=== PATIENT | male | born 1950 | race American Indian/Alaskan Native ===

== ENCOUNTER 2019-08-06 15:44 | Emergency (ER) | payer MEDICARE ==
[2019-08-06 15:55] VITALS: BP 139/78
--- NOTE | 2019-08-06 15:55 | Emergency Department Report ---
Minor Respiratory - HPI Chief Complaint: Upper Respiratory Infection Stated Complaint: COUGH Time Seen by Provider: 08/06/19 15:54 Pain Location: Chest Severity: moderate Minor Respiratory: Yes Able to Tolerate Fluids, Yes Cough, No Rhinorrhea, No Sore Throat, No Ear Pain, No Sick Contacts, No Hemoptysis, No Chest Pain, No Shortness of Breath, No Fever Other History: 69 YO MALE COMES TO ER WITH 1 M HX OF COUGH. POS SPUTUM. YELLOW COLOR. NO FEVER OR CHILLS. AMBULATORY AND NON TOXIC ON EXAM. NO CP. NO SWELLING OF LEGS. SAW PCP WHO GAVE HIM MED REFILLS AND DID A COVID TEST WHEICH WAS NEGATIVE. ED Review of Systems ROS: Stated complaint: COUGH Other details as noted in HPI Comment: All other systems reviewed and negative ED Past Medical Hx - Past Medical History Previous Medical History?: Yes Hx Hypertension: Yes Hx CVA: No Hx Heart Attack/AMI: No Hx Congestive Heart Failure: No Hx Diabetes: Yes - Surgical History Past Surgical History?: Yes Additional Surgical History: TONSILLECTOMY - Family History Family history: no significant - Social History Smoking Status: Never Smoker Substance Use Type: Alcohol (rarely) - Medications Home Medications: Home Medications Medication Instructions Recorded Confirmed Last Taken Type Aspirin EC [Ecotrin] 325 mg PO QDAY #30 tablet 07/29/14 06/25/15 Unknown Rx Simvastatin (Nf) [Zocor TAB] 20 mg PO QHS #30 tablet 07/29/14 06/25/15 Unknown Rx Metoprolol [Lopressor TAB] 25 mg PO BID #60 tablet 06/25/15 Unknown Rx lisinopriL [Zestril TAB] 5 mg PO QDAY #30 tablet 06/25/15 Unknown Rx Azithromycin [Zithromax Z-NAYAN] 250 mg PO DAILY #6 tablet 08/06/19 Unknown Rx Benzonatate [Tessalon Perles] 100 mg PO Q12H PRN #20 capsule 08/06/19 Unknown Rx Cetirizine HCl [ZyrTEC] 10 mg PO DAILY #30 capsule 08/06/19 Unknown Rx Fluticasone [Flonase] 1 spray NS QDAY #1 bottle 08/06/19 Unknown Rx Minor Respiratory Exam - Exam General: Vital signs noted. No distress. Alert and acting appropriately. HEENT: Yes Moist Mucous Membranes, No Pharyngeal Erythema, No Pharyngeal Exudates, No Rhinorrhea, No Conjuctival Injection, No Frontal Tenderness, No Maxillary Tenderness Ear: Neither TM Bulge, Neither TM Erythema, Neither EAC Pain, Neither EAC Discharge Neck: Yes Supple, No Adenopathy Lungs: Yes Good Air Exchange, Yes Wheezes, No Ronchi, No Stridor, No Cough, No Labored Respirations, No Retractions, No Use of Accessory Muscles, No Other Abnormal Lung Sounds Heart: Yes Regular, No Murmur Abdomen: Yes Normal Bowel Sounds, No Tenderness, No Peritoneal Signs Skin: No Rash, No Edema Neurologic: Alert and oriented, no deficits. Musculoskeletal: Unremarkable. 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 pt verbalizes understanding - Differential Diagnosis RO PNA/ CHF Critical care attestation.: If time is entered above; I have spent that time in minutes in the direct care of this critically ill patient, excluding procedure time. ED Disposition Clinical Impression: Cough, Upper respiratory infection Disposition: DC-01 TO HOME OR SELFCARE Is pt being admited?: No Does the pt Need Aspirin: No Condition: Stable Instructions: Upper Respiratory Infection (ED) Additional Instructions: CONTINUE HOME MEDS TAKE MEDS GIVEN TO YOU TODAY AFTER THESE MEDS ARE COMPLETED I NEED YOU TO FOLLOW UP WITH PCP TO MAKE SURE YOU ARE BETTER IF NOT, THEY WILL NEED TO DO ADDITIONAL TESTS DIABETIC DIET MONITOR BLOOD SUGAR- IT MAY BE HIGH GIVEN ILLNESS GOOD HANDWASHING STAY WELL HYDRATED Prescriptions: Fluticasone [Flonase] 1 spray NS QDAY #1 bottle Benzonatate [Tessalon Perles] 100 mg PO Q12H PRN #20 capsule PRN Reason: Cough Azithromycin [Zithromax Z-NAYAN] 250 mg PO DAILY #6 tablet Cetirizine HCl [ZyrTEC] 10 mg PO DAILY #30 capsule Referrals: RUPESH VELAZQUEZ MD [Staff Physician] - 3-5 Days Time of Disposition: 16:14
[2019-08-06] MEDS ORDERED: ALBUTEROL 2.5 MG/3 ML NEBU IH ONE (16:12)
[2019-08-06] MEDS ORDERED: predniSONE 20 MG TAB PO ONE (16:14)
--- NOTE | 2019-08-06 16:19 | XRay Report ---
CHEST 2 VIEWS INDICATION: MAIN: COUGH; pt presents for green/white productive cough x1 month. denies any fever, or chills. denies any dyspnea, or chest pain; said was tested for covid_19 and results were negative x 1 day. COMPARISON: 06/25/2015 FINDINGS: Support devices: None. Heart: Within normal limits. Lungs/pleura: No acute air space or interstitial disease. No pneumothorax. Additional findings: None. IMPRESSION: No acute findings. Signer Name: Patrick Álvarez Jr, MD Signed: 08/06/2019 4:15 PM Workstation Name: [id number]
== END 2019-08-06 17:24 | disposition home or self-care (01) ==
LOC: ED 15:44
DX: J06.9 Acute upper respiratory infection, unspecified (principal); R05 Cough; I10 Essential (primary) hypertension; E11.9 Type 2 diabetes mellitus without complications; Z90.49 Acquired absence of other specified parts of digestive tract; Z79.899 Other long term (current) drug therapy
CPT/HCPCS: 71046; 94640; 99283; J7512

== ENCOUNTER 2020-05-07 19:12 | Emergency (ER) | payer MEDICARE ==
[2020-05-07 19:31] VITALS: BP 159/83
[2020-05-07 20:29] LABS: Basophils % (Auto) 0.7 % (0.0-1.8); Eosinophils # (Auto) 0.2 K/mm3 (0.0-0.4); Eosinophils % (Auto) 2.3 % (0.0-4.3); Hematocrit 40.9 % (35.5-45.6); Hemoglobin 13.7 gm/dl (11.8-15.2); Lymphocytes # (Auto) 1.5 K/mm3 (1.2-5.4); Lymphocytes % (Auto) 20.6 % (13.4-35.0); Mean Corpuscular HGB Conc 34 % (32-34); Mean Corpuscular Volume 94 fl (84-94); Monocytes # (Auto) 0.6 K/mm3 (0.0-0.8); Monocytes % (Auto) 7.9 % (0.0-7.3); Platelet Count 240 K/mm3 (140-440); Red Blood Count 4.34 M/mm3 (3.65-5.03); Red Cell Distribution Width 13.2 % (13.2-15.2)
--- NOTE | 2020-05-07 20:37 | XRay Report ---
CHEST 1 VIEW INDICATION / CLINICAL INFORMATION: Altered Mental Status. FINDINGS: SUPPORT DEVICES: None. HEART / MEDIASTINUM: No significant abnormality. LUNGS / PLEURA: No significant pulmonary or pleural abnormality. No pneumothorax. ADDITIONAL FINDINGS: No significant additional findings. IMPRESSION: 1. No acute findings. Signer Name: Adonis Baer MD Signed: 05/07/2020 8:32 PM Workstation Name: [id number]
[2020-05-07 20:39] LABS: INR 0.95 (0.87-1.13)
[2020-05-07 20:40] LABS: Partial Thromboplastin Time 26.7 Sec. (24.2-36.6)
[2020-05-07 20:53] LABS: Alanine Aminotransferase 14 units/L (7-56); Albumin 4.1 g/dL (3.9-5); BUN/Creatinine Ratio 13; Blood Urea Nitrogen 13 mg/dL (9-20); Hemolysis Index 6
--- NOTE | 2020-05-07 21:28 | Cat Scan Report ---
CT BRAIN: 05/07/2020 INDICATION / CLINICAL INFORMATION: Altered Mental Status. COMPARISON: None available. FINDINGS: BRAIN/INTRACRANIAL STRUCTURES: Unenhanced CT images of the brain demonstrate no evidence of acute int racranial abnormality. Ventricles and sulci are prominent in size, consistent with prominent diffuse cerebral atrophy. There is no evidence of acute ischemic injury, hemorrhage, or mass. There are no abnormal extra-axial fluid collections. Atherosclerotic vascular calcifications are present in the distal internal carotid arteries and verte bral arteries. EXTRACRANIAL STRUCTURES: Unremarkable. IMPRESSION: No acute abnormality. Prominent diffuse cerebral atrophy and chronic age-related change. All CT scans at this location are performed using dose reduction to ALARA by means of automated expos ure control. Signer Name: Richie rGeen MD Signed: 05/07/2020 9:24 PM Workstation Name: [id number]
--- NOTE | 2020-05-07 22:01 | Emergency Department Report ---
ED General Adult HPI - General Chief complaint: Altered Mental Status Stated complaint: AMS Time Seen by Provider: 05/07/20 19:34 Source: patient, EMS Mode of arrival: Stretcher Limitations: No Limitations - History of Present Illness Initial comments: The patient presents to the emergency department via EMS for change in mental status. Patient states for the last couple days he has not felt well and today his stated that he was not answering questions and communicating like he normally does so they called EMS. Patient states that today he felt dizzy and lightheaded He denies chest pain, shortness breath, or headache. -: Sudden Severity scale (0 -10): 0 Consistency: constant Improves with: none Worsens with: none Associated Symptoms: denies other symptoms Treatments Prior to Arrival: none - Related Data Previous Rx's Medication Instructions Recorded Last Taken Type Aspirin EC [Ecotrin] 325 mg PO QDAY #30 tablet 07/29/14 Unknown Rx Simvastatin (Nf) [Zocor TAB] 20 mg PO QHS #30 tablet 07/29/14 Unknown Rx Metoprolol [Lopressor TAB] 25 mg PO BID #60 tablet 06/25/15 Unknown Rx lisinopriL [Zestril TAB] 5 mg PO QDAY #30 tablet 06/25/15 Unknown Rx Azithromycin [Zithromax Z-NAYAN] 250 mg PO DAILY #6 tablet 08/06/19 Unknown Rx Benzonatate [Tessalon Perles] 100 mg PO Q12H PRN #20 capsule 08/06/19 Unknown Rx Cetirizine HCl [ZyrTEC] 10 mg PO DAILY #30 capsule 08/06/19 Unknown Rx Fluticasone [Flonase] 1 spray NS QDAY #1 bottle 08/06/19 Unknown Rx Allergies Allergy/AdvReac Type Severity Reaction Status Date / Time No Known Allergies Allergy Verified 08/06/19 15:49 ED Review of Systems ROS: Stated complaint: AMS Other details as noted in HPI Comment: All other systems reviewed and negative Constitutional: denies: chills, fever Eyes: denies: eye pain, eye discharge, vision change ENT: denies: ear pain, throat pain Respiratory: denies: cough, shortness of breath, wheezing Cardiovascular: denies: chest pain, palpitations Endocrine: no symptoms reported Gastrointestinal: denies: abdominal pain, nausea, diarrhea Genitourinary: denies: urgency, dysuria Musculoskeletal: denies: back pain, joint swelling, arthralgia Skin: denies: rash, lesions Neurological: denies: headache, weakness, paresthesias Psychiatric: denies: anxiety, depression Hematological/Lymphatic: denies: easy bleeding, easy bruising ED Past Medical Hx - Past Medical History Previous Medical History?: Yes Hx Hypertension: Yes Hx CVA: No Hx Heart Attack/AMI: No Hx Congestive Heart Failure: No Hx Diabetes: Yes - Surgical History Past Surgical History?: Yes Additional Surgical History: TONSILLECTOMY - Social History Smoking Status: Former Smoker Substance Use Type: None - Medications Home Medications: Home Medications Medication Instructions Recorded Confirmed Last Taken Type Aspirin EC [Ecotrin] 325 mg PO QDAY #30 tablet 07/29/14 06/25/15 Unknown Rx Simvastatin (Nf) [Zocor TAB] 20 mg PO QHS #30 tablet 07/29/14 06/25/15 Unknown Rx Metoprolol [Lopressor TAB] 25 mg PO BID #60 tablet 06/25/15 Unknown Rx lisinopriL [Zestril TAB] 5 mg PO QDAY #30 tablet 06/25/15 Unknown Rx Azithromycin [Zithromax Z-NAYAN] 250 mg PO DAILY #6 tablet 08/06/19 Unknown Rx Benzonatate [Tessalon Perles] 100 mg PO Q12H PRN #20 capsule 08/06/19 Unknown Rx Cetirizine HCl [ZyrTEC] 10 mg PO DAILY #30 capsule 08/06/19 Unknown Rx Fluticasone [Flonase] 1 spray NS QDAY #1 bottle 08/06/19 Unknown Rx ED Physical Exam - General Limitations: No Limitations General appearance: alert, in no apparent distress, other (The patient is alert but slightly confused upon evaluation) - Head Head exam: Present: atraumatic, normocephalic - Eye Eye exam: Present: normal appearance - ENT ENT exam: Present: mucous membranes moist - Neck Neck exam: Present: normal inspection - Respiratory Respiratory exam: Present: normal lung sounds bilaterally. Absent: respiratory distress - Cardiovascular Cardiovascular Exam: Present: regular rate, normal rhythm. Absent: systolic murmur, diastolic murmur, rubs, gallop - GI/Abdominal GI/Abdominal exam: Present: soft, normal bowel sounds. Absent: distended, tenderness - Rectal Rectal exam: Present: deferred - Extremities Exam Extremities exam: Present: normal inspection - Back Exam Back exam: Present: normal inspection - Neurological Exam Neurological exam: Present: alert, oriented X3, CN II-XII intact. Absent: motor sensory deficit - Psychiatric Psychiatric exam: Present: normal affect, normal mood - Skin Skin exam: Present: warm, dry, intact, normal color. Absent: rash ED Course Vital Signs 05/07/20 19:20 Temperature 98.4 F Pulse Rate 73 Respiratory 16 Rate Blood Pressure 159/83 O2 Sat by Pulse 98 Oximetry ED Medical Decision Making - Lab Data Result diagrams: 05/07/20 20:13 05/07/20 20:13 Lab Results 05/07/20 05/07/20 05/07/20 Range/Units 20:13 20:13 20:13 WBC 7.1 (4.5-11.0) K/mm3 RBC 4.34 (3.65-5.03) M/mm3 Hgb 13.7 (11.8-15.2) gm/dl Hct 40.9 (35.5-45.6) % MCV 94 (84-94) fl MCH 32 (28-32) pg MCHC 34 (32-34) % RDW 13.2 (13.2-15.2) % Plt Count 240 (140-440) K/mm3 Lymph % (Auto) 20.6 (13.4-35.0) % [place] % (Auto) 7.9 H (0.0-7.3) % Eos % (Auto) 2.3 (0.0-4.3) % Baso % (Auto) 0.7 (0.0-1.8) % Lymph # (Auto) 1.5 (1.2-5.4) K/mm3 [place] # (Auto) 0.6 (0.0-0.8) K/mm3 Eos # (Auto) 0.2 (0.0-0.4) K/mm3 Baso # (Auto) 0.0 (0.0-0.1) K/mm3 Seg Neutrophils % 68.5 (40.0-70.0) % Seg Neutrophils # 4.9 (1.8-7.7) K/mm3 PT 12.5 (12.2-14.9) Sec. INR 0.95 (0.87-1.13) APTT 26.7 (24.2-36.6) Sec. Potassium 4.0 (3.6-5.0) mmol/L Chloride 104.5 (98-107) mmol/L Carbon Dioxide 22 (22-30) mmol/L Anion Gap 16 mmol/L BUN 13 (9-20) mg/dL Creatinine 1.0 (0.8-1.3) mg/dL Estimated GFR > 60 ml/min BUN/Creatinine Ratio 13 % Glucose 169 H (75-100) mg/dL Lactic Acid (0.7-2.0) mmol/L Calcium 10.0 (8.4-10.2) mg/dL Total Bilirubin 0.20 (0.1-1.2) mg/dL AST 11 (5-40) units/L ALT 14 (7-56) units/L Alkaline Phosphatase 95 (35-129) units/L Ammonia (25-60) umol/L Total Creatine Kinase 113 (55-170) units/L Troponin T < 0.010 (0.00-0.029) ng/mL Total Protein 7.2 (6.3-8.2) g/dL Albumin 4.1 (3.9-5) g/dL Albumin/Globulin Ratio 1.3 % TSH (0.270-4.200) mlU/mL Salicylates (2.8-20.0) mg/dL Acetaminophen (10.0-30.0) ug/mL Plasma/Serum Alcohol (0-0.07) % 05/07/20 05/07/20 05/07/20 Range/Units 20:13 20:13 20:13 WBC (4.5-11.0) K/mm3 RBC (3.65-5.03) M/mm3 Hgb (11.8-15.2) gm/dl Hct (35.5-45.6) % MCV (84-94) fl MCH (28-32) pg MCHC (32-34) % RDW (13.2-15.2) % Plt Count (140-440) K/mm3 Lymph % (Auto) (13.4-35.0) % [place] % (Auto) (0.0-7.3) % Eos % (Auto) (0.0-4.3) % Baso % (Auto) (0.0-1.8) % Lymph # (Auto) (1.2-5.4) K/mm3 [place] # (Auto) (0.0-0.8) K/mm3 Eos # (Auto) (0.0-0.4) K/mm3 Baso # (Auto) (0.0-0.1) K/mm3 Seg Neutrophils % (40.0-70.0) % Seg Neutrophils # (1.8-7.7) K/mm3 PT (12.2-14.9) Sec. INR (0.87-1.13) APTT (24.2-36.6) Sec. Potassium (3.6-5.0) mmol/L Chloride (98-107) mmol/L Carbon Dioxide (22-30) mmol/L Anion Gap mmol/L BUN (9-20) mg/dL Creatinine (0.8-1.3) mg/dL Estimated GFR ml/min BUN/Creatinine Ratio % Glucose (75-100) mg/dL Lactic Acid 1.90 (0.7-2.0) mmol/L Calcium (8.4-10.2) mg/dL Total Bilirubin (0.1-1.2) mg/dL AST (5-40) units/L ALT (7-56) units/L Alkaline Phosphatase (35-129) units/L Ammonia (25-60) umol/L Total Creatine Kinase (55-170) units/L Troponin T (0.00-0.029) ng/mL Total Protein (6.3-8.2) g/dL Albumin (3.9-5) g/dL Albumin/Globulin Ratio % TSH (0.270-4.200) mlU/mL Salicylates < 0.3 L (2.8-20.0) mg/dL Acetaminophen 5.0 L (10.0-30.0) ug/mL Plasma/Serum Alcohol (0-0.07) % 05/07/20 05/07/20 05/07/20 Range/Units 20:13 20:13 20:13 WBC (4.5-11.0) K/mm3 RBC (3.65-5.03) M/mm3 Hgb (11.8-15.2) gm/dl Hct (35.5-45.6) % MCV (84-94) fl MCH (28-32) pg MCHC (32-34) % RDW (13.2-15.2) % Plt Count (140-440) K/mm3 Lymph % (Auto) (13.4-35.0) % [place] % (Auto) (0.0-7.3) % Eos % (Auto) (0.0-4.3) % Baso % (Auto) (0.0-1.8) % Lymph # (Auto) (1.2-5.4) K/mm3 [place] # (Auto) (0.0-0.8) K/mm3 Eos # (Auto) (0.0-0.4) K/mm3 Baso # (Auto) (0.0-0.1) K/mm3 Seg Neutrophils % (40.0-70.0) % Seg Neutrophils # (1.8-7.7) K/mm3 PT (12.2-14.9) Sec. INR (0.87-1.13) APTT (24.2-36.6) Sec. Potassium (3.6-5.0) mmol/L Chloride (98-107) mmol/L Carbon Dioxide (22-30) mmol/L Anion Gap mmol/L BUN (9-20) mg/dL Creatinine (0.8-1.3) mg/dL Estimated GFR ml/min BUN/Creatinine Ratio % Glucose (75-100) mg/dL Lactic Acid (0.7-2.0) mmol/L Calcium (8.4-10.2) mg/dL Total Bilirubin (0.1-1.2) mg/dL AST (5-40) units/L ALT (7-56) units/L Alkaline Phosphatase (35-129) units/L Ammonia 26.0 (25-60) umol/L Total Creatine Kinase (55-170) units/L Troponin T (0.00-0.029) ng/mL Total Protein (6.3-8.2) g/dL Albumin (3.9-5) g/dL Albumin/Globulin Ratio % TSH 0.694 (0.270-4.200) mlU/mL Salicylates (2.8-20.0) mg/dL Acetaminophen (10.0-30.0) ug/mL Plasma/Serum Alcohol < 0.01 (0-0.07) % - EKG Data -: EKG Interpreted by Me EKG shows normal: sinus rhythm Rate: normal - Radiology Data Radiology results: report reviewed - Medical Decision Making Patient was reevaluated multiple times throughout his ED stay and each r eevaluation showed the patient to be able to answer questions appropriately and asked the current events and past events without difficulty. His confusion cleared. Patient was given the transfer admission but stated he feels much better and would like to go home. Critical care attestation.: If time is entered above; I have spent that time in minutes in the direct care o f this critically ill patient, excluding procedure time. ED Disposition Clinical Impression: Confusion Disposition: DC-01 TO HOME OR SELFCARE Is pt being admited?: No Does the pt Need Aspirin: No Condition: Stable Instructions: Confusion Additional Instructions: return if worse Referrals: PRIMARY CAREMD [Primary Care Provider] - 3-5 Days RUPESH VELAZQUEZ MD [Staff Physician] - 3-5 Days DANNY EDGAR MD [Staff Physician] - 3-5 Days Time of Disposition: 00:25
[2020-05-07 23:25] LABS: Bilirubin,Urine NEG (Negative); Blood,Urine NEG (Negative); Color,Urine Straw (Yellow); Mucus,Urine FEW /HPF; Protein,Urine <15 mg/dL mg/dL (Negative); RBC,Urine < 1.0 /HPF (0.0-6.0); Urobilinogen,Urine < 2.0 mg/dL (<2.0); WBC,Urine < 1.0 /HPF (0.0-6.0)
[2020-05-07 23:31] LABS: Amphetamine Screen,Urine PRESUMPTIVE NEGATIVE; Benzodiazepines Screen,Urine PRESUMPTIVE NEGATIVE; Cannabinoid Screen,Urine PRESUMPTIVE NEGATIVE; Cocaine Screen,Urine PRESUMPTIVE NEGATIVE; Methadone Screen,Urine PRESUMPTIVE NEGATIVE; Opiate Screen,Urine PRESUMPTIVE NEGATIVE
== END 2020-05-08 00:35 | disposition home or self-care (01) ==
LOC: ED 19:12
DX: R41.0 Disorientation, unspecified (principal); I10 Essential (primary) hypertension; E11.9 Type 2 diabetes mellitus without complications; Z90.89 Acquired absence of other organs; Z87.891 Personal history of nicotine dependence; Z79.2 Long term (current) use of antibiotics; Z79.899 Other long term (current) drug therapy
CPT/HCPCS: 70450; 71045; 80053; 80307; 80320; 81001; 82140; 82550; 84443; 84484; 85025; 85610; 85730; 87040; 87086; 93005; G0480

== ENCOUNTER 2020-06-05 15:16 | Inpatient (IN) | payer OTHER, MEDICARE ==
[2020-06-05] MEDS ORDERED: SODIUM CHLORIDE 0.9% 1000 ML IV SOLN IV ONE (16:10)
[2020-06-05] MEDS ORDERED: INSULIN REGULAR, HUMAN 100 UNITS/1 ML IV ONE (16:12)
--- NOTE | 2020-06-05 16:40 | XRay Report ---
CHEST 1 VIEW INDICATION / CLINICAL INFORMATION: ams, hypotension. FINDINGS: SUPPORT DEVICES: None. HEART / MEDIASTINUM: No significant abnormality. LUNGS / PLEURA: No significant pulmonary or pleural abnormality. No pneumothorax. ADDITIONAL FINDINGS: No significant additional findings. IMPRESSION: 1. No acute findings. Signer Name: Adonis Baer MD Signed: 06/05/2020 4:36 PM Workstation Name: [id number]
--- NOTE | 2020-06-05 16:41 | XRay Report ---
Pelvis and right hip INDICATION: Pain FINDINGS: Degenerative change with joint space narrowing in bilateral hips. There is a sacrum appears normal. No acute fracture. Signer Name: Wyatt Villasenor MD Signed: 06/05/2020 4:36 PM Workstation Name: [id number]
[2020-06-05 16:43] LABS: Basophils % (Auto) 0.3 % (0.0-1.8); Eosinophils # (Auto) 0.2 K/mm3 (0.0-0.4); Eosinophils % (Auto) 1.3 % (0.0-4.3); Hematocrit 41.8 % (35.5-45.6); Hemoglobin 13.7 gm/dl (11.8-15.2); Lymphocytes # (Auto) 1.6 K/mm3 (1.2-5.4); Lymphocytes % (Auto) 11.6 % (13.4-35.0); Mean Corpuscular HGB Conc 33 % (32-34); Mean Corpuscular Volume 95 fl (84-94); Monocytes # (Auto) 0.7 K/mm3 (0.0-0.8); Monocytes % (Auto) 4.9 % (0.0-7.3); Platelet Count 420 K/mm3 (140-440); Red Blood Count 4.39 M/mm3 (3.65-5.03); Red Cell Distribution Width 13.7 % (13.2-15.2)
[2020-06-05 16:56] LABS: INR 1.03 (0.87-1.13)
[2020-06-05 16:57] LABS: Partial Thromboplastin Time 26.9 Sec. (24.2-36.6)
[2020-06-05 17:07] LABS: Calcium 10.5 mg/dL (8.4-10.2)
[2020-06-05 17:49] LABS: Bilirubin,Urine NEG (Negative); Blood,Urine NEG (Negative); Color,Urine Yellow (Yellow); Mucus,Urine FEW /HPF; Protein,Urine <15 mg/dL mg/dL (Negative); RBC,Urine < 1.0 /HPF (0.0-6.0); Urobilinogen,Urine < 2.0 mg/dL (<2.0); WBC,Urine < 1.0 /HPF (0.0-6.0)
--- NOTE | 2020-06-05 18:31 | Emergency Department Report ---
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 As per snf paperwork patient also has a history of dementia, hypertension and hands significant aphasia with right-sided hemiplegia and sensory deficit, right visual field deficit, left gaze preference, and right sided weakness status post left proximal FARM BUTCHER occlusion diagnosis on May 08 at [place]. Patient was not deemed a thrombolytic or thrombectomy candidate at that time he was admitted for additional stroke work-up and treatment and discharged into his current snf. Patient is oriented to self only does not know the year, where he is, where he lives. Denies any pain. He does not recall how he ended up on the floor. EMS reports that they received call at 1:30 PM and was at the snf 45 minutes later. Accu-Chek. Blood pressure was not obtained prior to arrival. They state the snf staff did not report any change in mental status. Recent [place] discharge summary included in snf patient blood work. BUN/creatinine from May 08 was 12/0.9 - Related Data Previous Rx's Medication Instructions Recorded Last Taken Type Aspirin EC [Ecotrin] 325 mg PO QDAY #30 tablet 07/29/14 Unknown Rx Simvastatin (Nf) [Zocor TAB] 20 mg PO QHS #30 tablet 07/29/14 Unknown Rx Metoprolol [Lopressor TAB] 25 mg PO BID #60 tablet 06/25/15 Unknown Rx lisinopriL [Zestril TAB] 5 mg PO QDAY #30 tablet 06/25/15 Unknown Rx Azithromycin [Zithromax Z-NAYAN] 250 mg PO DAILY #6 tablet 08/06/19 Unknown Rx Benzonatate [Tessalon Perles] 100 mg PO Q12H PRN #20 capsule 08/06/19 Unknown Rx Cetirizine HCl [ZyrTEC] 10 mg PO DAILY #30 capsule 08/06/19 Unknown Rx Fluticasone [Flonase] 1 spray NS QDAY #1 bottle 08/06/19 Unknown Rx Allergies Allergy/AdvReac Type Severity Reaction Status Date / Time No Known Allergies Allergy Verified 08/06/19 15:49 ED Review of Systems ROS: Stated complaint: FALL Other details as noted in HPI Comment: Unobtainable due to pts medical conditions ED Past Medical Hx - Past Medical History Previous Medical History?: Yes Hx Hypertension: Yes Hx CVA: Yes (Left proximal FARM BUTCHER evaluation April 2019) Hx Heart Attack/AMI: No Hx Congestive Heart Failure: No Hx Diabetes: Yes - Surgical History Additional Surgical History: TONSILLECTOMY - Social History Smoking Status: Former Smoker Substance Use Type: None - Medications Home Medications: Home Medications Medication Instructions Recorded Confirmed Last Taken Type Aspirin EC [Ecotrin] 325 mg PO QDAY #30 tablet 07/29/14 06/05/20 Unknown Rx Simvastatin (Nf) [Zocor TAB] 20 mg PO QHS #30 tablet 07/29/14 06/05/20 Unknown Rx Metoprolol [Lopressor TAB] 25 mg PO BID #60 tablet 06/25/15 06/05/20 Unknown Rx lisinopriL [Zestril TAB] 5 mg PO QDAY #30 tablet 06/25/15 06/05/20 Unknown Rx Azithromycin [Zithromax Z-NAYAN] 250 mg PO DAILY #6 tablet 08/06/19 06/05/20 Unknown Rx Benzonatate [Tessalon Perles] 100 mg PO Q12H PRN #20 capsule 08/06/19 06/05/20 Unknown Rx Cetirizine HCl [ZyrTEC] 10 mg PO DAILY #30 capsule 08/06/19 06/05/20 Unknown Rx Fluticasone [Flonase] 1 spray NS QDAY #1 bottle 08/06/19 06/05/20 Unknown Rx ED Physical Exam - General Limitations: Other - Other Other exam information: General: No acute distress Head: Atraumatic, no hematoma Eyes: normal appearance ENT: Dry mucous membrane Neck: Normal appearance, no midline tenderness Chest: Clear to auscultation bilaterally CV: Regular rate and rhythm Abdomen: Soft, normal bowel sounds, nontender, nondistended, no rebound or guarding Back: Normal inspection Extremity: Normal inspection, full range of motion, mild grimace with movement of right hip Neuro: Alert oriented to self only, intermittently answering questions. Dysarthria. mild right facial droop, no antigravity movement of right arm or right leg with decreased sensation and touch. Right visual field deficit. Extraocular mvt was intact. Patient would not cooperate with [id number] function or [id number] function and poorly cooperative with neuro exam. Psych: Appropriate behavior ED Course Vital Signs 06/05/20 06/05/20 06/05/20 16:49 17:22 17:32 Temperature 97.5 F L Pulse Rate 93 H Respiratory 16 Rate Blood Pressure Blood Pressure 90/54 [Left] O2 Sat by Pulse 97 93 93 Oximetry 06/05/20 06/05/20 06/05/20 17:46 18:17 18:30 Temperature Pulse Rate Respiratory Rate Blood Pressure 90/49 Blood Pressure [Left] O2 Sat by Pulse 96 94 96 Oximetry 06/05/20 06/05/20 06/05/20 18:46 18:49 19:02 Temperature Pulse Rate 88 Respiratory 16 Rate Blood Pressure 85/46 96/66 Blood Pressure 90/49 [Left] O2 Sat by Pulse 95 94 68 L Oximetry 06/05/20 06/05/20 06/05/20 19:10 19:16 19:30 Temperature Pulse Rate 91 H 91 H 88 Respiratory 16 12 15 Rate Blood Pressure 109/54 113/51 Blood Pressure 95/66 [Left] O2 Sat by Pulse 95 95 Oximetry 06/05/20 06/05/20 06/05/20 19:45 20:00 20:15 Temperature Pulse Rate 89 86 89 Respiratory 12 15 18 Rate Blood Pressure 137/57 99/47 115/74 Blood Pressure [Left] O2 Sat by Pulse 94 94 92 Oximetry 06/05/20 06/05/20 06/05/20 20:30 20:46 21:00 Temperature Pulse Rate 98 H 93 H Respiratory 14 14 Rate Blood Pressure 90/49 115/74 100/70 Blood Pressure [Left] O2 Sat by Pulse 96 86 97 Oximetry 06/05/20 06/05/20 06/05/20 21:16 21:30 21:46 Temperature Pulse Rate 87 94 H 94 H Respiratory 20 17 13 Rate Blood Pressure 80/40 106/64 Blood Pressure [Left] O2 Sat by Pulse 98 96 Oximetry 06/05/20 06/05/20 06/05/20 22:00 22:10 22:20 Temperature Pulse Rate 92 H 91 H 90 Respiratory 16 15 9 L Rate Blood Pressure 107/59 107/59 Blood Pressure [Left] O2 Sat by Pulse Oximetry 06/05/20 06/05/20 06/05/20 22:30 22:40 22:50 Temperature Pulse Rate 89 91 H 92 H Respiratory 10 L 12 13 Rate Blood Pressure 101/53 101/53 98/62 Blood Pressure [Left] O2 Sat by Pulse Oximetry 06/05/20 06/05/20 06/05/20 23:00 23:10 23:20 Temperature Pulse Rate 90 92 H 89 Respiratory 12 10 L 18 Rate Blood Pressure 93/56 93/56 93/56 Blood Pressure [Left] O2 Sat by Pulse Oximetry - Reevaluation(s) Reevaluation #2: 06/05/20 19:11 current bp 96/66, nurse informs me at this time the patient has had 4 episodes of loose stool. C. difficile ordered 06/05/20 19:54 Lactic acid increasing. Patient has only received 1 L of normal saline at this time. Additional 1700 mL pending as per 30 mL/kg bolus of normal saline. Given increased lactic acid and that patient has diarrhea CT abdomen pelvis noncontrast been ordered and pending at time of admission 06/05/20 19:[address] abd pending at time of dispo. Glucose level improved after insulin no signs of DKA ED Medical Decision Making - Lab Data Result diagrams: 06/06/20 02:35 06/06/20 02:35 Lab Results 06/05/20 06/05/20 06/05/20 Range/Units 16:25 16:25 16:25 WBC 14.1 H (4.5-11.0) K/mm3 RBC 4.39 (3.65-5.03) M/mm3 Hgb 13.7 (11.8-15.2) gm/dl Hct 41.8 (35.5-45.6) % MCV 95 H (84-94) fl MCH 31 (28-32) pg MCHC 33 (32-34) % RDW 13.7 (13.2-15.2) % Plt Count 420 (140-440) K/mm3 Lymph % (Auto) 11.6 L (13.4-35.0) % [place] % (Auto) 4.9 (0.0-7.3) % Eos % (Auto) 1.3 (0.0-4.3) % Baso % (Auto) 0.3 (0.0-1.8) % Lymph # (Auto) 1.6 (1.2-5.4) K/mm3 [place] # (Auto) 0.7 (0.0-0.8) K/mm3 Eos # (Auto) 0.2 (0.0-0.4) K/mm3 Baso # (Auto) 0.0 (0.0-0.1) K/mm3 Seg Neutrophils % 81.9 H (40.0-70.0) % Seg Neutrophils # 11.5 H (1.8-7.7) K/mm3 PT (12.2-14.9) Sec. INR (0.87-1.13) APTT (24.2-36.6) Sec. VBG pH (7.320-7.420) Sodium 134 L (137-145) mmol/L Potassium 5.0 (3.6-5.0) mmol/L Chloride 96.5 L (98-107) mmol/L Carbon Dioxide 28 (22-30) mmol/L Anion Gap 15 mmol/L BUN 66 H (9-20) mg/dL Creatinine 2.0 H (0.8-1.3) mg/dL Estimated GFR 40 ml/min BUN/Creatinine Ratio 33 % Glucose 496 H (75-100) mg/dL Lactic Acid 2.80 H* (0.7-2.0) mmol/L Calcium 10.5 H (8.4-10.2) mg/dL Phosphorus (2.5-4.5) mg/dL Magnesium (1.7-2.3) mg/dL Total Bilirubin 0.30 (0.1-1.2) mg/dL AST 12 (5-40) units/L ALT 14 (7-56) units/L Alkaline Phosphatase 109 (35-129) units/L Troponin T 0.015 (0.00-0.029) ng/mL Total Protein 6.8 (6.3-8.2) g/dL Albumin 3.0 L (3.9-5) g/dL Albumin/Globulin Ratio 0.8 % Urine Color (Yellow) Urine Turbidity (Clear) Urine pH (5.0-7.0) Ur Specific [place] (1.003-1.030) Urine Protein (Negative) mg/dL Urine Glucose (UA) (Negative) mg/dL Urine Ketones (Negative) mg/dL Urine Blood (Negative) Urine Nitrite (Negative) Urine Bilirubin (Negative) Urine Urobilinogen (<2.0) mg/dL Ur Leukocyte Esterase (Negative) Urine WBC (Auto) (0.0-6.0) /HPF Urine RBC (Auto) (0.0-6.0) /HPF U Epithel Cells (Auto) (0-13.0) /HPF Urine Mucus /HPF 06/05/20 06/05/20 06/05/20 Range/Units 16:25 16:25 16:25 WBC (4.5-11.0) K/mm3 RBC (3.65-5.03) M/mm3 Hgb (11.8-15.2) gm/dl Hct (35.5-45.6) % MCV (84-94) fl MCH (28-32) pg MCHC (32-34) % RDW (13.2-15.2) % Plt Count (140-440) K/mm3 Lymph % (Auto) (13.4-35.0) % [place] % (Auto) (0.0-7.3) % Eos % (Auto) (0.0-4.3) % Baso % (Auto) (0.0-1.8) % Lymph # (Auto) (1.2-5.4) K/mm3 [place] # (Auto) (0.0-0.8) K/mm3 Eos # (Auto) (0.0-0.4) K/mm3 Baso # (Auto) (0.0-0.1) K/mm3 Seg Neutrophils % (40.0-70.0) % Seg Neutrophils # (1.8-7.7) K/mm3 PT 13.4 (12.2-14.9) Sec. INR 1.03 (0.87-1.13) APTT 26.9 (24.2-36.6) Sec. VBG pH 7.386 (7.320-7.420) Sodium (137-145) mmol/L Potassium (3.6-5.0) mmol/L Chloride (98-107) mmol/L Carbon Dioxide (22-30) mmol/L Anion Gap mmol/L BUN (9-20) mg/dL Creatinine (0.8-1.3) mg/dL Estimated GFR ml/min BUN/Creatinine Ratio % Glucose (75-100) mg/dL Lactic Acid (0.7-2.0) mmol/L Calcium (8.4-10.2) mg/dL Phosphorus 5.20 H (2.5-4.5) mg/dL Magnesium 2.50 H (1.7-2.3) mg/dL Total Bilirubin (0.1-1.2) mg/dL AST (5-40) units/L ALT (7-56) units/L Alkaline Phosphatase (35-129) units/L Troponin T (0.00-0.029) ng/mL Total Protein (6.3-8.2) g/dL Albumin (3.9-5) g/dL Albumin/Globulin Ratio % Urine Color (Yellow) Urine Turbidity (Clear) Urine pH (5.0-7.0) Ur Specific [place] (1.003-1.030) Urine Protein (Negative) mg/dL Urine Glucose (UA) (Negative) mg/dL Urine Ketones (Negative) mg/dL Urine Blood (Negative) Urine Nitrite (Negative) Urine Bilirubin (Negative) Urine Urobilinogen (<2.0) mg/dL Ur Leukocyte Esterase (Negative) Urine WBC (Auto) (0.0-6.0) /HPF Urine RBC (Auto) (0.0-6.0) /HPF U Epithel Cells (Auto) (0-13.0) /HPF Urine Mucus /HPF 06/05/20 Range/Units 16:49 WBC (4.5-11.0) K/mm3 RBC (3.65-5.03) M/mm3 Hgb (11.8-15.2) gm/dl Hct (35.5-45.6) % MCV (84-94) fl MCH (28-32) pg MCHC (32-34) % RDW (13.2-15.2) % Plt Count (140-440) K/mm3 Lymph % (Auto) (13.4-35.0) % [place] % (Auto) (0.0-7.3) % Eos % (Auto) (0.0-4.3) % Baso % (Auto) (0.0-1.8) % Lymph # (Auto) (1.2-5.4) K/mm3 [place] # (Auto) (0.0-0.8) K/mm3 Eos # (Auto) (0.0-0.4) K/mm3 Baso # (Auto) (0.0-0.1) K/mm3 Seg Neutrophils % (40.0-70.0) % Seg Neutrophils # (1.8-7.7) K/mm3 PT (12.2-14.9) Sec. INR (0.87-1.13) APTT (24.2-36.6) Sec. VBG pH (7.320-7.420) Sodium (137-145) mmol/L Potassium (3.6-5.0) mmol/L Chloride (98-107) mmol/L Carbon Dioxide (22-30) mmol/L Anion Gap mmol/L BUN (9-20) mg/dL Creatinine (0.8-1.3) mg/dL Estimated GFR ml/min BUN/Creatinine Ratio % Glucose (75-100) mg/dL Lactic Acid (0.7-2.0) mmol/L Calcium (8.4-10.2) mg/dL Phosphorus (2.5-4.5) mg/dL Magnesium (1.7-2.3) mg/dL Total Bilirubin (0.1-1.2) mg/dL AST (5-40) units/L ALT (7-56) units/L Alkaline Phosphatase (35-129) units/L Troponin T (0.00-0.029) ng/mL Total Protein (6.3-8.2) g/dL Albumin (3.9-5) g/dL Albumin/Globulin Ratio % Urine Color Yellow (Yellow) Urine Turbidity Slightly-cloudy (Clear) Urine pH 5.0 (5.0-7.0) Ur Specific [place] 1.017 (1.003-1.030) Urine Protein <15 mg/dl (Negative) mg/dL Urine Glucose (UA) >=500 (Negative) mg/dL Urine Ketones Neg (Negative) mg/dL Urine Blood Neg (Negative) Urine Nitrite Neg (Negative) Urine Bilirubin Neg (Negative) Urine Urobilinogen < 2.0 (<2.0) mg/dL Ur Leukocyte Esterase Neg (Negative) Urine WBC (Auto) < 1.0 (0.0-6.0) /HPF Urine RBC (Auto) < 1.0 (0.0-6.0) /HPF U Epithel Cells (Auto) < 1.0 (0-13.0) /HPF Urine Mucus Few /HPF - EKG Data -: EKG Interpreted by [facility] EKG shows normal: sinus rhythm, ST-T waves Rate: normal - Radiology Data Radiology results: report reviewed CHEST 1 VIEW INDICATION / CLINICAL INFORMATION: ams, hypotension. FINDINGS: SUPPORT DEVICES: None. HEART / MEDIASTINUM: No significant abnormality. LUNGS / PLEURA: No significant pulmonary or pleural abnormality. No pneumothorax. ADDITIONAL FINDINGS: No significant additional findings. IMPRESSION: 1. No acute findings. Pelvis and right hip INDICATION: Pain FINDINGS: Degenerative change with joint space narrowing in bilateral hips. There is a sacrum appears normal. No acute fracture. Pelvis and right hip INDICATION: Pain FINDINGS: Degenerative change with joint space narrowing in bilateral hips. There is a sacrum appears normal. No acute fracture. CT head/brain wo con INDICATION / CLINICAL INFORMATION: 70 years Male; ams, falll, recent cva, hypotension. TECHNIQUE: Routine CT head without contrast. All CT scans at this location are performed using CT dose reduction for ALARA by means of automated exposure control. COMPARISON: 05/07/2020 FINDINGS: BRAIN / INTRACRANIAL CONTENTS: Subacute, branch FARM BUTCHER infarct seen on the left involving calcarine cortex, as well as the parahippocampal gyral region. Diffusion imaging by MRI may be of benefit. Lacunar-type infarcts are suggested bilaterally in the gangliocapsular regions- left slightly greater than right. Similar findings seen on prior. There may be a small focus of pontine ischemia on the left, which is not seen on prior exam. Small, branch PICA infarct seen on the right which is noted on prior study. Again, diffusion imaging may be of benefit. Otherwise, no acute hemorrhage, mass effect, midline shift, hydrocephalus, or acute, large territorial infarct. Mild to moderate cerebral and cerebellar atrophy. Moderate to marked degree of hippocampal atrophy suggested bilaterally. There are areas of decreased attenuation in the white matter of the cerebral hemispheres. These are nonspecific findings and may be related to microangiopathy (hypertension, diabetes, atherosclerosis), given the patient's age. It might be difficult to evaluate for small areas of ischemia without diffusion imaging by MRI. CRANIOCERVICAL JUNCTION: No significant abnormality. ORBITS: No significant abnormality of visualized orbits. SINUSES / MASTOIDS: Partial opacification of the mastoid air cells suggested. No coalescence of air cells identified. ADDITIONAL FINDINGS: Atherosclerotic disease is seen in the anterior and posterior circulation. IMPRESSION: 1. Subacute, branch FARM BUTCHER infarct seen on the left without definitive signs of hemorrhagic transformation. Diffusion imaging by MRI may be of benefit. ' CT cervical spine wo con INDICATION / CLINICAL INFORMATION: 70 years Male; ams, falll, recent cva, hypotension. TECHNIQUE: Axial CT images of the cervical spine were obtained. Sagittal and coronal reformatted images were produced. All CT scans at this location are performed using CT dose reduction for ALARA by means of automated exposure control. COMPARISON: None available. FINDINGS: POST-SURGICAL CHANGES: None. ALIGNMENT: There is mild curvature the cervical spine, convex toward the right and mild reversal of the cervical lordosis However, there is no clear evidence of significant spondylolisthesis. VERTEBRAE: There is ununited anterior and posterior arches of C1 which are well corticated. There is irregularity with somewhat bulbous configuration of the odontoid, greater on the left and the above findings would appear to be developmental. However, correlation would be needed regarding previous trauma. Otherwise I, the cervical spine appears intact without clear CT evidence of acute fracture. INTRAVERTEBRAL DISCS: The disc bulge at C2-3 effaces the ventral subarachnoid space. There is moderate left neural foraminal narrowing. The disc bulge at C3-4 encroaches on the ventral cord. There is marked left and moderate to marked right foraminal narrowing. The spondylosis at C4-5 also encroaches on the ventral cord. There is moderate foraminal narrowing bilaterally. The spondylosis at C5-6 greater on the right with effacement of the right lateral recess. Additionally, there is moderate right foraminal narrowing. The spondylosis at C6-7 appears to efface the ventral subarachnoid space. There is moderate neural foraminal narrowing bilaterally. There is notable spondylosis at C7-T1 with marked neural from narrowing, greater on the right. There is also effacement of the lateral recesses, greater on the right. PARASPINAL SOFT TISSUES: No prevertebral soft tissue fluid collections are identified. There is mild prominence of the thyroid gland with small focus of calcification centrally on the left which is nonspecific. ADDITIONAL FINDINGS: None. IMPRESSION: 1. There are ununited anterior and posterior arches of C1 with irregularity of the odontoid which appear to be on a degenerative basis or possibly related to old trauma and correlation would be needed. Otherwise, there is no clear CT evidence of acute fracture of the cervical spine. 2. There is mild curvature of the spine with multilevel advanced degenerative the changes as detailed above. CT ABDOMEN AND PELVIS WITHOUT CONTRAST INDICATION / CLINICAL INFORMATION: Diarrhea, elevated lactic acid. TECHNIQUE: Axial CT images were obtained through the abdomen and pelvis without IV contrast. All CT scans at this location are performed using CT dose reduction for ALARA by means of automated exposure control. COMPARISON: CT pelvis 03/28/2019 FINDINGS: LOWER CHEST: Mild bibasilar atelectasis with trace right pleural fluid. Mild coronary artery atherosclerotic calcification. HEPATOBILIARY: No significant abnormality. PANCREAS/SPLEEN/ADRENALS: No significant abnormality. GENITOURINARY: 1.5 cm right renal cyst at the interpolar region. No obstructive uropathy. Bladder is decompressed around a Edwards catheter. GASTROINTESTINAL/MESENTERY: No bowel obstruction or inflammation. No free air or significant free fluid RETROPERITONEUM: No significant adenopathy. REPRODUCTIVE ORGANS: No significant abnormality. VASCULAR: Mild atherosclerotic calcification without acute abnormality. BODY WALL: Small bilateral fat-containing inguinal hernias. SKELETAL SYSTEM: No significant abnormality. IMPRESSION: 1. No acute abdominopelvic abnormality. 2. Mild bibasilar atelectasis with trace right pleural fluid. 3. Small right simple renal cyst. 4. Small bilateral fat-containing inguinal hernias. - Medical Decision Making 70-year-old male with recent CVA and snf admission with significant residual deficits presents to the hospital after being found down at the snf with unwitnessed fall. I was initially on find that patient systolic blood pressure improved without IV fluids. After 1 L of IV fluid systolic pressure 96/66. Patient has additional IV fluids in progress. Patient also having multiple episodes of diarrhea in the ED as per nurse. C. difficile ordered. Patient will be admitted to the hospital for diarrhea with acute dehydration and borderline hypotension. Telemetry admission orders will be placed. Case discussed with hospitalist ct pending and ordered due to diarrhea and increasing lactic acid Critical Care Time: No Critical care attestation.: If time is entered above; I have spent that time in minutes in the direct care of this critically ill patient, excluding procedure time. ED Disposition Clinical Impression: Fall, Encephalopathy, History of CVA with residual deficit, Dehydration, Hyperglycemia, Acute renal insufficiency, Diarrhea Disposition: OP ADMIT IP TO THIS HOSP Is pt being admited?: Yes Condition: Stable Time of Disposition: 19:14 (Dr Child/hosp)
--- NOTE | 2020-06-05 18:36 | Cat Scan Report ---
CT head/brain wo con INDICATION / CLINICAL INFORMATION: 70 years Male; ams, falll, recent cva, hypotension. TECHNIQUE: Routine CT head without contrast. All CT scans at this location are performed using CT dos e reduction for ALARA by means of automated exposure control. COMPARISON: 05/07/2020 FINDINGS: BRAIN / INTRACRANIAL CONTENTS: Subacute, branch SMT MACHINE OPERATOR infarct seen on the left involving calcarine nic ex, as well as the parahippocampal gyral region. Diffusion imaging by MRI may be of benefit. Lacunar-type infarcts are suggested bilaterally in the gangliocapsular regions-left slightly greater than right. Similar findings seen on prior. There may be a small focus of pontine ischemia on the left, which is not seen on prior exam. Small, b ranch PICA infarct seen on the right which is noted on prior study. Again, diffusion imaging may be o f benefit. Otherwise, no acute hemorrhage, mass effect, midline shift, hydrocephalus, or acute, large territori al infarct. Mild to moderate cerebral and cerebellar atrophy. Moderate to marked degree of hippocampal atrophy cevallos ggested bilaterally. There are areas of decreased attenuation in the white matter of the cerebral hemispheres. These are n onspecific findings and may be related to microangiopathy (hypertension, diabetes, atherosclerosis), given the patient's age. It might be difficult to evaluate for small areas of ischemia without diffus ion imaging by MRI. CRANIOCERVICAL JUNCTION: No significant abnormality. ORBITS: No significant abnormality of visualized orbits. SINUSES / MASTOIDS: Partial opacification of the mastoid air cells suggested. No coalescence of air c ells identified. ADDITIONAL FINDINGS: Atherosclerotic disease is seen in the anterior and posterior circulation. IMPRESSION: 1. Subacute, branch SMT MACHINE OPERATOR infarct seen on the left without definitive signs of hemorrhagic transformati on. Diffusion imaging by MRI may be of benefit. Signer Name: Yousif Early MD, III Signed: 06/05/2020 6:32 PM Workstation Name: [id number]
--- NOTE | 2020-06-05 18:45 | Cat Scan Report ---
CT cervical spine wo con INDICATION / CLINICAL INFORMATION: 70 years Male; ams, falll, recent cva, hypotension. TECHNIQUE: Axial CT images of the cervical spine were obtained. Sagittal and coronal reformatted images were pr oduced. All CT scans at this location are performed using CT dose reduction for ALARA by means of aut omated exposure control. COMPARISON: None available. FINDINGS: POST-SURGICAL CHANGES: None. ALIGNMENT: There is mild curvature the cervical spine, convex toward the right and mild reversal of t he cervical lordosis However, there is no clear evidence of significant spondylolisthesis. VERTEBRAE: There is ununited anterior and posterior arches of C1 which are well corticated. There is irregularity with somewhat bulbous configuration of the odontoid, greater on the left and the above f indings would appear to be developmental. However, correlation would be needed regarding previous tra ade. Otherwise I, the cervical spine appears intact without clear CT evidence of acute fracture. INTRAVERTEBRAL DISCS: The disc bulge at C2-3 effaces the ventral subarachnoid space. There is moderat e left neural foraminal narrowing. The disc bulge at C3-4 encroaches on the ventral cord. There is ma rked left and moderate to marked right foraminal narrowing. The spondylosis at C4-5 also encroaches on the ventral cord. There is moderate foraminal narrowing bi laterally. The spondylosis at C5-6 greater on the right with effacement of the right lateral recess. Additionally, there is moderate right foraminal narrowing. The spondylosis at C6-7 appears to efface the ventral subarachnoid space. There is moderate neural fo raminal narrowing bilaterally. There is notable spondylosis at C7-T1 with marked neural from narrowin g, greater on the right. There is also effacement of the lateral recesses, greater on the right. PARASPINAL SOFT TISSUES: No prevertebral soft tissue fluid collections are identified. There is mild prominence of the thyroid gland with small focus of calcification centrally on the left which is nons pecific. ADDITIONAL FINDINGS: None. IMPRESSION: 1. There are ununited anterior and posterior arches of C1 with irregularity of the odontoid which huang ear to be on a degenerative basis or possibly related to old trauma and correlation would be needed. Otherwise, there is no clear CT evidence of acute fracture of the cervical spine. 2. There is mild curvature of the spine with multilevel advanced degenerative the changes as detailed above. Signer Name: Missael Villalta MD Signed: 06/05/2020 6:41 PM Workstation Name: [id number]
--- NOTE | 2020-06-05 21:02 | Cat Scan Report ---
CT ABDOMEN AND PELVIS WITHOUT CONTRAST INDICATION / CLINICAL INFORMATION: Diarrhea, elevated lactic acid. TECHNIQUE: Axial CT images were obtained through the abdomen and pelvis without IV contrast. All CT scans at [facility] location are performed using CT dose reduction for ALARA by means of automated exposure control. COMPARISON: CT pelvis 03/28/2019 FINDINGS: LOWER CHEST: Mild bibasilar atelectasis with trace right pleural fluid. Mild coronary artery atherosc lerotic calcification. HEPATOBILIARY: No significant abnormality. PANCREAS/SPLEEN/ADRENALS: No significant abnormality. GENITOURINARY: 1.5 cm right renal cyst at the interpolar region. No obstructive uropathy. Bladder is decompressed around a Ewdards catheter. GASTROINTESTINAL/MESENTERY: No bowel obstruction or inflammation. No free air or significant free flu id RETROPERITONEUM: No significant adenopathy. REPRODUCTIVE ORGANS: No significant abnormality. VASCULAR: Mild atherosclerotic calcification without acute abnormality. BODY WALL: Small bilateral fat-containing inguinal hernias. SKELETAL SYSTEM: No significant abnormality. IMPRESSION: 1. No acute abdominopelvic abnormality. 2. Mild bibasilar atelectasis with trace right pleural fluid. 3. Small right simple renal cyst. 4. Small bilateral fat-containing inguinal hernias. Signer Name: Steve Flyod MD Signed: 06/05/2020 8:58 PM Workstation Name: [id number]
--- NOTE | 2020-06-05 23:39 | History and Physical Report ---
History of Present Illness Date of examination: 06/05/20 Date of admission: 06/05/20 19:16 History of present illness: 70-year-old male with a past medical history of recent CVA 1 month ago with significant residual deficits discharging to prison presents to the hospital from prison with unwitnessed fall. 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 Patient was not deemed a thrombolytic or thrombectomy candidate at that time he was admitted for additional stroke work-up and treatment and discharged into his current prison. Patient is oriented to self only does not know the year, where he is, where he lives. Denies any pain. He does not recall how he ended up on the floor. EMS reports that they received call at 1:30 PM and was at the prison 45 minutes later. Accu-Chek. Blood pressure was not obtained prior to arrival. They state the prison staff did not report any change in mental status. Recent [place] discharge summary included in prison patient blood work. BUN/creatinine from May 08 was 12/0.9 - Related Data Previous Rx's Medication Instructions Recorded Last Taken Type Aspirin EC [Ecotrin] 325 mg PO QDAY #30 tablet 07/29/14 Unknown Rx Simvastatin (Nf) [Zocor TAB] 20 mg PO QHS #30 tablet 07/29/14 Unknown Rx Metoprolol [Lopressor TAB] 25 mg PO BID #60 tablet 06/25/15 Unknown Rx lisinopriL [Zestril TAB] 5 mg PO QDAY #30 tablet 06/25/15 Unknown Rx Azithromycin [Zithromax Z-NAYAN] 250 mg PO DAILY #6 tablet 08/06/19 Unknown Rx Benzonatate [Tessalon Perles] 100 mg PO Q12H PRN #20 capsule 08/06/19 Unknown Rx Cetirizine HCl [ZyrTEC] 10 mg PO DAILY #30 capsule 08/06/19 Unknown Rx Fluticasone [Flonase] 1 spray NS QDAY #1 bottle 08/06/19 Unknown Rx Allergies Allergy/AdvReac Type Severity Reaction Status Date / Time No Known Allergies Allergy Verified 08/06/19 15:49 - Past Medical History Previous Medical History?: Yes Hx Hypertension: Yes CVA: Yes (Left proximal GLASS SETTER evaluation April 2019) Diabetes: Yes - Surgical History Additional Surgical History: TONSILLECTOMY - Social History Smoking Status: Former Smoker Substance Use Type: None - Medications Home Medications: Home Medications Medication Instructions Recorded Confirmed Last Taken Type Aspirin EC [Ecotrin] 325 mg PO QDAY #30 tablet 07/29/14 06/25/15 Unknown Rx Simvastatin (Nf) [Zocor TAB] 20 mg PO QHS #30 tablet 07/29/14 06/25/15 Unknown Rx Metoprolol [Lopressor TAB] 25 mg PO BID #60 tablet 06/25/15 Unknown Rx lisinopriL [Zestril TAB] 5 mg PO QDAY #30 tablet 06/25/15 Unknown Rx Azithromycin [Zithromax Z-NAYAN] 250 mg PO DAILY #6 tablet 08/06/19 Unknown Rx Benzonatate [Tessalon Perles] 100 mg PO Q12H PRN #20 capsule 08/06/19 Unknown Rx Cetirizine HCl [ZyrTEC] 10 mg PO DAILY #30 capsule 08/06/19 Unknown Rx Fluticasone [Flonase] 1 spray NS QDAY #1 bottle 08/06/19 Unknown Rx Review of Systems ROS: Stated complaint: FALL Other details as noted in HPI Comment: Unobtainable due to pts medical conditions Medications and Allergies Allergies Allergy/AdvReac Type Severity Reaction Status Date / Time No Known Allergies Allergy Verified 08/06/19 15:49 Home Medications Medication Instructions Recorded Confirmed Last Taken Type Aspirin EC [Ecotrin] 325 mg PO QDAY #30 tablet 07/29/14 06/05/20 Unknown Rx Simvastatin (Nf) [Zocor TAB] 20 mg PO QHS #30 tablet 07/29/14 06/05/20 Unknown Rx Metoprolol [Lopressor TAB] 25 mg PO BID #60 tablet 06/25/15 06/05/20 Unknown Rx lisinopriL [Zestril TAB] 5 mg PO QDAY #30 tablet 06/25/15 06/05/20 Unknown Rx Azithromycin [Zithromax Z-NAYAN] 250 mg PO DAILY #6 tablet 08/06/19 06/05/20 Unknown Rx Benzonatate [Tessalon Perles] 100 mg PO Q12H PRN #20 capsule 08/06/19 06/05/20 Unknown Rx Cetirizine HCl [ZyrTEC] 10 mg PO DAILY #30 capsule 08/06/19 06/05/20 Unknown Rx Fluticasone [Flonase] 1 spray NS QDAY #1 bottle 08/06/19 06/05/20 Unknown Rx Exam - Constitutional Vitals: Temp Pulse Resp BP Pulse Ox 97.5 F L 92 H 16 106/64 96 06/05/20 16:49 06/05/20 22:00 06/05/20 22:00 06/05/20 21:30 06/05/20 21:30 HEART Score - HEART Score Troponin: Troponin T 0.015 ng/mL (0.00-0.029) 06/05/20 16:25 Results - Labs CBC & Chem 7: 06/06/20 02:35 06/06/20 02:35 Labs: Laboratory Last Values WBC 14.1 K/mm3 (4.5-11.0) H 06/05/20 16:25 RBC 4.39 M/mm3 (3.65-5.03) 06/05/20 16:25 Hgb 13.7 gm/dl (11.8-15.2) 06/05/20 16:25 Hct 41.8 % (35.5-45.6) 06/05/20 16:25 MCV 95 fl (84-94) H 06/05/20 16:25 MCH 31 pg (28-32) 06/05/20 16:25 MCHC 33 % (32-34) 06/05/20 16:25 RDW 13.7 % (13.2-15.2) 06/05/20 16:25 Plt Count 420 K/mm3 (140-440) 06/05/20 16:25 Lymph % (Auto) 11.6 % (13.4-35.0) L 06/05/20 16:25 [place] % (Auto) 4.9 % (0.0-7.3) 06/05/20 16:25 Eos % (Auto) 1.3 % (0.0-4.3) 06/05/20 16:25 Baso % (Auto) 0.3 % (0.0-1.8) 06/05/20 16:25 Lymph # (Auto) 1.6 K/mm3 (1.2-5.4) 06/05/20 16:25 Island # (Auto) 0.7 K/mm3 (0.0-0.8) 06/05/20 16:25 Eos # (Auto) 0.2 K/mm3 (0.0-0.4) 06/05/20 16:25 Baso # (Auto) 0.0 K/mm3 (0.0-0.1) 06/05/20 16:25 Seg Neutrophils % 81.9 % (40.0-70.0) H 06/05/20 16:25 Seg Neutrophils # 11.5 K/mm3 (1.8-7.7) H 06/05/20 16:25 PT 13.4 Sec. (12.2-14.9) 06/05/20 16:25 INR 1.03 (0.87-1.13) 06/05/20 16:25 APTT 26.9 Sec. (24.2-36.6) 06/05/20 16:25 VBG pH 7.386 (7.320-7.420) 06/05/20 16:25 Sodium 134 mmol/L (137-145) L 06/05/20 16:25 Potassium 5.0 mmol/L (3.6-5.0) 06/05/20 16:25 Chloride 96.5 mmol/L (98-107) L 06/05/20 16:25 Carbon Dioxide 28 mmol/L (22-30) 06/05/20 16:25 Anion Gap 15 mmol/L 06/05/20 16:25 BUN 66 mg/dL (9-20) H 06/05/20 16:25 Creatinine 2.0 mg/dL (0.8-1.3) H 06/05/20 16:25 Estimated GFR 40 ml/min 06/05/20 16:25 BUN/Creatinine Ratio 33 % 06/05/20 16:25 Glucose 496 mg/dL (75-100) H 06/05/20 16:25 POC Glucose 297 mg/dL (70-105) H 06/05/20 19:25 Lactic Acid 4.70 mmol/L (0.7-2.0) H* 06/05/20 19:27 Calcium 10.5 mg/dL (8.4-10.2) H 06/05/20 16:25 Phosphorus 5.20 mg/dL (2.5-4.5) H 06/05/20 16:25 Magnesium 2.50 mg/dL (1.7-2.3) H 06/05/20 16:25 Total Bilirubin 0.30 mg/dL (0.1-1.2) 06/05/20 16:25 AST 12 units/L (5-40) 06/05/20 16:25 ALT 14 units/L (7-56) 06/05/20 16:25 Alkaline Phosphatase 109 units/L (35-129) 06/05/20 16:25 Troponin T 0.015 ng/mL (0.00-0.029) 06/05/20 16:25 Total Protein 6.8 g/dL (6.3-8.2) 06/05/20 16:25 Albumin 3.0 g/dL (3.9-5) L 06/05/20 16:25 Albumin/Globulin Ratio 0.8 % 06/05/20 16:25 Urine Color Yellow (Yellow) 06/05/20 16:49 Urine Turbidity Slightly-cloudy (Clear) 06/05/20 16:49 Urine pH 5.0 (5.0-7.0) 06/05/20 16:49 Ur Specific [place] 1.017 (1.003-1.030) 06/05/20 16:49 Urine Protein <15 mg/dl mg/dL (Negative) 06/05/20 16:49 Urine Glucose (UA) >=500 mg/dL (Negative) 06/05/20 16:49 Urine Ketones Neg mg/dL (Negative) 06/05/20 16:49 Urine Blood Neg (Negative) 06/05/20 16:49 Urine Nitrite Neg (Negative) 06/05/20 16:49 Urine Bilirubin Neg (Negative) 06/05/20 16:49 Urine Urobilinogen < 2.0 mg/dL (<2.0) 06/05/20 16:49 Ur Leukocyte Esterase Neg (Negative) 06/05/20 16:49 Urine WBC (Auto) < 1.0 /HPF (0.0-6.0) 06/05/20 16:49 Urine RBC (Auto) < 1.0 /HPF (0.0-6.0) 06/05/20 16:49 U Epithel Cells (Auto) < 1.0 /HPF (0-13.0) 06/05/20 16:49 Urine Mucus Few /HPF 06/05/20 16:49 Microbiology: Microbiology 06/05/20 16:25 Peripheral/Venous Blood Culture - Preliminary Culture in Progress 06/05/20 16:34 Peripheral/Venous Blood Culture - Preliminary Culture in Progress Assessment and Plan Advance Directives: Yes (Full code) VTE prophylaxis?: Chemical Plan of care discussed with patient/family: Yes - Patient Problems (1) CHHAYA (acute kidney injury) Current Visit: Yes Status: Acute Plan to address problem: CHHAYA secondary to vasomotor nephropathy and volume depletion IV fluids for now and recheck creatinine Creatinine should come down to normal Nephrology consult if necessary (2) Dehydration Current Visit: Yes Status: Acute Plan to address problem: IV fluids for now (3) C. difficile colitis Current Visit: Yes Status: Acute Plan to address problem: Possible C. difficile colitis Stool sent for C. difficile toxin Oral vancomycin initiated (4) Hypertension Current Visit: No Status: Chronic Qualifiers: Hypertension type: essential hypertension Qualified Code(s): I10 - Essential (primary) hypertension Plan to address problem: Continue antihypertensives and adjust medications (5) DVT prophylaxis Current Visit: No Status: Acute
[2020-06-05] MEDS ORDERED: METOCLOPRAMIDE 10 MG/2 ML INJ IV PRN (23:45)
[2020-06-05] MEDS ORDERED: MORPHINE 2 MG/1 ML INJ IV PRN (23:45)
[2020-06-05] MEDS ORDERED: ONDANSETRON 4 MG/2 ML INJ IV PRN (23:45)
[2020-06-05] MEDS ORDERED: ACETAMINOPHEN 325 MG TAB PO PRN (23:45)
[2020-06-05] MEDS ORDERED: oxyCODONE /ACETAMINOPHEN 5-325MG TAB PO PRN (23:45)
[2020-06-06] MEDS: SODIUM CHLORIDE 0.9% 1000 ML 1,000 ML IV SCH ×3 (00:34→17:58)
[2020-06-06] MEDS: METOPROLOL TARTRATE 25 MG TAB PO SCH ×3 (00:35→21:48)
[2020-06-06] MEDS: VANCOMYCIN 250 MG/10 ML ORAL LIQD PO SCH ×3 (00:37→17:06)
[2020-06-06] MEDS: INSULIN LISPRO 100 UNIT/ML SUB-Q SCH ×5 (01:02→20:14)
[2020-06-06 03:24] LABS: Basophils % (Auto) 0.2 % (0.0-1.8); Eosinophils # (Auto) 0.3 K/mm3 (0.0-0.4); Eosinophils % (Auto) 2.3 % (0.0-4.3); Hematocrit 37.2 % (35.5-45.6); Hemoglobin 12.3 gm/dl (11.8-15.2); Lymphocytes # (Auto) 1.7 K/mm3 (1.2-5.4); Lymphocytes % (Auto) 13.1 % (13.4-35.0); Mean Corpuscular HGB Conc 33 % (32-34); Mean Corpuscular Volume 95 fl (84-94); Monocytes # (Auto) 0.8 K/mm3 (0.0-0.8); Platelet Count 344 K/mm3 (140-440); Red Blood Count 3.91 M/mm3 (3.65-5.03); Red Cell Distribution Width 13.4 % (13.2-15.2)
[2020-06-06] MEDS: FAMOTIDINE 20 MG/2 ML INJ IV SCH (09:40)
[2020-06-06] MEDS: CETIRIZINE 10 MG TAB PO SCH (09:40)
[2020-06-06] MEDS: FLUTICASONE PROPIONATE NASAL SPRAY 16 GM NS SCH (09:40)
[2020-06-06] MEDS: LISINOPRIL 5 MG TAB PO SCH (09:41)
[2020-06-06] MEDS ORDERED: FAMOTIDINE 20 MG/2 ML INJ IV SCH (10:00)
[2020-06-06] MEDS ORDERED: NON-FORMULARY EACH (Cetirizine Hcl [Zyrtec 10mg Cap] 10 MG Capsule) PO SCH (10:00)
--- NOTE | 2020-06-06 12:44 | Consultation ---
History of Present Illness - Reason for Consult Consult date: 06/06/20 c.difficile diarrhea Requesting physician: WESTON GOMEZ - History of Present Illness The patient is a 70-year-old male with recent CVA, dementia, hypertension, right-sided residual deficit, skilled nursing resident was sent to the hospital after an unwitnessed fall. Patient had recently been evaluated at [facility] for the CVA. Upon work-up here, noted to have leukocytosis, acute ki dney injury. Patient afebrile. Due to diarrhea, question of C. difficile was raised. CT abdomen pelvis did not reveal any acute abnormality other than bilateral basal atelectasis. Chest x-ray did not reveal any pneumonia. Review of Systems: Poor historian, history and ROS limited. Medications and Allergies Allergies Allergy/AdvReac Type Severity Reaction Status Date / Time No Known Allergies Allergy Verified 08/06/19 15:49 Home Medications Medication Instructions Recorded Confirmed Last Taken Type Aspirin EC [Ecotrin] 325 mg PO QDAY #30 tablet 07/29/14 06/05/20 Unknown Rx Simvastatin (Nf) [Zocor TAB] 20 mg PO QHS #30 tablet 07/29/14 06/05/20 Unknown Rx Metoprolol [Lopressor TAB] 25 mg PO BID #60 tablet 06/25/15 06/05/20 Unknown Rx lisinopriL [Zestril TAB] 5 mg PO QDAY #30 tablet 06/25/15 06/05/20 Unknown Rx Azithromycin [Zithromax Z-NAYAN] 250 mg PO DAILY #6 tablet 08/06/19 06/05/20 Unknown Rx Benzonatate [Tessalon Perles] 100 mg PO Q12H PRN #20 capsule 08/06/19 06/05/20 Unknown Rx Cetirizine HCl [ZyrTEC] 10 mg PO DAILY #30 capsule 08/06/19 06/05/20 Unknown Rx Fluticasone [Flonase] 1 spray NS QDAY #1 bottle 08/06/19 06/05/20 Unknown Rx Active Meds: Active Medications Acetaminophen (Acetaminophen 325 Mg Tab) 650 mg PO Q4H PRN PRN Reason: Pain MILD(1-3)/Fever >100.5/J[place]ON Cetirizine HCl (Cetirizine 10 Mg Tab) 10 mg PO DAILY RM Last Admin: 06/06/20 09:40 Dose: 10 mg Documented by: Famotidine (Famotidine 20 Mg/2 Ml Inj) 20 mg IV DAILY [facility] Last Admin: 06/06/20 09:40 Dose: 20 mg Documented by: Fluticasone Propionate (Fluticasone Propionate Nasal [place] 16 Gm) 50 mcg NS QDAY [facility] Last Admin: 06/06/20 09:40 Dose: 50 mcg Documented by: Sodium Chloride (Nacl 0.9% 1000 Ml) 1,000 mls @ 100 mls/hr IV DIRECT [facility] Last Admin: 06/06/20 09:46 Dose: 100 mls/hr Documented by: Insulin Human Lispro (Insulin Lispro 100 Unit/Ml) 0 unit SUB-Q Q4H [facility]; Protocol Last Admin: 06/06/20 11:32 Dose: 3 unit Documented by: Lisinopril (Lisinopril 5 Mg Tab) 5 mg PO QDAY [facility] Last Admin: 06/06/20 09:41 Dose: Not Given Documented by: Metoclopramide HCl (Metoclopramide 10 Mg/2 Ml Inj) 10 mg IV Q6H PRN PRN Reason: Nausea And Vomiting Metoprolol Tartrate (Metoprolol Tartrate 25 Mg Tab) 25 mg PO BID [facility] Last Admin: 06/06/20 09:40 Dose: Not Given Documented by: Morphine Sulfate (Morphine 2 Mg/1 Ml Inj) 2 mg IV Q4H PRN PRN Reason: Pain, Moderate (4-6) Ondansetron HCl (Ondansetron 4 Mg/2 Ml Inj) 4 mg IV Q8H PRN PRN Reason: Nausea And Vomiting Oxycodone/Acetaminophen (Oxycodone /Acetaminophen 5-325mg Tab) 1 tab PO Q6H PRN PRN Reason: Pain, Moderate (4-6) Sodium Chloride (Sodium Chloride 0.9% 10 Ml Flush Syringe) 10 ml IV BID [facility] Last Admin: 06/06/20 09:41 Dose: 10 ml Documented by: Sodium Chloride (Sodium Chloride 0.9% 10 Ml Flush Syringe) 10 ml IV PRN PRN PRN Reason: LINE FLUSH Vancomycin HCl (Vancomycin 250 Mg/10 Ml Oral Liqd) 250 mg PO Q6HR [facility]; Protocol Last Admin: 06/06/20 11:47 Dose: 250 mg Documented by: Physical Examination - Physical Exam Narrative exam: Physical Exam: Constitutional: Awake, alert Head, Ears, Nose: Normocephalic, atraumatic. External ears, nose normal Eyes: Conjunctivae/corneas clear. No icterus. No ptosis. Neck: Supple, no meningeal signs Cardiovascular: S1, S2 normal. Respiratory: Good air entry, clear to auscultation bilaterally GI: Soft, non-tender; bowel sounds normal. No peritoneal signs Musculoskeletal: No pedal edema, no cyanosis. Skin: No rash or abscess Hem/Lymphatic: No palpable cervical or supraclavicular nodes. No lymphangitis Psych: No agitation Neurological: Awake, alert. - Constitutional Vitals: Vital Signs Temp Pulse Resp BP Pulse Ox 98.3 F 71 20 108/65 96 06/06/20 11:46 06/06/20 11:46 06/06/20 11:46 06/06/20 11:46 06/06/20 11:46 Temperature -Last 24 Hours Temperature 98.3 F Temperature 97.6 F Temperature 97.3 F Temperature 98.0 F Temperature 97.5 F Results - Labs CBC & Chem 7: 06/06/20 02:35 06/06/20 02:35 Labs: Abnormal lab results 06/05/20 06/05/20 06/05/20 Range/Units 16:08 16:25 16:25 WBC 14.1 H (4.5-11.0) K/mm3 MCV 95 H (84-94) fl Lymph % (Auto) 11.6 L (13.4-35.0) % Seg Neutrophils % 81.9 H (40.0-70.0) % Seg Neutrophils # 11.5 H (1.8-7.7) K/mm3 Sodium 134 L (137-145) mmol/L Chloride 96.5 L (98-107) mmol/L BUN 66 H (9-20) mg/dL Creatinine 2.0 H (0.8-1.3) mg/dL Glucose 496 H (75-100) mg/dL POC Glucose 447 H (70-105) mg/dL Hemoglobin A1c (4-6) % Lactic Acid (0.7-2.0) mmol/L Calcium 10.5 H (8.4-10.2) mg/dL Phosphorus (2.5-4.5) mg/dL Magnesium (1.7-2.3) mg/dL Total Protein (6.3-8.2) g/dL Albumin 3.0 L (3.9-5) g/dL 06/05/20 06/05/20 06/05/20 Range/Units 16:25 16:25 19:25 WBC (4.5-11.0) K/mm3 MCV (84-94) fl Lymph % (Auto) (13.4-35.0) % Seg Neutrophils % (40.0-70.0) % Seg Neutrophils # (1.8-7.7) K/mm3 Sodium (137-145) mmol/L Chloride (98-107) mmol/L BUN (9-20) mg/dL Creatinine (0.8-1.3) mg/dL Glucose (75-100) mg/dL POC Glucose 297 H (70-105) mg/dL Hemoglobin A1c (4-6) % Lactic Acid 2.80 H* (0.7-2.0) mmol/L Calcium (8.4-10.2) mg/dL Phosphorus 5.20 H (2.5-4.5) mg/dL Magnesium 2.50 H (1.7-2.3) mg/dL Total Protein (6.3-8.2) g/dL Albumin (3.9-5) g/dL 06/05/20 06/06/20 06/06/20 Range/Units 19:27 00:48 01:32 WBC (4.5-11.0) K/mm3 MCV (84-94) fl Lymph % (Auto) (13.4-35.0) % Seg Neutrophils % (40.0-70.0) % Seg Neutrophils # (1.8-7.7) K/mm3 Sodium (137-145) mmol/L Chloride (98-107) mmol/L BUN (9-20) mg/dL Creatinine (0.8-1.3) mg/dL Glucose (75-100) mg/dL POC Glucose 243 H (70-105) mg/dL Hemoglobin A1c 10.2 H (4-6) % Lactic Acid 4.70 H* (0.7-2.0) mmol/L Calcium (8.4-10.2) mg/dL Phosphorus (2.5-4.5) mg/dL Magnesium (1.7-2.3) mg/dL Total Protein (6.3-8.2) g/dL Albumin (3.9-5) g/dL 06/06/20 06/06/20 06/06/20 Range/Units 02:35 02:35 06:12 WBC 12.7 H (4.5-11.0) K/mm3 MCV 95 H (84-94) fl Lymph % (Auto) 13.1 L (13.4-35.0) % Seg Neutrophils % 78.4 H (40.0-70.0) % Seg Neutrophils # 10.0 H (1.8-7.7) K/mm3 Sodium (137-145) mmol/L Chloride (98-107) mmol/L BUN 55 H (9-20) mg/dL Creatinine 1.7 H (0.8-1.3) mg/dL Glucose 259 H (75-100) mg/dL POC Glucose 143 H (70-105) mg/dL Hemoglobin A1c (4-6) % Lactic Acid (0.7-2.0) mmol/L Calcium (8.4-10.2) mg/dL Phosphorus (2.5-4.5) mg/dL Magnesium (1.7-2.3) mg/dL Total Protein 6.0 L (6.3-8.2) g/dL Albumin 3.0 L (3.9-5) g/dL 06/06/20 06/06/20 Range/Units 09:53 11:16 WBC (4.5-11.0) K/mm3 MCV (84-94) fl Lymph % (Auto) (13.4-35.0) % Seg Neutrophils % (40.0-70.0) % Seg Neutrophils # (1.8-7.7) K/mm3 Sodium (137-145) mmol/L Chloride (98-107) mmol/L BUN (9-20) mg/dL Creatinine (0.8-1.3) mg/dL Glucose (75-100) mg/dL POC Glucose 172 H 176 H (70-105) mg/dL Hemoglobin A1c (4-6) % Lactic Acid (0.7-2.0) mmol/L Calcium (8.4-10.2) mg/dL Phosphorus (2.5-4.5) mg/dL Magnesium (1.7-2.3) mg/dL Total Protein (6.3-8.2) g/dL Albumin (3.9-5) g/dL - Imaging and Cardiology Chest x-ray: report reviewed, image reviewed (no pneumonia) Assessment and Plan Cultures: 06/05/2020 blood culture: In process A/P: 70-year-old male with recent CVA, dementia, hypertension, right-sided residual deficit, skilled nursing resident was sent to the hospital after an unwitnessed fall. Patient had recently been evaluated at [facility] for the CVA: #Sepsis, possibly secondary to C. difficile diarrhea: Recent hospitalization. CT however without colitis. On empiric p.o. vancomycin. CXR without pneumonia. UA without pyuria. WBC improving. #CHHAYA: Creatinine improving. #Dementia, recent CVA #Indwelling Edwards catheter: UA without evidence of pyuria Recs: -Follow-up C. difficile PCR, if negative, discontinue p.o. vancomycin Daryn Alcala MD, FACP [facility] O: [phone] F: [phone]
[2020-06-06] MEDS: INSULIN NPH/REGULAR 70/30 INJ SUB-Q SCH (17:06)
--- NOTE | 2020-06-06 21:26 | Progress Note ---
Assessment and Plan - Patient Problems (1) CHHAYA (acute kidney injury) Current Visit: Yes Status: Acute Plan to address problem: CHHAYA secondary to vasomotor nephropathy and volume depletion IV fluids for now and recheck creatinine Creatinine should come down to normal Nephrology consult if necessary (2) Dehydration Current Visit: Yes Status: Acute Plan to address problem: IV fluids for now (3) C. difficile colitis Current Visit: Yes Status: Acute Plan to address problem: Possible C. difficile colitis Stool sent for C. difficile toxin Oral vancomycin initiated (4) Hypertension Current Visit: No Status: Chronic Qualifiers: Hypertension type: essential hypertension Qualified Code(s): I10 - Essential (primary) hypertension Plan to address problem: Continue antihypertensives and adjust medications (5) DVT prophylaxis Current Visit: No Status: Acute Subjective Date of service: 06/06/20 Objective - Constitutional Vitals: Vital Signs - 12hr 06/06/20 06/06/20 06/06/20 10:54 11:46 15:00 Temperature 98.3 F Pulse Rate 71 72 Pulse Rate [ 78 From Monitor] Respiratory 17 20 Rate Blood Pressure 108/65 O2 Sat by Pulse 97 96 Oximetry 06/06/20 06/06/20 16:04 19:21 Temperature 98.4 F 98.4 F Pulse Rate 82 78 Pulse Rate [ From Monitor] Respiratory 13 16 Rate Blood Pressure 117/70 125/92 O2 Sat by Pulse 92 96 Oximetry - Labs CBC & Chem 7: 06/06/20 02:35 06/06/20 02:35 Labs: Abnormal lab results 06/06/20 06/06/20 06/06/20 Range/Units 00:48 01:32 02:35 WBC 12.7 H (4.5-11.0) K/mm3 MCV 95 H (84-94) fl Lymph % (Auto) 13.1 L (13.4-35.0) % Seg Neutrophils % 78.4 H (40.0-70.0) % Seg Neutrophils # 10.0 H (1.8-7.7) K/mm3 BUN (9-20) mg/dL Creatinine (0.8-1.3) mg/dL Glucose (75-100) mg/dL POC Glucose 243 H (70-105) mg/dL Hemoglobin A1c 10.2 H (4-6) % Total Protein (6.3-8.2) g/dL Albumin (3.9-5) g/dL 06/06/20 06/06/20 06/06/20 Range/Units 02:35 06:12 09:53 WBC (4.5-11.0) K/mm3 MCV (84-94) fl Lymph % (Auto) (13.4-35.0) % Seg Neutrophils % (40.0-70.0) % Seg Neutrophils # (1.8-7.7) K/mm3 BUN 55 H (9-20) mg/dL Creatinine 1.7 H (0.8-1.3) mg/dL Glucose 259 H (75-100) mg/dL POC Glucose 143 H 172 H (70-105) mg/dL Hemoglobin A1c (4-6) % Total Protein 6.0 L (6.3-8.2) g/dL Albumin 3.0 L (3.9-5) g/dL 06/06/20 06/06/20 06/06/20 Range/Units 11:16 16:01 19:58 WBC (4.5-11.0) K/mm3 MCV (84-94) fl Lymph % (Auto) (13.4-35.0) % Seg Neutrophils % (40.0-70.0) % Seg Neutrophils # (1.8-7.7) K/mm3 BUN (9-20) mg/dL Creatinine (0.8-1.3) mg/dL Glucose (75-100) mg/dL POC Glucose 176 H 220 H 256 H (70-105) mg/dL Hemoglobin A1c (4-6) % Total Protein (6.3-8.2) g/dL Albumin (3.9-5) g/dL HEART Score - HEART Score Troponin: Troponin T 0.015 ng/mL (0.00-0.029) 06/05/20 16:25
[2020-06-07] MEDS: INSULIN LISPRO 100 UNIT/ML SUB-Q SCH ×7 (00:11→22:02)
[2020-06-07] MEDS: VANCOMYCIN 250 MG/10 ML ORAL LIQD PO SCH ×6 (00:16→23:16)
[2020-06-07] MEDS: SODIUM CHLORIDE 0.9% 1000 ML 1,000 ML IV SCH ×2 (05:23→15:17)
[2020-06-07] MEDS: FLUTICASONE PROPIONATE NASAL SPRAY 16 GM NS SCH (09:59)
[2020-06-07] MEDS: FAMOTIDINE 20 MG/2 ML INJ IV SCH (09:59)
[2020-06-07] MEDS: LISINOPRIL 5 MG TAB PO SCH (10:00)
[2020-06-07] MEDS: CETIRIZINE 10 MG TAB PO SCH (10:00)
[2020-06-07] MEDS: INSULIN NPH/REGULAR 70/30 INJ SUB-Q SCH ×2 (10:00→16:07)
[2020-06-07] MEDS: METOPROLOL TARTRATE 25 MG TAB PO SCH ×2 (10:00→21:40)
--- NOTE | 2020-06-07 11:11 | Progress Note ---
Assessment and Plan - Patient Problems (1) CHHAYA (acute kidney injury) Current Visit: Yes Status: Acute Plan to address problem: Acute kidney injury secondary to prerenal azotemia. Resolved. Discharge back in stable condition. (2) C. difficile colitis Current Visit: Yes Status: Acute Plan to address problem: C. difficile negative. Will DC oral vancomycin discharge back to [facility] facility. (3) Dehydration Current Visit: Yes Status: Acute Plan to address problem: Resolved with aggressive IV volume replacement. (4) Encephalopathy Current Visit: Yes Status: Acute Plan to address problem: Appears to be baseline chronic secondary to vascular dementia. (5) History of CVA with residual deficit Current Visit: Yes Status: Acute Plan to address problem: Continue supportive care antilipid antiplatelet therapy. Subjective Date of service: 06/07/20 Principal diagnosis: C. difficile colitis Interval history: The patient is a 70-year-old male with recent CVA, dementia, hypertension, right-sided residual deficit, shelter resident was sent to the hospital after an unwitnessed fall. Patient had recently been evaluated at [facility] for the CVA. Upon work-up here, noted to have leukocytosis, acute kidney injury. Patient afebrile. Due to diarrhea, question of C. difficile was raised. CT abdomen pelvis did not reveal any acute abnormality other than bila teral basal atelectasis. Chest x-ray did not reveal any pneumonia. 06/07 patient attempts to make needs known aphasic at baseline. Hospital course improved today by negative C. difficile. Also limited bowel movements. Also leukocytosis has resolved. Objective - Constitutional Vitals: Vital Signs - 12hr 06/06/20 06/06/20 06/07/20 23:00 23:24 04:23 Temperature 98.4 F 98.1 F Pulse Rate 82 71 74 Respiratory 20 20 Rate Blood Pressure 118/72 137/83 O2 Sat by Pulse 95 95 Oximetry 06/07/20 06/07/20 07:25 10:00 Temperature 98.4 F Pulse Rate 78 70 Respiratory 12 Rate Blood Pressure 130/87 O2 Sat by Pulse 93 Oximetry General appearance: Present: no acute distress, well-nourished, other (Poor cognition) - EENT Eyes: PERRL, EOM intact ENT: hearing intact, clear oral mucosa Ears: bilateral: normal - Neck Neck: supple, normal ROM - Respiratory Respiratory effort: normal, other (Poor respiratory effort) Respiratory: bilateral: CTA - Breasts Breasts: normal - Cardiovascular Rhythm: regular Heart Sounds: Present: S1 & S2. Absent: gallop, rub Extremities: pulses intact, No edema, normal color, Full ROM - Gastrointestinal General gastrointestinal: Present: soft, non-tender, non-distended, normal bowel sounds - Genitourinary Male genitourinary: normal - Integumentary Integumentary: clear, warm, dry - Musculoskeletal Musculoskeletal: 1, strength equal bilaterally - Neurologic Neurologic: focal deficits, moves all extremities, other (Right hemiparesis aphasia) - Psychiatric Psychiatric: other - Labs CBC & Chem 7: 06/06/20 02:35 06/06/20 02:35 Labs: Abnormal lab results 06/06/20 06/06/20 06/06/20 Range/Units 06:12 09:53 11:16 POC Glucose 143 H 172 H 176 H (70-105) mg/dL 06/06/20 06/06/20 06/07/20 Range/Units 16:01 19:58 04:18 POC Glucose 220 H 256 H 60 L (70-105) mg/dL 06/07/20 Range/Units 07:26 POC Glucose 143 H (70-105) mg/dL HEART Score - HEART Score Troponin: Troponin T 0.015 ng/mL (0.00-0.029) 06/05/20 16:25
--- NOTE | 2020-06-07 11:31 | Progress Note ---
Assessment and Plan Cultures: 06/05/2020 blood culture: no growth A/P: 70-year-old male with recent CVA, dementia, hypertension, right-sided residual deficit, [facility] resident was sent to the hospital after an unwitnessed fall. Patient had recently been evaluated at [facility] for the CVA: #Sepsis, possibly secondary to C. difficile diarrhea: Recent hospitalization. CT however without colitis. On empiric p.o. vancomycin. CXR without pneumonia. UA without pyuria. WBC improving. #CHHAYA: Creatinine improving. #Dementia, recent CVA #Indwelling Edwards catheter: UA without evidence of pyuria Recs: -Follow-up C. difficile PCR, if negative, discontinue p.o. vancomycin Daryn Alcala MD, FACP [facility] ([facility] O: [phone] F: [phone] Subjective Date of service: 06/07/20 Principal diagnosis: C. difficile colitis Interval history: No fever. Awake, alert, no distress. Nods to questions. Denies diarrhea. Objective - Exam Narrative Exam: Physical Exam: Constitutional: Awake, alert, nods to questions Head, Ears, Nose: Normocephalic, atraumatic. External ears, nose normal Eyes: Conjunctivae/corneas clear. No icterus. No ptosis. Neck: Supple, no meningeal signs Cardiovascular: S1, S2 normal. Respiratory: Good air entry, clear to auscultation bilaterally GI: Soft, non-tender; bowel sounds normal. No peritoneal signs Musculoskeletal: No pedal edema, no cyanosis. Skin: No rash or abscess Hem/Lymphatic: No palpable cervical or supraclavicular nodes. No lymphangitis Psych: No agitation Neurological: Awake, alert. - Constitutional Vitals: Vital Signs Temp Pulse Resp BP Pulse Ox 98.4 F 70 12 130/87 93 06/07/20 07:25 06/07/20 10:00 06/07/20 07:25 06/07/20 07:25 06/07/20 07:25 Temperature -Last 24 Hours Temperature 98.4 F Temperature 98.1 F Temperature 98.4 F Temperature 98.4 F Temperature 98.4 F Temperature 98.3 F - Labs CBC & Chem 7: 06/06/20 02:35 06/06/20 02:35 Labs: Abnormal lab results 06/06/20 06/06/20 06/06/20 Range/Units 06:12 09:53 11:16 POC Glucose 143 H 172 H 176 H (70-105) mg/dL 06/06/20 06/06/20 06/07/20 Range/Units 16:01 19:58 04:18 POC Glucose 220 H 256 H 60 L (70-105) mg/dL 06/07/20 06/07/20 Range/Units 07:26 11:12 POC Glucose 143 H 124 H (70-105) mg/dL
[2020-06-07] MEDS ORDERED: DEXTROSE 50% IN WATER (25GM) 50 ML SYRINGE IV ONE (21:53)
[2020-06-08] MEDS: INSULIN LISPRO 100 UNIT/ML SUB-Q SCH ×6 (02:07→20:00)
[2020-06-08] MEDS: VANCOMYCIN 250 MG/10 ML ORAL LIQD PO SCH ×3 (05:16→17:03)
[2020-06-08] MEDS: hydrALAZINE 20 MG/1 ML INJ IV PRN (05:16)
[2020-06-08] MEDS: FLUTICASONE PROPIONATE NASAL SPRAY 16 GM NS SCH (09:17)
[2020-06-08] MEDS: CETIRIZINE 10 MG TAB PO SCH (09:18)
[2020-06-08] MEDS: INSULIN NPH/REGULAR 70/30 INJ SUB-Q SCH ×2 (09:18→17:04)
[2020-06-08] MEDS: METOPROLOL TARTRATE 25 MG TAB PO SCH ×2 (09:21→22:40)
[2020-06-08] MEDS: FAMOTIDINE 20 MG/2 ML INJ IV SCH (09:22)
[2020-06-08] MEDS: LISINOPRIL 5 MG TAB PO SCH (09:23)
--- NOTE | 2020-06-08 13:57 | Progress Note ---
Assessment and Plan Cultures: 06/05/2020 blood culture: no growth A/P: 70-year-old male with recent CVA, dementia, hypertension, right-sided residual deficit, [facility] resident was sent to the hospital after an unwitnessed fall. Patient had recently been evaluated at [facility] for the CVA: #Sepsis: Recent hospitalization. CT without colitis. C. difficile negative, start p.o. vancomycin. CXR without pneumonia. UA without pyuria. WBC improving. #CHHAYA: Creatinine improving. #Dementia, recent CVA #Indwelling Edwards catheter: UA without evidence of pyuria Recs: -C. difficile negative, stop p.o. vancomycin Martina Matthews MD [facility] ([facility] O: [phone] F: [phone] Subjective Date of service: 06/08/20 Principal diagnosis: C. difficile colitis Interval history: Afebrile, white count 12.7. C. difficile negative. Objective - Exam Narrative Exam: Physical Exam: Constitutional: Awake, alert, nods to questions Head, Ears, Nose: Normocephalic, atraumatic. External ears, nose normal Eyes: Conjunctivae/corneas clear. No icterus. No ptosis. Neck: Supple, no meningeal signs Cardiovascular: S1, S2 normal. Respiratory: Good air entry, clear to auscultation bilaterally GI: Soft, non-tender; bowel sounds normal. No peritoneal signs Musculoskeletal: No pedal edema, no cyanosis. Skin: No rash or abscess Hem/Lymphatic: No palpable cervical or supraclavicular nodes. Psych: No agitation Neurological: Awake, alert. - Constitutional Vitals: Vital Signs Temp Pulse Resp BP Pulse Ox 98.0 F 100 H 18 172/98 96 06/08/20 12:03 06/08/20 12:03 06/08/20 12:03 06/08/20 12:03 06/08/20 12:03 Temperature -Last 24 Hours Temperature 98.0 F Temperature 97.9 F Temperature 98.3 F Temperature 99.3 F Temperature 99.0 F Temperature 98.2 F - Labs CBC & Chem 7: 06/06/20 02:35 06/06/20 02:35 Labs: Abnormal lab results 06/07/20 06/07/20 06/08/20 Range/Units 15:57 21:50 09:08 POC Glucose 112 H 64 L 106 H (70-105) mg/dL 06/08/20 Range/Units 11:18 POC Glucose 225 H (70-105) mg/dL
--- NOTE | 2020-06-08 19:12 | Progress Note ---
Assessment and Plan - Patient Problems (1) CHHAYA (acute kidney injury) Current Visit: Yes Status: Acute Plan to address problem: CHHAYA secondary to vasomotor nephropathy and volume depletion IV fluids for now and recheck creatinine Creatinine Improved (2) Dehydration Current Visit: Yes Status: Acute Plan to address problem: IV fluids for now (3) C. difficile colitis Current Visit: Yes Status: Acute Plan to address problem: C. difficile ruled out (4) Hypertension Current Visit: No Status: Chronic Qualifiers: Hypertension type: essential hypertension Qualified Code(s): I10 - Essential (primary) hypertension Plan to address problem: Continue antihypertensives and adjust medications (5) DVT prophylaxis Current Visit: No Status: Acute Plan to address problem: On heparin and GI prophylaxis (6) Discharge planning issues Current Visit: Yes Status: Acute Plan to address problem: Patient may be discharged tomorrow if asymptomatic from diarrhea Subjective Date of service: 06/08/20 Principal diagnosis: Gastroenteritis Interval history: 70-year-old male with a past medical history of recent CVA 1 month ago with significant residual deficits discharging to care home presents to the hospital from care home with unwitnessed fall. As per care home paperwork patient also has a history of dementia, hypertension and hands significant aphasia with right-sided hemiplegia and sensory deficit, right visual field de ficit, left gaze preference, and right sided weakness status post left proximal BOBBIN MARKER occlusion diagnosis on May 08 at [place]. Patient was not deemed a thrombolytic or thrombectomy candidate at that time he was admitted for additional stroke work-up and treatment and discharged into his current care home. Patient is oriented to self only does not know the year, where he is, where he lives. Denies any pain. He does not recall how he ended up on the floor. EMS reports that they received call at 1:30 PM and was at the care home 45 minutes later. Accu-Chek. Blood pressure was not obtained prior to arrival. They state the care home staff did not report any change in mental status. Recent [place] discharge summary included in care home patient blood work. BUN/creatinine from May 08 was 12/0.9 06/08/2020 Symptomatically better Objective - Constitutional Vitals: Vital Signs - 12hr 06/08/20 06/08/20 06/08/20 08:13 09:21 09:23 Temperature 97.9 F Pulse Rate 91 H 91 H 91 H Respiratory 18 Rate Blood Pressure 182/92 182/92 182/92 O2 Sat by Pulse 97 Oximetry 06/08/20 06/08/20 12:03 16:08 Temperature 98.0 F 99.0 F Pulse Rate 100 H Respiratory 18 18 Rate Blood Pressure 172/98 169/104 O2 Sat by Pulse 96 100 Oximetry General appearance: Present: no acute distress, well-nourished - EENT Eyes: PERRL, EOM intact ENT: hearing intact, clear oral mucosa Ears: bilateral: normal - Neck Neck: supple, normal ROM - Respiratory Respiratory effort: normal Respiratory: bilateral: CTA - Breasts Breasts: normal - Cardiovascular Rhythm: regular Heart Sounds: Present: S1 & S2. Absent: gallop, rub Extremities: pulses intact, No edema, normal color, Full ROM - Gastrointestinal General gastrointestinal: Present: soft, non-tender, non-distended, hypoactive bowel sounds - Genitourinary Male genitourinary: normal - Integumentary Integumentary: clear, warm, dry - Musculoskeletal Musculoskeletal: 1, strength equal bilaterally - Neurologic Neurologic: moves all extremities - Psychiatric Psychiatric: memory intact, appropriate mood/affect, intact judgment & insight - Labs CBC & Chem 7: 06/09/20 04:38 06/09/20 04:38 Labs: Abnormal lab results 06/07/20 06/07/20 06/08/20 Range/Units 15:57 21:50 09:08 POC Glucose 112 H 64 L 106 H (70-105) mg/dL 06/08/20 Range/Units 11:18 POC Glucose 225 H (70-105) mg/dL HEART Score - HEART Score Troponin: Troponin T 0.015 ng/mL (0.00-0.029) 06/05/20 16:25
[2020-06-08 19:23] LABS: BUN/Creatinine Ratio 14; Blood Urea Nitrogen 17 mg/dL (9-20); Calcium 9.6 mg/dL (8.4-10.2); Hemolysis Index 3
[2020-06-09] MEDS: INSULIN LISPRO 100 UNIT/ML SUB-Q SCH ×6 (04:58→21:47)
[2020-06-09] MEDS: hydrALAZINE 20 MG/1 ML INJ IV PRN ×2 (05:09→17:39)
[2020-06-09 05:36] LABS: Basophils % (Auto) 0.4 % (0.0-1.8); Eosinophils # (Auto) 0.2 K/mm3 (0.0-0.4); Eosinophils % (Auto) 2.8 % (0.0-4.3); Hematocrit 36.1 % (35.5-45.6); Hemoglobin 12.3 gm/dl (11.8-15.2); Lymphocytes # (Auto) 1.4 K/mm3 (1.2-5.4); Lymphocytes % (Auto) 15.7 % (13.4-35.0); Mean Corpuscular HGB Conc 34 % (32-34); Mean Corpuscular Volume 93 fl (84-94); Monocytes # (Auto) 0.7 K/mm3 (0.0-0.8); Monocytes % (Auto) 7.8 % (0.0-7.3); Platelet Count 249 K/mm3 (140-440); Red Blood Count 3.86 M/mm3 (3.65-5.03); Red Cell Distribution Width 13.1 % (13.2-15.2)
[2020-06-09 05:39] LABS: BUN/Creatinine Ratio 16; Blood Urea Nitrogen 13 mg/dL (9-20); Calcium 9.6 mg/dL (8.4-10.2); Hemolysis Index 6
[2020-06-09] MEDS: INSULIN NPH/REGULAR 70/30 INJ SUB-Q SCH ×2 (08:38→17:14)
[2020-06-09] MEDS: LISINOPRIL 5 MG TAB PO SCH (10:19)
[2020-06-09] MEDS: CETIRIZINE 10 MG TAB PO SCH (10:19)
[2020-06-09] MEDS: METOPROLOL TARTRATE 25 MG TAB PO SCH ×2 (10:19→21:47)
[2020-06-09] MEDS: FLUTICASONE PROPIONATE NASAL SPRAY 16 GM NS SCH (10:19)
[2020-06-09] MEDS: FAMOTIDINE 20 MG TAB PO SCH (10:20)
[2020-06-09] MEDS ORDERED: HALOPERIDOL LACTATE 5 MG/1 ML INJ IM PRN (12:36)
--- NOTE | 2020-06-09 12:57 | Progress Note ---
Assessment and Plan Cultures: 06/05/2020 blood culture: no growth A/P: 70-year-old male with recent CVA, dementia, hypertension, right-sided residual deficit, half-way resident was sent to the hospital after an unwitnessed fall. Patient had recently been evaluated at [facility] for the CVA: #Sepsis: Recent hospitalization. CT without colitis. C. difficile negative, start p.o. vancomycin. CXR without pneumonia. UA without pyuria. WBC improving. #CHHAYA: Creatinine improving. #Dementia, recent CVA #Indwelling Edwards catheter: UA without evidence of pyuria Recs: -C. difficile negative, stop p.o. vancomycin OK for DC from ID perspective. Martina Matthews MD [facility] ([facility] O: [phone] F: [phone] Subjective Date of service: 06/09/20 Principal diagnosis: Gastroenteritis Interval history: Afebrile, white count has resolved. Objective - Exam Narrative Exam: Physical Exam: Constitutional: Awake, alert, nods to questions Head, Ears, Nose: Normocephalic, atraumatic. External ears, nose normal Eyes: Conjunctivae/corneas clear. No icterus. No ptosis. Neck: Supple, no meningeal signs Cardiovascular: S1, S2 normal. Respiratory: Good air entry, clear to auscultation bilaterally GI: Soft, non-tender; bowel sounds normal. No peritoneal signs Musculoskeletal: No pedal edema, no cyanosis. Skin: No rash or abscess Hem/Lymphatic: No palpable cervical or supraclavicular nodes. Psych: No agitation Neurological: Awake, alert. - Constitutional Vitals: Vital Signs Temp Pulse Resp BP Pulse Ox 97.8 F 98 H 18 125/73 98 06/09/20 08:34 06/09/20 10:19 06/09/20 08:34 06/09/20 10:19 06/09/20 08:34 Temperature -Last 24 Hours Temperature 97.8 F Temperature 98.2 F Temperature 98.4 F Temperature 99.0 F - Labs CBC & Chem 7: 06/09/20 04:38 06/09/20 04:38 Labs: Abnormal lab results 06/08/20 06/08/20 06/08/20 Range/Units 18:20 18:55 22:40 RDW (13.2-15.2) % [place] % (Auto) (0.0-7.3) % Seg Neutrophils % (40.0-70.0) % Sodium 136 L (137-145) mmol/L Chloride (98-107) mmol/L Carbon Dioxide (22-30) mmol/L Glucose 278 H (75-100) mg/dL POC Glucose 236 H 180 H (70-105) mg/dL 06/09/20 06/09/20 06/09/20 Range/Units 03:18 04:38 04:38 RDW 13.1 L (13.2-15.2) % [place] % (Auto) 7.8 H (0.0-7.3) % Seg Neutrophils % 73.3 H (40.0-70.0) % Sodium (137-145) mmol/L Chloride 110.1 H (98-107) mmol/L Carbon Dioxide 21 L (22-30) mmol/L Glucose 171 H (75-100) mg/dL POC Glucose 148 H (70-105) mg/dL
[2020-06-09] MEDS ORDERED: LORazepam 2 MG/ML VIAL IV PRN (13:00)
[2020-06-09] MEDS: SODIUM CHLORIDE 0.9% 1000 ML 1,000 ML IV SCH (16:24)
--- NOTE | 2020-06-09 18:28 | Progress Note ---
Assessment and Plan - Patient Problems (1) CHHAYA (acute kidney injury) Current Visit: Yes Status: Acute Plan to address problem: IV fluid resuscitation therapy, monitor urine output every shift, monitor fluid balance, BMP, supportive care. Avoid nephrotoxic agents. (2) Vascular dementia Current Visit: Yes Status: Acute Qualifiers: Dementia behavioral disturbance: without behavioral disturbance Qualified Code(s): F01.50 - Vascular dementia without behavioral disturbance Plan to address problem: Verbal prompting, verbal redirection, supportive care. (3) Cerebral atherosclerosis Current Visit: Yes Status: Acute Plan to address problem: Risk factor reduction, supportive care. (4) Encephalopathy Current Visit: Yes Status: Acute Plan to address problem: CT head reviewed, CT spine reviewed, supportive care, seizure precautions, aspiration precautions, fall precautions, neuro checks. (5) Debility Current Visit: Yes Status: Acute Plan to address problem: Physical therapy consulted, (6) DVT prophylaxis Current Visit: Yes Status: Acute Plan to address problem: SCD to bilateral lower extremities while in bed (7) Advance care planning Current Visit: Yes Status: Acute Plan to address problem: Disease education conducted, care plan discussed, prognosis discussed, patient is pending discharge to correction facility when bed available, case management consulted, +30 minutes. History Interval history: 70 YO Male HD #4 with CHHAYA, Vascular Dementia, Cerebral Atherosclerosis, Debility. Patient has diminished cognition. Patient cooperative. No reported nursing events. Patient denies pain. Patient is pending correction facility evaluation. Case management consulted. Hospitalist Physical - Constitutional Vitals: Temp Pulse Resp BP Pulse Ox 97.6 F 92 H 15 172/96 98 06/09/20 16:51 06/09/20 17:39 06/09/20 16:51 06/09/20 17:39 06/09/20 16:51 General appearance: Present: no acute distress, well-nourished - EENT Eyes: Present: PERRL ENT: hearing decreased - Respiratory Respiratory: bilateral: CTA - Cardiovascular Rhythm: regular Heart Sounds: Present: S1 & S2 - Extremities Extremities: no ischemia Peripheral Pulses: within normal limits - Abdominal General gastrointestinal: soft, non-tender, non-distended - Integumentary Integumentary: Present: clear, dry - Psychiatric Psychiatric: no intact judgment & insight, no memory intact, cooperative - Neurologic Neurologic: CNII-XII intact HEART Score - HEART Score Troponin: Troponin T 0.015 ng/mL (0.00-0.029) 06/05/20 16:25 Results - Labs CBC & Chem 7: 06/09/20 04:38 06/09/20 04:38 Labs: Laboratory Last Values WBC 8.6 K/mm3 (4.5-11.0) 06/09/20 04:38 RBC 3.86 M/mm3 (3.65-5.03) 06/09/20 04:38 Hgb 12.3 gm/dl (11.8-15.2) 06/09/20 04:38 Hct 36.1 % (35.5-45.6) 06/09/20 04:38 MCV 93 fl (84-94) 06/09/20 04:38 MCH 32 pg (28-32) 06/09/20 04:38 MCHC 34 % (32-34) 06/09/20 04:38 RDW 13.1 % (13.2-15.2) L 06/09/20 04:38 Plt Count 249 K/mm3 (140-440) 06/09/20 04:38 Lymph % (Auto) 15.7 % (13.4-35.0) 06/09/20 04:38 Lane % (Auto) 7.8 % (0.0-7.3) H 06/09/20 04:38 Eos % (Auto) 2.8 % (0.0-4.3) 06/09/20 04:38 Baso % (Auto) 0.4 % (0.0-1.8) 06/09/20 04:38 Lymph # (Auto) 1.4 K/mm3 (1.2-5.4) 06/09/20 04:38 Lane # (Auto) 0.7 K/mm3 (0.0-0.8) 06/09/20 04:38 Eos # (Auto) 0.2 K/mm3 (0.0-0.4) 06/09/20 04:38 Baso # (Auto) 0.0 K/mm3 (0.0-0.1) 06/09/20 04:38 Seg Neutrophils % 73.3 % (40.0-70.0) H 06/09/20 04:38 Seg Neutrophils # 6.3 K/mm3 (1.8-7.7) 06/09/20 04:38 PT 13.4 Sec. (12.2-14.9) 06/05/20 16:25 INR 1.03 (0.87-1.13) 06/05/20 16:25 APTT 26.9 Sec. (24.2-36.6) 06/05/20 16:25 VBG pH 7.386 (7.320-7.420) 06/05/20 16:25 Sodium 141 mmol/L (137-145) 06/09/20 04:38 Potassium 3.9 mmol/L (3.6-5.0) 06/09/20 04:38 Chloride 110.1 mmol/L (98-107) H 06/09/20 04:38 Carbon Dioxide 21 mmol/L (22-30) L 06/09/20 04:38 Anion Gap 14 mmol/L 06/09/20 04:38 BUN 13 mg/dL (9-20) 06/09/20 04:38 Creatinine 0.8 mg/dL (0.8-1.3) 06/09/20 04:38 Estimated GFR > 60 ml/min 06/09/20 04:38 BUN/Creatinine Ratio 16 % 06/09/20 04:38 Glucose 171 mg/dL (75-100) H 06/09/20 04:38 POC Glucose 207 mg/dL (70-105) H 06/09/20 15:28 Hemoglobin A1c 10.2 % (4-6) H 06/06/20 01:32 Lactic Acid 4.70 mmol/L (0.7-2.0) H* 06/05/20 19:27 Calcium 9.6 mg/dL (8.4-10.2) 06/09/20 04:38 Phosphorus 5.20 mg/dL (2.5-4.5) H 06/05/20 16:25 Magnesium 2.50 mg/dL (1.7-2.3) H 06/05/20 16:25 Total Bilirubin 0.30 mg/dL (0.1-1.2) 06/06/20 02:35 AST 12 units/L (5-40) 06/06/20 02:35 ALT 13 units/L (7-56) 06/06/20 02:35 Alkaline Phosphatase 105 units/L (35-129) 06/06/20 02:35 Troponin T 0.015 ng/mL (0.00-0.029) 06/05/20 16:25 Total Protein 6.0 g/dL (6.3-8.2) L 06/06/20 02:35 Albumin 3.0 g/dL (3.9-5) L 06/06/20 02:35 Albumin/Globulin Ratio 1.0 % 06/06/20 02:35 Urine Color Yellow (Yellow) 06/05/20 16:49 Urine Turbidity Slightly-cloudy (Clear) 06/05/20 16:49 Urine pH 5.0 (5.0-7.0) 06/05/20 16:49 Ur Specific [place] 1.017 (1.003-1.030) 06/05/20 16:49 Urine Protein <15 mg/dl mg/dL (Negative) 06/05/20 16:49 Urine Glucose (UA) >=500 mg/dL (Negative) 06/05/20 16:49 Urine Ketones Neg mg/dL (Negative) 06/05/20 16:49 Urine Blood Neg (Negative) 06/05/20 16:49 Urine Nitrite Neg (Negative) 06/05/20 16:49 Urine Bilirubin Neg (Negative) 06/05/20 16:49 Urine Urobilinogen < 2.0 mg/dL (<2.0) 06/05/20 16:49 Ur Leukocyte Esterase Neg (Negative) 06/05/20 16:49 Urine WBC (Auto) < 1.0 /HPF (0.0-6.0) 06/05/20 16:49 Urine RBC (Auto) < 1.0 /HPF (0.0-6.0) 06/05/20 16:49 U Epithel Cells (Auto) < 1.0 /HPF (0-13.0) 06/05/20 16:49 Urine Mucus Few /HPF 06/05/20 16:49 C. difficile Tox (PCR) Negative (Negative) 06/05/20 15:30 Microbiology: Microbiology 06/05/20 16:25 Peripheral/Venous Blood Culture - Preliminary NO GROWTH AFTER 4 DAYS 06/05/20 16:34 Peripheral/Venous Blood Culture - Preliminary NO GROWTH AFTER 4 DAYS Edwards/IV: Voiding Method Indwelling Catheter Active Medications - Current Medications Current Medications: Generic Name Dose Route Start Last Admin Trade Name Freq PRN Reason Stop Dose Admin Acetaminophen 650 mg 06/05/20 23:45 Acetaminophen 325 Mg Tab PO Q4H PRN Pain MILD(1-3)/Fever >100.5/JOHNSON Cetirizine HCl 10 mg 06/06/20 10:00 06/09/20 10:19 Cetirizine 10 Mg Tab PO 10 mg DAILY RM Administration Famotidine 20 mg 06/09/20 10:00 06/09/20 10:20 Famotidine 20 Mg Tab PO 20 mg DAILY RM Administration Fluticasone Propionate 50 mcg 06/06/20 10:00 06/09/20 10:19 Fluticasone Propionate Nasal [place] 16 Gm NS 50 mcg QDAY RM Administration Haloperidol Lactate 5 mg 06/09/20 12:36 Haloperidol Lactate 5 Mg/1 Ml Inj IM ONCE PRN Agitation Hydralazine HCl 10 mg 06/08/20 05:04 06/09/20 17:39 Hydralazine 20 Mg/1 Ml Inj IV 10 mg Q6HR PRN Administration hypertention Sodium Chloride 1,000 mls @ 100 mls/hr 06/05/20 23:45 06/09/20 16:24 Nacl 0.9% 1000 Ml IV 100 mls/hr DIRECT RM Administration Insulin Human Isoph/Insulin Regular 15 unit 06/06/20 17:00 06/09/20 17:14 Insulin Nph/Regular 70/30 Inj SUB-Q 15 unit BIDDIAB RM Administration Insulin Human Lispro 0 unit 06/06/20 00:00 06/09/20 17:14 Insulin Lispro 100 Unit/Ml SUB-Q 4 unit Q4H RM Administration Protocol Lisinopril 5 mg 06/06/20 10:00 06/09/20 10:19 Lisinopril 5 Mg Tab PO 5 mg QDAY RM Administration Lorazepam 2 mg 06/09/20 13:00 06/09/20 17:39 Lorazepam 2 Mg/Ml Vial IV 2 mg Q8H PRN Administration Agitation Metoclopramide HCl 10 mg 06/05/20 23:45 Metoclopramide 10 Mg/2 Ml Inj IV Q6H PRN Nausea And Vomiting Metoprolol Tartrate 25 mg 06/05/20 23:45 06/09/20 10:19 Metoprolol Tartrate 25 Mg Tab PO 25 mg BID RM Administration Morphine Sulfate 2 mg 06/05/20 23:45 Morphine 2 Mg/1 Ml Inj IV Q4H PRN Pain, Moderate (4-6) Ondansetron HCl 4 mg 06/05/20 23:45 Ondansetron 4 Mg/2 Ml Inj IV Q8H PRN Nausea And Vomiting Oxycodone/Acetaminophen 1 tab 06/05/20 23:45 Oxycodone /Acetaminophen 5-325mg Tab PO Q6H PRN Pain, Moderate (4-6) Sodium Chloride 10 ml 06/05/20 23:45 06/09/20 10:21 Sodium Chloride 0.9% 10 Ml Flush Syringe IV 10 ml BID RM Administration Sodium Chloride 10 ml 06/05/20 23:45 Sodium Chloride 0.9% 10 Ml Flush Syringe IV PRN PRN LINE FLUSH Nutrition/Malnutrition Assess - Dietary Evaluation Nutrition/Malnutrition Findings: Nutrition Notes Start: 06/06/20 11:22 Freq: Status: Active Protocol: Document 06/09/20 13:28 AL (Rec: 06/09/20 13:39 AL [id number]) Co-Sign 06/09/20 13:28 LP Nutrition Notes Initial or Follow up Reassessment Current Diagnosis Acute Kidney Injury, Hypertension,Stroke Other Pertinent Diagnosis s/p fall, Dementia, Aphasia, ( R) hemiplegia/weakness Current Diet Pureed with nectar-thick liquids/ Consistent Carbohydrate Labs/Tests BG 171 Pertinent Medications Reviewed Height 5 ft 10 in Weight 90.9 kg [place] Body Weight (kg) 75.45 BMI 28.7 Weight Status Overweight Subjective/Other Information F/U for MBS, intakes, and C diff results. Pt placed on pureed diet/nectar thick liquids. C diff result came out negative. Pt needs assistance eating at consumed 0% of breakfast this morning. Percent of energy/protein needs met: 0%/0% Burn Absent Trauma Absent Difficulty In Swallowing Minimum of two criteria No physical signs of malnutrition #3 Nutrition Diagnosis Inadequate energy intake Etiology Stroke, Aphasia As Evidenced by Signs and Symptoms pt consumed 0% of breakfast this morning. #2 Nutrition Diagnosis Altered nutrition-related laboratory values Diagnosis Progress(for reassessment Continues documentation) #1 Nutrition Diagnosis Inadequate energy intake As Evidenced by Signs and Symptoms 0% intake of breakfast this morning. Diagnosis Progress(for reassessment Resolved documentation) Is patient on ventilator? No Is Patient Ambulatory and/or Out of Bed No REE-([place]-St. Jeor-confined to bed) 73 Calculation Used for Recommendations [place]-St Jeor Additional Notes Pro needs 1-1.2g/k-109g/ day Fluid needs 1ml/kcal Nutrition Intervention Change Diet Order: Current diet as ordered Goal #1 PO intake to meet at least 75% energy and pro needs Goal #2 Improved BG control Anticipated Discharge Needs: Pureed/nectar thick liquids Consistent Carbohydrate diet. Follow-Up By: 06/11/20 Additional Comments F/U for intakes PO.
[2020-06-10] MEDS: INSULIN LISPRO 100 UNIT/ML SUB-Q SCH ×5 (04:00→16:11)
[2020-06-10] MEDS: INSULIN NPH/REGULAR 70/30 INJ SUB-Q SCH (08:23)
[2020-06-10] MEDS: SODIUM CHLORIDE 0.9% 1000 ML 1,000 ML IV SCH (10:07)
[2020-06-10] MEDS: FLUTICASONE PROPIONATE NASAL SPRAY 16 GM NS SCH (10:07)
[2020-06-10] MEDS: CETIRIZINE 10 MG TAB PO SCH (10:07)
[2020-06-10] MEDS: FAMOTIDINE 20 MG TAB PO SCH (10:08)
[2020-06-10] MEDS: METOPROLOL TARTRATE 25 MG TAB PO SCH (10:08)
[2020-06-10] MEDS: LISINOPRIL 5 MG TAB PO SCH (10:08)
--- NOTE | 2020-06-10 13:51 | Progress Note ---
Assessment and Plan Cultures: 06/05/2020 blood culture: no growth A/P: 70-year-old male with recent CVA, dementia, hypertension, right-sided residual deficit, residential resident was sent to the hospital after an unwitnessed fall. Patient had recently been evaluated at [facility] for the CVA: #Sepsis: Recent hospitalization. CT without colitis. C. difficile negative, start p.o. vancomycin. CXR without pneumonia. UA without pyuria. WBC improving. #CHHAYA: Creatinine improving. #Dementia, recent CVA #Indwelling Edwards catheter: UA without evidence of pyuria Recs: -continue off antibiotics. OK for DC from ID perspective. Martina Matthews MD [facility] O: [phone] F: [phone] Subjective Date of service: 06/10/20 Principal diagnosis: Gastroenteritis Interval history: Afebrile, no acute change. Objective - Exam Narrative Exam: Physical Exam: Constitutional: Awake, alert, nods to questions Head, Ears, Nose: Normocephalic, atraumatic. External ears, nose normal Eyes: Conjunctivae/corneas clear. No icterus. No ptosis. Neck: Supple, no meningeal signs Cardiovascular: S1, S2 normal. Respiratory: Good air entry, clear to auscultation bilaterally GI: Soft, non-tender; bowel sounds normal. No peritoneal signs Musculoskeletal: No pedal edema, no cyanosis. Skin: No rash or abscess Hem/Lymphatic: No palpable cervical or supraclavicular nodes. Psych: No agitation Neurological: Awake, alert. - Constitutional Vitals: Vital Signs Temp Pulse Resp BP Pulse Ox 97.3 F L 95 H 18 138/65 93 06/10/20 12:23 06/10/20 12:23 06/10/20 12:23 06/10/20 12:23 06/10/20 12:23 Temperature -Last 24 Hours Temperature 97.3 F Temperature 97.9 F Temperature 98.4 F Temperature 99.3 F Temperature 97.8 F Temperature 99.3 F Temperature 99.3 F Temperature 97.6 F - Labs CBC & Chem 7: 06/09/20 04:38 06/09/20 04:38 Labs: Abnormal lab results 06/09/20 06/09/20 Range/Units 15:28 21:36 POC Glucose 207 H 158 H (70-105) mg/dL
--- NOTE | 2020-06-10 15:15 | Discharge Summary ---
Providers - Providers Date of Admission: 06/05/20 19:16 Attending physician: ROSALINDA CÁRDENAS 06/05/20 23:45 Consult to Physician [CONS] Routine Comment: Consulting Provider: DARREN GAITAN Physician Instructions: Reason For Exam: Possible C. difficile colitis 06/06/20 07:25 Speech Therapy Evaluation and Treat [CONS] Routine Reason For Exam: Swallowing assessment 06/09/20 08:48 Physical Therapy Evaluation and Treat [CONS] Routine Comment: Reason For Exam: debility Mode of Transport?: Wheelchair Primary care physician: OLEGARIO FITZGERALD Hospitalization Condition: Stable Disposition: DC-30 STILL A PATIENT - Discharge Diagnoses (1) CHHAYA (acute kidney injury) Status: Acute (2) Vascular dementia Status: Acute Qualifiers: Dementia behavioral disturbance: without behavioral disturbance Qualified Code(s): F01.50 - Vascular dementia without behavioral disturbance (3) Cerebral atherosclerosis Status: Acute (4) Encephalopathy Status: Acute (5) Debility Status: Acute (6) DVT prophylaxis Status: Acute (7) Advance care planning Status: Acute Core Measure Documentation - Palliative Care Palliative Care/ Comfort Measures: Not Applicable Exam - Constitutional Vitals: Temp Pulse Resp BP Pulse Ox 97.3 F L 95 H 18 138/65 93 06/10/20 12:23 06/10/20 12:23 06/10/20 12:23 06/10/20 12:23 06/10/20 12:23 Plan Follow up with: OLEGARIO FITZGERALD MD [Primary Care Provider] - 3-5 Days
[2020-06-10 16:08] VITALS: BP 143/75
== END 2020-06-10 17:08 | DRG 871 ==
LOC: ED 15:16 → 4A 19:16
PROVIDERS: ADMIT Internal Medicine; ATTEND Internal Medicine
DX: A41.9 Sepsis, unspecified organism (principal); N17.0 Acute kidney failure with tubular necrosis; G93.40 Encephalopathy, unspecified; I69.351 Hemiplegia and hemiparesis following cerebral infarction affecting right dominant side; E86.0 Dehydration; Z20.822 Contact with and (suspected) exposure to COVID-19; F01.50 Vascular dementia, unspecified severity, without behavioral disturbance, psychotic disturbance, mood disturbance, and anxiety; I67.2 Cerebral atherosclerosis; E11.65 Type 2 diabetes mellitus with hyperglycemia; R53.81 Other malaise; I10 Essential (primary) hypertension; Z79.82 Long term (current) use of aspirin; Z79.899 Other long term (current) drug therapy
CPT/HCPCS: 36415; 70450; 71045; 72125; 74176; 80048; 80053; 81001; 82140; 82805; 82962; 83036; 83735; 84100; 84484; 85025; 85610; 85730; 87040; 87493; 93005; 96365; 96366; 96375; G0378; J0360; J1815; J2060; J2704; J3370; J7030; U0003

== ENCOUNTER 2020-07-10 00:12 | Inpatient (IN) | payer OTHER, MEDICARE ==
--- NOTE | 2020-07-10 00:39 | Emergency Department Report ---
ED Altered Mental Status HPI - General Chief Complaint: Abdominal Pain Stated Complaint: ABD PAIN/AMS PUI?: No Time Seen by Provider: 07/10/20 00:32 Source: EMS Mode of arrival: Stretcher Limitations: Altered Mental Status, Physical Limitation - History of Present Illness Initial Comments: Patient is a 70-year-old male that presents emergency room with confusion, altered mental status and abdominal pain. Patient brought in by EMS. EMS report received. We will states the patient is altered and is complaining of abdominal pain. Patient is alert and oriented x1. Unclear what the patient's baseline is. Patient states abdominal pain is is severe. Patient states the abdominal pain is generalized. Patient denies any other complaints. MD Complaint: altered mental status, confusion -: Sudden Severity: severe Consistency of Symptoms: constant - Related Data Previous Rx's Medication Instructions Recorded Last Taken Type Aspirin EC [Ecotrin] 325 mg PO QDAY #30 tablet 07/29/14 Unknown Rx Simvastatin (Nf) [Zocor TAB] 20 mg PO QHS #30 tablet 07/29/14 Unknown Rx Metoprolol [Lopressor TAB] 25 mg PO BID #60 tablet 06/25/15 Unknown Rx lisinopriL [Zestril TAB] 5 mg PO QDAY #30 tablet 06/25/15 Unknown Rx Azithromycin [Zithromax Z-NAYAN] 250 mg PO DAILY #6 tablet 08/06/19 Unknown Rx Benzonatate [Tessalon Perles] 100 mg PO Q12H PRN #20 capsule 08/06/19 Unknown Rx Cetirizine HCl [ZyrTEC] 10 mg PO DAILY #30 capsule 08/06/19 Unknown Rx Fluticasone [Flonase] 1 spray NS QDAY #1 bottle 08/06/19 Unknown Rx Allergies Allergy/AdvReac Type Severity Reaction Status Date / Time No Known Allergies Allergy Verified 08/06/19 15:49 ED Review of Systems ROS: Stated complaint: ABD PAIN/AMS Other details as noted in HPI Comment: Unobtainable due to pts medical conditions ED Past Medical Hx - Past Medical History Previous Medical History?: Yes Hx Hypertension: Yes 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) Hx Heart Attack/AMI: No Hx Congestive Heart Failure: No Hx Diabetes: Yes Hx Dementia: Yes - Surgical History Past Surgical History?: Yes Additional Surgical History: TONSILLECTOMY - Family History Family history: no significant - Social History Smoking Status: Former Smoker Substance Use Type: None - Medications Home Medications: Home Medications Medication Instructions Recorded Confirmed Last Taken Type Aspirin EC [Ecotrin] 325 mg PO QDAY #30 tablet 07/29/14 06/05/20 Unknown Rx Simvastatin (Nf) [Zocor TAB] 20 mg PO QHS #30 tablet 07/29/14 06/05/20 Unknown Rx Metoprolol [Lopressor TAB] 25 mg PO BID #60 tablet 06/25/15 06/05/20 Unknown Rx lisinopriL [Zestril TAB] 5 mg PO QDAY #30 tablet 06/25/15 06/05/20 Unknown Rx Azithromycin [Zithromax Z-NAYAN] 250 mg PO DAILY #6 tablet 08/06/19 06/05/20 Unknown Rx Benzonatate [Tessalon Perles] 100 mg PO Q12H PRN #20 capsule 08/06/19 06/05/20 Unknown Rx Cetirizine HCl [ZyrTEC] 10 mg PO DAILY #30 capsule 08/06/19 06/05/20 Unknown Rx Fluticasone [Flonase] 1 spray NS QDAY #1 bottle 08/06/19 06/05/20 Unknown Rx ED Physical Exam - General General appearance: alert, in no apparent distress - Head Head exam: Present: atraumatic, normocephalic - Eye Eye exam: Present: normal appearance - ENT ENT exam: Present: mucous membranes moist - Neck Neck exam: Present: normal inspection - Respiratory Respiratory exam: Present: normal lung sounds bilaterally. Absent: respiratory distress - Cardiovascular Cardiovascular Exam: Present: regular rate, normal rhythm. Absent: systolic murmur, diastolic murmur, rubs, gallop - GI/Abdominal GI/Abdominal exam: Present: soft, tenderness, normal bowel sounds - Rectal Rectal exam: Present: deferred - Extremities Exam Extremities exam: Present: normal inspection - Back Exam Back exam: Present: normal inspection - Neurological Exam Neurological exam: Present: alert, altered - Skin Skin exam: Present: warm, dry, intact, normal color. Absent: rash ED Course Vital Signs 07/10/20 07/10/20 07/10/20 00:52 00:53 00:54 Temperature Pulse Rate 86 90 Respiratory 14 13 Rate Blood Pressure 91/68 O2 Sat by Pulse 98 96 Oximetry 07/10/20 07/10/20 07/10/20 00:55 00:56 00:58 Temperature 98.7 F Pulse Rate 89 87 Respiratory 25 H 13 Rate Blood Pressure 91/68 91/68 O2 Sat by Pulse 92 97 Oximetry 07/10/20 07/10/20 07/10/20 01:00 01:02 01:04 Temperature Pulse Rate 89 93 H 89 Respiratory 11 L 16 15 Rate Blood Pressure 91/68 91/68 91/68 O2 Sat by Pulse 97 98 98 Oximetry 07/10/20 07/10/20 07/10/20 01:06 01:08 01:10 Temperature Pulse Rate 89 84 86 Respiratory 14 16 14 Rate Blood Pressure 91/68 110/67 110/67 O2 Sat by Pulse 95 90 Oximetry 07/10/20 07/10/20 07/10/20 01:12 01:14 01:16 Temperature Pulse Rate 84 89 83 Respiratory 18 15 16 Rate Blood Pressure 110/67 110/67 110/67 O2 Sat by Pulse 98 98 94 Oximetry 07/10/20 07/10/20 07/10/20 01:18 01:20 01:22 Temperature Pulse Rate 88 86 86 Respiratory 16 18 16 Rate Blood Pressure 110/67 110/67 110/67 O2 Sat by Pulse 98 95 95 Oximetry 07/10/20 07/10/20 07/10/20 01:23 01:24 01:26 Temperature Pulse Rate 85 87 82 Respiratory 16 16 17 Rate Blood Pressure 117/70 117/70 117/70 O2 Sat by Pulse 97 97 92 Oximetry 07/10/20 07/10/20 07/10/20 01:28 01:30 01:32 Temperature Pulse Rate 84 89 87 Respiratory 13 16 17 Rate Blood Pressure 117/70 117/70 117/70 O2 Sat by Pulse 97 94 97 Oximetry 07/10/20 07/10/20 07/10/20 01:34 01:36 01:38 Temperature Pulse Rate 84 84 89 Respiratory 15 16 17 Rate Blood Pressure 117/70 117/70 128/82 O2 Sat by Pulse 94 95 96 Oximetry 07/10/20 07/10/20 07/10/20 01:40 01:42 01:44 Temperature Pulse Rate 86 84 85 Respiratory 16 16 16 Rate Blood Pressure 128/82 128/82 128/82 O2 Sat by Pulse 91 95 94 Oximetry 07/10/20 07/10/2007/10/21 01:46 01:48 01:50 Temperature Pulse Rate 86 89 86 Respiratory 16 16 14 Rate Blood Pressure 128/82 128/82 128/82 O2 Sat by Pulse 94 94 94 Oximetry 07/10/20 07/10/20 07/10/20 01:52 01:54 01:56 Temperature Pulse Rate 93 H 94 H 94 H Respiratory 10 L 15 16 Rate Blood Pressure 128/82 111/60 111/60 O2 Sat by Pulse 93 94 100 Oximetry 07/10/20 07/10/20 07/10/20 01:58 02:00 02:02 Temperature Pulse Rate 88 87 88 Respiratory 17 16 18 Rate Blood Pressure 111/60 111/60 111/60 O2 Sat by Pulse 99 96 96 Oximetry 07/10/20 07/10/20 07/10/20 02:04 02:06 02:08 Temperature Pulse Rate 88 85 92 H Respiratory 11 L 17 16 Rate Blood Pressure 111/60 111/60 123/78 O2 Sat by Pulse 98 99 100 Oximetry 07/10/20 07/10/20 07/10/20 02:10 02:12 02:14 Temperature Pulse Rate 86 85 88 Respiratory 14 13 15 Rate Blood Pressure 123/78 123/78 123/78 O2 Sat by Pulse 98 98 96 Oximetry 07/10/20 07/10/20 07/10/20 02:16 02:18 02:20 Temperature Pulse Rate 87 87 87 Respiratory 11 L 18 20 Rate Blood Pressure 123/78 123/78 123/78 O2 Sat by Pulse 96 95 96 Oximetry 07/10/20 07/10/20 07/10/20 02:22 02:23 02:24 Temperature Pulse Rate 90 88 86 Respiratory 13 17 15 Rate Blood Pressure 123/78 113/74 113/74 O2 Sat by Pulse 98 96 95 Oximetry 07/10/20 07/10/20 07/10/20 02:26 02:28 02:30 Temperature Pulse Rate 87 84 91 H Respiratory 18 17 12 Rate Blood Pressure 113/74 113/74 113/74 O2 Sat by Pulse 96 95 96 Oximetry 07/10/20 07/10/20 07/10/20 02:32 03:18 03:19 Temperature Pulse Rate 86 85 89 Respiratory 16 18 16 Rate Blood Pressure 113/74 123/78 122/68 O2 Sat by Pulse 96 99 99 Oximetry 07/10/20 07/10/20 07/10/20 03:20 03:22 03:24 Temperature Pulse Rate 90 85 83 Respiratory 11 L 14 15 Rate Blood Pressure 122/68 122/68 122/68 O2 Sat by Pulse 100 98 96 Oximetry 07/10/20 07/10/20 07/10/20 03:26 03:28 03:30 Temperature Pulse Rate 85 84 85 Respiratory 15 13 16 Rate Blood Pressure 122/68 122/68 122/68 O2 Sat by Pulse 97 98 96 Oximetry 07/10/20 07/10/20 07/10/20 03:32 03:34 03:36 Temperature Pulse Rate 85 91 H 87 Respiratory 16 17 15 Rate Blood Pressure 122/68 122/68 122/68 O2 Sat by Pulse 98 99 91 Oximetry 07/10/20 07/10/20 07/10/20 03:38 03:40 03:42 Temperature Pulse Rate 93 H 89 86 Respiratory 17 19 16 Rate Blood Pressure 122/68 122/68 122/68 O2 Sat by Pulse 96 96 98 Oximetry 07/10/20 07/10/20 07/10/20 03:44 03:46 03:48 Temperature Pulse Rate 84 86 86 Respiratory 15 17 16 Rate Blood Pressure 122/68 122/68 122/68 O2 Sat by Pulse 99 96 98 Oximetry 07/10/20 07/10/20 07/10/20 03:49 03:50 03:52 Temperature Pulse Rate 90 89 88 Respiratory 18 18 18 Rate Blood Pressure 122/67 122/67 122/67 O2 Sat by Pulse 96 96 97 Oximetry 07/10/20 07/10/20 07/10/20 03:54 03:56 03:58 Temperature Pulse Rate 83 85 89 Respiratory 18 19 18 Rate Blood Pressure 122/67 122/67 122/67 O2 Sat by Pulse 96 98 99 Oximetry 07/10/20 07/10/20 07/10/20 04:00 04:02 04:04 Temperature Pulse Rate 90 87 84 Respiratory 16 15 15 Rate Blood Pressure 122/67 122/67 122/67 O2 Sat by Pulse 97 96 97 Oximetry 07/10/20 07/10/20 07/10/20 04:06 04:08 04:10 Temperature Pulse Rate 84 86 85 Respiratory 15 17 16 Rate Blood Pressure 122/67 122/67 122/67 O2 Sat by Pulse 97 99 98 Oximetry - Reevaluation(s) Reevaluation #1: Patient is more confused. Patient states she never had abdominal pain. 07/10/20 01:45 Reevaluation #2: I discussed all results with patient. I discussed plan of care with patient. Patient agrees with plan of care and admission. Patient to be admitted to the hospitalist service. 07/10/20 04:46 - Consultations Consultation #1: Hospitalist consulted for admission. Hospitalist to admit patient. 07/10/20 04:46 - Lab Data Result diagrams: 07/10/20 00:49 07/10/20 00:49 Lab Results 07/10/20 07/10/20 07/10/20 Range/Units 00:49 00:49 00:49 WBC 10.1 (4.5-11.0) K/mm3 RBC 3.12 L (3.65-5.03) M/mm3 Hgb 9.9 L (11.8-15.2) gm/dl Hct 29.4 L (35.5-45.6) % MCV 95 H (84-94) fl MCH 32 (28-32) pg MCHC 34 (32-34) % RDW 15.2 (13.2-15.2) % Plt Count 372 (140-440) K/mm3 Lymph % (Auto) 14.9 (13.4-35.0) % Cowley % (Auto) 7.2 (0.0-7.3) % Eos % (Auto) 1.2 (0.0-4.3) % Baso % (Auto) 0.6 (0.0-1.8) % Lymph # (Auto) 1.5 (1.2-5.4) K/mm3 Cowley # (Auto) 0.7 (0.0-0.8) K/mm3 Eos # (Auto) 0.1 (0.0-0.4) K/mm3 Baso # (Auto) 0.1 (0.0-0.1) K/mm3 Seg Neutrophils % 76.1 H (40.0-70.0) % Seg Neutrophils # 7.7 (1.8-7.7) K/mm3 Sodium 132 L (137-145) mmol/L Potassium 4.3 (3.6-5.0) mmol/L Chloride 95.2 L (98-107) mmol/L Carbon Dioxide 26 (22-30) mmol/L Anion Gap 15 mmol/L BUN 20 (9-20) mg/dL Creatinine 1.0 (0.8-1.3) mg/dL Estimated GFR > 60 ml/min BUN/Creatinine Ratio 20 % Glucose 99 (75-100) mg/dL Lactic Acid 1.00 (0.7-2.0) mmol/L Calcium 9.9 (8.4-10.2) mg/dL Total Bilirubin 0.40 (0.1-1.2) mg/dL AST 13 (5-40) units/L ALT 12 (7-56) units/L Alkaline Phosphatase 177 H (35-129) units/L Ammonia (25-60) umol/L Total Creatine Kinase (55-170) units/L Total Protein 6.6 (6.3-8.2) g/dL Albumin 3.5 L (3.9-5) g/dL Albumin/Globulin Ratio 1.1 % Urine Color (Yellow) Urine Turbidity (Clear) Urine pH (5.0-7.0) Ur Specific Starke (1.003-1.030) Urine Protein (Negative) mg/dL Urine Glucose (UA) (Negative) mg/dL Urine Ketones (Negative) mg/dL Urine Blood (Negative) Urine Nitrite (Negative) Urine Bilirubin (Negative) Urine Urobilinogen (<2.0) mg/dL Ur Leukocyte Esterase (Negative) Urine WBC (Auto) (0.0-6.0) /HPF Urine RBC (Auto) (0.0-6.0) /HPF U Epithel Cells (Auto) (0-13.0) /HPF Urine Mucus /HPF Urine Opiates Screen Urine Methadone Screen Ur Barbiturates Screen Ur Phencyclidine Scrn Ur Amphetamines Screen U Benzodiazepines Scrn Urine Cocaine Screen U Marijuana (THC) Screen Drugs of Abuse Note 07/10/20 07/10/20 07/10/20 Range/Units 00:49 00:49 03:57 WBC (4.5-11.0) K/mm3 RBC (3.65-5.03) M/mm3 Hgb (11.8-15.2) gm/dl Hct (35.5-45.6) % MCV (84-94) fl MCH (28-32) pg MCHC (32-34) % RDW (13.2-15.2) % Plt Count (140-440) K/mm3 Lymph % (Auto) (13.4-35.0) % Cowley % (Auto) (0.0-7.3) % Eos % (Auto) (0.0-4.3) % Baso % (Auto) (0.0-1.8) % Lymph # (Auto) (1.2-5.4) K/mm3 Cowley # (Auto) (0.0-0.8) K/mm3 Eos # (Auto) (0.0-0.4) K/mm3 Baso # (Auto) (0.0-0.1) K/mm3 Seg Neutrophils % (40.0-70.0) % Seg Neutrophils # (1.8-7.7) K/mm3 Sodium (137-145) mmol/L Potassium (3.6-5.0) mmol/L Chloride (98-107) mmol/L Carbon Dioxide (22-30) mmol/L Anion Gap mmol/L BUN (9-20) mg/dL Creatinine (0.8-1.3) mg/dL Estimated GFR ml/min BUN/Creatinine Ratio % Glucose (75-100) mg/dL Lactic Acid (0.7-2.0) mmol/L Calcium (8.4-10.2) mg/dL Total Bilirubin (0.1-1.2) mg/dL AST (5-40) units/L ALT (7-56) units/L Alkaline Phosphatase (35-129) units/L Ammonia 14.0 L (25-60) umol/L Total Creatine Kinase 60 (55-170) units/L Total Protein (6.3-8.2) g/dL Albumin (3.9-5) g/dL Albumin/Globulin Ratio % Urine Color Yellow (Yellow) Urine Turbidity Clear (Clear) Urine pH 5.0 (5.0-7.0) Ur Specific Starke 1.037 H (1.003-1.030) Urine Protein <15 mg/dl (Negative) mg/dL Urine Glucose (UA) >=500 (Negative) mg/dL Urine Ketones Neg (Negative) mg/dL Urine Blood Neg (Negative) Urine Nitrite Neg (Negative) Urine Bilirubin Neg (Negative) Urine Urobilinogen < 2.0 (<2.0) mg/dL Ur Leukocyte Esterase Neg (Negative) Urine WBC (Auto) 2.0 (0.0-6.0) /HPF Urine RBC (Auto) 3.0 (0.0-6.0) /HPF U Epithel Cells (Auto) < 1.0 (0-13.0) /HPF Urine Mucus Few /HPF Urine Opiates Screen Urine Methadone Screen Ur Barbiturates Screen Ur Phencyclidine Scrn Ur Amphetamines Screen U Benzodiazepines Scrn Urine Cocaine Screen U Marijuana (THC) Screen Drugs of Abuse Note 07/10/20 Range/Units 03:57 WBC (4.5-11.0) K/mm3 RBC (3.65-5.03) M/mm3 Hgb (11.8-15.2) gm/dl Hct (35.5-45.6) % MCV (84-94) fl MCH (28-32) pg MCHC (32-34) % RDW (13.2-15.2) % Plt Count (140-440) K/mm3 Lymph % (Auto) (13.4-35.0) % Cowley % (Auto) (0.0-7.3) % Eos % (Auto) (0.0-4.3) % Baso % (Auto) (0.0-1.8) % Lymph # (Auto) (1.2-5.4) K/mm3 Cowley # (Auto) (0.0-0.8) K/mm3 Eos # (Auto) (0.0-0.4) K/mm3 Baso # (Auto) (0.0-0.1) K/mm3 Seg Neutrophils % (40.0-70.0) % Seg Neutrophils # (1.8-7.7) K/mm3 Sodium (137-145) mmol/L Potassium (3.6-5.0) mmol/L Chloride (98-107) mmol/L Carbon Dioxide (22-30) mmol/L Anion Gap mmol/L BUN (9-20) mg/dL Creatinine (0.8-1.3) mg/dL Estimated GFR ml/min BUN/Creatinine Ratio % Glucose (75-100) mg/dL Lactic Acid (0.7-2.0) mmol/L Calcium (8.4-10.2) mg/dL Total Bilirubin (0.1-1.2) mg/dL AST (5-40) units/L ALT (7-56) units/L Alkaline Phosphatase (35-129) units/L Ammonia (25-60) umol/L Total Creatine Kinase (55-170) units/L Total Protein (6.3-8.2) g/dL Albumin (3.9-5) g/dL Albumin/Globulin Ratio % Urine Color (Yellow) Urine Turbidity (Clear) Urine pH (5.0-7.0) Ur Specific Starke (1.003-1.030) Urine Protein (Negative) mg/dL Urine Glucose (UA) (Negative) mg/dL Urine Ketones (Negative) mg/dL Urine Blood (Negative) Urine Nitrite (Negative) Urine Bilirubin (Negative) Urine Urobilinogen (<2.0) mg/dL Ur Leukocyte Esterase (Negative) Urine WBC (Auto) (0.0-6.0) /HPF Urine RBC (Auto) (0.0-6.0) /HPF U Epithel Cells (Auto) (0-13.0) /HPF Urine Mucus /HPF Urine Opiates Screen Negative Urine Methadone Screen Negative Ur Barbiturates Screen Negative Ur Phencyclidine Scrn Negative Ur Amphetamines Screen Negative U Benzodiazepines Scrn Negative Urine Cocaine Screen Negative U Marijuana (THC) Screen Negative Drugs of Abuse Note Disclamer - EKG Data -: EKG Interpreted by [facility] EKG shows normal: sinus rhythm, axis, intervals, QRS complexes, ST-T waves Rate: normal - Radiology Data Radiology results: report reviewed, image reviewed CHEST 1 VIEW INDICATION: Altered Mental Status. COMPARISON: 06/05/2020 FINDINGS: Support devices: None. Heart: Normal. Lungs/Pleura: No acute pulmonary or pleural findings. IMPRESSION: 1. No acute findings. CT HEAD WITHOUT CONTRAST INDICATION: Altered Mental Status. TECHNIQUE: All CT scans at this location are performed using CT dose reduction for ALARA by means of automated exposure control. COMPARISON: None available. FINDINGS: HEMORRHAGE: None. EXTRA-AXIAL SPACES: Normal in size and morphology for the patient's age. VENTRICULAR SYSTEM: Normal in size and morphology for the patient's age. BRAIN PARENCHYMA: No acute findings. There is encephalomalacia in the previously seen branch left STEEL WELDER infarct. Diffuse atrophic changes are again noted. Hypodensity in the left tanner which is likely ischemic is unchanged. Extensive microangiopathic changes are again noted. MIDLINE SHIFT OR HERNIATION: None. ORBITS: Normal as visualized. SOFT TISSUES OF HEAD: Normal. CALVARIUM: Normal. VISUALIZED PARANASAL SINUSES AND MASTOID AIR CELLS: Clear. ADDITIONAL FINDINGS: None. IMPRESSION: 1. No acute intracranial abnormality. CT ABDOMEN AND PELVIS WITH IV CONTRAST INDICATION: Patient complains of severe "Generalized" abdominal pain. COMPARISON: CT 06/05/2020 TECHNIQUE: All CT scans at this facility use dose modulation, automated exposure control, iterative reconstruction or weight based dosing, when appropriate, to reduce radiation dose to as low as reasonably achievable. FINDINGS: Lung Bases: No significant abnormality. Skeletal System: No acute abnormality. There is sclerosis at the right pubic bone, this is unchanged. ABDOMEN: Liver: No significant abnormality. Gallbladder: No significant abnormality. Bile Ducts: No significant abnormality. Pancreas: No significant abnormality. Spleen: No significant abnormality. Adrenals: No significant abnormality. Right Kidney: No significant abnormality. Left Kidney: No significant abnormality. Upper GI tract: No significant abnormality. Lymph Nodes: No significant adenopathy. Aorta: No significant abnormality. Additional Findings: No significant abnormality. PELVIS: Colon: No acute abnormality. Diverticulosis is noted. Urinary Bladder and Distal Ureters: No significant abnormality. Appendix: No significant abnormality. Lymph Nodes: No significant adenopathy. Additional Findings: There is heterotopic ossification within right gluteal, piriformis, and obturator musculature in the inferior right hemipelvis. On the prior CT these muscles were edematous. IMPRESSION: 1. No acute process in the abdomen or pelvis. 2. Interval development of extensive heterotopic ossification within right pelvic musculature as above. On the prior exam these muscles were edematous suggesting there may have been acute strain at that time. 3. There is sclerosis within the right pubic bone, this is unchanged. 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 - Medical Decision Making Patient is a 70-year-old male that presents emergency room with complaints of altered mental status and abdominal pain. Patient is a poor historian. Patient has history of dementia but we are unsure with the patient's mental baseline is. Patient had labs done which were essentially unremarkable except for signs of dehydration. Patient had a head CT done for the ultimate status was negative for acute findings. Patient had an abdominal CT for the possible abdominal pain complaints, the abdominal CT was negative for acute findings. Patient had EKG done which was negative for acute findings showed normal ST and sinus rhythm. Personally evaluated the EKG. Patient had a chest x-ray which was negative for acute findings. I personally reviewed the chest x-ray. Patient admitted to the hospital service for further evaluation and treatment. Patient given fluids while in the ER. Critical care time documented due to the multiple reassessments, prolonged time at the bedside, interpretation of diagnostics and labs. - Differential Diagnosis ABD PAIN. AMS. CONFUSION. DEHYDRATION. UTI Critical Care Time: Yes Critical care time in (mins) excluding proc time.: 35 Critical care attestation.: If time is entered above; I have spent that time in minutes in the direct care of this critically ill patient, excluding procedure time. Critical Care Time: 35 MINUTES ED Disposition Clinical Impression: Encephalopathy, Dehydration Altered mental state Qualifiers: Altered mental status type: unspecified Qualified Code(s): R41.82 - Altered mental status, unspecified Abdominal pain Qualifiers: Abdominal location: upper abdomen, unspecified Qualified Code(s): R10.10 - Upper abdominal pain, unspecified Anemia Qualifiers: Anemia type: unspecified type Qualified Code(s): D64.9 - Anemia, unspecified Disposition: DC-09 OP ADMIT IP TO THIS HOSP Is pt being admited?: Yes Does the pt Need Aspirin: No Condition: Stable Time of Disposition: 04:26
[2020-07-10 01:04] LABS: Basophils # (Auto) 0.1 K/mm3 (0.0-0.1); Basophils % (Auto) 0.6 % (0.0-1.8); Eosinophils # (Auto) 0.1 K/mm3 (0.0-0.4); Eosinophils % (Auto) 1.2 % (0.0-4.3); Hematocrit 29.4 % (35.5-45.6); Hemoglobin 9.9 gm/dl (11.8-15.2); Lymphocytes # (Auto) 1.5 K/mm3 (1.2-5.4); Lymphocytes % (Auto) 14.9 % (13.4-35.0); Mean Corpuscular HGB Conc 34 % (32-34); Mean Corpuscular Volume 95 fl (84-94); Monocytes # (Auto) 0.7 K/mm3 (0.0-0.8); Monocytes % (Auto) 7.2 % (0.0-7.3); Platelet Count 372 K/mm3 (140-440); Red Blood Count 3.12 M/mm3 (3.65-5.03); Red Cell Distribution Width 15.2 % (13.2-15.2)
--- NOTE | 2020-07-10 01:23 | XRay Report ---
CHEST 1 VIEW INDICATION: Altered Mental Status. COMPARISON: 06/05/2020 FINDINGS: Support devices: None. Heart: Normal. Lungs/Pleura: No acute pulmonary or pleural findings. IMPRESSION: 1. No acute findings. Signer Name: Charan Waggoner MD Signed: 07/10/2020 1:19 AM Workstation Name: [id number]
[2020-07-10 01:45] LABS: Alanine Aminotransferase 12 units/L (7-56); Albumin 3.5 g/dL (3.9-5); BUN/Creatinine Ratio 20; Blood Urea Nitrogen 20 mg/dL (9-20); Calcium 9.9 mg/dL (8.4-10.2); Hemolysis Index 1
--- NOTE | 2020-07-10 03:14 | Cat Scan Report ---
CT ABDOMEN AND PELVIS WITH IV CONTRAST INDICATION: Patient complains of severe "Generalized" abdominal pain. COMPARISON: CT 06/05/2020 TECHNIQUE: All CT scans at this facility use dose modulation, automated exposure control, iterative reconstructi on or weight based dosing, when appropriate, to reduce radiation dose to as low as reasonably achieva ble. FINDINGS: Lung Bases: No significant abnormality. Skeletal System: No acute abnormality. There is sclerosis at the right pubic bone, this is unchanged . ABDOMEN: Liver: No significant abnormality. Gallbladder: No significant abnormality. Bile Ducts: No significant abnormality. Pancreas: No significant abnormality. Spleen: No significant abnormality. Adrenals: No significant abnormality. Right Kidney: No significant abnormality. Left Kidney: No significant abnormality. Upper GI tract: No significant abnormality. Lymph Nodes: No significant adenopathy. Aorta: No significant abnormality. Additional Findings: No significant abnormality. PELVIS: Colon: No acute abnormality. Diverticulosis is noted. Urinary Bladder and Distal Ureters: No significant abnormality. Appendix: No significant abnormality. Lymph Nodes: No significant adenopathy. Additional Findings: There is heterotopic ossification within right gluteal, piriformis, and obturato r musculature in the inferior right hemipelvis. On the prior CT these muscles were edematous. IMPRESSION: 1. No acute process in the abdomen or pelvis. 2. Interval development of extensive heterotopic ossification within right pelvic musculature as abo ve. On the prior exam these muscles were edematous suggesting there may have been acute strain at jayson t time. 3. There is sclerosis within the right pubic bone, this is unchanged. 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 Signer Name: Charan Waggoner MD Signed: 07/10/2020 3:10 AM Workstation Name: [id number]
--- NOTE | 2020-07-10 03:18 | Cat Scan Report ---
CT HEAD WITHOUT CONTRAST INDICATION: Altered Mental Status. TECHNIQUE: All CT scans at this location are performed using CT dose reduction for ALARA by means of automated e xposure control. COMPARISON: None available. FINDINGS: HEMORRHAGE: None. EXTRA-AXIAL SPACES: Normal in size and morphology for the patient's age. VENTRICULAR SYSTEM: Normal in size and morphology for the patient's age. BRAIN PARENCHYMA: No acute findings. There is encephalomalacia in the previously seen branch left TRICK RODEO RIDER infarct. Diffuse atrophic changes are again noted. Hypodensity in the left tanner which is likely isch emic is unchanged. Extensive microangiopathic changes are again noted. MIDLINE SHIFT OR HERNIATION: None. ORBITS: Normal as visualized. SOFT TISSUES OF HEAD: Normal. CALVARIUM: Normal. VISUALIZED PARANASAL SINUSES AND MASTOID AIR CELLS: Clear. ADDITIONAL FINDINGS: None. IMPRESSION: 1. No acute intracranial abnormality. Signer Name: Charan Waggoner MD Signed: 07/10/2020 3:14 AM Workstation Name: [id number]
[2020-07-10 04:10] LABS: Bilirubin,Urine NEG (Negative); Blood,Urine NEG (Negative); Color,Urine Yellow (Yellow); Mucus,Urine FEW /HPF; Protein,Urine <15 mg/dL mg/dL (Negative); Urobilinogen,Urine < 2.0 mg/dL (<2.0)
[2020-07-10 04:14] LABS: Amphetamine Screen,Urine Negative; Benzodiazepines Screen,Urine Negative; Cannabinoid Screen,Urine Negative; Cocaine Screen,Urine Negative; Methadone Screen,Urine Negative; Opiate Screen,Urine Negative
[2020-07-10] MEDS ORDERED: SODIUM CHLORIDE 0.9% 500 ML 500 ML IV ONE (04:29)
--- NOTE | 2020-07-10 04:48 | History and Physical Report ---
History of Present Illness Date of examination: 07/10/20 Date of admission: 07/10/2020 Chief complaint: Altered Mental Status History of present illness: 70-year-old -[place] male with significant past medical history of hypertension, diabetes mellitus, dementia and history of CVA in the past presents to the emergency room via EMS today complaining of abdominal pain. Abdominal pain is said to be generalized. Patient denies any nausea vomiting, no diarrhea, no fever or chills, no chest pain or shortness of breath, no headache or dizziness, no hematuria or dysuria. Patient denies any sick contacts and denies any recent travel. Denies any contact with anyone with COVID-19. He is not a good historian and family members were not available at this time. He however indicates that he lives with his sister. Work-up in the emergency room today including CT scan of the abdomen and pelvis, CT scan of the head were unremarkable. Labs reveals mild hyponatremia, urinalysis reveals a concentrated urine and CBC reveals mild anemia. Urinalysis unremarkable. Patient has been admitted for altered mental status, abdominal pain and dehydration. Past History Past Medical History: diabetes, hypertension, stroke, other (Dementia) Past Surgical History: Other (Tonsillectomy) Social history: no significant social history Family history: no significant family history Medications and Allergies Allergies Allergy/AdvReac Type Severity Reaction Status Date / Time No Known Allergies Allergy Verified 08/06/19 15:49 Home Medications Medication Instructions Recorded Confirmed Last Taken Type Aspirin EC [Ecotrin] 325 mg PO QDAY #30 tablet 07/29/14 06/05/20 Unknown Rx Simvastatin (Nf) [Zocor TAB] 20 mg PO QHS #30 tablet 07/29/14 06/05/20 Unknown Rx Metoprolol [Lopressor TAB] 25 mg PO BID #60 tablet 06/25/15 06/05/20 Unknown Rx lisinopriL [Zestril TAB] 5 mg PO QDAY #30 tablet 06/25/15 06/05/20 Unknown Rx Azithromycin [Zithromax Z-NAYAN] 250 mg PO DAILY #6 tablet 08/06/19 06/05/20 Unknown Rx Benzonatate [Tessalon Perles] 100 mg PO Q12H PRN #20 capsule 08/06/19 06/05/20 Unknown Rx Cetirizine HCl [ZyrTEC] 10 mg PO DAILY #30 capsule 08/06/19 06/05/20 Unknown Rx Fluticasone [Flonase] 1 spray NS QDAY #1 bottle 08/06/19 06/05/20 Unknown Rx Active Meds: Active Medications Sodium Chloride (Nacl 0.9% 500 Ml) 500 mls @ 999 mls/hr IV BOLUS ONE Stop: 07/10/20 04:59 Review of Systems Constitutional: no fever, no chills Ears, nose, mouth and throat: no nasal congestion, no sore throat Cardiovascular: no chest pain, no palpitations Respiratory: no cough, no shortness of breath Gastrointestinal: abdominal pain, no nausea, no vomiting, no diarrhea Genitourinary Male: no dysuria, no hematuria, no flank pain Musculoskeletal: no neck pain, no low back pain Integumentary: no rash, no pruritis Neurological: confusion, no headaches Psychiatric: no anxiety, no depression Endocrine: no polyphagia, no polydipsia, no polyuria, no nocturia Exam - Constitutional Vitals: Temp Pulse Resp BP Pulse Ox 98.7 F 85 16 122/67 98 07/10/20 00:55 07/10/20 04:10 07/10/20 04:10 07/10/20 04:10 07/10/20 04:10 General appearance: Present: no acute distress, well-nourished - EENT Eyes: Present: PERRL, EOM intact. Absent: scleral icterus ENT: hearing intact, clear oral mucosa, dentition normal - Neck Neck: Present: supple, normal ROM - Respiratory Respiratory effort: normal Respiratory: bilateral: CTA - Cardiovascular Rhythm: regular Heart Sounds: Present: S1 & S2. Absent: gallop, systolic murmur, diastolic murmur, rub, click - Extremities Extremities: no ischemia, pulses intact, pulses symmetrical, No edema, normal temperature, normal color, Full ROM Peripheral Pulses: within normal limits - Abdominal General gastrointestinal: Present: soft, non-tender, non-distended, normal bowel sounds. Absent: mass - Integumentary Integumentary: Present: clear, warm, dry. Absent: rash - Musculoskeletal Musculoskeletal: strength equal bilaterally - Psychiatric Psychiatric: appropriate mood/affect, intact judgment & insight, memory intact, cooperative - Neurologic Neurologic: CNII-XII intact, no focal deficits, moves all extremities Results - Labs CBC & Chem 7: 07/10/20 00:49 07/10/20 00:49 Labs: Abnormal lab results 07/10/20 07/10/20 07/10/20 Range/Units 00:49 00:49 00:49 RBC 3.12 L (3.65-5.03) M/mm3 Hgb 9.9 L (11.8-15.2) gm/dl Hct 29.4 L (35.5-45.6) % MCV 95 H (84-94) fl Seg Neutrophils % 76.1 H (40.0-70.0) % Sodium 132 L (137-145) mmol/L Chloride 95.2 L (98-107) mmol/L Alkaline Phosphatase 177 H (35-129) units/L Ammonia 14.0 L (25-60) umol/L Albumin 3.5 L (3.9-5) g/dL Ur Specific [place] (1.003-1.030) 07/10/20 Range/Units 03:57 RBC (3.65-5.03) M/mm3 Hgb (11.8-15.2) gm/dl Hct (35.5-45.6) % MCV (84-94) fl Seg Neutrophils % (40.0-70.0) % Sodium (137-145) mmol/L Chloride (98-107) mmol/L Alkaline Phosphatase (35-129) units/L Ammonia (25-60) umol/L Albumin (3.9-5) g/dL Ur Specific [place] 1.037 H (1.003-1.030) Assessment and Plan - Patient Problems (1) Altered mental state Current Visit: Yes Status: Acute Qualifiers: Altered mental status type: unspecified Qualified Code(s): R41.82 - Altered mental status, unspecified Plan to address problem: Patient has a baseline history of dementia. Work-up so far has been unremarkable. Will monitor mental status. (2) Abdominal pain Current Visit: Yes Status: Acute Qualifiers: Abdominal location: upper abdomen, unspecified Qualified Code(s): R10.10 - Upper abdominal pain, unspecified Plan to address problem: Etiology unclear. Abdominal pain has since improved. Patient will be given IV analgesic medication as needed. (3) Diabetes mellitus Current Visit: Yes Status: Acute Plan to address problem: We will monitor Accu-Cheks closely. (4) Dehydration Current Visit: Yes Status: Acute Plan to address problem: Patient placed on IV fluid normal saline. We will monitor chemistry. (5) Hypertension Current Visit: No Status: Chronic Qualifiers: Hypertension type: essential hypertension Qualified Code(s): I10 - Essential (primary) hypertension Plan to address problem: We will resume routine home medications and monitor vital signs closely. (6) DVT prophylaxis Current Visit: No Status: Acute Plan to address problem: Patient placed on subcutaneous heparin. (7) Full code status Current Visit: Yes Status: Acute Plan to address problem: Patient is full code.
[2020-07-10] MEDS ORDERED: MAGNESIUM HYDROXIDE (MOM) ORAL LIQD UDC PO PRN (04:56)
[2020-07-10] MEDS ORDERED: ONDANSETRON 4 MG/2 ML INJ IV PRN (04:56)
[2020-07-10] MEDS ORDERED: ACETAMINOPHEN 325 MG TAB PO PRN (04:56)
[2020-07-10] MEDS ORDERED: DEXTROSE 50% IN WATER (25GM) 50 ML SYRINGE IV PRN (04:56)
[2020-07-10] MEDS: SODIUM CHLORIDE 0.9% 1000 ML 1,000 ML IV SCH ×2 (06:59→17:03)
[2020-07-10] MEDS: HEPARIN 5,000 UNIT/1 ML VIAL SUB-Q SCH ×3 (07:05→21:26)
[2020-07-10] MEDS: INSULIN LISPRO 100 UNIT/ML SUB-Q SCH ×3 (09:14→16:34)
[2020-07-10] MEDS: INSULIN REGULAR, HUMAN 100 UNITS/1 ML SUB-Q SCH ×4 (09:14→21:27)
--- NOTE | 2020-07-10 09:53 | Event Note ---
Date: 07/10/20 Patient seen and examined. We will continue to plan as outlined in H&P. Total time equals 35 minutes with greater than 50% spent on coordination of care and counseling.
--- NOTE | 2020-07-10 17:15 | Electrocardiograph Report ---
[facility] Test Date: 2020-07-10 Test Time: 04:34:53 Pat Name: MICHAEL GEIGER Department: Room: B302 1 Gender: M Stripe Marker: Víctor WOODRUFF : 1950 Requested By: KANDY OLEARY III Order Number: [id number] Reading MD: Joseph Munguia Measurements Intervals [place] Rate: 88 P: 0 KS: 62 QRS: -3 QRSD: 95 T: 88 QT: 363 QTc: 440 Interpretive Statements Sinus rhythm Nonspecific T abnormalities, lateral leads No previous ECG available for comparison Electronically Signed On 07-10-2020 17:15:15 EDT by Joseph Munguia
[2020-07-11] MEDS: INSULIN LISPRO 100 UNIT/ML SUB-Q SCH ×5 (00:33→21:30)
[2020-07-11] MEDS: HEPARIN 5,000 UNIT/1 ML VIAL SUB-Q SCH ×3 (05:47→21:42)
[2020-07-11] MEDS: SODIUM CHLORIDE 0.9% 1000 ML 1,000 ML IV SCH ×2 (05:48→17:20)
[2020-07-11] MEDS: INSULIN REGULAR, HUMAN 100 UNITS/1 ML SUB-Q SCH ×4 (08:10→21:31)
[2020-07-11 10:01] LABS: Blood Urea Nitrogen 11 mg/dL (9-20); Calcium 9.3 mg/dL (8.4-10.2); Hemolysis Index 2
[2020-07-11 10:03] LABS: BUN/Creatinine Ratio 16
[2020-07-11 10:14] LABS: Basophils % (Auto) 0.3 % (0.0-1.8); Eosinophils # (Auto) 0.1 K/mm3 (0.0-0.4); Eosinophils % (Auto) 1.6 % (0.0-4.3); Hematocrit 27.5 % (35.5-45.6); Hemoglobin 9.3 gm/dl (11.8-15.2); Lymphocytes % (Auto) 14.5 % (13.4-35.0); Mean Corpuscular HGB Conc 34 % (32-34); Mean Corpuscular Volume 95 fl (84-94); Monocytes # (Auto) 0.5 K/mm3 (0.0-0.8); Monocytes % (Auto) 6.8 % (0.0-7.3); Platelet Count 338 K/mm3 (140-440)
[2020-07-11 10:24] LABS: INR 1.1 (0.87-1.13)
--- NOTE | 2020-07-11 10:32 | Progress Note ---
Assessment and Plan Assessment and plan: Acute metabolic encephalopathy. Abdominal pain. Diabetes mellitus type 2 Hypertension 07/11/2020. CT scan of the abdomen pelvis and CT scan of the head were found to be unremarkable. Patient with mild hyponatremia that has improved. I spoke with his brother Donnie Patino who reports patient baseline mental status is normal functioning. Neurology consultation. Check MRI brain. History Interval history: Pt. still confused. Slow to respond to questions. Patient believes he is at [facility] and his age is 55. Hospitalist Physical - Constitutional Vitals: Temp Pulse Resp BP Pulse Ox 98.9 F 90 18 124/74 98 07/11/20 07:22 07/11/20 05:19 07/11/20 09:52 07/11/20 07:22 07/11/20 05:19 General appearance: Present: no acute distress, well-nourished - EENT Eyes: Present: PERRL, EOM intact ENT: hearing intact, clear oral mucosa, dentition normal - Neck Neck: Present: supple, normal ROM - Respiratory Respiratory effort: normal Respiratory: bilateral: CTA - Cardiovascular Rhythm: regular Heart Sounds: Present: S1 & S2. Absent: gallop, rub - Extremities Extremities: no ischemia, No edema, Full ROM - Abdominal General gastrointestinal: soft, non-tender, non-distended, normal bowel sounds - Integumentary Integumentary: Present: clear, warm, dry - Neurologic Neurologic: CNII-XII intact, moves all extremities Results - Labs CBC & Chem 7: 07/11/20 09:12 07/11/20 09:12 Labs: Laboratory Last Values WBC 6.7 K/mm3 (4.5-11.0) 07/11/20 09:12 RBC 2.90 M/mm3 (3.65-5.03) L 07/11/20 09:12 Hgb 9.3 gm/dl (11.8-15.2) L 07/11/20 09:12 Hct 27.5 % (35.5-45.6) L 07/11/20 09:12 MCV 95 fl (84-94) H 07/11/20 09:12 MCH 32 pg (28-32) 07/11/20 09:12 MCHC 34 % (32-34) 07/11/20 09:12 RDW 15.0 % (13.2-15.2) 07/11/20 09:12 Plt Count 338 K/mm3 (140-440) 07/11/20 09:12 Lymph % (Auto) 14.5 % (13.4-35.0) 07/11/20 09:12 [place] % (Auto) 6.8 % (0.0-7.3) 07/11/20 09:12 Eos % (Auto) 1.6 % (0.0-4.3) 07/11/20 09:12 Baso % (Auto) 0.3 % (0.0-1.8) 07/11/20 09:12 Lymph # (Auto) 1.0 K/mm3 (1.2-5.4) L 07/11/20 09:12 [place] # (Auto) 0.5 K/mm3 (0.0-0.8) 07/11/20 09:12 Eos # (Auto) 0.1 K/mm3 (0.0-0.4) 07/11/20 09:12 Baso # (Auto) 0.0 K/mm3 (0.0-0.1) 07/11/20 09:12 Seg Neutrophils % 76.8 % (40.0-70.0) H 07/11/20 09:12 Seg Neutrophils # 5.2 K/mm3 (1.8-7.7) 07/11/20 09:12 Sodium 133 mmol/L (137-145) L 07/11/20 09:12 Potassium 3.7 mmol/L (3.6-5.0) 07/11/20 09:12 Chloride 101.0 mmol/L (98-107) 07/11/20 09:12 Carbon Dioxide 22 mmol/L (22-30) 07/11/20 09:12 Anion Gap 14 mmol/L 07/11/20 09:12 BUN 11 mg/dL (9-20) 07/11/20 09:12 Creatinine 0.7 mg/dL (0.8-1.3) L 07/11/20 09:12 Estimated GFR > 60 ml/min 07/11/20 09:12 BUN/Creatinine Ratio 16 % 07/11/20 09:12 Glucose 104 mg/dL (75-100) H 07/11/20 09:12 POC Glucose 110 mg/dL (70-105) H 07/11/20 07:21 Lactic Acid 1.00 mmol/L (0.7-2.0) 07/10/20 00:49 Calcium 9.3 mg/dL (8.4-10.2) 07/11/20 09:12 Total Bilirubin 0.40 mg/dL (0.1-1.2) 07/10/20 00:49 AST 13 units/L (5-40) 07/10/20 00:49 ALT 12 units/L (7-56) 07/10/20 00:49 Alkaline Phosphatase 177 units/L (35-129) H 07/10/20 00:49 Ammonia 14.0 umol/L (25-60) L 07/10/20 00:49 Total Creatine Kinase 60 units/L (55-170) 07/10/20 00:49 Total Protein 6.6 g/dL (6.3-8.2) 07/10/20 00:49 Albumin 3.5 g/dL (3.9-5) L 07/10/20 00:49 Albumin/Globulin Ratio 1.1 % 07/10/20 00:49 Urine Color Yellow (Yellow) 07/10/20 03:57 Urine Turbidity Clear (Clear) 07/10/20 03:57 Urine pH 5.0 (5.0-7.0) 07/10/20 03:57 Ur Specific [place] 1.037 (1.003-1.030) H 07/10/20 03:57 Urine Protein <15 mg/dl mg/dL (Negative) 07/10/20 03:57 Urine Glucose (UA) >=500 mg/dL (Negative) 07/10/20 03:57 Urine Ketones Neg mg/dL (Negative) 07/10/20 03:57 Urine Blood Neg (Negative) 07/10/20 03:57 Urine Nitrite Neg (Negative) 07/10/20 03:57 Urine Bilirubin Neg (Negative) 07/10/20 03:57 Urine Urobilinogen < 2.0 mg/dL (<2.0) 07/10/20 03:57 Ur Leukocyte Esterase Neg (Negative) 07/10/20 03:57 Urine WBC (Auto) 2.0 /HPF (0.0-6.0) 07/10/20 03:57 Urine RBC (Auto) 3.0 /HPF (0.0-6.0) 07/10/20 03:57 U Epithel Cells (Auto) < 1.0 /HPF (0-13.0) 07/10/20 03:57 Urine Mucus Few /HPF 07/10/20 03:57 Urine Opiates Screen Negative 07/10/20 03:57 Urine Methadone Screen Negative 07/10/20 03:57 Ur Barbiturates Screen Negative 07/10/20 03:57 Ur Phencyclidine Scrn Negative 07/10/20 03:57 Ur Amphetamines Screen Negative 07/10/20 03:57 U Benzodiazepines Scrn Negative 07/10/20 03:57 Urine Cocaine Screen Negative 07/10/20 03:57 U Marijuana (THC) Screen Negative 07/10/20 03:57 Drugs of Abuse Note Disclamer 07/10/20 03:57 Microbiology: Microbiology 07/10/20 03:57 Urine,Clean Catch Urine Culture - Preliminary NO GROWTH AFTER 24 HOURS Edwards/IV: Voiding Method Urinal Active Medications - Current Medications Current Medications: Generic Name Dose Route Start Last Admin Trade Name Freq PRN Reason Stop Dose Admin Acetaminophen 650 mg 07/10/20 04:56 Acetaminophen 325 Mg Tab PO Q4H PRN Pain MILD(1-3)/Fever >100.5/JOHNSON Dextrose 0 ml 07/10/20 04:56 Dextrose 50% In Water (25gm) 50 Ml Syringe IV Q30MIN PRN Hypoglycemia Protocol Heparin Sodium (Porcine) 5,000 unit 07/10/20 06:00 07/11/20 05:47 Heparin 5,000 Unit/1 Ml Vial SUB-Q 5,000 unit Q8HR RM Administration Sodium Chloride 1,000 mls @ 125 mls/hr 07/10/20 05:00 07/11/20 05:48 Nacl 0.9% 1000 Ml IV 125 mls/hr DIRECT RM Administration Insulin Human Lispro 0 unit 07/10/20 07:30 07/11/20 08:09 Insulin Lispro 100 Unit/Ml SUB-Q Not Given ACHS RM Protocol Insulin Human Regular 0 units 07/10/20 07:30 07/11/20 08:10 Insulin Regular, Human 100 Units/1 Ml SUB-Q Not Given ACHS RM Protocol Magnesium Hydroxide 30 ml 07/10/20 04:56 Magnesium Hydroxide (Mom) Oral Liqd Udc PO Q4H PRN Constipation Morphine Sulfate 2 mg 07/10/20 04:56 Morphine 2 Mg/1 Ml Inj IV Q4H PRN Pain, Moderate (4-6) Ondansetron HCl 4 mg 07/10/20 04:56 Ondansetron 4 Mg/2 Ml Inj IV Q8H PRN Nausea And Vomiting Sodium Chloride 10 ml 07/10/20 08:00 07/11/20 08:34 Sodium Chloride 0.9% 10 Ml Flush Syringe IV 10 ml BID RM Administration Sodium Chloride 10 ml 07/10/20 04:56 Sodium Chloride 0.9% 10 Ml Flush Syringe IV PRN PRN LINE FLUSH Nutrition/Malnutrition Assess - Dietary Evaluation Nutrition/Malnutrition Findings: Nutrition Notes Start: 07/10/20 11:48 Freq: Status: Active Protocol: Document 07/10/20 11:48 (Rec: 07/10/20 11:55 MK [id number]) Nutrition Notes Need for Assessment generated from: MD Order Initial or Follow up Assessment Current Diagnosis Diabetes,Stroke Other Pertinent Diagnosis AMS, dementia Current Diet Cardiac, Consistent CHO Labs/Tests Na 132 Pertinent Medications NS at 125 ml/hr Height 6 ft 1 in Weight 72.121 kg [place] Body Weight (kg) 83.63 BMI 20.9 Weight change and time frame 6% wt loss in 2 months Weight Status Underweight Subjective/Other Information MD order for diet education. Pt not appropriate. Pt reports 10lb wt loss in 2 months due to unknown reason. Pt eating 50% of meals. Burn Absent Trauma Absent GI Symptoms None Current % PO Poor (25-49%) Minimum of two criteria No Energy Intake (non-severe) <75% Estimated Energy Requirement >7 days #1 Nutrition Diagnosis Inadequate oral intake Etiology dementia As Evidenced by Signs and Symptoms pt eating 50% of meals Is patient on ventilator? No Is Patient Ambulatory and/or Out of Bed Yes REE-([facility]-ambulatory/OOB) [ 2008.617 NUTR.MSJOOB] Calculation Used for Recommendations [facility] Additional Notes Protein: 72-85g (1-1.2 g/kg) Fluid: 1 ml/kcal or per MD Nutrition Intervention Change Diet Order: Continue Add Supplement/Snack (indicate name/kcal Glucerna BID /protein ) Provides kCal: 440 Provides Protein (gm) 20 Goal #1 Meet at least 75% of protein and energy needs via PO and ONS intakes Anticipated Discharge Needs: Cardiac, consistent CHO Follow-Up By: 07/14/20 Additional Comments FU for intakes and ONS tolerance
[2020-07-11] MEDS: MORPHINE 2 MG/1 ML INJ IV PRN (21:27)
[2020-07-12] MEDS: HEPARIN 5,000 UNIT/1 ML VIAL SUB-Q SCH ×2 (06:37→14:23)
[2020-07-12] MEDS: INSULIN REGULAR, HUMAN 100 UNITS/1 ML SUB-Q SCH ×4 (07:30→21:39)
[2020-07-12] MEDS: INSULIN LISPRO 100 UNIT/ML SUB-Q SCH ×4 (08:39→21:39)
--- NOTE | 2020-07-12 09:41 | Progress Note ---
Assessment and Plan Assessment and plan: Acute metabolic encephalopathy. Abdominal pain. Diabetes mellitus type 2 Hypertension 07/11/2020. CT scan of the abdomen pelvis and CT scan of the head were found to be unremarkable. Patient with mild hyponatremia that has improved. I spoke with his brother Donnie Patino who reports patient baseline mental status is normal functioning. Neurology consultation. Check MRI brain. 07/12/2020. Patient appears to be back to baseline with his mentation. Patient is alert and oriented x3. Patient answers questions appropriately. Check MRI brain. Patient with no lateralizing signs of symptoms to indicate CVA. Await physical therapy evaluation. History Interval history: Patient appears to be back to baseline with his mentation. Patient is alert and oriented x3. Hospitalist Physical - Constitutional Vitals: Temp Pulse Resp BP Pulse Ox 98.4 F 91 H 18 144/90 99 07/12/20 07:23 07/12/20 07:23 07/12/20 07:23 07/12/20 07:23 07/12/20 07:23 General appearance: Present: no acute distress, well-nourished - EENT Eyes: Present: PERRL, EOM intact ENT: hearing intact, clear oral mucosa, dentition normal - Neck Neck: Present: supple, normal ROM - Respiratory Respiratory effort: normal Respiratory: bilateral: CTA - Cardiovascular Rhythm: regular Heart Sounds: Present: S1 & S2. Absent: gallop, rub - Extremities Extremities: no ischemia, No edema, Full ROM - Abdominal General gastrointestinal: soft, non-tender, non-distended, normal bowel sounds - Integumentary Integumentary: Present: clear, warm, dry - Neurologic Neurologic: CNII-XII intact, moves all extremities Results - Labs CBC & Chem 7: 07/11/20 09:12 07/11/20 09:12 Labs: Laboratory Last Values WBC 6.7 K/mm3 (4.5-11.0) 07/11/20 09:12 RBC 2.90 M/mm3 (3.65-5.03) L 07/11/20 09:12 Hgb 9.3 gm/dl (11.8-15.2) L 07/11/20 09:12 Hct 27.5 % (35.5-45.6) L 07/11/20 09:12 MCV 95 fl (84-94) H 07/11/20 09:12 MCH 32 pg (28-32) 07/11/20 09:12 MCHC 34 % (32-34) 07/11/20 09:12 RDW 15.0 % (13.2-15.2) 07/11/20 09:12 Plt Count 338 K/mm3 (140-440) 07/11/20 09:12 Lymph % (Auto) 14.5 % (13.4-35.0) 07/11/20 09:12 [place] % (Auto) 6.8 % (0.0-7.3) 07/11/20 09:12 Eos % (Auto) 1.6 % (0.0-4.3) 07/11/20 09:12 Baso % (Auto) 0.3 % (0.0-1.8) 07/11/20 09:12 Lymph # (Auto) 1.0 K/mm3 (1.2-5.4) L 07/11/20 09:12 [place] # (Auto) 0.5 K/mm3 (0.0-0.8) 07/11/20 09:12 Eos # (Auto) 0.1 K/mm3 (0.0-0.4) 07/11/20 09:12 Baso # (Auto) 0.0 K/mm3 (0.0-0.1) 07/11/20 09:12 Seg Neutrophils % 76.8 % (40.0-70.0) H 07/11/20 09:12 Seg Neutrophils # 5.2 K/mm3 (1.8-7.7) 07/11/20 09:12 PT 14.0 Sec. (12.2-14.9) 07/11/20 09:12 INR 1.10 (0.87-1.13) 07/11/20 09:12 Sodium 133 mmol/L (137-145) L 07/11/20 09:12 Potassium 3.7 mmol/L (3.6-5.0) 07/11/20 09:12 Chloride 101.0 mmol/L (98-107) 07/11/20 09:12 Carbon Dioxide 22 mmol/L (22-30) 07/11/20 09:12 Anion Gap 14 mmol/L 07/11/20 09:12 BUN 11 mg/dL (9-20) 07/11/20 09:12 Creatinine 0.7 mg/dL (0.8-1.3) L 07/11/20 09:12 Estimated GFR > 60 ml/min 07/11/20 09:12 BUN/Creatinine Ratio 16 % 07/11/20 09:12 Glucose 104 mg/dL (75-100) H 07/11/20 09:12 POC Glucose 95 mg/dL (70-105) 07/12/20 07:24 Lactic Acid 1.00 mmol/L (0.7-2.0) 07/10/20 00:49 Calcium 9.3 mg/dL (8.4-10.2) 07/11/20 09:12 Total Bilirubin 0.40 mg/dL (0.1-1.2) 07/10/20 00:49 AST 13 units/L (5-40) 07/10/20 00:49 ALT 12 units/L (7-56) 07/10/20 00:49 Alkaline Phosphatase 177 units/L (35-129) H 07/10/20 00:49 Ammonia 14.0 umol/L (25-60) L 07/10/20 00:49 Total Creatine Kinase 60 units/L (55-170) 07/10/20 00:49 Total Protein 6.6 g/dL (6.3-8.2) 07/10/20 00:49 Albumin 3.5 g/dL (3.9-5) L 07/10/20 00:49 Albumin/Globulin Ratio 1.1 % 07/10/20 00:49 Urine Color Yellow (Yellow) 07/10/20 03:57 Urine Turbidity Clear (Clear) 07/10/20 03:57 Urine pH 5.0 (5.0-7.0) 07/10/20 03:57 Ur Specific [place] 1.037 (1.003-1.030) H 07/10/20 03:57 Urine Protein <15 mg/dl mg/dL (Negative) 07/10/20 03:57 Urine Glucose (UA) >=500 mg/dL (Negative) 07/10/20 03:57 Urine Ketones Neg mg/dL (Negative) 07/10/20 03:57 Urine Blood Neg (Negative) 07/10/20 03:57 Urine Nitrite Neg (Negative) 07/10/20 03:57 Urine Bilirubin Neg (Negative) 07/10/20 03:57 Urine Urobilinogen < 2.0 mg/dL (<2.0) 07/10/20 03:57 Ur Leukocyte Esterase Neg (Negative) 07/10/20 03:57 Urine WBC (Auto) 2.0 /HPF (0.0-6.0) 07/10/20 03:57 Urine RBC (Auto) 3.0 /HPF (0.0-6.0) 07/10/20 03:57 U Epithel Cells (Auto) < 1.0 /HPF (0-13.0) 07/10/20 03:57 Urine Mucus Few /HPF 07/10/20 03:57 Urine Opiates Screen Negative 07/10/20 03:57 Urine Methadone Screen Negative 07/10/20 03:57 Ur Barbiturates Screen Negative 07/10/20 03:57 Ur Phencyclidine Scrn Negative 07/10/20 03:57 Ur Amphetamines Screen Negative 07/10/20 03:57 U Benzodiazepines Scrn Negative 07/10/20 03:57 Urine Cocaine Screen Negative 07/10/20 03:57 U Marijuana (THC) Screen Negative 07/10/20 03:57 Drugs of Abuse Note Disclamer 07/10/20 03:57 Microbiology: Microbiology 07/10/20 03:57 Urine,Clean Catch Urine Culture - Final NO GROWTH AFTER 48 HOURS Edwards/IV: Voiding Method Condom Catheter Active Medications - Current Medications Current Medications: Generic Name Dose Route Start Last Admin Trade Name Freq PRN Reason Stop Dose Admin Acetaminophen 650 mg 07/10/20 04:56 Acetaminophen 325 Mg Tab PO Q4H PRN Pain MILD(1-3)/Fever >100.5/JOHNSON Dextrose 0 ml 07/10/20 04:56 Dextrose 50% In Water (25gm) 50 Ml Syringe IV Q30MIN PRN Hypoglycemia Protocol Heparin Sodium (Porcine) 5,000 unit 07/10/20 06:00 07/12/20 06:37 Heparin 5,000 Unit/1 Ml Vial SUB-Q 5,000 unit Q8HR RM Administration Sodium Chloride 1,000 mls @ 125 mls/hr 07/10/20 05:00 07/11/20 17:20 Nacl 0.9% 1000 Ml IV 125 mls/hr DIRECT RM Administration Insulin Human Lispro 0 unit 07/10/20 07:30 04/18/21 08:39 Insulin Lispro 100 Unit/Ml SUB-Q Not Given [facility] Protocol Insulin Human Regular 0 units 07/10/20 07:30 07/11/20 21:31 Insulin Regular, Human 100 Units/1 Ml SUB-Q Not Given ACHS [facility] Protocol Magnesium Hydroxide 30 ml 07/10/20 04:56 Magnesium Hydroxide (Mom) Oral Liqd Udc PO Q4H PRN Constipation Morphine Sulfate 2 mg 07/10/20 04:56 07/11/20 21:27 Morphine 2 Mg/1 Ml Inj IV 2 mg Q4H PRN Administration Pain, Moderate (4-6) Ondansetron HCl 4 mg 07/10/20 04:56 Ondansetron 4 Mg/2 Ml Inj IV Q8H PRN Nausea And Vomiting Sodium Chloride 10 ml 07/10/20 08:00 07/11/20 21:29 Sodium Chloride 0.9% 10 Ml Flush Syringe IV 10 ml BID RM Administration Sodium Chloride 10 ml 07/10/20 04:56 Sodium Chloride 0.9% 10 Ml Flush Syringe IV PRN PRN LINE FLUSH Nutrition/Malnutrition Assess - Dietary Evaluation Nutrition/Malnutrition Findings: Nutrition Notes Start: 07/10/20 11:48 Freq: Status: Active Protocol: Document 07/10/20 11:48 (Rec: 07/10/20 11:55 [id number]) Nutrition Notes Need for Assessment generated from: MD Order Initial or Follow up Assessment Current Diagnosis Diabetes,Stroke Other Pertinent Diagnosis AMS, dementia Current Diet Cardiac, Consistent CHO Labs/Tests Na 132 Pertinent Medications NS at 125 ml/hr Height 6 ft 1 in Weight 72.121 kg [place] Body Weight (kg) 83.63 BMI 20.9 Weight change and time frame 6% wt loss in 2 months Weight Status Underweight Subjective/Other Information MD order for diet education. Pt not appropriate. Pt reports 10lb wt loss in 2 months due to unknown reason. Pt eating 50% of meals. Burn Absent Trauma Absent GI Symptoms None Current % PO Poor (25-49%) Minimum of two criteria No Energy Intake (non-severe) <75% Estimated Energy Requirement >7 days #1 Nutrition Diagnosis Inadequate oral intake Etiology dementia As Evidenced by Signs and Symptoms pt eating 50% of meals Is patient on ventilator? No Is Patient Ambulatory and/or Out of Bed Yes REE-([place]-ambulatory/OOB) [ 2008.617 NUTR.MSJOOB] Calculation Used for Recommendations [facility] Additional Notes Protein: 72-85g (1-1.2 g/kg) Fluid: 1 ml/kcal or per MD Nutrition Intervention Change Diet Order: Continue Add Supplement/Snack (indicate name/kcal Glucerna BID /protein ) Provides kCal: 440 Provides Protein (gm) 20 Goal #1 Meet at least 75% of protein and energy needs via PO and ONS intakes Anticipated Discharge Needs: Cardiac, consistent CHO Follow-Up By: 07/14/20 Additional Comments FU for intakes and ONS tolerance
[2020-07-12] MEDS: SODIUM CHLORIDE 0.9% 1000 ML 1,000 ML IV SCH ×2 (12:05→23:15)
[2020-07-13] MEDS: HEPARIN 5,000 UNIT/1 ML VIAL SUB-Q SCH ×3 (06:45→21:54)
--- NOTE | 2020-07-13 09:20 | Progress Note ---
Assessment and Plan Assessment and plan: Acute metabolic encephalopathy. Abdominal pain. Diabetes mellitus type 2 Hypertension 07/11/2020. CT scan of the abdomen pelvis and CT scan of the head were found to be unremarkable. Patient with mild hyponatremia that has improved. I spoke with his brother Donnie Patino who reports patient baseline mental status is normal functioning. Neurology consultation. Check MRI brain. 07/12/2020. Patient appears to be back to baseline with his mentation. Patient is alert and oriented x3. Patient answers questions appropriately. Check MRI brain. Patient with no lateralizing signs of symptoms to indicate CVA. Await physical therapy evaluation. 07/13/2020. Patient's mental status is improved. Await MRI brain for further evaluation. Neurology consultation pending. Await PT evaluation. History Interval history: Patient appears to be back to baseline with his mentation. Patient is alert and oriented x3. Hospitalist Physical - Constitutional Vitals: Temp Pulse Resp BP Pulse Ox 98.7 F 85 18 133/74 98 07/13/20 05:03 07/13/20 05:03 07/13/20 05:03 07/13/20 05:03 07/13/20 05:03 General appearance: Present: no acute distress, well-nourished - EENT Eyes: Present: PERRL, EOM intact ENT: hearing intact, clear oral mucosa, dentition normal - Neck Neck: Present: supple, normal ROM - Respiratory Respiratory effort: normal Respiratory: bilateral: CTA - Cardiovascular Rhythm: regular Heart Sounds: Present: S1 & S2. Absent: gallop, rub - Extremities Extremities: no ischemia, No edema, Full ROM - Abdominal General gastrointestinal: soft, non-tender, non-distended, normal bowel sounds - Integumentary Integumentary: Present: clear, warm, dry - Neurologic Neurologic: CNII-XII intact, moves all extremities Results - Labs CBC & Chem 7: 07/11/20 09:12 07/11/20 09:12 Labs: Laboratory Last Values WBC 6.7 K/mm3 (4.5-11.0) 07/11/20 09:12 RBC 2.90 M/mm3 (3.65-5.03) L 07/11/20 09:12 Hgb 9.3 gm/dl (11.8-15.2) L 07/11/20 09:12 Hct 27.5 % (35.5-45.6) L 07/11/20 09:12 MCV 95 fl (84-94) H 07/11/20 09:12 MCH 32 pg (28-32) 07/11/20 09:12 MCHC 34 % (32-34) 07/11/20 09:12 RDW 15.0 % (13.2-15.2) 07/11/20 09:12 Plt Count 338 K/mm3 (140-440) 07/11/20 09:12 Lymph % (Auto) 14.5 % (13.4-35.0) 07/11/20 09:12 Rich % (Auto) 6.8 % (0.0-7.3) 07/11/20 09:12 Eos % (Auto) 1.6 % (0.0-4.3) 07/11/20 09:12 Baso % (Auto) 0.3 % (0.0-1.8) 07/11/20 09:12 Lymph # (Auto) 1.0 K/mm3 (1.2-5.4) L 07/11/20 09:12 Rich # (Auto) 0.5 K/mm3 (0.0-0.8) 07/11/20 09:12 Eos # (Auto) 0.1 K/mm3 (0.0-0.4) 07/11/20 09:12 Baso # (Auto) 0.0 K/mm3 (0.0-0.1) 07/11/20 09:12 Seg Neutrophils % 76.8 % (40.0-70.0) H 07/11/20 09:12 Seg Neutrophils # 5.2 K/mm3 (1.8-7.7) 07/11/20 09:12 PT 14.0 Sec. (12.2-14.9) 07/11/20 09:12 INR 1.10 (0.87-1.13) 07/11/20 09:12 Sodium 133 mmol/L (137-145) L 07/11/20 09:12 Potassium 3.7 mmol/L (3.6-5.0) 07/11/20 09:12 Chloride 101.0 mmol/L (98-107) 07/11/20 09:12 Carbon Dioxide 22 mmol/L (22-30) 07/11/20 09:12 Anion Gap 14 mmol/L 07/11/20 09:12 BUN 11 mg/dL (9-20) 07/11/20 09:12 Creatinine 0.7 mg/dL (0.8-1.3) L 07/11/20 09:12 Estimated GFR > 60 ml/min 07/11/20 09:12 BUN/Creatinine Ratio 16 % 07/11/20 09:12 Glucose 104 mg/dL (75-100) H 07/11/20 09:12 POC Glucose 102 mg/dL (70-105) 07/13/20 07:39 Lactic Acid 1.00 mmol/L (0.7-2.0) 07/10/20 00:49 Calcium 9.3 mg/dL (8.4-10.2) 07/11/20 09:12 Total Bilirubin 0.40 mg/dL (0.1-1.2) 07/10/20 00:49 AST 13 units/L (5-40) 07/10/20 00:49 ALT 12 units/L (7-56) 07/10/20 00:49 Alkaline Phosphatase 177 units/L (35-129) H 07/10/20 00:49 Ammonia 14.0 umol/L (25-60) L 07/10/20 00:49 Total Creatine Kinase 60 units/L (55-170) 07/10/20 00:49 Total Protein 6.6 g/dL (6.3-8.2) 07/10/20 00:49 Albumin 3.5 g/dL (3.9-5) L 07/10/20 00:49 Albumin/Globulin Ratio 1.1 % 07/10/20 00:49 Urine Color Yellow (Yellow) 07/10/20 03:57 Urine Turbidity Clear (Clear) 07/10/20 03:57 Urine pH 5.0 (5.0-7.0) 07/10/20 03:57 Ur Specific [place] 1.037 (1.003-1.030) H 07/10/20 03:57 Urine Protein <15 mg/dl mg/dL (Negative) 07/10/20 03:57 Urine Glucose (UA) >=500 mg/dL (Negative) 07/10/20 03:57 Urine Ketones Neg mg/dL (Negative) 07/10/20 03:57 Urine Blood Neg (Negative) 07/10/20 03:57 Urine Nitrite Neg (Negative) 07/10/20 03:57 Urine Bilirubin Neg (Negative) 07/10/20 03:57 Urine Urobilinogen < 2.0 mg/dL (<2.0) 07/10/20 03:57 Ur Leukocyte Esterase Neg (Negative) 07/10/20 03:57 Urine WBC (Auto) 2.0 /HPF (0.0-6.0) 07/10/20 03:57 Urine RBC (Auto) 3.0 /HPF (0.0-6.0) 07/10/20 03:57 U Epithel Cells (Auto) < 1.0 /HPF (0-13.0) 07/10/20 03:57 Urine Mucus Few /HPF 07/10/20 03:57 Urine Opiates Screen Negative 07/10/20 03:57 Urine Methadone Screen Negative 07/10/20 03:57 Ur Barbiturates Screen Negative 07/10/20 03:57 Ur Phencyclidine Scrn Negative 07/10/20 03:57 Ur Amphetamines Screen Negative 07/10/20 03:57 U Benzodiazepines Scrn Negative 07/10/20 03:57 Urine Cocaine Screen Negative 07/10/20 03:57 U Marijuana (THC) Screen Negative 07/10/20 03:57 Drugs of Abuse Note Disclamer 07/10/20 03:57 Edwards/IV: Voiding Method Diaper Active Medications - Current Medications Current Medications: Generic Name Dose Route Start Last Admin Trade Name Freq PRN Reason Stop Dose Admin Acetaminophen 650 mg 07/10/20 04:56 Acetaminophen 325 Mg Tab PO Q4H PRN Pain MILD(1-3)/Fever >100.5/JOHNSON Dextrose 0 ml 07/10/20 04:56 Dextrose 50% In Water (25gm) 50 Ml Syringe IV Q30MIN PRN Hypoglycemia Protocol Heparin Sodium (Porcine) 5,000 unit 07/10/20 06:00 07/13/20 06:45 Heparin 5,000 Unit/1 Ml Vial SUB-Q 5,000 unit Q8HR RM Administration Sodium Chloride 1,000 mls @ 125 mls/hr 07/10/20 05:00 07/12/20 23:15 Nacl 0.9% 1000 Ml IV 125 mls/hr DIRECT RM Administration Insulin Human Lispro 0 unit 04/16/21 07:30 07/12/20 21:39 Insulin Lispro 100 Unit/Ml SUB-Q Not Given [facility] Protocol Insulin Human Regular 0 units 07/10/20 07:30 07/12/20 21:39 Insulin Regular, Human 100 Units/1 Ml SUB-Q Not Given ACHS RM Protocol Magnesium Hydroxide 30 ml 07/10/20 04:56 Magnesium Hydroxide (Mom) Oral Liqd Udc PO Q4H PRN Constipation Morphine Sulfate 2 mg 07/10/20 04:56 07/11/20 21:27 Morphine 2 Mg/1 Ml Inj IV 2 mg Q4H PRN Administration Pain, Moderate (4-6) Ondansetron HCl 4 mg 07/10/20 04:56 Ondansetron 4 Mg/2 Ml Inj IV Q8H PRN Nausea And Vomiting Sodium Chloride 10 ml 07/10/20 08:00 07/12/20 21:48 Sodium Chloride 0.9% 10 Ml Flush Syringe IV 10 ml BID RM Administration Sodium Chloride 10 ml 07/10/20 04:56 Sodium Chloride 0.9% 10 Ml Flush Syringe IV PRN PRN LINE FLUSH Nutrition/Malnutrition Assess - Dietary Evaluation Nutrition/Malnutrition Findings: Nutrition Notes Start: 07/10/20 11:48 Freq: Status: Active Protocol: Document 07/10/20 11:48 (Rec: 07/10/20 11:55 [id number]) Nutrition Notes Need for Assessment generated from: MD Order Initial or Follow up Assessment Current Diagnosis Diabetes,Stroke Other Pertinent Diagnosis AMS, dementia Current Diet Cardiac, Consistent CHO Labs/Tests Na 132 Pertinent Medications NS at 125 ml/hr Height 6 ft 1 in Weight 72.121 kg [place] Body Weight (kg) 83.63 BMI 20.9 Weight change and time frame 6% wt loss in 2 months Weight Status Underweight Subjective/Other Information MD order for diet education. Pt not appropriate. Pt reports 10lb wt loss in 2 months due to unknown reason. Pt eating 50% of meals. Burn Absent Trauma Absent GI Symptoms None Current % PO Poor (25-49%) Minimum of two criteria No Energy Intake (non-severe) <75% Estimated Energy Requirement >7 days #1 Nutrition Diagnosis Inadequate oral intake Etiology dementia As Evidenced by Signs and Symptoms pt eating 50% of meals Is patient on ventilator? No Is Patient Ambulatory and/or Out of Bed Yes REE-([facility]-ambulatory/OOB) [ 2008.617 NUTR.MSJOOB] Calculation Used for Recommendations [facility] Additional Notes Protein: 72-85g (1-1.2 g/kg) Fluid: 1 ml/kcal or per MD Nutrition Intervention Change Diet Order: Continue Add Supplement/Snack (indicate name/kcal Glucerna BID /protein ) Provides kCal: 440 Provides Protein (gm) 20 Goal #1 Meet at least 75% of protein and energy needs via PO and ONS intakes Anticipated Discharge Needs: Cardiac, consistent CHO Follow-Up By: 07/14/20 Additional Comments FU for intakes and ONS tolerance
[2020-07-13] MEDS: INSULIN LISPRO 100 UNIT/ML SUB-Q SCH ×4 (10:02→21:57)
[2020-07-13] MEDS: INSULIN REGULAR, HUMAN 100 UNITS/1 ML SUB-Q SCH ×4 (10:03→21:58)
--- NOTE | 2020-07-13 10:15 | Magnetic Resonance Report ---
MR brain wo con INDICATION / CLINICAL INFORMATION: Altered mental status. TECHNIQUE: Multiplanar, multisequence MR images of the brain were obtained. COMPARISON: CT head from 07/10/2020, 06/05/2020, and 05/07/1999: FINDINGS: INTRACRANIAL: No hemorrhage. Ventricular caliber is normal. No extra-axial collection. No mass. No h erniation. Encephalomalacia in the left occipital lobe with small quantity of DWI hyperintensity with ADC normalization. Periventricular and centrum semiovale T2 white matter hyperintensities most consi stent with sequela of chronic microvascular disease. Remote lacunar infarctions in basal ganglia and thalamus. Intrinsic T1 signal hyperintensity is seen within the region of the left thalamus without a ssociated susceptibility on gradient imaging. No mass effect. This could represent laminar necrosis. Major intracranial vascular flow voids are preserved. ORBITS: No significant abnormality of visualized orbits. SINUSES / MASTOIDS: No significant abnormality of visualized sinuses and mastoid air cells. ADDITIONAL FINDINGS: None. IMPRESSION: 1. No acute abnormality. 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 Signer Name: Keith Arreola MD Signed: 07/13/2020 10:10 AM Workstation Name: [employer]
[2020-07-13] MEDS: SODIUM CHLORIDE 0.9% 1000 ML 1,000 ML IV SCH (17:20)
[2020-07-14] MEDS: SODIUM CHLORIDE 0.9% 1000 ML 1,000 ML IV SCH ×2 (04:10→21:31)
[2020-07-14] MEDS: HEPARIN 5,000 UNIT/1 ML VIAL SUB-Q SCH ×4 (05:05→21:30)
[2020-07-14] MEDS: INSULIN LISPRO 100 UNIT/ML SUB-Q SCH ×4 (08:06→21:29)
[2020-07-14] MEDS: INSULIN REGULAR, HUMAN 100 UNITS/1 ML SUB-Q SCH ×4 (08:10→23:34)
--- NOTE | 2020-07-14 09:24 | Progress Note ---
Assessment and Plan Assessment and plan: Acute metabolic encephalopathy. Abdominal pain. Diabetes mellitus type 2 Hypertension 07/11/2020. CT scan of the abdomen pelvis and CT scan of the head were found to be unremarkable. Patient with mild hyponatremia that has improved. I spoke with his brother Donnie Patino who reports patient baseline mental status is normal functioning. Neurology consultation. Check MRI brain. 07/12/2020. Patient appears to be back to baseline with his mentation. Patient is alert and oriented x3. Patient answers questions appropriately. Check MRI brain. Patient with no lateralizing signs of symptoms to indicate CVA. Await physical therapy evaluation. 07/13/2020. Patient's mental status is improved. Await MRI brain for further evaluation. Neurology consultation pending. Await PT evaluation. 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 PT OT evaluated and pending final recommendations. Neurology evaluation is pending, will get in touch with him. History Interval history: Patient was seen and evaluated this morning Patient has right hemiplegia Alert and oriented Hospitalist Physical - Physical exam Narrative exam: Not in cardiopulmonary distress. The patient appeared well nourished and normally developed. Vital signs as documented. Head exam is unremarkable. No scleral icterus . Neck is without jugular venous distension, thyromegaly, or carotid bruits. Lungs are clear to auscultation. Cardiac exam reveals regular rate and Rhythm. Abdominal exam reveals normal bowel sounds, nontender, no organomegaly. Extremities are nonedematous and both femoral and pedal pulses are normal. 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 Right-sided hemiplegia. - Constitutional Vitals: Temp Pulse Resp BP Pulse Ox 98.8 F 86 18 129/72 97 07/14/20 07:20 07/14/20 07:20 07/14/20 07:20 07/14/20 07:20 07/14/20 07:20 General appearance: Present: no acute distress, well-nourished Results - Labs CBC & Chem 7: 07/11/20 09:12 07/11/20 09:12 Labs: Laboratory Last Values WBC 6.7 K/mm3 (4.5-11.0) 07/11/20 09:12 RBC 2.90 M/mm3 (3.65-5.03) L 07/11/20 09:12 Hgb 9.3 gm/dl (11.8-15.2) L 07/11/20 09:12 Hct 27.5 % (35.5-45.6) L 07/11/20 09:12 MCV 95 fl (84-94) H 07/11/20 09:12 MCH 32 pg (28-32) 07/11/20 09:12 MCHC 34 % (32-34) 07/11/20 09:12 RDW 15.0 % (13.2-15.2) 07/11/20 09:12 Plt Count 338 K/mm3 (140-440) 07/11/20 09:12 Lymph % (Auto) 14.5 % (13.4-35.0) 07/11/20 09:12 [place] % (Auto) 6.8 % (0.0-7.3) 07/11/20 09:12 Eos % (Auto) 1.6 % (0.0-4.3) 07/11/20 09:12 Baso % (Auto) 0.3 % (0.0-1.8) 07/11/20 09:12 Lymph # (Auto) 1.0 K/mm3 (1.2-5.4) L 07/11/20 09:12 [place] # (Auto) 0.5 K/mm3 (0.0-0.8) 07/11/20 09:12 Eos # (Auto) 0.1 K/mm3 (0.0-0.4) 07/11/20 09:12 Baso # (Auto) 0.0 K/mm3 (0.0-0.1) 07/11/20 09:12 Seg Neutrophils % 76.8 % (40.0-70.0) H 07/11/20 09:12 Seg Neutrophils # 5.2 K/mm3 (1.8-7.7) 07/11/20 09:12 PT 14.0 Sec. (12.2-14.9) 07/11/20 09:12 INR 1.10 (0.87-1.13) 07/11/20 09:12 Sodium 133 mmol/L (137-145) L 07/11/20 09:12 Potassium 3.7 mmol/L (3.6-5.0) 07/11/20 09:12 Chloride 101.0 mmol/L (98-107) 07/11/20 09:12 Carbon Dioxide 22 mmol/L (22-30) 07/11/20 09:12 Anion Gap 14 mmol/L 07/11/20 09:12 BUN 11 mg/dL (9-20) 07/11/20 09:12 Creatinine 0.7 mg/dL (0.8-1.3) L 07/11/20 09:12 Estimated GFR > 60 ml/min 07/11/20 09:12 BUN/Creatinine Ratio 16 % 07/11/20 09:12 Glucose 104 mg/dL (75-100) H 07/11/20 09:12 POC Glucose 121 mg/dL (70-105) H 07/13/20 21:37 Lactic Acid 1.00 mmol/L (0.7-2.0) 07/10/20 00:49 Calcium 9.3 mg/dL (8.4-10.2) 07/11/20 09:12 Total Bilirubin 0.40 mg/dL (0.1-1.2) 07/10/20 00:49 AST 13 units/L (5-40) 07/10/20 00:49 ALT 12 units/L (7-56) 07/10/20 00:49 Alkaline Phosphatase 177 units/L (35-129) H 07/10/20 00:49 Ammonia 14.0 umol/L (25-60) L 07/10/20 00:49 Total Creatine Kinase 60 units/L (55-170) 07/10/20 00:49 Total Protein 6.6 g/dL (6.3-8.2) 07/10/20 00:49 Albumin 3.5 g/dL (3.9-5) L 07/10/20 00:49 Albumin/Globulin Ratio 1.1 % 07/10/20 00:49 Urine Color Yellow (Yellow) 07/10/20 03:57 Urine Turbidity Clear (Clear) 07/10/20 03:57 Urine pH 5.0 (5.0-7.0) 07/10/20 03:57 Ur Specific [place] 1.037 (1.003-1.030) H 07/10/20 03:57 Urine Protein <15 mg/dl mg/dL (Negative) 07/10/20 03:57 Urine Glucose (UA) >=500 mg/dL (Negative) 07/10/20 03:57 Urine Ketones Neg mg/dL (Negative) 07/10/20 03:57 Urine Blood Neg (Negative) 07/10/20 03:57 Urine Nitrite Neg (Negative) 07/10/20 03:57 Urine Bilirubin Neg (Negative) 07/10/20 03:57 Urine Urobilinogen < 2.0 mg/dL (<2.0) 07/10/20 03:57 Ur Leukocyte Esterase Neg (Negative) 07/10/20 03:57 Urine WBC (Auto) 2.0 /HPF (0.0-6.0) 07/10/20 03:57 Urine RBC (Auto) 3.0 /HPF (0.0-6.0) 07/10/20 03:57 U Epithel Cells (Auto) < 1.0 /HPF (0-13.0) 07/10/20 03:57 Urine Mucus Few /HPF 07/10/20 03:57 Urine Opiates Screen Negative 07/10/20 03:57 Urine Methadone Screen Negative 07/10/20 03:57 Ur Barbiturates Screen Negative 07/10/20 03:57 Ur Phencyclidine Scrn Negative 07/10/20 03:57 Ur Amphetamines Screen Negative 07/10/20 03:57 U Benzodiazepines Scrn Negative 07/10/20 03:57 Urine Cocaine Screen Negative 07/10/20 03:57 U Marijuana (THC) Screen Negative 07/10/20 03:57 Drugs of Abuse Note Disclamer 07/10/20 03:57 Edwards/IV: Voiding Method Condom Catheter Active Medications - Current Medications Current Medications: Generic Name Dose Route Start Last Admin Trade Name Freq PRN Reason Stop Dose Admin Acetaminophen 650 mg 07/10/20 04:56 Acetaminophen 325 Mg Tab PO Q4H PRN Pain MILD(1-3)/Fever >100.5/JOHNSON Dextrose 0 ml 07/10/20 04:56 Dextrose 50% In Water (25gm) 50 Ml Syringe IV Q30MIN PRN Hypoglycemia Protocol Heparin Sodium (Porcine) 5,000 unit 07/10/20 06:00 07/14/20 05:05 Heparin 5,000 Unit/1 Ml Vial SUB-Q 5,000 unit Q8HR RM Administration Sodium Chloride 1,000 mls @ 125 mls/hr 07/10/20 05:00 07/14/20 04:10 Nacl 0.9% 1000 Ml IV 125 mls/hr DIRECT RM Administration Insulin Human Lispro 0 unit 07/10/20 07:30 07/13/20 21:57 Insulin Lispro 100 Unit/Ml SUB-Q Not Given [facility] Protocol Insulin Human Regular 0 units 07/10/20 07:30 07/13/20 21:58 Insulin Regular, Human 100 Units/1 Ml SUB-Q Not Given ACHS [facility] Protocol Magnesium Hydroxide 30 ml 07/10/20 04:56 Magnesium Hydroxide (Mom) Oral Liqd Udc PO Q4H PRN Constipation Morphine Sulfate 2 mg 07/10/20 04:56 07/11/20 21:27 Morphine 2 Mg/1 Ml Inj IV 2 mg Q4H PRN Administration Pain, Moderate (4-6) Ondansetron HCl 4 mg 07/10/20 04:56 Ondansetron 4 Mg/2 Ml Inj IV Q8H PRN Nausea And Vomiting Sodium Chloride 10 ml 07/10/20 08:00 07/13/20 21:59 Sodium Chloride 0.9% 10 Ml Flush Syringe IV 10 ml BID RM Administration Sodium Chloride 10 ml 07/10/20 04:56 Sodium Chloride 0.9% 10 Ml Flush Syringe IV PRN PRN LINE FLUSH Nutrition/Malnutrition Assess - Dietary Evaluation Nutrition/Malnutrition Findings: Nutrition Notes Start: 07/10/20 11:48 Freq: Status: Active Protocol: Document 07/10/20 11:48 (Rec: 07/10/20 11:55 [email or web address]) Nutrition Notes Need for Assessment generated from: MD Order Initial or Follow up Assessment Current Diagnosis Diabetes,Stroke Other Pertinent Diagnosis AMS, dementia Current Diet Cardiac, Consistent CHO Labs/Tests Na 132 Pertinent Medications NS at 125 ml/hr Height 6 ft 1 in Weight 72.121 kg [place] Body Weight (kg) 83.63 BMI 20.9 Weight change and time frame 6% wt loss in 2 months Weight Status Underweight Subjective/Other Information MD order for diet education. Pt not appropriate. Pt reports 10lb wt loss in 2 months due to unknown reason. Pt eating 50% of meals. Burn Absent Trauma Absent GI Symptoms None Current % PO Poor (25-49%) Minimum of two criteria No Energy Intake (non-severe) <75% Estimated Energy Requirement >7 days #1 Nutrition Diagnosis Inadequate oral intake Etiology dementia As Evidenced by Signs and Symptoms pt eating 50% of meals Is patient on ventilator? No Is Patient Ambulatory and/or Out of Bed Yes REE-([facility]-ambulatory/OOB) [ 2007.617 NUTR.MSJOOB] Calculation Used for Recommendations [facility] Additional Notes Protein: 72-85g (1-1.2 g/kg) Fluid: 1 ml/kcal or per MD Nutrition Intervention Change Diet Order: Continue Add Supplement/Snack (indicate name/kcal Glucerna BID /protein ) Provides kCal: 440 Provides Protein (gm) 20 Goal #1 Meet at least 75% of protein and energy needs via PO and ONS intakes Anticipated Discharge Needs: Cardiac, consistent CHO Follow-Up By: 07/14/20 Additional Comments FU for intakes and ONS tolerance
--- NOTE | 2020-07-14 19:31 | History and Physical Report ---
History of Present Illness Date of examination: 07/14/20 Date of admission: 07/10/20 04:44 Chief complaint: STROKE History of present illness: Altered Mental Status History of present illness: 70-year-old -[place] male with significant past medical history of hypertension, diabetes mellitus, dementia and history of CVA in the past presents to the emergency room via EMS today complaining of abdominal pain. Abdominal pain is said to be generalized. Patient denies any nausea vomiting, no diarrhea, no fever or chills, no chest pain or shortness of breath, no headache or dizziness, no hematuria or dysuria. Patient denies any sick contacts and denies any recent travel. Denies any contact with anyone with COVID-19. He is not a good historian and family members were not available at this time. He however indicates that he lives with his sister. Work-up in the emergency room today including CT scan of the abdomen and pelvis, CT scan of the head were unremarkable. Labs reveals mild hyponatremia, urinalysis reveals a concentrated urine and CBC reveals mild anemia. Urinalysis unremarkable. The patient denies any history of seizures, no headaches and no seizures , Neurology Consult for review of MRI Brain. Past History Past Medical History: diabetes, hypertension, stroke, other (Dementia) Past Surgical History: Other (Tonsillectomy) Social history: no significant social history Family history: no significant family history Medications and Allergies Allergies Allergy/AdvReac Type Severity Reaction Status Date / Time No Known Allergies Allergy Verified 08/06/19 15:49 Home Medications Medication Instructions Recorded Confirmed Last Taken Type Aspirin EC [Ecotrin] 325 mg PO QDAY #30 tablet 07/29/14 07/10/20 Unknown Rx Simvastatin (Nf) [Zocor TAB] 20 mg PO QHS #30 tablet 07/29/14 07/10/20 Unknown Rx Metoprolol [Lopressor TAB] 25 mg PO BID #60 tablet 06/25/15 07/10/20 Unknown Rx lisinopriL [Zestril TAB] 5 mg PO QDAY #30 tablet 06/25/15 07/10/20 Unknown Rx Azithromycin [Zithromax Z-NAYAN] 250 mg PO DAILY #6 tablet 08/06/19 07/10/20 Unknown Rx Benzonatate [Tessalon Perles] 100 mg PO Q12H PRN #20 capsule 08/06/19 07/10/20 Unknown Rx Cetirizine HCl [ZyrTEC] 10 mg PO DAILY #30 capsule 08/06/19 07/10/20 Unknown Rx Fluticasone [Flonase] 1 spray NS QDAY #1 bottle 08/06/19 07/10/20 Unknown Rx Active Meds: Active Medications Acetaminophen (Acetaminophen 325 Mg Tab) 650 mg PO Q4H PRN PRN Reason: Pain MILD(1-3)/Fever >100.5/JOHNSON Dextrose (Dextrose 50% In Water (25gm) 50 Ml Syringe) 0 ml IV Q30MIN PRN; Protocol PRN Reason: Hypoglycemia Heparin Sodium (Porcine) (Heparin 5,000 Unit/1 Ml Vial) 5,000 unit SUB-Q Q8HR [facility] Last Admin: 07/14/20 05:05 Dose: 5,000 unit Documented by: Sodium Chloride (Nacl 0.9% 1000 Ml) 1,000 mls @ 125 mls/hr IV DIRECT RM Last Admin: 07/14/20 04:10 Dose: 125 mls/hr Documented by: Insulin Human Lispro (Insulin Lispro 100 Unit/Ml) 0 unit SUB-Q [facility]; Protocol Last Admin: 07/13/20 21:57 Dose: Not Given Documented by: Insulin Human Regular (Insulin Regular, Human 100 Units/1 Ml) 0 units SUB-Q [facility]; Protocol Last Admin: 07/13/20 21:58 Dose: Not Given Documented by: Magnesium Hydroxide (Magnesium Hydroxide (Mom) Oral Liqd Udc) 30 ml PO Q4H PRN PRN Reason: Constipation Morphine Sulfate (Morphine 2 Mg/1 Ml Inj) 2 mg IV Q4H PRN PRN Reason: Pain, Moderate (4-6) Last Admin: 07/11/20 21:27 Dose: 2 mg Documented by: Ondansetron HCl (Ondansetron 4 Mg/2 Ml Inj) 4 mg IV Q8H PRN PRN Reason: Nausea And Vomiting Sodium Chloride (Sodium Chloride 0.9% 10 Ml Flush Syringe) 10 ml IV BID [facility] Last Admin: 07/13/20 21:59 Dose: 10 ml Documented by: Sodium Chloride (Sodium Chloride 0.9% 10 Ml Flush Syringe) 10 ml IV PRN PRN PRN Reason: LINE FLUSH Physical Examination - Vital Signs Vital Signs: Vital Signs Pulse Pulse Ox 86 98 07/10/20 00:52 07/10/20 00:52 - Physical Exam Narrative exam: The patient is able to move all 4 extremity , no focal weakness noted on a limited tele examination. Results - Laboratory Findings CBC and BMP: 07/11/20 09:12 07/11/20 09:12 Abnormal Lab Findings: Abnormal Labs 07/10/20 07/10/20 07/10/20 00:49 00:49 00:49 RBC 3.12 L Hgb 9.9 L Hct 29.4 L MCV 95 H Lymph # (Auto) Seg Neutrophils % 76.1 H Sodium 132 L Chloride 95.2 L Creatinine Glucose POC Glucose Alkaline Phosphatase 177 H Ammonia 14.0 L Albumin 3.5 L Ur Specific [place] 07/10/20 07/10/20 07/11/20 03:57 16:25 07:21 RBC Hgb Hct MCV Lymph # (Auto) Seg Neutrophils % Sodium Chloride Creatinine Glucose POC Glucose 68 L 110 H Alkaline Phosphatase Ammonia Albumin Ur Specific [place] 1.037 H 07/11/20 07/11/20 07/11/20 09:12 09:12 11:50 RBC 2.90 L Hgb 9.3 L Hct 27.5 L MCV 95 H Lymph # (Auto) 1.0 L Seg Neutrophils % 76.8 H Sodium 133 L Chloride Creatinine 0.7 L Glucose 104 H POC Glucose 113 H Alkaline Phosphatase Ammonia Albumin Ur Specific [place] 07/11/20 07/12/20 07/12/20 16:31 11:16 21:07 RBC Hgb Hct MCV Lymph # (Auto) Seg Neutrophils % Sodium Chloride Creatinine Glucose POC Glucose 165 H 161 H 122 H Alkaline Phosphatase Ammonia Albumin Ur Specific [place] 07/13/20 07/13/20 07/13/20 11:17 16:19 21:37 RBC Hgb Hct MCV Lymph # (Auto) Seg Neutrophils % Sodium Chloride Creatinine Glucose POC Glucose 114 H 151 H 121 H Alkaline Phosphatase Ammonia Albumin Ur Specific [place] 07/14/20 07/14/20 07:49 11:25 RBC Hgb Hct MCV Lymph # (Auto) Seg Neutrophils % Sodium Chloride Creatinine Glucose POC Glucose 115 H 140 H Alkaline Phosphatase Ammonia Albumin Ur Specific [place] Assessment and Plan 1. CVA - ( Based upon the MRI Brain appears more chronic CVA since there is affection of Occipital Lobe considerations towards - Embolic Reason for a CVA ? Intermittent Atrial Fibrillation. 2. Needs a Out patient Cardiac follow up for Holter / Event Moniter . 3. No change in Medications . 4. Risk factors for CVA discussed . 5. Risk of Seizure secondary to CVA. Dr. Coates
[2020-07-14] MEDS: MORPHINE 2 MG/1 ML INJ IV PRN (21:37)
[2020-07-15] MEDS: HEPARIN 5,000 UNIT/1 ML VIAL SUB-Q SCH ×2 (05:27→15:15)
[2020-07-15] MEDS: INSULIN REGULAR, HUMAN 100 UNITS/1 ML SUB-Q SCH ×3 (08:58→16:30)
[2020-07-15] MEDS: INSULIN LISPRO 100 UNIT/ML SUB-Q SCH ×3 (08:58→16:30)
--- NOTE | 2020-07-15 09:32 | Progress Note ---
Assessment and Plan Assessment and plan: Acute metabolic encephalopathy. Abdominal pain. Diabetes mellitus type 2 Hypertension 07/11/2020. CT scan of the abdomen pelvis and CT scan of the head were found to be unremarkable. Patient with mild hyponatremia that has improved. I spoke with his brother Donnie Patino who reports patient baseline mental status is normal functioning. Neurology consultation. Check MRI brain. 07/12/2020. Patient appears to be back to baseline with his mentation. Patient is alert and oriented x3. Patient answers questions appropriately. Check MRI brain. Patient with no lateralizing signs of symptoms to indicate CVA. Await physical therapy evaluation. 07/13/2020. Patient's mental status is improved. Await MRI brain for further evaluation. Neurology consultation pending. Await PT evaluation. 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 PT OT evaluated and pending final recommendations. Neurology evaluation is pending, will get in touch with him. 07/15/2020; patient was seen by neurology yesterday and he is a patient has a chronic CVA. Continue with current management, no change in medications needed. He also recommend to have outpatient Holter monitor. Patient was discharged recently from [facility]. No change from baseline. Home health is in document is arranged. Case management reached to the family and they are ready to take him back. History Interval history: Patient was seen and evaluated this morning Patient has right hemiplegia Alert and oriented Hospitalist Physical - Physical exam Narrative exam: Not in cardiopulmonary distress. The patient appeared well nourished and normally developed. Vital signs as documented. Head exam is unremarkable. No scleral icterus . Neck is without jugular venous distension, thyromegaly, or carotid bruits. Lungs are clear to auscultation. Cardiac exam reveals regular rate and Rhythm. Abdominal exam reveals normal bowel sounds, nontender, no organomegaly. Extremities are nonedematous and both femoral and pedal pulses are normal. 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 Right-sided hemiplegia. - Constitutional Vitals: Temp Pulse Resp BP Pulse Ox 98.5 F 87 18 167/92 97 07/15/20 08:11 07/15/20 08:11 07/15/20 08:11 07/15/20 08:11 07/15/20 08:11 General appearance: Present: no acute distress, well-nourished Results - Labs CBC & Chem 7: 07/11/20 09:12 07/11/20 09:12 Labs: Laboratory Last Values WBC 6.7 K/mm3 (4.5-11.0) 07/11/20 09:12 RBC 2.90 M/mm3 (3.65-5.03) L 07/11/20 09:12 Hgb 9.3 gm/dl (11.8-15.2) L 07/11/20 09:12 Hct 27.5 % (35.5-45.6) L 07/11/20 09:12 MCV 95 fl (84-94) H 07/11/20 09:12 MCH 32 pg (28-32) 07/11/20 09:12 MCHC 34 % (32-34) 07/11/20 09:12 RDW 15.0 % (13.2-15.2) 07/11/20 09:12 Plt Count 338 K/mm3 (140-440) 07/11/20 09:12 Lymph % (Auto) 14.5 % (13.4-35.0) 07/11/20 09:12 [place] % (Auto) 6.8 % (0.0-7.3) 07/11/20 09:12 Eos % (Auto) 1.6 % (0.0-4.3) 07/11/20 09:12 Baso % (Auto) 0.3 % (0.0-1.8) 07/11/20 09:12 Lymph # (Auto) 1.0 K/mm3 (1.2-5.4) L 07/11/20 09:12 [place] # (Auto) 0.5 K/mm3 (0.0-0.8) 07/11/20 09:12 Eos # (Auto) 0.1 K/mm3 (0.0-0.4) 07/11/20 09:12 Baso # (Auto) 0.0 K/mm3 (0.0-0.1) 07/11/20 09:12 Seg Neutrophils % 76.8 % (40.0-70.0) H 07/11/20 09:12 Seg Neutrophils # 5.2 K/mm3 (1.8-7.7) 07/11/20 09:12 PT 14.0 Sec. (12.2-14.9) 07/11/20 09:12 INR 1.10 (0.87-1.13) 07/11/20 09:12 Sodium 133 mmol/L (137-145) L 07/11/20 09:12 Potassium 3.7 mmol/L (3.6-5.0) 07/11/20 09:12 Chloride 101.0 mmol/L (98-107) 07/11/20 09:12 Carbon Dioxide 22 mmol/L (22-30) 07/11/20 09:12 Anion Gap 14 mmol/L 07/11/20 09:12 BUN 11 mg/dL (9-20) 07/11/20 09:12 Creatinine 0.7 mg/dL (0.8-1.3) L 07/11/20 09:12 Estimated GFR > 60 ml/min 07/11/20 09:12 BUN/Creatinine Ratio 16 % 07/11/20 09:12 Glucose 104 mg/dL (75-100) H 07/11/20 09:12 POC Glucose 104 mg/dL (70-105) 07/15/20 08:12 Lactic Acid 1.00 mmol/L (0.7-2.0) 07/10/20 00:49 Calcium 9.3 mg/dL (8.4-10.2) 07/11/20 09:12 Total Bilirubin 0.40 mg/dL (0.1-1.2) 07/10/20 00:49 AST 13 units/L (5-40) 07/10/20 00:49 ALT 12 units/L (7-56) 07/10/20 00:49 Alkaline Phosphatase 177 units/L (35-129) H 07/10/20 00:49 Ammonia 14.0 umol/L (25-60) L 07/10/20 00:49 Total Creatine Kinase 60 units/L (55-170) 07/10/20 00:49 Total Protein 6.6 g/dL (6.3-8.2) 07/10/20 00:49 Albumin 3.5 g/dL (3.9-5) L 07/10/20 00:49 Albumin/Globulin Ratio 1.1 % 07/10/20 00:49 Urine Color Yellow (Yellow) 07/10/20 03:57 Urine Turbidity Clear (Clear) 07/10/20 03:57 Urine pH 5.0 (5.0-7.0) 07/10/20 03:57 Ur Specific [place] 1.037 (1.003-1.030) H 07/10/20 03:57 Urine Protein <15 mg/dl mg/dL (Negative) 07/10/20 03:57 Urine Glucose (UA) >=500 mg/dL (Negative) 07/10/20 03:57 Urine Ketones Neg mg/dL (Negative) 07/10/20 03:57 Urine Blood Neg (Negative) 07/10/20 03:57 Urine Nitrite Neg (Negative) 07/10/20 03:57 Urine Bilirubin Neg (Negative) 07/10/20 03:57 Urine Urobilinogen < 2.0 mg/dL (<2.0) 07/10/20 03:57 Ur Leukocyte Esterase Neg (Negative) 07/10/20 03:57 Urine WBC (Auto) 2.0 /HPF (0.0-6.0) 07/10/20 03:57 Urine RBC (Auto) 3.0 /HPF (0.0-6.0) 07/10/20 03:57 U Epithel Cells (Auto) < 1.0 /HPF (0-13.0) 07/10/20 03:57 Urine Mucus Few /HPF 07/10/20 03:57 Urine Opiates Screen Negative 07/10/20 03:57 Urine Methadone Screen Negative 07/10/20 03:57 Ur Barbiturates Screen Negative 07/10/20 03:57 Ur Phencyclidine Scrn Negative 07/10/20 03:57 Ur Amphetamines Screen Negative 07/10/20 03:57 U Benzodiazepines Scrn Negative 07/10/20 03:57 Urine Cocaine Screen Negative 07/10/20 03:57 U Marijuana (THC) Screen Negative 07/10/20 03:57 Drugs of Abuse Note Disclamer 07/10/20 03:57 Edwards/IV: Voiding Method Condom Catheter Active Medications - Current Medications Current Medications: Generic Name Dose Route Start Last Admin Trade Name Freq PRN Reason Stop Dose Admin Acetaminophen 650 mg 07/10/20 04:56 07/14/20 23:36 Acetaminophen 325 Mg Tab PO 650 mg Q4H PRN Administration Pain MILD(1-3)/Fever >100.5/JOHNSON Dextrose 0 ml 07/10/20 04:56 Dextrose 50% In Water (25gm) 50 Ml Syringe IV Q30MIN PRN Hypoglycemia Protocol Heparin Sodium (Porcine) 5,000 unit 07/10/20 06:00 07/15/20 05:27 Heparin 5,000 Unit/1 Ml Vial SUB-Q 5,000 unit Q8HR RM Administration Sodium Chloride 1,000 mls @ 125 mls/hr 07/10/20 05:00 07/14/20 21:31 Nacl 0.9% 1000 Ml IV 100 mls/hr DIRECT RM Administration Insulin Human Lispro 0 unit 07/10/20 07:30 07/15/20 08:58 Insulin Lispro 100 Unit/Ml SUB-Q Not Given ACHS RM Protocol Insulin Human Regular 0 units 07/10/20 07:30 07/15/20 08:58 Insulin Regular, Human 100 Units/1 Ml SUB-Q Not Given ACHS RM Protocol Magnesium Hydroxide 30 ml 07/10/20 04:56 Magnesium Hydroxide (Mom) Oral Liqd Udc PO Q4H PRN Constipation Morphine Sulfate 2 mg 07/10/20 04:56 07/14/20 21:37 Morphine 2 Mg/1 Ml Inj IV 2 mg Q4H PRN Administration Pain, Moderate (4-6) Ondansetron HCl 4 mg 07/10/20 04:56 Ondansetron 4 Mg/2 Ml Inj IV Q8H PRN Nausea And Vomiting Sodium Chloride 10 ml 07/10/20 08:00 07/14/20 21:30 Sodium Chloride 0.9% 10 Ml Flush Syringe IV 10 ml BID RM Administration Sodium Chloride 10 ml 07/10/20 04:56 Sodium Chloride 0.9% 10 Ml Flush Syringe IV PRN PRN LINE FLUSH Nutrition/Malnutrition Assess - Dietary Evaluation Nutrition/Malnutrition Findings: Nutrition Notes Start: 07/10/20 11:48 Freq: Status: Active Protocol: Document 07/14/20 15:28 CW (Rec: 07/14/20 15:35 CW [id number]) Nutrition Notes Initial or Follow up Reassessment Current Diagnosis Diabetes,Stroke Other Pertinent Diagnosis AMS, dementia Current Diet Cardiac, Consistent CHO Labs/Tests BG 140 Pertinent Medications NS at 125 ml/hr Height 6 ft 1 in Weight 72.121 kg [place] Body Weight (kg) 83.63 BMI 20.9 Weight change and time frame 6% wt loss in 2 months Weight Status Underweight Subjective/Other Information F/U for intakes and ONS tolerance. Pt was not very responsive/alert today. Unable to determine many meal preferences; Pt did however state that he prefers chocolate ONS. Per RN, PO intake of meals is poor but drinks 100% of ONS. Percent of energy/protein needs met: 47%/85% (25% of meals 100% ONS ) Burn Absent Trauma Absent GI Symptoms None Current % PO Poor (25-49%) Minimum of two criteria No Energy Intake (non-severe) <75% Estimated Energy Requirement >7 days #1 Nutrition Diagnosis Inadequate oral intake Diagnosis Progress(for reassessment Continues documentation) Is patient on ventilator? No Is Patient Ambulatory and/or Out of Bed Yes REE-([facility]-ambulatory/OOB) [ 2007.617 NUTR.MSJOOB] Calculation Used for Recommendations [facility] Additional Notes Protein: 72-85g (1-1.2 g/kg) Fluid: 1 ml/kcal or per MD Nutrition Intervention Change Diet Order: Continue Add Supplement/Snack (indicate name/kcal Glucerna BID /protein ) Provides kCal: 440 Provides Protein (gm) 20 Goal #1 Meet at least 75% of protein and energy needs via PO and ONS intakes Anticipated Discharge Needs: Cardiac, consistent CHO Follow-Up By: 07/16/20 Additional Comments F/U for intakes, ONS tolerance , meal preferences
--- NOTE | 2020-07-15 11:43 | Discharge Summary ---
Providers - Providers Date of Admission: 07/10/20 04:44 Date of discharge: 07/15/20 Attending physician: AILIN MORA MD 07/10/20 04:56 Consult to Dietitian/Nutrition [CONS] Routine Physician Instructions: Reason For Exam: Reason for Consult: Diet education 07/10/20 14:29 Physical Therapy Evaluation and Treat [CONS] Routine Comment: Reason For Exam: Eval & Treat 07/13/20 09:18 Consult to Physician [CONS] Routine Comment: Consulting Provider: ALBANIA SAENZ Physician Instructions: Reason For Exam: [facility] Primary care physician: GRANTS ADMINISTRATOR Hospitalization Reason for admission: Chronic CVA, right hemiplegia, hypertension Condition: Stable Hospital course: 70-year-old -[place] male with significant past medical history of hypertension, diabetes mellitus, dementia and history of CVA in the past presents to the emergency room via EMS today complaining of abdominal pain. Abdominal pain is said to be generalized. Patient denies any nausea vomiting, no diarrhea, no fever or chills, no chest pain or shortness of breath, no headache or dizziness, no hematuria or dysuria. Patient denies any sick contacts and denies any recent travel. Denies any contact with anyone with COVID-19. He is not a good historian and family members were not available at this time. He however indicates that he lives with his sister. Work-up in the emergency room today including CT scan of the abdomen and pelvis, CT scan of the head were unremarkable. Labs reveals mild hyponatremia, urinalysis reveals a concentrated urine and CBC reveals mild anemia. Urinalysis unremarkable. Patient has been admitted for altered mental status, abdominal pain and dehydration. Hospital course Acute metabolic encephalopathy. Abdominal pain. Diabetes mellitus type 2 Hypertension 07/11/2020. CT scan of the abdomen pelvis and CT scan of the head were found to be unremarkable. Patient with mild hyponatremia that has improved. I spoke with his brother Donnie Patino who reports patient baseline mental status is normal functioning. Neurology consultation. Check MRI brain. 07/12/2020. Patient appears to be back to baseline with his mentation. Patient is alert and oriented x3. Patient answers questions appropriately. Check MRI brain. Patient with no lateralizing signs of symptoms to indicate CVA. Await physical therapy evaluation. 07/13/2020. Patient's mental status is improved. Await MRI brain for further evaluation. Neurology consultation pending. Await PT evaluation. 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 PT OT evaluated and pending final recommendations. Neurology evaluation is pending, will get in touch with him. 07/15/2020; patient was seen by neurology yesterday and he is a patient has a chronic CVA. Continue with current management, no change in medications needed. He also recommend to have outpatient Holter monitor. Patient was discharged recently from [facility]. No change from baseline. Home health is in document is arranged. Case management reached to the family and they are ready to take him back. Patient was discharged from [facility] recently and at that time home health and other recommends were arranged. He was discharged with appropriate medications and patient did not have any change from baseline. Patient will be discharged back. Patient is diabetic and his blood sugar was not high while he was in the hospital and at [facility] he was discharged with insulin and his girlfriend said there is no syringe or instruction with it. I discharged the patient with aspart FlexPen and advised to have follow-up with Dr. Gomez in 1 week. His A1c a month ago was 10.1 but his blood sugar is normal while in the hospital I want to put him on long-acting insulin. If long-acting insulin is needed it can be done with his primary care physician in 1 week. Disposition: DC/TX-06 HOME UNDER HOME [facility] Final Discharge Diagnosis (Prints w/discharge instructions): Chronic CVA. Right hemiplegia. Hypertension Time spent for discharge: 35-minutes - Discharge Diagnoses (1) Chronic cerebrovascular accident (CVA) Status: Acute (2) Right hemiplegia Status: Acute (3) History of CVA with residual deficit Status: Acute (4) Hypertension Status: Chronic Qualifiers: Hypertension type: essential hypertension Qualified Code(s): I10 - Essential (primary) hypertension Core Measure Documentation - Palliative Care Palliative Care/ Comfort Measures: Not Applicable - Core Measures Any of the following diagnoses?: history only (History of CVA with right hemiplegia) Exam - Physical Exam Narrative exam: Not in cardiopulmonary distress. The patient appeared well nourished and normally developed. Vital signs as documented. Head exam is unremarkable. No scleral icterus . Neck is without jugular venous distension, thyromegaly, or carotid bruits. Lungs are clear to auscultation. Cardiac exam reveals regular rate and Rhythm. Abdominal exam reveals normal bowel sounds, nontender, no organomegaly. Extremities are nonedematous and both femoral and pedal pulses are normal. COMPUTER ASSEMBLER: Alert and oriented 3. Right-sided hemiplegia. - Constitutional Vitals: Temp Pulse Resp BP Pulse Ox 98.5 F 87 18 167/92 97 07/15/20 08:11 07/15/20 08:11 07/15/20 08:11 07/15/20 08:11 07/15/20 08:11 Plan Activity: advance as tolerated Weight Bearing Status: Non-Weight Bearing Diet: low cholesterol, low salt Follow up with: PRIMARY CARE, [Primary Care Provider] - 3-5 Days WESTON GOMEZ MD [Staff Physician] - 7 Days Prescriptions: Insulin Aspart [Insulin Aspart Flexpen] See Protocol SQ AC #1 insuln.pen
[2020-07-15 20:05] VITALS: BP 148/86
== END 2020-07-15 21:00 | disposition home health service (06) | DRG 71 ==
LOC: ED 00:12 → 3A 04:44 → OBSVTOIN 04:44 → 3B 05:09
PROVIDERS: ADMIT Internal Medicine Geriatric Medicine; ATTEND Internal Medicine
DX: G93.41 Metabolic encephalopathy (principal); E87.1 Hypo-osmolality and hyponatremia; E11.8 Type 2 diabetes mellitus with unspecified complications; R10.10 Upper abdominal pain, unspecified; F03.90 Unspecified dementia, unspecified severity, without behavioral disturbance, psychotic disturbance, mood disturbance, and anxiety; D64.9 Anemia, unspecified; E86.0 Dehydration; I10 Essential (primary) hypertension; Z79.899 Other long term (current) drug therapy; Z79.891 Long term (current) use of opiate analgesic; Z79.01 Long term (current) use of anticoagulants; Z87.891 Personal history of nicotine dependence; Z79.82 Long term (current) use of aspirin; Z86.73 Personal history of transient ischemic attack (TIA), and cerebral infarction without residual deficits
CPT/HCPCS: 36415; 70450; 70551; 71045; 74177; 80048; 80053; 80307; 81001; 82140; 82550; 82962; 85025; 85610; 87086; 93005; 96361; 96375; G0378; J1644; J1815; J2270; J7030; J7040; Q9967

== ENCOUNTER 2020-09-07 18:00 | Observation (INO) | payer MEDICARE ==
[2020-09-07 21:05] LABS: Basophils # (Auto) 0.1 K/mm3 (0.0-0.1); Basophils % (Auto) 0.7 % (0.0-1.8); Eosinophils # (Auto) 0.3 K/mm3 (0.0-0.4); Eosinophils % (Auto) 3.6 % (0.0-4.3); Hematocrit 33.6 % (35.5-45.6); Lymphocytes # (Auto) 1.4 K/mm3 (1.2-5.4); Lymphocytes % (Auto) 18.5 % (13.4-35.0); Mean Corpuscular HGB Conc 33 % (32-34); Mean Corpuscular Volume 91 fl (84-94); Monocytes # (Auto) 0.7 K/mm3 (0.0-0.8); Monocytes % (Auto) 8.7 % (0.0-7.3); Platelet Count 404 K/mm3 (140-440); Red Blood Count 3.71 M/mm3 (3.65-5.03); Red Cell Distribution Width 15.3 % (13.2-15.2)
[2020-09-07 21:22] LABS: Alanine Aminotransferase 6 units/L (7-56); Albumin 3.7 g/dL (3.9-5); BUN/Creatinine Ratio 10; Blood Urea Nitrogen 9 mg/dL (9-20); Hemolysis Index 1
[2020-09-08] MEDS ORDERED: POTASSIUM CHLORIDE ER 20 MEQ TAB PO ONE (02:11)
--- NOTE | 2020-09-08 02:33 | Emergency Department Report ---
ED General Adult HPI - General Chief complaint: Abdominal Pain Stated complaint: none Time Seen by Provider: 09/08/20 01:37 Source: patient Mode of arrival: Ambulatory Limitations: No Limitations - History of Present Illness Initial comments: 70-year-old male patient with history of hypertension, diabetes, dementia, and prior CVA presents to the emergency department for medical evaluation. Patient was reportedly dropped off at the emergency department by a family member. He is unsure why his family was concerned enough about his current condition to bring him to the emergency department. Patient is asymptomatic. He has no complaints. No recent falls. No recent illnesses. He is compliant with his medications. His family is not present to provide further history. - Related Data Previous Rx's Medication Instructions Recorded Last Taken Type Aspirin EC [Ecotrin] 325 mg PO QDAY #30 tablet 07/29/14 Unknown Rx Simvastatin (Nf) [Zocor TAB] 20 mg PO QHS #30 tablet 07/29/14 Unknown Rx Metoprolol [Lopressor TAB] 25 mg PO BID #60 tablet 06/25/15 Unknown Rx lisinopriL [Zestril TAB] 5 mg PO QDAY #30 tablet 06/25/15 Unknown Rx Benzonatate [Tessalon Perles] 100 mg PO Q12H PRN #20 capsule 08/06/19 Unknown Rx Cetirizine HCl [ZyrTEC 10mg cap] 10 mg PO DAILY #30 capsule 08/06/19 Unknown Rx Fluticasone [Flonase] 1 spray NS QDAY #1 bottle 08/06/19 Unknown Rx Insulin Aspart [Insulin Aspart See Protocol SQ AC #1 insuln.pen 07/15/20 Unknown Rx Flexpen] Allergies Allergy/AdvReac Type Severity Reaction Status Date / Time No Known Allergies Allergy Verified 08/06/19 15:49 ED Review of Systems ROS: Stated complaint: ABD PAINS Other details as noted in HPI Other: GENERAL: Negative for fever, chills, weight change, anorexia, fatigue. ENT: Negative for ear pain, difficulty hearing, sore throat, nasal congestion, epistaxis. CARDIOVASCULAR: Negative for chest pain, palpitations, lower extremity swelling. PULMONARY: Negative for cough, dyspnea, wheezing, orthopnea, cyanosis. GASTROINTESTINAL: Negative for abdominal pain, nausea, vomiting, diarrhea, constipation. MUSCULOSKELETAL: Negative for joint pain, joint swelling, myalgias, back pain, neck pain. NEUROLOGICAL: Negative for headache, seizure, syncope, paresthesias, weakness. INTEGUMENTARY: Negative for erythema, rash, diaphoresis, laceration, ecchymosis. HEMATOLOGICAL: Negative for hemoptysis, hematemesis, hematochezia, hematuria. PSYCHIATRIC: Negative for hallucinations, suicidal ideation, homicidal ideation, anxiety, depression. 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) Hx Heart Attack/AMI: No Hx Congestive Heart Failure: No Hx Diabetes: Yes Hx Dementia: Yes - Surgical History Additional Surgical History: TONSILLECTOMY - Social History Smoking Status: Former Smoker Substance Use Type: Alcohol - Medications Home Medications: Home Medications Medication Instructions Recorded Confirmed Last Taken Type Aspirin EC [Ecotrin] 325 mg PO QDAY #30 tablet 07/29/14 07/10/20 Unknown Rx Simvastatin (Nf) [Zocor TAB] 20 mg PO QHS #30 tablet 07/29/14 07/10/20 Unknown Rx Metoprolol [Lopressor TAB] 25 mg PO BID #60 tablet 06/25/15 07/10/20 Unknown Rx lisinopriL [Zestril TAB] 5 mg PO QDAY #30 tablet 06/25/15 07/10/20 Unknown Rx Benzonatate [Tessalon Perles] 100 mg PO Q12H PRN #20 capsule 08/06/19 07/10/20 Unknown Rx Cetirizine HCl [ZyrTEC 10mg cap] 10 mg PO DAILY #30 capsule 08/06/19 07/10/20 Unknown Rx Fluticasone [Flonase] 1 spray NS QDAY #1 bottle 08/06/19 07/10/20 Unknown Rx Insulin Aspart [Insulin Aspart See Protocol SQ AC #1 insuln.pen 07/15/20 Unknown Rx Flexpen] ED Physical Exam - General Limitations: No Limitations - Other Other exam information: General: Awake and alert. No acute distress. Pleasant. Head: Atraumatic, normocephalic. Eyes: EOMI. Pupils are equal and round, reactive to light, no nystagmus. Normal sclera and conjunctiva. ENT: Oral mucosa is moist. Normal pharyngeal exam. Neck: Supple. No lymphadenopathy. Pulmonary: No respiratory distress. Clear to auscultation bilaterally. Cardiac: Regular rate and rhythm. Pulses are palpable and equal bilaterally. No lower extremity cyanosis or edema. Skin: Warm and dry. No rashes. Abdomen: Soft, non-tender, non-protuberant. No guarding, rigidity, or rebound. Bowel sounds are normal. No organomegaly or masses noted. Back: Normal alignment. No CVA tenderness. Extremities: Symmetrical. Full range of motion intact. Neurological: Awake and alert. Follows commands. Speech is clear. Baseline residual right hemiplegia from prior stroke. Cranial nerves II-XII intact t hroughout. Oriented to person. Thinks he is at [facility]. Thinks it is May. Unsure who the current president is. Review of medical records from hospital admission in June 2020 suggests these findings are not consistent with patient's baseline. Psych: Cooperative. Appropriate mood and affect. Speech is evenly metered. Thoughts are logically construed. ED Course Vital Signs 09/07/20 09/07/20 20:18 20:53 Temperature 98.1 F 98.2 F Pulse Rate 82 70 Respiratory 18 18 Rate Blood Pressure 121/83 147/74 O2 Sat by Pulse 93 99 Oximetry ED Medical Decision Making - Lab Data Result diagrams: 09/07/20 20:39 09/07/20 20:39 - EKG Data 09/08/20 04:42 EKG shows normal sinus rhythm with a ventricular rate of 87 bpm. Normal axis. Normal NC interval. Normal QT interval. Good R wave progression. No ST segment changes. Over read by attending emergency physician, who agrees with this interpretation. - Radiology Data [facility] [address] [place] [address] Cat Scan Report Signed Patient: MICHAEL GEIGER MR#: [id number] : 1950 Acct:[id number] Age/Sex: 70 / M ADM Date: 09/07/20 Loc: ED Attending Dr: Ordering Physician: ANNMARIE RUSH Date of Service: 09/08/20 Procedure(s): CT head/brain wo con Accession Number(s): [id number] cc: ANNMARIE RUSH Examination: CT of the head without contrast Clinical information: Altered mental status. History of stroke. Comparison: CT of the head without contrast, 07/10/2020 Technical: Multiple axial CT images of the head were obtained without intravenous contrast. Sagittal and coronal reformats were obtained. All CTs at this facility utilize dose reduction techniques including automated exposure control, iterative reconstruction and weight based dosing when appropriate to reduce patient radiation dose to as low as reasonable achievable. Findings: INTRACRANIAL CONTENTS: There is no CT evidence of acute intracranial hemorrhage. Confluent regions of hypodensity are again noted within the periventricular and deep white matter bilaterally. Hypodense region is again noted within the left occipital lobe from prior ischemia. The ventricular system remains normal in size. Mild to moderate generalized atrophy is noted. SKULL: No acute bony abnormality is visualized. ORBITS: The bilateral orbits and globes appear normal PARANASAL SINUSES / MASTOID AIR CELLS: Paranasal sinuses and mastoid air cells appear clear. Impression: 1. Diffuse changes associated with chronic small vessel ischemic disease and atrophy. If there is persistent clinical concern for stroke, MRI may be of benefit. Signer Name: Merced Barth MD Signed: 09/08/2020 3:53 AM Workstation Name: [id number] Transcribed By: EB Dictated By: Merced Barth MD Electronically Authenticated By: Merced Barth MD Signed Date/Time: 09/08/20 0353 DD/ 0348 TD/TT: - Medical Decision Making Differential diagnosis including but not limited to: acute coronary syndrome, cardiac arrhythmia, ischemic stroke, hemorrhagic stroke, dehydration, electrolyte abnormality, hypoglycemia, anemia On reevaluation, patient is stable. Vital signs within normal limits. Troponin is 0.029; EKG without acute injury pattern. Patient denies chest pain or shortness of breath. Labs show significantly depleted potassium (replenished orally) and magnesium (replenished IV. Patient's neurological exam demonstrates orientation to person but not place or time; although there is no family pr esent, review of past medical records suggest this is not consistent with his baseline. CT of the head shows changes consistent with diffuse small vessel ischemic disease and atrophy. No definite evidence of acute stroke although patient has a complex neurological history and MRI may be needed for further evaluation. Patient will require hospitalization for further evaluation and management of his current mental status as well as electrolyte disturbances. Case discussed with Dr. Hernandez, hospitalist, who agrees to admit. Critical care attestation.: If time is entered above; I have spent that time in minutes in the direct care of this critically ill patient, excluding procedure time. ED Disposition Clinical Impression: Hypokalemia, Hypomagnesemia Altered mental status Qualifiers: Altered mental status type: unspecified Qualified Code(s): R41.82 - Altered mental status, unspecified Disposition: DC-09 OP ADMIT IP TO THIS HOSP Is pt being admited?: Yes Condition: Stable Time of Disposition: 06:48
--- NOTE | 2020-09-08 03:57 | Cat Scan Report ---
Examination: CT of the head without contrast Clinical information: Altered mental status. History of stroke. Comparison: CT of the head without contrast, 07/10/2020 Technical: Multiple axial CT images of the head were obtained without intravenous contrast. Sagittal and coronal reformats were obtained. All CTs at this facility utilize dose reduction techniques inc luding automated exposure control, iterative reconstruction and weight based dosing when appropriate to reduce patient radiation dose to as low as reasonable achievable. Findings: INTRACRANIAL CONTENTS: There is no CT evidence of acute intracranial hemorrhage. Confluent regions of hypodensity are again noted within the periventricular and deep white matter bilaterally. Hypodense region is again noted within the left occipital lobe from prior ischemia. The ventricular system suzi ins normal in size. Mild to moderate generalized atrophy is noted. SKULL: No acute bony abnormality is visualized. ORBITS: The bilateral orbits and globes appear normal PARANASAL SINUSES / MASTOID AIR CELLS: Paranasal sinuses and mastoid air cells appear clear. Impression: 1. Diffuse changes associated with chronic small vessel ischemic disease and atrophy. If there is pe rsistent clinical concern for stroke, MRI may be of benefit. Signer Name: Merced Barth MD Signed: 09/08/2020 3:53 AM Workstation Name: [id number]
[2020-09-08] MEDS ORDERED: MAGNESIUM SULFATE 2 GM/50 ML BAG IV ONE ×2 (04:01→11:00)
--- NOTE | 2020-09-08 04:48 | XRay Report ---
CHEST 1 VIEW, 09/08/2020 2:31 AM CLINICAL INFORMATION/INDICATION: Fever COMPARISON: Chest radiograph, 07/10/2020 FINDINGS: SUPPORT DEVICES: None. HEART: The cardiac silhouette is normal in size. LUNGS/PLEURA: The lungs are clear of focal airspace disease or significant pleural effusion. ADDITIONAL FINDINGS: No additional acute findings. IMPRESSION: 1. No evidence of acute cardiopulmonary process. Signer Name: Merced Barth MD Signed: 09/08/2020 4:43 AM Workstation Name: [email or web address]
[2020-09-08 09:14] LABS: BUN/Creatinine Ratio 9; Blood Urea Nitrogen 13 mg/dL (9-20); Calcium 9.8 mg/dL (8.4-10.2); Hemolysis Index 6
[2020-09-08] MEDS: METOPROLOL TARTRATE 25 MG TAB PO SCH ×2 (10:00→21:25)
[2020-09-08] MEDS ORDERED: POTASSIUM CHLORIDE ER 20 MEQ TAB PO NR ×2 (10:15→14:15)
[2020-09-08] MEDS: LISINOPRIL 5 MG TAB PO SCH (11:13)
--- NOTE | 2020-09-08 11:29 | History and Physical Report ---
History of Present Illness Date of examination: 09/08/20 Date of admission: 09/08/20 06:50 Chief complaint: Patient was left in the ED by his families History of present illness: 70-year-old male with past medical history significant for hypertension, diabetes mellitus, dementia, previous CVA was dropped off in the emergency department by his families. Patient denied chest pain, shortness of breath, fever or any other complaints. When asked why he came to the emergency department he said he don't know why. Work-up in the emergency department showed patient severely hypokalemic and hypomagnesemic. Patient was given potassium and magnesium and admitted to medical floor. CT head is normal. No other abnormalities identified. Patient will be admitted for observation. REVIEW OF SYSTEMS: GENERAL: no weight change, no fatigue, no fever HEAD: no head ache EYES: no blurry vision, no acute visual loss EARS: no hearing loss, no discharge, no earache NOSE: no stuffiness, no sneezing, no discharge MOUTH, THROAT AND NECK: no bleeding gums, no sore throat, no swollen neck CARDIAC: no palpitations, no dyspnea on exertion, no orthopnea, no PND, no edema, no chest pain RESPIRATORY: no shortness of breath, no wheeze, no cough, no sputum, no hemoptysis, no asthma GI: no decreased appetite, no nausea, no vomiting, no dysphagia, no diarrhea, no constipation, no abdominal pain URINARY: No urgency, hematuria, dysuria or frequency. MUSCULOSKELETAL: no muscle weakness, no pain, no joint stiffness NEUROLOGIC: no loss of sensation/numbness, no tingling, no tremors, no weakness/paralysis HEMATOLOGIC: no anemia, no easy bruising SKIN: no rashes ENDOCRINE: no heat/cold intolerance, no polyuria, no polydipsia, no thyroid problems, no diabetes PSYCHIATRIC: no anxiety, no depression, no suicidal ideations Past History Past Medical History: hypertension, stroke Past Surgical History: No surgical history Social history: smoking (1 cigarette a day), full code. denies: alcohol abuse, prescription drug abuse, IV drug use Family history: other (Sister has diabetic and hypertension) Medications and Allergies Allergies Allergy/AdvReac Type Severity Reaction Status Date / Time No Known Allergies Allergy Verified 08/06/19 15:49 Home Medications Medication Instructions Recorded Confirmed Last Taken Type Aspirin EC [Ecotrin] 325 mg PO QDAY #30 tablet 05/05/15 04/16/21 Unknown Rx Simvastatin (Nf) [Zocor TAB] 20 mg PO QHS #30 tablet 07/29/14 07/10/20 Unknown Rx Metoprolol [Lopressor TAB] 25 mg PO BID #60 tablet 06/25/15 07/10/20 Unknown Rx lisinopriL [Zestril TAB] 5 mg PO QDAY #30 tablet 06/25/15 07/10/20 Unknown Rx Benzonatate [Tessalon Perles] 100 mg PO Q12H PRN #20 capsule 08/06/19 07/10/20 Unknown Rx Cetirizine HCl [ZyrTEC 10mg cap] 10 mg PO DAILY #30 capsule 08/06/19 07/10/20 Unknown Rx Fluticasone [Flonase] 1 spray NS QDAY #1 bottle 08/06/19 07/10/20 Unknown Rx Insulin Aspart [Insulin Aspart See Protocol SQ AC #1 insuln.pen 07/15/20 Unknown Rx Flexpen] Active Meds: Active Medications Magnesium Sulfate (Magnesium Sulfate 2gm/50ml) 2 gm in 50 mls @ 25 mls/hr IV ONCE ONE Stop: 09/08/20 12:59 Last Admin: 09/08/20 11:14 Dose: 25 mls/hr Documented by: Lisinopril (Lisinopril 5 Mg Tab) 5 mg PO QDAY [facility] Last Admin: 09/08/20 11:13 Dose: 5 mg Documented by: Metoprolol Tartrate (Metoprolol Tartrate 25 Mg Tab) 25 mg PO BID [facility] Last Admin: 09/08/20 10:00 Dose: 25 mg Documented by: Potassium Chloride (Potassium Chloride Er 20 Meq Tab) 40 meq PO ONCE@1015 NR Stop: 09/08/20 13:00 Last Admin: 09/08/20 10:15 Dose: 40 meq Documented by: Potassium Chloride (Potassium Chloride Er 20 Meq Tab) 40 meq PO ONCE@1415 NR Stop: 09/08/20 16:00 Pravastatin Sodium (Pravastatin 40 Mg Tab) 40 mg PO QHS [facility] Exam - Physical Exam Narrative exam: Not in cardiopulmonary distress. The patient appeared well nourished and normally developed. Vital signs as documented. Head exam is unremarkable. No scleral icterus . Neck is without jugular venous distension, thyromegaly, or carotid bruits. Lungs are clear to auscultation. Cardiac exam reveals regular rate and Rhythm. Abdominal exam reveals normal bowel sounds, nontender, no organomegaly. Extremities are nonedematous and both femoral and pedal pulses are normal. TAP GRINDER: Alert and oriented 3. No focal weakness. - Constitutional Vitals: Temp Pulse Resp BP Pulse Ox 98 F 83 16 145/79 96 09/08/20 11:11 09/08/20 11:13 09/08/20 11:11 09/08/20 11:13 09/08/20 11:11 HEART Score - HEART Score Troponin: Troponin T 0.029 ng/mL (0.00-0.029) 09/08/20 02:45 Results - Labs CBC & Chem 7: 09/07/20 20:39 09/08/20 08:40 Labs: Laboratory Last Values WBC 7.7 K/mm3 (4.5-11.0) 09/07/20 20:39 RBC 3.71 M/mm3 (3.65-5.03) 09/07/20 20:39 Hgb 11.0 gm/dl (11.8-15.2) L 09/07/20 20:39 Hct 33.6 % (35.5-45.6) L 09/07/20 20:39 MCV 91 fl (84-94) 09/07/20 20:39 MCH 30 pg (28-32) 09/07/20 20:39 MCHC 33 % (32-34) 09/07/20 20:39 RDW 15.3 % (13.2-15.2) H 09/07/20 20:39 Plt Count 404 K/mm3 (140-440) 09/07/20 20:39 Lymph % (Auto) 18.5 % (13.4-35.0) 09/07/20 20:39 [place] % (Auto) 8.7 % (0.0-7.3) H 09/07/20 20:39 Eos % (Auto) 3.6 % (0.0-4.3) 09/07/20 20:39 Baso % (Auto) 0.7 % (0.0-1.8) 09/07/20 20:39 Lymph # (Auto) 1.4 K/mm3 (1.2-5.4) 09/07/20 20:39 [place] # (Auto) 0.7 K/mm3 (0.0-0.8) 09/07/20 20:39 Eos # (Auto) 0.3 K/mm3 (0.0-0.4) 09/07/20 20:39 Baso # (Auto) 0.1 K/mm3 (0.0-0.1) 09/07/20 20:39 Seg Neutrophils % 68.5 % (40.0-70.0) 09/07/20 20:39 Seg Neutrophils # 5.3 K/mm3 (1.8-7.7) 09/07/20 20:39 Sodium 142 mmol/L (137-145) 09/08/20 08:40 Potassium 3.2 mmol/L (3.6-5.0) L 09/08/20 08:40 Chloride 103.8 mmol/L (98-107) 09/08/20 08:40 Carbon Dioxide 23 mmol/L (22-30) 09/08/20 08:40 Anion Gap 18 mmol/L 09/08/20 08:40 BUN 13 mg/dL (9-20) 09/08/20 08:40 Creatinine 1.4 mg/dL (0.8-1.3) H D 09/08/20 08:40 Estimated GFR > 60 ml/min 09/08/20 08:40 BUN/Creatinine Ratio 9 % 09/08/20 08:40 Glucose 65 mg/dL (75-100) L 09/08/20 08:40 Calcium 9.8 mg/dL (8.4-10.2) 09/08/20 08:40 Magnesium 1.60 mg/dL (1.7-2.3) L 09/08/20 08:40 Total Bilirubin 0.40 mg/dL (0.1-1.2) 09/07/20 20:39 AST 13 units/L (5-40) 09/07/20 20:39 ALT 6 units/L (7-56) L 09/07/20 20:39 Alkaline Phosphatase 139 units/L (35-129) H 09/07/20 20:39 Troponin T 0.029 ng/mL (0.00-0.029) 09/08/20 02:45 Total Protein 7.9 g/dL (6.3-8.2) 09/07/20 20:39 Albumin 3.7 g/dL (3.9-5) L 09/07/20 20:39 Albumin/Globulin Ratio 0.9 % 09/07/20 20:39 Assessment and Plan Assessment and plan: Hypokalemia -Potassium was 2.9 and repleted according to electrolyte protocol -We will going to monitor and replete Hypomagnesemia -Magnesium level was 1 on admission and given magnesium -We will monitor and replete as needed Hypertension -Blood pressures controlled -Resume home medications History of CVA -We will continue his home dose of aspirin and statin DVT prophylaxis -On Lovenox Disposition; admit to medical floor for observation. CODE STATUS; full Management plan was discussed with the patient and was in agreement with plan of care. Advance Directives: Yes VTE prophylaxis?: Chemical Plan of care discussed with patient/family: Yes
[2020-09-08] MEDS: ASPIRIN EC 325 MG TAB PO SCH (15:57)
[2020-09-08 18:52] LABS: Bilirubin,Urine NEG (Negative); Blood,Urine NEG (Negative); Color,Urine Yellow (Yellow); Mucus,Urine FEW /HPF; RBC,Urine < 1.0 /HPF (0.0-6.0); Urobilinogen,Urine < 2.0 mg/dL (<2.0)
[2020-09-08] MEDS: ENOXAPARIN 40 MG/0.4 ML INJ SUB-Q SCH (21:25)
[2020-09-08] MEDS: PRAVASTATIN 40 MG TAB PO SCH (21:25)
[2020-09-08] MEDS ORDERED: NON-FORMULARY EACH (Simvastatin 20 MG Tablet) PO SCH (22:00)
[2020-09-09] MEDS ORDERED: POTASSIUM CHLORIDE ER 20 MEQ TAB PO NR ×2 (07:30→11:30)
[2020-09-09 07:41] LABS: BUN/Creatinine Ratio 10; Blood Urea Nitrogen 10 mg/dL (9-20); Calcium 9.7 mg/dL (8.4-10.2); Hemolysis Index 5
[2020-09-09] MEDS: METOPROLOL TARTRATE 25 MG TAB PO SCH ×2 (10:22→21:50)
[2020-09-09] MEDS: ASPIRIN EC 325 MG TAB PO SCH (10:22)
[2020-09-09] MEDS: LISINOPRIL 5 MG TAB PO SCH (10:22)
[2020-09-09] MEDS: MAGNESIUM OXIDE 400 MG TAB PO SCH ×2 (10:25→21:50)
--- NOTE | 2020-09-09 11:00 | Discharge Summary ---
Providers - Providers Date of Admission: 09/08/20 06:50 Date of discharge: 09/09/20 Attending physician: AILIN MORA MD 09/08/20 07:07 Consult to Case Management [CONS] Routine Services Needed at Discharge: Manager Cancer Notified:: dharmesh Comment:: patient dropped off in the ED family members Physical Therapy Evaluation and Treat [CONS] Routine Comment: Reason For Exam: evaluate and treat Primary care physician: PERFORMANCE REPORTER Hospitalization Reason for admission: Hypokalemia, hypomagnesemia Condition: Stable Pertinent studies: CT head Hospital course: History of present illness: 70-year-old male with past medical history significant for hypertension, diabetes mellitus, dementia, previous CVA was dropped off in the emergency department by his families. Patient denied chest pain, shortness of breath, fever or any other complaints. When asked why he came to the emergency department he said he don't know why. Work-up in the emergency department showed patient severely hypokalemic and hypomagnesemic. Patient was given potassium and magnesium and admitted to medical floor. CT head is normal. No other abnormalities identified. Patient will be admitted for observation. Hospital course Patient was admitted to the floor and potassium and magnesium was repleted. This morning potassium was 3.5 and magnesium was 1.6. Patient was given magnesium and potassium. Patient is also discharged with 2 days of p.o. magnesium and potassium. Discussed with case management and patient is on home health. Patient discharged home in a stable condition. Disposition: [id number] HOME [facility] Final Discharge Diagnosis (Prints w/discharge instructions): Hypomagnesemia. Hypokalemia Time spent for discharge: 25 minutes - Discharge Diagnoses (1) Hypokalemia Status: Acute (2) Hypomagnesemia Status: Acute (3) Cerebral atherosclerosis Status: Acute (4) Chronic cerebrovascular accident (CVA) Status: Acute (5) Debility Status: Acute (6) Hypertension Status: Chronic Qualifiers: Hypertension type: essential hypertension Qualified Code(s): I10 - Essential (primary) hypertension Core Measure Documentation - Palliative Care Palliative Care/ Comfort Measures: Not Applicable - Core Measures Any of the following diagnoses?: none Exam - Physical Exam Narrative exam: Not in cardiopulmonary distress. The patient appeared well nourished and normally developed. Vital signs as documented. Head exam is unremarkable. No scleral icterus . Neck is without jugular venous distension, thyromegaly, or carotid bruits. Lungs are clear to auscultation. Cardiac exam reveals regular rate and Rhythm. Abdominal exam reveals normal bowel sounds, nontender, no organomegaly. Extremities are nonedematous and both femoral and pedal pulses are normal. 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 No focal weakness. - Constitutional Vitals: Temp Pulse Resp BP Pulse Ox 98.5 F 68 20 146/71 97 09/09/20 04:35 09/08/20 16:27 09/09/20 04:35 09/09/20 10:22 09/08/20 22:00 Plan Activity: advance as tolerated Weight Bearing Status: Weight Bear as Tolerated Diet: low salt, diabetic Follow up with: PRIMARY CARE, [Primary Care Provider] - 7 Days WESTON GOMEZ MD [Staff Physician] - 7 Days Prescriptions: Magnesium Oxide [Mag-Ox] 400 mg PO BID #10 tablet Potassium Chloride 40 meq PO DAILY #20 tablet.er
[2020-09-09] MEDS: PRAVASTATIN 40 MG TAB PO SCH (21:50)
[2020-09-09] MEDS: ENOXAPARIN 40 MG/0.4 ML INJ SUB-Q SCH (21:50)
[2020-09-09 22:31] VITALS: BP 169/82
--- NOTE | 2020-09-11 18:54 | Electrocardiograph Report ---
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
== END 2020-09-09 23:20 | disposition home health service (06) ==
LOC: ED 18:00 → 3A 09-08 06:50 → INTOOBSV 09-08 06:50 → 3A 09-08 07:45
PROVIDERS: ADMIT Hospitalist; ATTEND Internal Medicine
DX: E87.6 Hypokalemia (principal); E83.42 Hypomagnesemia; I10 Essential (primary) hypertension; I67.2 Cerebral atherosclerosis; R53.81 Other malaise; R41.82 Altered mental status, unspecified; E11.9 Type 2 diabetes mellitus without complications; F03.90 Unspecified dementia, unspecified severity, without behavioral disturbance, psychotic disturbance, mood disturbance, and anxiety; M25.59 Pain in other specified joint; Z86.73 Personal history of transient ischemic attack (TIA), and cerebral infarction without residual deficits; Z79.82 Long term (current) use of aspirin; Z79.4 Long term (current) use of insulin; Z87.891 Personal history of nicotine dependence; Z90.49 Acquired absence of other specified parts of digestive tract
CPT/HCPCS: 36415; 70450; 71045; 80048; 80053; 81001; 83735; 84132; 84484; 85025; 93005; 96365; 96366; 96372; 97163; 99285; A9270; G0378; J1650; J3475

== ENCOUNTER 2020-12-27 19:12 | Inpatient (IN) | payer MEDICARE ==
[2020-12-27] MEDS ORDERED: SODIUM CHLORIDE 0.9% 1000 ML 1,000 ML ONE (19:32)
--- NOTE | 2020-12-27 19:38 | Emergency Department Report ---
ED Neuro Deficit HPI - General Stated Complaint: STROKE/AMS Time Seen by Provider: 12/27/20 19:23 Source: EMS - History of Present Illness Initial Comments: Patient is 70 years old male with history of hypertension, diabetes, dementia and a recent CVA with right-sided weakness and right facial droop. Patient brought to the emergency room from home by EMS for evaluation of possible stroke. EMS stated that family reported that patient started to have a right facial droop and right upper and lower extremity weakness approximately around 6:15 PM however they stated that he has been having altered mental status for the whole day. EMS reported that they saw the patient several times recently and including this morning. They stated that he is bedridden however he is communicating. Upon arrival to the ER patient is an obvious right facial droop, right upper and lower extremity weakness. Patient is having drooling. Patient is altered and unable to answer any questions. Stroke protocol immediately initiated. Patient found to have a blood pressure of 45 over 20s. IV immediately started and patient started on fluids. Patient examined by Dr. Keven Martinez, stroke telemetry neurologist. He stated that patient is not a TPA candidate since he had a recent stroke. -: Sudden, This evening Location: speech, right face Presenting Symptoms: Present: Weak/Paralyzed One Side, Facial Droop/Numbness, Unable to Speak Clearly, Altered Mental Status Place: home Context: sudden onset Associated Symptoms: confusion - Related Data Home Medications: Previous Rx's Medication Instructions Recorded Last Taken Type Aspirin EC [Ecotrin] 325 mg PO QDAY #30 tablet 07/29/14 Unknown Rx Simvastatin (Nf) [Zocor TAB] 20 mg PO QHS #30 tablet 07/29/14 Unknown Rx Metoprolol [Lopressor TAB] 25 mg PO BID #60 tablet 06/25/15 Unknown Rx lisinopriL [Zestril TAB] 5 mg PO QDAY #30 tablet 06/25/15 Unknown Rx Benzonatate [Tessalon Perles] 100 mg PO Q12H PRN #20 capsule 08/06/19 Unknown Rx Cetirizine HCl [ZyrTEC 10mg cap] 10 mg PO DAILY #30 capsule 08/06/19 Unknown Rx Fluticasone [Flonase] 1 spray NS QDAY #1 bottle 08/06/19 Unknown Rx Insulin Aspart [Insulin Aspart See Protocol SQ AC #1 insuln.pen 07/15/20 Unknown Rx Flexpen] Magnesium Oxide [Mag-Ox] 400 mg PO BID #10 tablet 09/09/20 Unknown Rx Potassium Chloride 40 meq PO DAILY #20 tablet.er 09/09/20 Unknown Rx Allergies/Adverse Reactions: Allergies Allergy/AdvReac Type Severity Reaction Status Date / Time No Known Allergies Allergy Verified 08/06/19 15:49 ED Review of Systems ROS: Stated complaint: STROKE/AMS Other details as noted in HPI Comment: Unobtainable due to pts medical conditions ED Past Medical Hx - Past Medical History Hx Hypertension: Yes Hx CVA: Yes (Left proximal [employer] evaluation April 2019) Hx Heart Attack/AMI: No Hx Congestive Heart Failure: No Hx Diabetes: Yes Hx Dementia: Yes - Surgical History Additional Surgical History: TONSILLECTOMY - Social History Smoking Status: Never Smoker - Medications Home Medications: Home Medications Medication Instructions Recorded Confirmed Last Taken Type Aspirin EC [Ecotrin] 325 mg PO QDAY #30 tablet 07/29/14 09/08/20 Unknown Rx Simvastatin (Nf) [Zocor TAB] 20 mg PO QHS #30 tablet 07/29/14 09/08/20 Unknown Rx Metoprolol [Lopressor TAB] 25 mg PO BID #60 tablet 06/25/15 09/08/20 Unknown Rx lisinopriL [Zestril TAB] 5 mg PO QDAY #30 tablet 06/25/15 09/08/20 Unknown Rx Benzonatate [Tessalon Perles] 100 mg PO Q12H PRN #20 capsule 08/06/19 09/08/20 U nknown Rx Cetirizine HCl [ZyrTEC 10mg cap] 10 mg PO DAILY #30 capsule 08/06/19 09/08/20 Unknown Rx Fluticasone [Flonase] 1 spray NS QDAY #1 bottle 08/06/19 09/08/20 Unknown Rx Insulin Aspart [Insulin Aspart See Protocol SQ AC #1 insuln.pen 07/15/20 09/08/20 Unknown Rx Flexpen] Magnesium Oxide [Mag-Ox] 400 mg PO BID #10 tablet 09/09/20 Unknown Rx Potassium Chloride 40 meq PO DAILY #20 tablet.er 09/09/20 Unknown Rx ED Neuro Physical Exam - General General appearance: obtunded Suspected Stroke: Yes - Head Head exam: Present: atraumatic, normocephalic, normal inspection - Eye Eye exam: Present: normal appearance - ENT ENT exam: Present: mucous membranes dry - Neck Neck exam: Present: normal inspection - Respiratory Respiratory exam: Present: normal lung sounds bilaterally - Cardiovascular Cardiovascular Exam: Present: regular rate, normal rhythm, normal heart sounds - GI/Abdominal GI/Abdominal exam: Present: soft. Absent: distended, tenderness, guarding, rebound, rigid - Neurological Exam Neurological exam: Present: altered - NIHSS Assessment Interval: Baseline 1a. Level of Consciousness: arousable/minor stimuli 1b. LOC Questions: answers no questions correctly 1c. LOC Commands: performs no tasks correctly 2. Best Gaze: normal 3. Visual: no visual loss 4. Facial Palsy: partial paralysis 5b. Motor Arm Right: drift 5a. Motor Arm Left: drift 6a. Motor Leg Left: drift 6b. Motor Leg Right: drift 7. Limb Ataxia: absent 8. Sensory: coma/unresponsive 9. Best Language: mute/global aphasia 10. Dysarthria: mute/anarrthric 11. Extinction/Inattention: no abnormality Total Score: 18 Stroke Severity: Moderate to Severe Stroke - Skin Skin exam: Present: warm, intact, normal color ED Course Vital Signs 12/27/20 21:08 Temperature 97.5 F L Pulse Rate 97 H Respiratory 16 Rate Blood Pressure 90/58 [Left] O2 Sat by Pulse 95 Oximetry - Lab Data Result diagrams: 12/27/20 19:39 12/27/20 19:39 Lab Results 12/27/20 12/27/20 12/27/20 Range/Units 19:28 19:39 19:39 WBC 8.1 (4.5-11.0) K/mm3 RBC 3.24 L (3.65-5.03) M/mm3 Hgb 10.0 L (11.8-15.2) gm/dl Hct 30.1 L (35.5-45.6) % MCV 93 (84-94) fl MCH 31 (28-32) pg MCHC 33 (32-34) % RDW 18.3 H (13.2-15.2) % Plt Count 347 (140-440) K/mm3 Lymph % (Auto) 26.1 (13.4-35.0) % Cuming % (Auto) 9.8 H (0.0-7.3) % Eos % (Auto) 1.6 (0.0-4.3) % Baso % (Auto) 0.3 (0.0-1.8) % Lymph # (Auto) 2.1 (1.2-5.4) K/mm3 Cuming # (Auto) 0.8 (0.0-0.8) K/mm3 Eos # (Auto) 0.1 (0.0-0.4) K/mm3 Baso # (Auto) 0.0 (0.0-0.1) K/mm3 Seg Neutrophils % 62.2 (40.0-70.0) % Seg Neutrophils # 5.0 (1.8-7.7) K/mm3 PT 17.6 H (12.2-14.9) Sec. INR 1.40 H (0.87-1.13) APTT 33.2 (24.2-36.6) Sec. Thrombin Time 18.9 (15.1-19.6) Sec. Sodium (137-145) mmol/L Potassium (3.6-5.0) mmol/L Chloride (98-107) mmol/L Carbon Dioxide (22-30) mmol/L Anion Gap mmol/L BUN (9-20) mg/dL Creatinine (0.8-1.3) mg/dL Estimated GFR ml/min BUN/Creatinine Ratio % Glucose (75-100) mg/dL POC Glucose 143 H (70-105) mg/dL Lactic Acid (0.7-2.0) mmol/L Calcium (8.4-10.2) mg/dL Total Bilirubin (0.1-1.2) mg/dL Direct Bilirubin (0-0.2) mg/dL Indirect Bilirubin mg/dL AST (5-40) units/L ALT (7-56) units/L Alkaline Phosphatase (35-129) units/L Total Creatine Kinase (55-170) units/L CK-MB (CK-2) (0.0-4.0) ng/mL CK-MB (CK-2) Rel Index (0-4) Troponin T (0.00-0.029) ng/mL Total Protein (6.3-8.2) g/dL Albumin (3.9-5) g/dL Albumin/Globulin Ratio % Triglycerides (2-149) mg/dL Cholesterol (50-199) mg/dL LDL Cholesterol Direct (50-130) mg/dL HDL Cholesterol (40-59) mg/dL Cholesterol/HDL Ratio % 12/27/20 12/27/20 12/27/20 Range/Units 19:39 19:39 21:47 WBC (4.5-11.0) K/mm3 RBC (3.65-5.03) M/mm3 Hgb (11.8-15.2) gm/dl Hct (35.5-45.6) % MCV (84-94) fl MCH (28-32) pg MCHC (32-34) % RDW (13.2-15.2) % Plt Count (140-440) K/mm3 Lymph % (Auto) (13.4-35.0) % Cuming % (Auto) (0.0-7.3) % Eos % (Auto) (0.0-4.3) % Baso % (Auto) (0.0-1.8) % Lymph # (Auto) (1.2-5.4) K/mm3 Cuming # (Auto) (0.0-0.8) K/mm3 Eos # (Auto) (0.0-0.4) K/mm3 Baso # (Auto) (0.0-0.1) K/mm3 Seg Neutrophils % (40.0-70.0) % Seg Neutrophils # (1.8-7.7) K/mm3 PT (12.2-14.9) Sec. INR (0.87-1.13) APTT (24.2-36.6) Sec. Thrombin Time (15.1-19.6) Sec. Sodium 137 (137-145) mmol/L Potassium 5.0 (3.6-5.0) mmol/L Chloride 106.2 (98-107) mmol/L Carbon Dioxide 15 L (22-30) mmol/L Anion Gap 21 mmol/L BUN 45 H (9-20) mg/dL Creatinine 2.4 H (0.8-1.3) mg/dL Estimated GFR 33 ml/min BUN/Creatinine Ratio 19 % Glucose 140 H (75-100) mg/dL POC Glucose (70-105) mg/dL Lactic Acid 5.40 H* (0.7-2.0) mmol/L Calcium 10.8 H (8.4-10.2) mg/dL Total Bilirubin 0.20 (0.1-1.2) mg/dL Direct Bilirubin < 0.2 (0-0.2) mg/dL Indirect Bilirubin 0.0 mg/dL AST 15 (5-40) units/L ALT 9 (7-56) units/L Alkaline Phosphatase 101 (35-129) units/L Total Creatine Kinase 135 (55-170) units/L CK-MB (CK-2) 4.5 H (0.0-4.0) ng/mL CK-MB (CK-2) Rel Index 3.3 (0-4) Troponin T 0.110 H* 0.094 H (0.00-0.029) ng/mL Total Protein 7.2 (6.3-8.2) g/dL Albumin 3.4 L (3.9-5) g/dL Albumin/Globulin Ratio 0.9 % Triglycerides 159 H (2-149) mg/dL Cholesterol 125 (50-199) mg/dL LDL Cholesterol Direct 61 (50-130) mg/dL HDL Cholesterol 33 L (40-59) mg/dL Cholesterol/HDL Ratio 3.78 % 12/27/20 Range/Units 21:47 WBC (4.5-11.0) K/mm3 RBC (3.65-5.03) M/mm3 Hgb (11.8-15.2) gm/dl Hct (35.5-45.6) % MCV (84-94) fl MCH (28-32) pg MCHC (32-34) % RDW (13.2-15.2) % Plt Count (140-440) K/mm3 Lymph % (Auto) (13.4-35.0) % Cuming % (Auto) (0.0-7.3) % Eos % (Auto) (0.0-4.3) % Baso % (Auto) (0.0-1.8) % Lymph # (Auto) (1.2-5.4) K/mm3 Cuming # (Auto) (0.0-0.8) K/mm3 Eos # (Auto) (0.0-0.4) K/mm3 Baso # (Auto) (0.0-0.1) K/mm3 Seg Neutrophils % (40.0-70.0) % Seg Neutrophils # (1.8-7.7) K/mm3 PT (12.2-14.9) Sec. INR (0.87-1.13) APTT (24.2-36.6) Sec. Thrombin Time (15.1-19.6) Sec. Sodium (137-145) mmol/L Potassium (3.6-5.0) mmol/L Chloride (98-107) mmol/L Carbon Dioxide (22-30) mmol/L Anion Gap mmol/L BUN (9-20) mg/dL Creatinine (0.8-1.3) mg/dL Estimated GFR ml/min BUN/Creatinine Ratio % Glucose (75-100) mg/dL POC Glucose (70-105) mg/dL Lactic Acid 4.60 H* (0.7-2.0) mmol/L Calcium (8.4-10.2) mg/dL Total Bilirubin (0.1-1.2) mg/dL Direct Bilirubin (0-0.2) mg/dL Indirect Bilirubin mg/dL AST (5-40) units/L ALT (7-56) units/L Alkaline Phosphatase (35-129) units/L Total Creatine Kinase (55-170) units/L CK-MB (CK-2) (0.0-4.0) ng/mL CK-MB (CK-2) Rel Index (0-4) Troponin T (0.00-0.029) ng/mL Total Protein (6.3-8.2) g/dL Albumin (3.9-5) g/dL Albumin/Globulin Ratio % Triglycerides (2-149) mg/dL Cholesterol (50-199) mg/dL LDL Cholesterol Direct (50-130) mg/dL HDL Cholesterol (40-59) mg/dL Cholesterol/HDL Ratio % - EKG Data -: EKG Interpreted by Ny EKG shows normal: sinus rhythm Rate: normal Interpretation: no acute changes - Radiology Data Radiology results: report reviewed - Medical Decision Making Patient is 70 years old male with history of hypertension, diabetes, dementia and a recent CVA with right-sided weakness and right facial droop. Patient brought to the emergency room from home by EMS for evaluation of possible stroke. EMS stated that family reported that patient started to have a right facial droop and right upper and lower extremity weakness approximately around 6:15 PM however they stated that he has been having altered mental status for the whole day. EMS reported that they saw the patient several times recently and including this morning. They stated that he is bedridden however he is communicating. Upon arrival to the ER patient is an obvious right facial droop, right upper and lower extremity weakness. Patient is having drooling. Patient is altered and unable to answer any questions. Stroke protocol immediately initiated. Patient found to have a blood pressure of 45 over 20s. IV immediately started and patient started on fluids. Patient examined by Dr. Keven Martinez, stroke telemetry neurologist. He stated that patient is not a TPA candidate since he had a recent stroke. Patient started on normal saline. Labs reviewed and showed a lactic acid of 5.4 creatinine of 2.4. Is most likely secondary to dehydration since family reported decreased p.o. intake for the last few days. CT brain showed no acute abnormalities. Chest x-ray is unremarkable. Urine is pending. I discussed the patient with Dr. Vitale, he agreed to admit the patient to medical service for further management. Critical Care Time: Yes Critical care time in (mins) excluding proc time.: 30 Critical care attestation.: If time is entered above; I have spent that time in minutes in the direct care of this critically ill patient, excluding procedure time. ED Disposition Clinical Impression: Acute CVA (cerebrovascular accident), Acute renal failure, Lactic acidosis Altered mental status Qualifiers: Altered mental status type: unspecified Qualified Code(s): R41.82 - Altered mental status, unspecified Disposition: 09 ADMITTED INPATIENT Is pt being admited?: Yes Condition: Stable
--- NOTE | 2020-12-27 19:41 | Consultation ---
History of Present Illness History of present illness: [facility] Consult Note # Demographics Consult Type: Acute Stroke Level 1 (0-4.5 hrs) Patient Location: Emergency Room First Name: Jignesh Last Name: Sukumar Date of : 1950 Age: 70 Gender: Male Facility: [facility] Time of Initial Page ( Time): 12/27/2020, 19:24 Time of Return Call ( Time): 12/27/2020, 19:25 # HPI History: 70 year-old male with recent stroke 1 month ago with residual right- sided weakness presents with unresponsiveness that began at 615 PM. EMS found his blood pressure to be 90/54. Upon arrival to the ED, BP was 48/24. # Scores Time of exam and NIHSS (): 12/27/2020, 19:25 Level of Consciousness 1a: [3] = Responds only with reflex motor or unresponsive LOC Questions 1b: [2] = Answers neither correctly LOC Commands 1c: [2] = Performs neither correctly Best Gaze 2: [0] = Normal Visual 3: [0] = No visual loss Facial Palsy 4: [0] = Normal symmetrical movements Motor Arm Left 5a: [3] = No effort against gravity Motor Arm Right 5b: [4] = No movement Motor Leg Left 6a: [3] = No effort against gravity Motor Leg Right 6b: [4] = No movement Limb Ataxia 7: [0] = Absent Sensory 8: [0] = Normal Best Language 9: [3] = Mute Dysarthria 10: [2] = Severe dysarthria Extinction and Inattention 11: [0] = No abnormality NIHSS Total: 26 # Exam Vitals: vital signs reviewed # [facility] Past Medical History: Diabetes hypertension Medications: NOAC # Assessment Impression: Acute encephalopathy - unclear etiology, possibly symptomatic hypotension, cannot exclude stroke # Plan Thrombolytic/Intervention: NOT IV Thrombolysis or IA Intervention candidate Thrombolytic Exclusion (< 3 hour window): stroke within 3 months Intraarterial Exclusion: CTA pending Labs: CBC comprehensive metabolic panel Imaging: (urgency: STAT): CT Head without contrast CT Angiogram Head and CT Angiogram Neck AND call back with results if abnormal Imaging: (urgency: routine): If symptoms persist without clear cause, obtain brain MRI. Therapy/Evaluation: NPO until swallow evaluation PT/OT evaluation speech/swallow consultation Other: permissive hypertension telemetry monitoring I have discussed my recommendations with the referring provider Disposition: admit Medications and Allergies Allergies Allergy/AdvReac Type Severity Reaction Status Date / Time No Known Allergies Allergy Verified 08/06/19 15:49 Home Medications Medication Instructions Recorded Confirmed Last Taken Type Aspirin EC [Ecotrin] 325 mg PO QDAY #30 tablet 07/29/14 09/08/20 Unknown Rx Simvastatin (Nf) [Zocor TAB] 20 mg PO QHS #30 tablet 07/29/14 09/08/20 Unknown Rx Metoprolol [Lopressor TAB] 25 mg PO BID #60 tablet 06/25/15 09/08/20 Unknown Rx lisinopriL [Zestril TAB] 5 mg PO QDAY #30 tablet 06/25/15 09/08/20 Unknown Rx Benzonatate [Tessalon Perles] 100 mg PO Q12H PRN #20 capsule 08/06/19 09/08/20 Unknown Rx Cetirizine HCl [ZyrTEC 10mg cap] 10 mg PO DAILY #30 capsule 08/06/19 09/08/20 Unknown Rx Fluticasone [Flonase] 1 spray NS QDAY #1 bottle 08/06/19 09/08/20 Unknown Rx Insulin Aspart [Insulin Aspart See Protocol SQ AC #1 insuln.pen 07/15/20 09/08/20 Unknown Rx Flexpen] Magnesium Oxide [Mag-Ox] 400 mg PO BID #10 tablet 09/09/20 Unknown Rx Potassium Chloride 40 meq PO DAILY #20 tablet.er 09/09/20 Unknown Rx Results - Laboratory Findings Abnormal Lab Findings: Abnormal Labs 12/27/20 19:28 POC Glucose 143 H
[2020-12-27 19:46] LABS: Basophils % (Auto) 0.3 % (0.0-1.8); Eosinophils # (Auto) 0.1 K/mm3 (0.0-0.4); Eosinophils % (Auto) 1.6 % (0.0-4.3); Hematocrit 30.1 % (35.5-45.6); Lymphocytes # (Auto) 2.1 K/mm3 (1.2-5.4); Lymphocytes % (Auto) 26.1 % (13.4-35.0); Mean Corpuscular HGB Conc 33 % (32-34); Mean Corpuscular Volume 93 fl (84-94); Monocytes # (Auto) 0.8 K/mm3 (0.0-0.8); Monocytes % (Auto) 9.8 % (0.0-7.3); Platelet Count 347 K/mm3 (140-440); Red Blood Count 3.24 M/mm3 (3.65-5.03); Red Cell Distribution Width 18.3 % (13.2-15.2)
[2020-12-27] MEDS ORDERED: SODIUM CHLORIDE 0.9% 1000 ML 1,000 ML IV ONE ×2 (19:46→20:38)
[2020-12-27 19:59] LABS: INR 1.4 (0.87-1.13)
[2020-12-27 20:00] LABS: Creatine Kinase MB 4.5 ng/mL (0.0-4.0); Partial Thromboplastin Time 33.2 Sec. (24.2-36.6)
[2020-12-27 20:01] LABS: Alanine Aminotransferase 9 units/L (7-56); Albumin 3.4 g/dL (3.9-5); BUN/Creatinine Ratio 19; Blood Urea Nitrogen 45 mg/dL (9-20); Calcium 10.8 mg/dL (8.4-10.2); Hemolysis Index 6
[2020-12-27 20:06] LABS: Thrombin Time 18.9 Sec. (15.1-19.6)
--- NOTE | 2020-12-27 20:10 | Cat Scan Report ---
NONENHANCED CT SCAN OF THE HEAD: INDICATION / CLINICAL INFORMATION: 70 years Male; Stroke symptoms. TECHNIQUE: Routine CT head without contrast. All CT scans at this location are performed using CT dos e reduction for ALARA by means of automated exposure control. COMPARISON: CT scan of the head from 09/08/2020 FINDINGS: BRAIN / INTRACRANIAL CONTENTS: No intracerebral hemorrhage or stroke mimics No acute hemorrhage, mass effect, midline shift, hydrocephalus, or acute, large territorial infarct. Encephalomalacia in the l eft posterior cerebral artery territory; chronic lacunae in the corpus striatum bilaterally and in th e left thalamus; patchy areas of moderate cortical involution; periventricular low-attenuation areas due to chronic small vessel disease; volume loss in the cerebellar vermis; CT findings unchanged CRANIOCERVICAL JUNCTION: No significant abnormality. ORBITS: No significant abnormality of visualized orbits. SINUSES / MASTOIDS: No significant abnormality of the visualized paranasal sinuses or mastoid air chris ls. ADDITIONAL FINDINGS: None. IMPRESSION: No intracerebral hemorrhage or stroke mimics No acute focal parenchymal lesion; Encephalomalacia in the left occipital lobe; chronic lacunae in sudhir th basal ganglia CT findings remain unchanged Signer Name: Araceli Monae MD Signed: 12/27/2020 8:06 PM Workstation Name: [id number]
--- NOTE | 2020-12-27 20:29 | XRay Report ---
CHEST 1 VIEW 12/27/2020 7:18 PM INDICATION / CLINICAL INFORMATION: AMS. COMPARISON: 09/08/2020 FINDINGS: SUPPORT DEVICES: None. HEART / MEDIASTINUM: No significant abnormality. LUNGS / PLEURA: No significant pulmonary or pleural abnormality. No pneumothorax. ADDITIONAL FINDINGS: No significant additional findings. IMPRESSION: 1. No acute findings. Signer Name: Juancarlos Lilly DO Signed: 12/27/2020 8:24 PM Workstation Name: [id number]
[2020-12-27 20:31] LABS: Bilirubin,Direct < 0.2 mg/dL (0-0.2)
[2020-12-27] MEDS ORDERED: PIPERACILLIN/TAZOBACTAM 3.375 3.375 GM/50 ML BAG IV ONE (20:38)
[2020-12-27 20:51] LABS: Chol/HDL Ratio 3.78 %; HDL Cholesterol 33 mg/dL (40-59); LDL Cholesterol,Direct 61 mg/dL (50-130)
[2020-12-27] MEDS ORDERED: PROMETHAZINE 25 MG RECT SUPP PR PRN (23:59)
[2020-12-27] MEDS ORDERED: ONDANSETRON 4 MG/2 ML INJ IV PRN ×2 (23:59)
[2020-12-27] MEDS ORDERED: MAGNESIUM HYDROXIDE (MOM) ORAL LIQD UDC PO PRN ×2 (23:59)
[2020-12-27] MEDS ORDERED: METOCLOPRAMIDE 10 MG TAB PO PRN (23:59)
[2020-12-27] MEDS ORDERED: ACETAMINOPHEN 325 MG TAB PO PRN ×2 (23:59)
[2020-12-27] MEDS ORDERED: MORPHINE 4 MG/1 ML INJ IV PRN (23:59)
--- NOTE | 2020-12-28 00:18 | History and Physical Report ---
History of Present Illness Date of examination: 12/27/20 Date of admission: 12/27/2020 Chief complaint: Altered mental status History of present illness: 70-year-old -[place] male with known history of hypertension, diabetes mellitus, dementia, history of CVA with right-sided weakness and right facial droop was brought into the emergency room via EMS today with altered mental status. EMS indicates that family reported patient to have been having a right facial droop and right upper and right lower extremity weakness which has been ongoing since about 6 PM this afternoon. Patient also appeared to be altered over the and has not been communicating well . Most of the history is obtained from the ER staff as patient is unable to give any good history however he is able to not when responding to some questions. He was evaluated by the tele- neurologist and found not to be a TPA candidate. Upon arrival in the emergency room patient was found to be hypotensive and was subsequently given IV fluid with improvement in his blood pressure. Work-up in the emergency room today however reveals lactic acidosis of 5.4, BUN and creatinine of 45 of 2.4, troponin of 0.110., Hemoglobin of 10 and hematocrit of 30.1 CT scan of the head did not reveal any acute abnormality. Chest x-ray also showed no acute findings. Past History Past Medical History: diabetes, hypertension, stroke, other (Dementia) Past Surgical History: Other (Tonsillectomy) Social history: no significant social history Family history: no significant family history Medications and Allergies Allergies Allergy/AdvReac Type Severity Reaction Status Date / Time No Known Allergies Allergy Verified 08/06/19 15:49 Home Medications Medication Instructions Recorded Confirmed Last Taken Type Aspirin EC [Ecotrin] 325 mg PO QDAY #30 tablet 07/29/14 09/08/20 Unknown Rx Simvastatin (Nf) [Zocor TAB] 20 mg PO QHS #30 tablet 07/29/14 09/08/20 Unknown Rx Metoprolol [Lopressor TAB] 25 mg PO BID #60 tablet 06/25/15 09/08/20 Unknown Rx lisinopriL [Zestril TAB] 5 mg PO QDAY #30 tablet 06/25/15 09/08/20 Unknown Rx Benzonatate [Tessalon Perles] 100 mg PO Q12H PRN #20 capsule 08/06/19 09/08/20 Unknown Rx Cetirizine HCl [ZyrTEC 10mg cap] 10 mg PO DAILY #30 capsule 08/06/19 09/08/20 Un known Rx Fluticasone [Flonase] 1 spray NS QDAY #1 bottle 08/06/19 09/08/20 Unknown Rx Insulin Aspart [Insulin Aspart See Protocol SQ AC #1 insuln.pen 07/15/20 09/08/20 Unknown Rx Flexpen] Magnesium Oxide [Mag-Ox] 400 mg PO BID #10 tablet 09/09/20 Unknown Rx Potassium Chloride 40 meq PO DAILY #20 tablet.er 09/09/20 Unknown Rx Active Meds: Active Medications Acetaminophen (Acetaminophen 325 Mg Tab) 650 mg PO Q4H PRN PRN Reason: Pain MILD(1-3)/Fever >100.5/[place] Acetaminophen (Acetaminophen 325 Mg Tab) 650 mg PO Q4H PRN PRN Reason: Pain, Mild (1-3) Aspirin (Aspirin 325 Mg Tab) 325 mg PO QDAY RM Atorvastatin Calcium (Atorvastatin 40 Mg Tab) 40 mg PO QHS RM Bisacodyl (Bisacodyl 10 Mg Rect Supp) 10 mg IA QDAY PRN PRN Reason: Constipation Dextrose (Dextrose 50% In Water (25gm) 50 Ml Syringe) 50 ml IV Q30MIN PRN; Protocol PRN Reason: Hypoglycemia Heparin Sodium (Porcine) (Heparin 5,000 Unit/1 Ml Vial) 5,000 unit SUB-Q Q8HR RM Sodium Chloride (Nacl 0.9% 1000 Ml) 1,000 mls @ 125 mls/hr IV DIRECT RM Insulin Human Regular (Insulin Regular, Human 100 Units/1 Ml) 0 units SUB-Q ACHS RM; Protocol Magnesium Hydroxide (Magnesium Hydroxide (Mom) Oral Liqd Udc) 30 ml PO Q4H PRN PRN Reason: Constipation Magnesium Hydroxide (Magnesium Hydroxide (Mom) Oral Liqd Udc) 30 ml PO Q4H PRN PRN Reason: Constipation Metoclopramide HCl (Metoclopramide 10 Mg Tab) 10 mg PO Q6H PRN PRN Reason: Nausea And Vomiting Morphine Sulfate (Morphine 2 Mg/1 Ml Inj) 2 mg IV Q4H PRN PRN Reason: Pain, Moderate (4-6) Morphine Sulfate (Morphine 4 Mg/1 Ml Inj) 4 mg IV Q4H PRN PRN Reason: Pain , Severe (7-10) Ondansetron HCl (Ondansetron 4 Mg/2 Ml Inj) 4 mg IV Q8H PRN PRN Reason: Nausea And Vomiting Ondansetron HCl (Ondansetron 4 Mg/2 Ml Inj) 4 mg IV Q8H PRN PRN Reason: Nausea And Vomiting Promethazine HCl (Promethazine 25 Mg Rect Supp) 25 mg IA Q6H PRN PRN Reason: Nausea And Vomiting Sodium Chloride (Sodium Chloride 0.9% 10 Ml Flush Syringe) 10 ml IV BID RM Sodium Chloride (Sodium Chloride 0.9% 10 Ml Flush Syringe) 10 ml IV PRN PRN PRN Reason: LINE FLUSH Sodium Chloride (Sodium Chloride 0.9% 10 Ml Flush Syringe) 10 ml INJ PRN PRN PRN Reason: LINE FLUSH Review of Systems ROS unobtainable: due to mental status Exam - Constitutional Vitals: Temp Pulse Resp BP Pulse Ox 97.5 F L 97 H 16 90/58 95 12/27/20 21:08 12/27/20 21:08 12/27/20 21:08 12/27/20 21:08 12/27/20 21:08 General appearance: Present: no acute distress, well-nourished, other (Dry oral mucosa) - EENT Eyes: Present: PERRL, EOM intact. Absent: scleral icterus ENT: hearing intact, clear oral mucosa, dentition normal - Neck Neck: Present: supple, normal ROM - Respiratory Respiratory effort: normal Respiratory: bilateral: CTA - Cardiovascular Rhythm: regular Heart Sounds: Present: S1 & S2. Absent: gallop, systolic murmur, diastolic murmur, rub, click - Extremities Extremities: no ischemia, pulses intact, pulses symmetrical, No edema, normal temperature, normal color, Full ROM Peripheral Pulses: within normal limits - Abdominal General gastrointestinal: Present: soft, non-tender, non-distended, normal bowel sounds. Absent: mass - Integumentary Integumentary: Present: clear, warm, dry. Absent: rash - Musculoskeletal Musculoskeletal: right sided weakness - Psychiatric Psychiatric: cooperative - Neurologic Neurologic: CNII-XII intact, other (Nonverbal but nods his head to respond to questions. Right hemiparesis) HEART Score - HEART Score Troponin: Troponin T 0.094 ng/mL (0.00-0.029) H 12/27/20 21:47 Results - Labs CBC & Chem 7: 12/27/20 19:39 12/27/20 19:39 Labs: Abnormal lab results 12/27/20 12/27/20 12/27/20 Range/Units 19:28 19:39 19:39 RBC 3.24 L (3.65-5.03) M/mm3 Hgb 10.0 L (11.8-15.2) gm/dl Hct 30.1 L (35.5-45.6) % RDW 18.3 H (13.2-15.2) % [place] % (Auto) 9.8 H (0.0-7.3) % PT 17.6 H (12.2-14.9) Sec. INR 1.40 H (0.87-1.13) Carbon Dioxide (22-30) mmol/L BUN (9-20) mg/dL Creatinine (0.8-1.3) mg/dL Glucose (75-100) mg/dL POC Glucose 143 H (70-105) mg/dL Lactic Acid (0.7-2.0) mmol/L Calcium (8.4-10.2) mg/dL CK-MB (CK-2) (0.0-4.0) ng/mL Troponin T (0.00-0.029) ng/mL Albumin (3.9-5) g/dL Triglycerides (2-149) mg/dL HDL Cholesterol (40-59) mg/dL 12/27/20 12/27/20 12/27/20 Range/Units 19:39 19:39 21:47 RBC (3.65-5.03) M/mm3 Hgb (11.8-15.2) gm/dl Hct (35.5-45.6) % RDW (13.2-15.2) % [place] % (Auto) (0.0-7.3) % PT (12.2-14.9) Sec. INR (0.87-1.13) Carbon Dioxide 15 L (22-30) mmol/L BUN 45 H (9-20) mg/dL Creatinine 2.4 H (0.8-1.3) mg/dL Glucose 140 H (75-100) mg/dL POC Glucose (70-105) mg/dL Lactic Acid 5.40 H* (0.7-2.0) mmol/L Calcium 10.8 H (8.4-10.2) mg/dL CK-MB (CK-2) 4.5 H (0.0-4.0) ng/mL Troponin T 0.110 H* 0.094 H (0.00-0.029) ng/mL Albumin 3.4 L (3.9-5) g/dL Triglycerides 159 H (2-149) mg/dL HDL Cholesterol 33 L (40-59) mg/dL 12/27/20 Range/Units 21:47 RBC (3.65-5.03) M/mm3 Hgb (11.8-15.2) gm/dl Hct (35.5-45.6) % RDW (13.2-15.2) % [place] % (Auto) (0.0-7.3) % PT (12.2-14.9) Sec. INR (0.87-1.13) Carbon Dioxide (22-30) mmol/L BUN (9-20) mg/dL Creatinine (0.8-1.3) mg/dL Glucose (75-100) mg/dL POC Glucose (70-105) mg/dL Lactic Acid 4.60 H* (0.7-2.0) mmol/L Calcium (8.4-10.2) mg/dL CK-MB (CK-2) (0.0-4.0) ng/mL Troponin T (0.00-0.029) ng/mL Albumin (3.9-5) g/dL Triglycerides (2-149) mg/dL HDL Cholesterol (40-59) mg/dL Assessment and Plan - Patient Problems (1) Altered mental state Current Visit: Yes Status: Acute Qualifiers: Altered mental status type: unspecified Qualified Code(s): R41.82 - Altered mental status, unspecified Plan to address problem: Etiology unclear. Possibly secondary to new CVA. Will monitor mental status. (2) Acute CVA (cerebrovascular accident) Current Visit: Yes Status: Acute Plan to address problem: No acute findings on the CT of the head. Patient will be scheduled for MRI of the brain. Consult placed to neurology for further evaluation and recommendation. (3) Hypotension Current Visit: Yes Status: Acute Plan to address problem: Patient has had poor oral intake lately lately. We will continue on IV fluid normal saline and monitor vital signs closely. (4) CHHAYA (acute kidney injury) Current Visit: No Status: Acute Plan to address problem: Possibly prerenal. We will continue on IV fluid normal saline. Consult placed to nephrology for evaluation. (5) Diabetes mellitus Current Visit: No Status: Acute Plan to address problem: Patient placed on sliding scale insulin. We will monitor Accu-Cheks closely. (6) Lactic acidosis Current Visit: Yes Status: Acute Plan to address problem: We will continue on IV fluid and monitor chemistry. (7) DVT prophylaxis Current Visit: No Status: Acute Plan to address problem: Patient placed on anticoagulation with subcutaneous heparin. (8) Full code status Current Visit: No Status: Acute Plan to address problem: Patient is full code.
[2020-12-28] MEDS: SODIUM CHLORIDE 0.9% 1000 ML 1,000 ML IV SCH ×2 (03:31→16:15)
[2020-12-28 05:04] LABS: Bacteria,Urine 1+ /HPF (Negative); Bilirubin,Urine NEG (Negative); Blood,Urine NEG (Negative); Color,Urine Yellow (Yellow); Hyaline Casts,Urine 3 /LPF; Mucus,Urine FEW /HPF; Protein,Urine <15 mg/dL mg/dL (Negative); Urobilinogen,Urine < 2.0 mg/dL (<2.0)
[2020-12-28] MEDS: HEPARIN 5,000 UNIT/1 ML VIAL SUB-Q SCH ×3 (06:44→22:50)
--- NOTE | 2020-12-28 10:07 | Event Note ---
Date: 12/28/20 This is a follow-up from an admission earlier this morning. Patient seen and examined. We will continue to plan as outlined in H&P. Patient appears somnolent and lethargic. Patient still with altered mentation. Follow-up nephrology and neurology consultations. Total visit time equals 35 minutes with greater than 50% spent on coordination of care and counseling.
[2020-12-28] MEDS: ASPIRIN 325 MG TAB PO SCH (10:09)
[2020-12-28] MEDS: INSULIN REGULAR, HUMAN 100 UNITS/1 ML SUB-Q SCH ×4 (10:09→22:51)
--- NOTE | 2020-12-28 10:22 | Consultation ---
History of Present Illness - Reason for Consult Consult date: 12/28/20 acute renal failure - History of Present Illness 70-year-old man with known history of hypertension, diabetes mellitus, dementia, history of CVA with right-sided weakness and right facial droop presented to the emergency room via EMS with altered mental status. EMS indicates that family reported patient to have been having a right facial droop and right upper and right lower extremity weakness since 12/27 evening. Patient remains altered at time of consult so HPI obtained from chart review. Noted to have creatinine 2.4 on admission, with elevated lactate to 5.4. Neurology consulted for concern of CVA, CT head WNL. MRI brain shows right tanner and left occipital subacute infarct, carotid doppler without significant stenosis. Also noted to be hypotensive on arrival. ? Past History Past Medical History: diabetes, hypertension, stroke, other (Dementia) Past Surgical History: Other (Tonsillectomy) Social history: no significant social history Family history: no significant family history Medications and Allergies Allergies Allergy/AdvReac Type Severity Reaction Status Date / Time No Known Allergies Allergy Verified 08/06/19 15:49 Home Medications Medication Instructions Recorded Confirmed Last Taken Type Aspirin EC [Ecotrin] 325 mg PO QDAY #30 tablet 07/29/14 09/08/20 Unknown Rx Simvastatin (Nf) [Zocor TAB] 20 mg PO QHS #30 tablet 07/29/14 09/08/20 Unknown Rx Metoprolol [Lopressor TAB] 25 mg PO BID #60 tablet 06/25/15 09/08/20 Unknown Rx lisinopriL [Zestril TAB] 5 mg PO QDAY #30 tablet 06/25/15 09/08/20 Unknown Rx Benzonatate [Tessalon Perles] 100 mg PO Q12H PRN #20 capsule 08/06/19 09/08/20 Unknown Rx Cetirizine HCl [ZyrTEC 10mg cap] 10 mg PO DAILY #30 capsule 08/06/19 09/08/20 Unknown Rx Fluticasone [Flonase] 1 spray NS QDAY #1 bottle 08/06/19 09/08/20 Unknown Rx Insulin Aspart [Insulin Aspart See Protocol SQ AC #1 insuln.pen 07/15/20 09/08/20 Unknown Rx Flexpen] Magnesium Oxide [Mag-Ox] 400 mg PO BID #10 tablet 09/09/20 Unknown Rx Potassium Chloride 40 meq PO DAILY #20 tablet.er 09/09/20 Unknown Rx Active Meds: Active Medications Acetaminophen (Acetaminophen 325 Mg Tab) 650 mg PO Q4H PRN PRN Reason: Pain MILD(1-3)/Fever >100.5/[place] Aspirin (Aspirin 325 Mg Tab) 325 mg PO QDAY [facility] Last Admin: 12/28/20 10:09 Dose: 325 mg Documented by: Atorvastatin Calcium (Atorvastatin 40 Mg Tab) 40 mg PO QHS RM Bisacodyl (Bisacodyl 10 Mg Rect Supp) 10 mg NM QDAY PRN PRN Reason: Constipation Dextrose (Dextrose 50% In Water (25gm) 50 Ml Syringe) 0 ml IV Q30MIN PRN; Protocol PRN Reason: Hypoglycemia Heparin Sodium (Porcine) (Heparin 5,000 Unit/1 Ml Vial) 5,000 unit SUB-Q Q8HR [facility] Last Admin: 12/28/20 06:44 Dose: 5,000 unit Documented by: Sodium Chloride (Nacl 0.9% 1000 Ml) 1,000 mls @ 125 mls/hr IV DIRECT RM Last Admin: 12/28/20 03:31 Dose: 125 mls/hr Documented by: Insulin Human Regular (Insulin Regular, Human 100 Units/1 Ml) 0 units SUB-Q ACHS RM; Protocol Last Admin: 12/28/20 10:09 Dose: Not Given Documented by: Magnesium Hydroxide (Magnesium Hydroxide (Mom) Oral Liqd Udc) 30 ml PO Q4H PRN PRN Reason: Constipation Metoclopramide HCl (Metoclopramide 10 Mg Tab) 5 mg PO Q6H PRN PRN Reason: Nausea And Vomiting Morphine Sulfate (Morphine 2 Mg/1 Ml Inj) 2 mg IV Q4H PRN PRN Reason: Pain, Moderate (4-6) Morphine Sulfate (Morphine 4 Mg/1 Ml Inj) 4 mg IV Q4H PRN PRN Reason: Pain , Severe (7-10) Ondansetron HCl (Ondansetron 4 Mg/2 Ml Inj) 4 mg IV Q8H PRN PRN Reason: Nausea And Vomiting Promethazine HCl (Promethazine 25 Mg Rect Supp) 25 mg NM Q6H PRN PRN Reason: Nausea And Vomiting Sodium Chloride (Sodium Chloride 0.9% 10 Ml Flush Syringe) 10 ml IV BID [facility] Last Admin: 12/28/20 10:09 Dose: 10 ml Documented by: Sodium Chloride (Sodium Chloride 0.9% 10 Ml Flush Syringe) 10 ml IV PRN PRN PRN Reason: LINE FLUSH Review of Systems ROS unobtainable: due to mental status Exam - Vital Signs Vital signs: Vital Signs Pulse Ox 100 12/27/20 21:00 - General Appearance General appearance: obese, moderate distress, fatigue, frail EENT: ATNC Neck: Present: neck supple Respiratory: Clear to Ascultation Heart: regular, S1S2 Gastrointestinal: Present: normoactive bowel sounds Integumentary: no rash, warm and dry Neurologic: disoriented, obtunded Psychiatric: other (drowsy) Results - Lab Results 12/27/20 19:39 12/27/20 19:39 Most recent lab results Calcium 10.8 mg/dL (8.4-10.2) H 12/27/20 19:39 Assessment and Plan # Acute Kidney Injury: creatinine 2.4 on arrival, was 1.0 in August 2020. Suspect pre-renal injury given elevated lactate, potential CVA and poor po intake - would continue IVF (NS) as currently running - urinalysis bland, defer serologies - defer renal imaging for now - avoid nephrotoxins - Is/Os - renally dose medications - maintain MAP>65 - no immediate need for renal replacement therapy # Metabolic Acidosis/Lactic Acidosis: continue IVF as tolerated, ensure no infection with blood culture pending # Acute CVA, AMS: neurology input appreciated # Hypotension: IVF for now, po intake once able # DM
--- NOTE | 2020-12-28 10:58 | Consultation ---
History of Present Illness Consult date: 12/28/20 Reason for Consult: Altered mentation and right side weakness History of present illness: Altered mental status History of present illness: 70-year-old -L[place] male with known history of hypertension, diabetes mellitus, dementia, history of CVA with right-sided weakness and right facial droop was brought into the emergency room via EMS today with altered mental status. EMS indicates that family reported patient to have been having a right facial droop and right upper and right lower extremity weakness which has been ongoing since about 6 PM this afternoon. Patient also appeared to be altered over the and has not been communicating well. Most of the history is obtained from the ER staff as patient is unable to give any good history however he is able to not when responding to some questions. He was evaluated by the tele- neurologist and found not to be a TPA candidate. Upon arrival in the emergency room patient was found to be hypotensive and was subsequently given IV fluid with improvement in his blood pressure. Work-up in the emergency room today however reveals lactic acidosis of 5.4, BUN and creatinine of 45 of 2.4, troponin of 0.110., Hemoglobin of 10 and hematocrit of 30.1 CT scan of the head did not reveal any acute abnormality. Chest x-ray also showed no acute findings. MRI brain today is remarkable for right tanner and left occipital subacute infarct US carotid is <50% stenosis he is started on ASA and lipitor speech therapy to evaluate?? Past History Past Medical History: diabetes, hypertension, stroke, other (Dementia) Past Surgical History: Other (Tonsillectomy) Social history: no significant social history Family history: no significant family history Medications and Allergies Allergies Allergy/AdvReac Type Severity Reaction Status Date / Time No Known Allergies Allergy Verified 08/06/19 15:49 Home Medications Medication Instructions Recorded Confirmed Last Taken Type Aspirin EC [Ecotrin] 325 mg PO QDAY #30 tablet 07/29/14 09/08/20 Unknown Rx Simvastatin (Nf) [Zocor TAB] 20 mg PO QHS #30 tablet 07/29/14 09/08/20 Unknown Rx Metoprolol [Lopressor TAB] 25 mg PO BID #60 tablet 06/25/15 09/08/20 Unknown Rx lisinopriL [Zestril TAB] 5 mg PO QDAY #30 tablet 06/25/15 09/08/20 Unknown Rx Benzonatate [Tessalon Perles] 100 mg PO Q12H PRN #20 capsule 08/06/19 09/08/20 Unknown Rx Cetirizine HCl [ZyrTEC 10mg cap] 10 mg PO DAILY #30 capsule 08/06/19 09/08/20 Unknown Rx Fluticasone [Flonase] 1 spray NS QDAY #1 bottle 08/06/19 09/08/20 Unknown Rx Insulin Aspart [Insulin Aspart See Protocol SQ AC #1 insuln.pen 07/15/20 09/08/20 Unknown Rx Flexpen] Magnesium Oxide [Mag-Ox] 400 mg PO BID #10 tablet 09/09/20 Unknown Rx Potassium Chloride 40 meq PO DAILY #20 tablet.er 09/09/20 Unknown Rx Active Meds: Active Medications Acetaminophen (Acetaminophen 325 Mg Tab) 650 mg PO Q4H PRN PRN Reason: Pain MILD(1-3)/Fever >100.5/JOHNSON Acetaminophen (Acetaminophen 325 Mg Tab) 650 mg PO Q4H PRN PRN Reason: Pain, Mild (1-3) Aspirin (Aspirin 325 Mg Tab) 325 mg PO QDAY RM Atorvastatin Calcium (Atorvastatin 40 Mg Tab) 40 mg PO QHS RM Bisacodyl (Bisacodyl 10 Mg Rect Supp) 10 mg MO QDAY PRN PRN Reason: Constipation Dextrose (Dextrose 50% In Water (25gm) 50 Ml Syringe) 50 ml IV Q30MIN PRN; Protocol PRN Reason: Hypoglycemia Heparin Sodium (Porcine) (Heparin 5,000 Unit/1 Ml Vial) 5,000 unit SUB-Q Q8HR [facility] Sodium Chloride (Nacl 0.9% 1000 Ml) 1,000 mls @ 125 mls/hr IV DIRECT RM Insulin Human Regular (Insulin Regular, Human 100 Units/1 Ml) 0 units SUB-Q ACHS RM; Protocol Magnesium Hydroxide (Magnesium Hydroxide (Mom) Oral Liqd Udc) 30 ml PO Q4H PRN PRN Reason: Constipation Magnesium Hydroxide (Magnesium Hydroxide (Mom) Oral Liqd Udc) 30 ml PO Q4H PRN PRN Reason: Constipation Metoclopramide HCl (Metoclopramide 10 Mg Tab) 10 mg PO Q6H PRN PRN Reason: Nausea And Vomiting Morphine Sulfate (Morphine 2 Mg/1 Ml Inj) 2 mg IV Q4H PRN PRN Reason: Pain, Moderate (4-6) Morphine Sulfate (Morphine 4 Mg/1 Ml Inj) 4 mg IV Q4H PRN PRN Reason: Pain , Severe (7-10) Ondansetron HCl (Ondansetron 4 Mg/2 Ml Inj) 4 mg IV Q8H PRN PRN Reason: Nausea And Vomiting Ondansetron HCl (Ondansetron 4 Mg/2 Ml Inj) 4 mg IV Q8H PRN PRN Reason: Nausea And Vomiting Promethazine HCl (Promethazine 25 Mg Rect Supp) 25 mg MO Q6H PRN PRN Reason: Nausea And Vomiting Sodium Chloride (Sodium Chloride 0.9% 10 Ml Flush Syringe) 10 ml IV BID RM Sodium Chloride (Sodium Chloride 0.9% 10 Ml Flush Syringe) 10 ml IV PRN PRN PRN Reason: LINE FLUSH Sodium Chloride (Sodium Chloride 0.9% 10 Ml Flush Syringe) 10 ml INJ PRN PRN PRN Reason: LINE FLUSH Review of Systems ROS unobtainable: due to mental status Past History Past Medical History: diabetes, hypertension, stroke, other (Dementia) Past Surgical History: Other (Tonsillectomy) Social history: no significant social history Family history: no significant family history Medications and Allergies Allergies Allergy/AdvReac Type Severity Reaction Status Date / Time No Known Allergies Allergy Verified 08/06/19 15:49 Home Medications Medication Instructions Recorded Confirmed Last Taken Type Aspirin EC [Ecotrin] 325 mg PO QDAY #30 tablet 07/29/14 09/08/20 Unknown Rx Simvastatin (Nf) [Zocor TAB] 20 mg PO QHS #30 tablet 07/29/14 09/08/20 Unknown Rx Metoprolol [Lopressor TAB] 25 mg PO BID #60 tablet 06/25/15 09/08/20 Unknown Rx lisinopriL [Zestril TAB] 5 mg PO QDAY #30 tablet 06/25/15 09/08/20 Unknown Rx Benzonatate [Tessalon Perles] 100 mg PO Q12H PRN #20 capsule 08/06/19 09/08/20 Unknown Rx Cetirizine HCl [ZyrTEC 10mg cap] 10 mg PO DAILY #30 capsule 08/06/19 09/08/20 Unknown Rx Fluticasone [Flonase] 1 spray NS QDAY #1 bottle 08/06/19 09/08/20 Unknown Rx Insulin Aspart [Insulin Aspart See Protocol SQ AC #1 insuln.pen 07/15/20 09/08/20 Unknown Rx Flexpen] Magnesium Oxide [Mag-Ox] 400 mg PO BID #10 tablet 09/09/20 Unknown Rx Potassium Chloride 40 meq PO DAILY #20 tablet.er 09/09/20 Unknown Rx Active Meds: Active Medications Acetaminophen (Acetaminophen 325 Mg Tab) 650 mg PO Q4H PRN PRN Reason: Pain MILD(1-3)/Fever >100.5/[place]ON Aspirin (Aspirin 325 Mg Tab) 325 mg PO QDAY [facility] Last Admin: 12/28/20 10:09 Dose: 325 mg Documented by: Atorvastatin Calcium (Atorvastatin 40 Mg Tab) 40 mg PO QHS RM Bisacodyl (Bisacodyl 10 Mg Rect Supp) 10 mg MO QDAY PRN PRN Reason: Constipation Dextrose (Dextrose 50% In Water (25gm) 50 Ml Syringe) 0 ml IV Q30MIN PRN; Protocol PRN Reason: Hypoglycemia Heparin Sodium (Porcine) (Heparin 5,000 Unit/1 Ml Vial) 5,000 unit SUB-Q Q8HR [facility] Last Admin: 12/28/20 06:44 Dose: 5,000 unit Documented by: Sodium Chloride (Nacl 0.9% 1000 Ml) 1,000 mls @ 125 mls/hr IV DIRECT RM Last Admin: 12/28/20 03:31 Dose: 125 mls/hr Documented by: Insulin Human Regular (Insulin Regular, Human 100 Units/1 Ml) 0 units SUB-Q ACHS RM; Protocol Last Admin: 12/28/20 10:09 Dose: Not Given Documented by: Magnesium Hydroxide (Magnesium Hydroxide (Mom) Oral Liqd Udc) 30 ml PO Q4H PRN PRN Reason: Constipation Metoclopramide HCl (Metoclopramide 10 Mg Tab) 5 mg PO Q6H PRN PRN Reason: Nausea And Vomiting Morphine Sulfate (Morphine 2 Mg/1 Ml Inj) 2 mg IV Q4H PRN PRN Reason: Pain, Moderate (4-6) Morphine Sulfate (Morphine 4 Mg/1 Ml Inj) 4 mg IV Q4H PRN PRN Reason: Pain , Severe (7-10) Ondansetron HCl (Ondansetron 4 Mg/2 Ml Inj) 4 mg IV Q8H PRN PRN Reason: Nausea And Vomiting Promethazine HCl (Promethazine 25 Mg Rect Supp) 25 mg MO Q6H PRN PRN Reason: Nausea And Vomiting Sodium Chloride (Sodium Chloride 0.9% 10 Ml Flush Syringe) 10 ml IV BID RM Last Admin: 12/28/20 10:09 Dose: 10 ml Documented by: Sodium Chloride (Sodium Chloride 0.9% 10 Ml Flush Syringe) 10 ml IV PRN PRN PRN Reason: LINE FLUSH Physical Examination - Vital Signs Vital Signs: Vital Signs Pulse Ox 100 12/27/20 21:00 - Constitutional General appearance: uncomfortable - EENT EENT: Present: PERRL, mucous membranes moist - Respiratory Respiratory: Present: chest non-tender, lungs clear, rhonchi - Cardiovascular Cardiovascular: Present: regular rate, normal S1, normal S2 Extremities: Present: no peripheral edema bilatateraly, no clubbing, cyanosis - Gastrointestinal Gastrointestinal: Present: normoactive bowel sounds - Integumentary Integumentary: Present: normal - Neurologic Cranial nerve examination: PERRL, EOMI, other (slight left facial droop ) Speech examination: other (is able to say only his name ) Detailed motor examination: other (he is in generalized contracture status , move left upper some what he is with right side contracture as well as both LEs ) Results - Laboratory Findings CBC and BMP: 12/27/20 19:39 12/27/20 19:39 Abnormal Lab Findings: Abnormal Labs 12/27/20 12/27/20 12/27/20 19:28 19:39 19:39 RBC 3.24 L Hgb 10.0 L Hct 30.1 L RDW 18.3 H [place] % (Auto) 9.8 H PT 17.6 H INR 1.40 H Carbon Dioxide BUN Creatinine Glucose POC Glucose 143 H Lactic Acid Calcium CK-MB (CK-2) Troponin T Albumin Triglycerides HDL Cholesterol 12/27/20 12/27/20 12/27/20 19:39 19:39 21:47 RBC Hgb Hct RDW [place] % (Auto) PT INR Carbon Dioxide 15 L BUN 45 H Creatinine 2.4 H Glucose 140 H POC Glucose Lactic Acid 5.40 H* Calcium 10.8 H CK-MB (CK-2) 4.5 H Troponin T 0.110 H* 0.094 H Albumin 3.4 L Triglycerides 159 H HDL Cholesterol 33 L 12/27/20 12/27/20 21:47 23:17 RBC Hgb Hct RDW [place] % (Auto) PT INR Carbon Dioxide BUN Creatinine Glucose POC Glucose Lactic Acid 4.60 H* 4.70 H* Calcium CK-MB (CK-2) Troponin T Albumin Triglycerides HDL Cholesterol Assessment and Plan Assessment and Plan - Patient Problems # Altered mental state -On arrival possibly related to infection,dehydraion and or seizure can not be excluded - Possibly secondary to new CVA. -Will monitor mental status. -currently awake with little response to command he is with advanced dementia Acute CVA (cerebrovascular accident) -No acute findings on the CT of the head. -MRI of the brain., is remarkable for subacute infarct right tanner and left occipital region -echo is pending -Pt/ST evaluate -started on ASA 325 mg and Lipitor -A1c,LDL are pending -air sampling and monitoring -US carotid <50% stenosis -MRA brain is pending -EEG is pending # Hypotension -Patient has had poor oral intake lately lately. -We will continue on IV fluid normal saline and monitor vital signs closely. # Pt. is with underlying dementia --he is with generalized contracture and truncal rigidity -finding is suggestive of underlying possible advanced dementia . -check B12,TSH # CHHAYA (acute kidney injury) -Possibly prerenal. -We will continue on IV fluid normal saline. -BNN/Cr#45/2.4 # Diabetes mellitus -Patient placed on sliding scale insulin. -We will monitor Accu-Cheks closely. -A1C is pending # Lactic acidosis -We will continue on IV fluid and monitor chemistry. #DVT prophylaxis -Patient placed on anticoagulation with subcutaneous heparin. (8) Full code status -Patient is full code.
--- NOTE | 2020-12-28 12:00 | Magnetic Resonance Report ---
MRI BRAIN WITHOUT CONTRAST INDICATION / CLINICAL INFORMATION: stroke, RT FACIAL DROOP Patient motion, best possible exam, repeated scans.. TECHNIQUE: Multisequence, multiplanar images were obtained. COMPARISON: CT head dated 12/27/2020. MR brain dated 07/12/2020 FINDINGS: Comment: Limited exam with extensive patient motion artifact. CEREBRAL and CEREBELLAR HEMISPHERES: Advanced diffuse volume loss and chronic microvascular ischemic changes in the white matter are again noted. There is a new 1.3 x 1.0 cm area of diffusion restrictio n in the right side of the tanner consistent with acute to subacute ischemia. There is also diffusion r estriction identified in the medial left occipital lobe measuring up to 2.6 x 1.3 cm in axial plane w ith decreased signal in the ADC map consistent with acute to subacute ischemia. This appears to be al javad the margins of a previous chronic left occipital infarct. No additional areas of diffusion restr iction are identified. No acute hemorrhage. Tiny chronic lacunar infarcts in the basal ganglia are stable. No extra-axial fluid collection. VENTRICLES: Normal in size and configuration for age. VISUALIZED ORBITS: No significant abnormality. VISUALIZED PARANASAL SINUSES: No significant abnormality. ADDITIONAL FINDINGS: None. IMPRESSION: Limited exam secondary to excessive patient motion artifact. 2 areas of diffusion restriction are identified concerning for acute to subacute ischemic infarcts. A 1.3 x 1.0 cm area of ischemia in the right tanner is identified. There is also an approximate 2.6 x 1. 3 cm area of diffusion restriction in the left occipital lobe near the site of a chronic left occipit al infarct. This appears to represent new jose juan-infarct ischemia. There is no evidence for hemorrhage or mass effect. Advanced volume loss, chronic white matter changes and scattered tiny chronic lacunar infarcts in bot h basal ganglia are stable. Signer Name: Patrick Álvarez Jr, MD Signed: 12/28/2020 11:55 AM Workstation Name: [id number]
--- NOTE | 2020-12-28 13:30 | Vascular Lab Report ---
DUPLEX DOPPLER ULTRASOUND CAROTID, BILATERAL INDICATION / CLINICAL INFORMATION: stroke. COMPARISON: None available. FINDINGS: RIGHT CAROTID: - PLAQUE ESTIMATE (%): < 50% - CCA velocity: 71 cm/sec. - ICA peak systolic velocity: 71 cm/sec. - ICA/CCA PSV Ratio: 1 Right Vertebral Artery: Antegrade flow. LEFT CAROTID: - PLAQUE ESTIMATE: < 50% - CCA velocity: 76 cm/sec. - ICA peak systolic velocity: 80 cm/sec. - ICA/CCA PSV Ratio: 1.04 Left Vertebral Artery: Antegrade flow. IMPRESSION: 1. Right Internal Carotid Artery: Less than 50% diameter stenosis. 2. Left Internal Carotid Artery: Less than 50% diameter stenosis. Velocity criteria are extrapolated from diameter data as defined by the Society of Radiologists in Ul trasound Consensus Conference, Radiology 2003; 229;340-346. NO STENOSIS (NORMAL) * Plaque = none; ICA PSV < 125 cm/sec; ICA/CCA PSV Ratio < 2.0 <50% STENOSIS * Plaque < 50%; ICA PSV < 125 cm/sec; ICA/CCA PSV Ratio < 2.0 50-69% STENOSIS * Plaque > 50%; ICA PSV = 125-230 cm/sec; ICA/CCA PSV Ratio = 2.0-4.0 >70% BUT <100% STENOSIS * Plaque > 50%; ICA PSV > 230 cm/sec; ICA/CCA PSV Ratio > 4.0 NEAR OCCLUSION * Plaque = visible lumen; ICA PSV = high/low/none; ICA/CCA PSV Ratio = variable TOTAL OCCLUSION * Plaque = no lumen; ICA PSV = none; ICA/CCA PSV Ratio = N/A Signer Name: Wyatt Villasenor MD Signed: 12/28/2020 1:26 PM Workstation Name: [id number]
--- NOTE | 2020-12-28 15:21 | Magnetic Resonance Report ---
MRA HEAD 12/28/2020 INDICATION / CLINICAL INFORMATION: multi CVA PATIENT TONIA, BEST POSSIBLE EXAM.. TECHNIQUE: Routine MRA of the head is performed. 3-D/MIP reformats postprocessed. COMPARISON: None available. FINDINGS: Image quality is limited due to patient motion artifact. MRA HEAD: Intracranial internal carotid arteries: There is no evidence of vessel occlusion. Some irregularity s een along the course of the intracavernous right carotid artery, which may be evidence of a cavernous level 3 mm aneurysm. Anterior cerebral arteries: No significant abnormality. Middle cerebral arteries: Possible atherosclerotic irregularity associated with the left middle cereb ral artery. Intracranial vertebral arteries: Left vertebral artery appears to be hypoplastic. Basilar artery: No significant abnormality. Posterior cerebral arteries: Posterior cerebral arteries are not well seen, particularly on the left. This may be result of vessel occlusion or stenosis, although the motion artifact limits evaluation. IMPRESSION: Limited exam as described above. Depending on details of the clinical circumstances, fur ther information could be obtained with the use of improved quality MR angiography or CT angiography. Signer Name: Richie Green MD Signed: 12/28/2020 3:16 PM Workstation Name: [id number]
[2020-12-28] MEDS: DEXTROSE 50% IN WATER (25GM) 50 ML SYRINGE IV PRN (16:20)
[2020-12-29] MEDS: MORPHINE 2 MG/1 ML INJ IV PRN (00:02)
[2020-12-29] MEDS: HEPARIN 5,000 UNIT/1 ML VIAL SUB-Q SCH ×3 (05:24→21:38)
[2020-12-29] MEDS: SODIUM CHLORIDE 0.9% 1000 ML 1,000 ML IV SCH ×2 (05:26→12:33)
[2020-12-29 06:14] LABS: Basophils % (Auto) 0.7 % (0.0-1.8); Eosinophils # (Auto) 0.2 K/mm3 (0.0-0.4); Eosinophils % (Auto) 3.3 % (0.0-4.3); Hematocrit 25.6 % (35.5-45.6); Hemoglobin 8.7 gm/dl (11.8-15.2); Lymphocytes # (Auto) 1.7 K/mm3 (1.2-5.4); Lymphocytes % (Auto) 25.7 % (13.4-35.0); Mean Corpuscular HGB Conc 34 % (32-34); Mean Corpuscular Volume 92 fl (84-94); Monocytes # (Auto) 0.6 K/mm3 (0.0-0.8); Monocytes % (Auto) 8.3 % (0.0-7.3); Platelet Count 257 K/mm3 (140-440); Red Blood Count 2.78 M/mm3 (3.65-5.03); Red Cell Distribution Width 18.4 % (13.2-15.2)
[2020-12-29 06:24] LABS: INR 1.13 (0.87-1.13)
[2020-12-29 06:33] LABS: Calcium 9.4 mg/dL (8.4-10.2)
[2020-12-29] MEDS: INSULIN REGULAR, HUMAN 100 UNITS/1 ML SUB-Q SCH ×3 (09:09→16:51)
[2020-12-29] MEDS: ASPIRIN 325 MG TAB PO SCH (10:11)
--- NOTE | 2020-12-29 10:39 | Consultation ---
History of Present Illness - Reason for Consult Consult date: 12/29/20 - History of Present Illness 70-year-old male past medical history hypertension, dementia, previous CVA with right-sided weakness presented to the hospital with altered mental status. Family noticed a new right-sided facial droop and right lower extremity weakness started on the day of admission. Afebrile since admission with a white count of 8.1. Blood cultures with gram- negative rods. Currently on no antibiotics. Imaging personally reviewed: Brain MRI: Acute to subacute infarct Review of Systems: Bold if positive, otherwise negative General: fevers, chills, rigors HEENT: visual disturbance, diplopia, eye pain Respiratory: cough, sputum, hemoptysis, shortness of breath Cardiovascular: chest pain, syncope Gastrointestinal: nausea, vomiting, diarrhea, abdominal pain Genitourinary: dysuria, hematuria, flank pain Musculoskeletal: neck pain, back pain, joint pain, edema Neurologic: headaches, seizures Hematologic: easy bruising or bleeding Endocrine: night sweats, acute weight loss Skin: rash, jaundice, redness Psychiatric: suicidal, homicidal ideation Past History Past Medical History: diabetes, hypertension, stroke, other (Dementia) Past Surgical History: Other (Tonsillectomy) Social history: no significant social history Family history: no significant family history Medications and Allergies Allergies Allergy/AdvReac Type Severity Reaction Status Date / Time No Known Allergies Allergy Verified 08/06/19 15:49 Home Medications Medication Instructions Recorded Confirmed Last Taken Type Aspirin EC [Ecotrin] 325 mg PO QDAY #30 tablet 07/29/14 09/08/20 Unknown Rx Simvastatin (Nf) [Zocor TAB] 20 mg PO QHS #30 tablet 07/29/14 09/08/20 Unknown Rx Metoprolol [Lopressor TAB] 25 mg PO BID #60 tablet 06/25/15 09/08/20 Unknown Rx lisinopriL [Zestril TAB] 5 mg PO QDAY #30 tablet 06/25/15 09/08/20 Unknown Rx Benzonatate [Tessalon Perles] 100 mg PO Q12H PRN #20 capsule 08/06/19 09/08/20 Unknown Rx Cetirizine HCl [ZyrTEC 10mg cap] 10 mg PO DAILY #30 capsule 08/06/19 09/08/20 Unknown Rx Fluticasone [Flonase] 1 spray NS QDAY #1 bottle 08/06/19 09/08/20 Unknown Rx Insulin Aspart [Insulin Aspart See Protocol SQ AC #1 insuln.pen 07/15/20 09/08/20 Unknown Rx Flexpen] Magnesium Oxide [Mag-Ox] 400 mg PO BID #10 tablet 09/09/20 Unknown Rx Potassium Chloride 40 meq PO DAILY #20 tablet.er 09/09/20 Unknown Rx Active Meds: Active Medications Acetaminophen (Acetaminophen 325 Mg Tab) 650 mg PO Q4H PRN PRN Reason: Pain MILD(1-3)/Fever >100.5/JOH[place]ON Aspirin (Aspirin 325 Mg Tab) 325 mg PO QDAY RM Last Admin: 12/29/20 10:11 Dose: 325 mg Documented by: Atorvastatin Calcium (Atorvastatin 40 Mg Tab) 40 mg PO QHS RM Last Admin: 12/28/20 22:51 Dose: 40 mg Documented by: Bisacodyl (Bisacodyl 10 Mg Rect Supp) 10 mg DE QDAY PRN PRN Reason: Constipation Dextrose (Dextrose 50% In Water (25gm) 50 Ml Syringe) 0 ml IV Q30MIN PRN; Protocol PRN Reason: Hypoglycemia Last Admin: 12/28/20 16:20 Dose: 50 ml Documented by: Heparin Sodium (Porcine) (Heparin 5,000 Unit/1 Ml Vial) 5,000 unit SUB-Q Q8HR RM Last Admin: 12/29/20 05:24 Dose: 5,000 unit Documented by: Sodium Chloride (Nacl 0.9% 1000 Ml) 1,000 mls @ 125 mls/hr IV DIRECT RM Last Admin: 12/29/20 05:26 Dose: 125 mls/hr Documented by: Insulin Human Regular (Insulin Regular, Human 100 Units/1 Ml) 0 units SUB-Q ACHS RM; Protocol Last Admin: 12/29/20 09:09 Dose: Not Given Documented by: Magnesium Hydroxide (Magnesium Hydroxide (Mom) Oral Liqd Udc) 30 ml PO Q4H PRN PRN Reason: Constipation Metoclopramide HCl (Metoclopramide 10 Mg Tab) 5 mg PO Q6H PRN PRN Reason: Nausea And Vomiting Morphine Sulfate (Morphine 2 Mg/1 Ml Inj) 2 mg IV Q4H PRN PRN Reason: Pain, Moderate (4-6) Last Admin: 12/29/20 00:02 Dose: 2 mg Documented by: Morphine Sulfate (Morphine 4 Mg/1 Ml Inj) 4 mg IV Q4H PRN PRN Reason: Pain , Severe (7-10) Ondansetron HCl (Ondansetron 4 Mg/2 Ml Inj) 4 mg IV Q8H PRN PRN Reason: Nausea And Vomiting Promethazine HCl (Promethazine 25 Mg Rect Supp) 25 mg DE Q6H PRN PRN Reason: Nausea And Vomiting Sodium Chloride (Sodium Chloride 0.9% 10 Ml Flush Syringe) 10 ml IV BID RM Last Admin: 12/29/20 10:11 Dose: 10 ml Documented by: Sodium Chloride (Sodium Chloride 0.9% 10 Ml Flush Syringe) 10 ml IV PRN PRN PRN Reason: LINE FLUSH Physical Examination - Physical Exam Narrative exam: Physical Exam: Constitutional: Alert, cooperative. No acute distress Head, Ears, Nose: Normocephalic, atraumatic. External ears, nose normal Eyes: Conjunctivae/corneas clear. No icterus. No ptosis. Neck: Supple, no meningeal signs Oral: dentition fair, no thrush Cardiovascular: S1, S2 normal. Respiratory: Good air entry, clear to auscultation bilaterally GI: Soft, non-tender; bowel sounds normal. No peritoneal signs. Musculoskeletal: No pedal edema, no cyanosis. Skin: No rash or abscess Hem/Lymphatic: No palpable cervical or supraclavicular nodes. No lymphangitis Psych: Mood ok. Affect normal Neurological: Right sided weakness - Constitutional Vitals: Vital Signs Temp Pulse Resp BP Pulse Ox 97.1 F L 94 H 18 102/65 98 12/29/20 08:00 12/29/20 08:00 12/29/20 08:00 12/29/20 08:00 12/29/20 08:00 Temperature -Last 24 Hours Temperature 97.1 F Temperature 98.6 F Temperature 98.5 F Temperature 97.5 F Temperature 98.4 F Temperature 97.3 F Temperature 97.9 F Results - Labs CBC & Chem 7: 12/29/20 05:48 12/29/20 05:48 Labs: Abnormal lab results 12/28/20 12/28/20 12/28/20 Range/Units 16:08 16:16 21:25 RBC (3.65-5.03) M/mm3 Hgb (11.8-15.2) gm/dl Hct (35.5-45.6) % RDW (13.2-15.2) % [place] % (Auto) (0.0-7.3) % PT (12.2-14.9) Sec. Chloride (98-107) mmol/L Carbon Dioxide (22-30) mmol/L BUN (9-20) mg/dL Creatinine (0.8-1.3) mg/dL POC Glucose 67 L 60 L (70-105) mg/dL Lactic Acid 2.10 H* (0.7-2.0) mmol/L 12/29/20 12/29/20 12/29/20 Range/Units 05:48 05:48 05:48 RBC 2.78 L (3.65-5.03) M/mm3 Hgb 8.7 L (11.8-15.2) gm/dl Hct 25.6 L (35.5-45.6) % RDW 18.4 H (13.2-15.2) % [place] % (Auto) 8.3 H (0.0-7.3) % PT 15.0 H (12.2-14.9) Sec. Chloride 114.5 H (98-107) mmol/L Carbon Dioxide 16 L (22-30) mmol/L BUN 29 H (9-20) mg/dL Creatinine 1.7 H (0.8-1.3) mg/dL POC Glucose (70-105) mg/dL Lactic Acid (0.7-2.0) mmol/L Assessment and Plan Cultures: Blood culture GNR 03/30 A/P:70-year-old male past medical history hypertension, dementia, previous CVA admitted with possible new CVA #Right sided weakness: possible new CVA, MRI with subacute infarct. Neurology onboard #GNR bacteremia: unclear source, urine without acute infection. Possible GI source? #Advanced dementia #CHHAYA: renally dose medications. Improving Recs: -Started ceftriaxone 2g q24h -Follow up blood culture finalization -Hopefully able to DC on PO Levaquin -Follow up TTE Thank you for the consult, we will continue to follow. Martina Matthews MD [facility] O: [phone] F: [phone]
--- NOTE | 2020-12-29 10:56 | Progress Note ---
Assessment and Plan Assessment and plan: - Patient Problems (1) Altered mental state Current Visit: Yes Status: Acute Qualifiers: Altered mental status type: unspecified Qualified Code(s): R41.82 - Altered mental status, unspecified Plan to address problem: Etiology unclear. Possibly secondary to new CVA. Will monitor mental status. (2) Acute CVA (cerebrovascular accident) Current Visit: Yes Status: Acute Plan to address problem: No acute findings on the CT of the head. Patient will be scheduled for MRI of the brain. Consult placed to neurology for further evaluation and recommendation. (3) Hypotension Current Visit: Yes Status: Acute Plan to address problem: Patient has had poor oral intake lately lately. We will continue on IV fluid normal saline and monitor vital signs closely. (4) CHHAYA (acute kidney injury) Current Visit: No Status: Acute Plan to address problem: Possibly prerenal. We will continue on IV fluid normal saline. Consult placed to nephrology for evaluation. (5) Diabetes mellitus Current Visit: No Status: Acute Plan to address problem: Patient placed on sliding scale insulin. We will monitor Accu-Cheks closely. (6) Lactic acidosis Current Visit: Yes Status: Acute Plan to address problem: We will continue on IV fluid and monitor chemistry. (7) DVT prophylaxis Current Visit: No Status: Acute Plan to address problem: Patient placed on anticoagulation with subcutaneous heparin. (8) Full code status Current Visit: No Status: Acute Plan to address problem: Patient is full code. 12/29/20 Patient with acute ischemic stroke right tanner , left occipital area. Cont Aspirin daily. I discussed case with Neurology. CHHAYA improving. Cr 1.7. Nephrology following. Change ivf to D5NS at 77 because of hypoglycemic episodes. History Interval history: Patient with acute stroke and CHHAYA Hospitalist Physical - Physical exam Narrative exam: Gen: Not in acute distress, lying in bed HEENT: Normocephalic, atraumatic Neck: supple, no JVD Lungs: Clear to auscultation Heart: S1 and S2 reg, no murmurs, rubs or gallop Abd:soft, non-tender, non distended, normal bowel sounds Ext: No edema, clubbing or cyanosis Neuro: Awake, right sided weakness, contractures - Constitutional Vitals: Temp Pulse Resp BP Pulse Ox 97.1 F L 94 H 18 102/65 98 12/29/20 08:00 12/29/20 08:00 12/29/20 08:00 12/29/20 08:00 12/29/20 08:00 General appearance: Present: no acute distress, well-nourished, other (Dry oral mucosa) HEART Score - HEART Score Troponin: Troponin T 0.094 ng/mL (0.00-0.029) H 12/27/20 21:47 Results - Labs CBC & Chem 7: 12/29/20 05:48 12/29/20 05:48 Labs: Laboratory Last Values WBC 6.8 K/mm3 (4.5-11.0) 12/29/20 05:48 RBC 2.78 M/mm3 (3.65-5.03) L 12/29/20 05:48 Hgb 8.7 gm/dl (11.8-15.2) L 12/29/20 05:48 Hct 25.6 % (35.5-45.6) L 12/29/20 05:48 MCV 92 fl (84-94) 12/29/20 05:48 MCH 31 pg (28-32) 12/29/20 05:48 MCHC 34 % (32-34) 12/29/20 05:48 RDW 18.4 % (13.2-15.2) H 12/29/20 05:48 Plt Count 257 K/mm3 (140-440) 12/29/20 05:48 Lymph % (Auto) 25.7 % (13.4-35.0) 12/29/20 05:48 Barnes % (Auto) 8.3 % (0.0-7.3) H 12/29/20 05:48 Eos % (Auto) 3.3 % (0.0-4.3) 12/29/20 05:48 Baso % (Auto) 0.7 % (0.0-1.8) 12/29/20 05:48 Lymph # (Auto) 1.7 K/mm3 (1.2-5.4) 12/29/20 05:48 Barnes # (Auto) 0.6 K/mm3 (0.0-0.8) 12/29/20 05:48 Eos # (Auto) 0.2 K/mm3 (0.0-0.4) 12/29/20 05:48 Baso # (Auto) 0.0 K/mm3 (0.0-0.1) 12/29/20 05:48 Seg Neutrophils % 62.0 % (40.0-70.0) 12/29/20 05:48 Seg Neutrophils # 4.2 K/mm3 (1.8-7.7) 12/29/20 05:48 PT 15.0 Sec. (12.2-14.9) H 12/29/20 05:48 INR 1.13 (0.87-1.13) 12/29/20 05:48 APTT 33.2 Sec. (24.2-36.6) 12/27/20 19:39 Thrombin Time 18.9 Sec. (15.1-19.6) 12/27/20 19:39 Sodium 142 mmol/L (137-145) 12/29/20 05:48 Potassium 4.3 mmol/L (3.6-5.0) 12/29/20 05:48 Chloride 114.5 mmol/L (98-107) H 12/29/20 05:48 Carbon Dioxide 16 mmol/L (22-30) L 12/29/20 05:48 Anion Gap 16 mmol/L 12/29/20 05:48 BUN 29 mg/dL (9-20) H 12/29/20 05:48 Creatinine 1.7 mg/dL (0.8-1.3) H 12/29/20 05:48 Estimated GFR 49 ml/min 12/29/20 05:48 BUN/Creatinine Ratio 17 % 12/29/20 05:48 Glucose 94 mg/dL (75-100) 12/29/20 05:48 POC Glucose 86 mg/dL (70-105) 12/29/20 08:03 Lactic Acid 1.80 mmol/L (0.7-2.0) 12/29/20 05:48 Calcium 9.4 mg/dL (8.4-10.2) 12/29/20 05:48 Total Bilirubin 0.20 mg/dL (0.1-1.2) 12/27/20 19:39 Direct Bilirubin < 0.2 mg/dL (0-0.2) 12/27/20 19:39 Indirect Bilirubin 0.0 mg/dL 12/27/20 19:39 AST 15 units/L (5-40) 12/27/20 19:39 ALT 9 units/L (7-56) 12/27/20 19:39 Alkaline Phosphatase 101 units/L (35-129) 12/27/20 19:39 Total Creatine Kinase 135 units/L (55-170) 12/27/20 19:39 CK-MB (CK-2) 4.5 ng/mL (0.0-4.0) H 12/27/20 19:39 CK-MB (CK-2) Rel Index 3.3 (0-4) 12/27/20 19:39 Troponin T 0.094 ng/mL (0.00-0.029) H 12/27/20 21:47 Total Protein 7.2 g/dL (6.3-8.2) 12/27/20 19:39 Albumin 3.4 g/dL (3.9-5) L 12/27/20 19:39 Albumin/Globulin Ratio 0.9 % 12/27/20 19:39 Triglycerides 159 mg/dL (2-149) H 12/27/20 19:39 Cholesterol 125 mg/dL (50-199) 12/27/20 19:39 LDL Cholesterol Direct 61 mg/dL (50-130) 12/27/20 19:39 HDL Cholesterol 33 mg/dL (40-59) L 12/27/20 19:39 Cholesterol/HDL Ratio 3.78 % 12/27/20 19:39 Vitamin B12 490.6 pg/mL (211-911) 12/28/20 16:16 TSH 0.497 mlU/mL (0.270-4.200) 12/28/20 16:16 Urine Color Yellow (Yellow) 12/27/20 03:58 Urine Turbidity Clear (Clear) 12/27/20 03:58 Urine pH 5.0 (5.0-7.0) 12/27/20 03:58 Ur Specific [place] 1.017 (1.003-1.030) 12/27/20 03:58 Urine Protein <15 mg/dl mg/dL (Negative) 12/27/20 03:58 Urine Glucose (UA) Neg mg/dL (Negative) 12/27/20 03:58 Urine Ketones Neg mg/dL (Negative) 12/27/20 03:58 Urine Blood Neg (Negative) 12/27/20 03:58 Urine Nitrite Neg (Negative) 12/27/20 03:58 Urine Bilirubin Neg (Negative) 12/27/20 03:58 Urine Urobilinogen < 2.0 mg/dL (<2.0) 12/27/20 03:58 Ur Leukocyte Esterase Neg (Negative) 12/27/20 03:58 Urine WBC (Auto) 1.0 /HPF (0.0-6.0) 12/27/20 03:58 Urine RBC (Auto) 2.0 /HPF (0.0-6.0) 12/27/20 03:58 U Epithel Cells (Auto) < 1.0 /HPF (0-13.0) 12/27/20 03:58 Urine Bacteria (Auto) 1+ /HPF (Negative) 12/27/20 03:58 Hyaline Casts 3 /LPF 12/27/20 03:58 Urine Mucus Few /HPF 12/27/20 03:58 Urine Yeast (Budding) Few /HPF 12/27/20 03:58 Microbiology: Microbiology 12/27/20 20:07 Peripheral/Venous Blood Culture - Preliminary 12/27/20 19:59 Peripheral/Venous Blood Culture - Preliminary NO GROWTH AFTER 24 HOURS Edwards/IV: Voiding Method Indwelling Catheter Active Medications - Current Medications Current Medications: Generic Name Dose Route Start Last Admin Trade Name Freq PRN Reason Stop Dose Admin Acetaminophen 650 mg 12/27/20 23:59 Acetaminophen 325 Mg Tab PO Q4H PRN Pain MILD(1-3)/Fever >100.5/JOHNSON Aspirin 325 mg 12/28/20 10:00 12/29/20 10:11 Aspirin 325 Mg Tab PO 325 mg QDAY RM Administration Atorvastatin Calcium 40 mg 12/28/20 22:00 12/28/20 22:51 Atorvastatin 40 Mg Tab PO 40 mg QHS RM Administration Bisacodyl 10 mg 12/27/20 23:59 Bisacodyl 10 Mg Rect Supp IN QDAY PRN Constipation Dextrose 0 ml 12/27/20 23:59 12/28/20 16:20 Dextrose 50% In Water (25gm) 50 Ml Syringe IV 50 ml Q30MIN PRN Administration Hypoglycemia Protocol Heparin Sodium (Porcine) 5,000 unit 12/28/20 06:00 12/29/20 05:24 Heparin 5,000 Unit/1 Ml Vial SUB-Q 5,000 unit Q8HR RM Administration Sodium Chloride 1,000 mls @ 125 mls/hr 12/27/20 23:45 12/29/20 05:26 Nacl 0.9% 1000 Ml IV 125 mls/hr DIRECT RM Administration Ceftriaxone Sodium 2 gm in 100 mls @ 200 mls/hr 12/29/20 11:00 Rocephin/Ns 2 Gm/100 Ml IV Q24H PENDING SALE TO [facility] Protocol Insulin Human Regular 0 units 12/28/20 07:30 12/29/20 09:09 Insulin Regular, Human 100 Units/1 Ml SUB-Q Not Given ACHS PENDING SALE TO [facility] Protocol Magnesium Hydroxide 30 ml 12/27/20 23:59 Magnesium Hydroxide (Mom) Oral Liqd Udc PO Q4H PRN Constipation Metoclopramide HCl 5 mg 12/27/20 23:59 Metoclopramide 10 Mg Tab PO Q6H PRN Nausea And Vomiting Morphine Sulfate 2 mg 12/27/20 23:59 12/29/20 00:02 Morphine 2 Mg/1 Ml Inj IV 2 mg Q4H PRN Administration Pain, Moderate (4-6) Morphine Sulfate 4 mg 12/27/20 23:59 Morphine 4 Mg/1 Ml Inj IV Q4H PRN Pain , Severe (7-10) Ondansetron HCl 4 mg 12/27/20 23:59 Ondansetron 4 Mg/2 Ml Inj IV Q8H PRN Nausea And Vomiting Promethazine HCl 25 mg 12/27/20 23:59 Promethazine 25 Mg Rect Supp IN Q6H PRN Nausea And Vomiting Sodium Chloride 10 ml 12/28/20 10:00 12/29/20 10:11 Sodium Chloride 0.9% 10 Ml Flush Syringe IV 10 ml BID RM Administration Sodium Chloride 10 ml 12/27/20 23:59 Sodium Chloride 0.9% 10 Ml Flush Syringe IV PRN PRN LINE FLUSH Nutrition/Malnutrition Assess - Dietary Evaluation Nutrition/Malnutrition Findings: Nutrition Notes Start: 12/28/20 12:07 Freq: Status: Active Protocol: Document 12/28/20 12:07 GB (Rec: 12/28/20 12:19 GB [id number]) Nutrition Notes Need for Assessment generated from: MD Order Initial or Follow up Assessment Current Diagnosis Diabetes,Hypertension,Stroke Other Pertinent Diagnosis Dementia, AMS Current Diet Cardiac/consistent carbohydrate Labs/Tests 10/3: BUN 45, creatinine 2.4, glucose 140, Ca 10.8, Tg 159 Pertinent Medications reviewed Height 6 ft 1 in Weight 67.9 kg [place] Body Weight (kg) 83.63 BMI 19.7 Weight change and time frame Admit weight. No reported weight changes Weight Status Appropriate Subjective/Other Information Consult for Diet education. Pt with dementia, one word responses and/or head nods, limited use of extremities per chart. Pt is not a candidate for diet education. If family is present and would like a consult RD available to educate family. Percent of energy/protein needs met: Unable to assess as no po intake recorded at this time. Per chart nutrition noted as possibly inadequate. Burn Absent Trauma Absent GI Symptoms None Food Allergy No Skin Integrity/Comment No complications reported #1 Nutrition Diagnosis Predicted suboptimal energy intake Etiology BMI 19.7 As Evidenced by Signs and Symptoms per chart: nutrition reported as inadequate, IBW 82%. Is patient on ventilator? No Is Patient Ambulatory and/or Out of Bed No REE-([facility]-confined to bed) 1809.168 Kcal/Kg value to use for calculation 27 Approximate Energy Requirements Using 1833 kcal/Kg Calculation Used for Recommendations Kcal/kg Additional Notes Protein: 1-1.2 g/kg @ 70k -84g Fluids: 1 ml/kcal or per MD Nutrition Intervention Change Diet Order: continue cardiac/consistent carbohydrate Nutrition Support: n/a Add Supplement/Snack (indicate name/kcal add glucerna BID /protein ) Provides kCal: 440 Provides Protein (gm) 20 Goal #1 PO intake of meals to be 50% or greater TID daily for LOS Goal #2 PO intake of supplement beverages to be 50% or greater daily BID for LOS Goal #3 Weight to maintain +3% current weight during LOS Follow-Up By: 01/04/21 Additional Comments PO intake of meals to be recorded daily. RD placed nutritional supplement order. f/u: po intake meals/ supplements, weight
--- NOTE | 2020-12-29 11:22 | Electrocardiograph Report ---
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
--- NOTE | 2020-12-29 11:22 | Electrocardiograph Report ---
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
--- NOTE | 2020-12-29 12:09 | Progress Note ---
Assessment and Plan # Acute Kidney Injury: creatinine 2.4 on arrival, improved to 1.7 with IVF, was 1.0 in August 2020. Suspect pre-renal injury given elevated lactate, potential CVA and poor po intake - would continue IVF (NS) as currently running - urinalysis bland, defer serologies - defer renal imaging for now - avoid nephrotoxins - Is/Os, note non-oliguria - renally dose medications - maintain MAP>65 - no immediate need for renal replacement therapy # Metabolic Acidosis/Lactic Acidosis: continue IVF as tolerated, note GNR bacteremia now. Will start NaHCO3 repletion if remains acidotic # Acute CVA, AMS: neurology input appreciated # Hypotension: IVF for now, po intake once able; BP now more stable # DM Subjective Date of service: 12/29/20 Interval history: Remains in bed, minimally interactive Objective - Exam Narrative Exam: General appearance: obese, no distress, fatigue, frail EENT: ATNC Neck: Present: neck supple Respiratory: Clear to Ascultation Heart: regular, S1S2 Gastrointestinal: Present: normoactive bowel sounds Integumentary: no rash, warm and dry Neurologic: disoriented, obtunded Psychiatric: other (drowsy) - Vital Signs Vital signs: Vital Signs - 12hr 12/29/20 12/29/20 03:55 08:00 Temperature 98.6 F 97.1 F L Pulse Rate 108 H 94 H Respiratory 18 18 Rate Blood Pressure 121/68 Blood Pressure 102/65 [Left] O2 Sat by Pulse 97 98 Oximetry - Lab 12/29/20 05:48 12/29/20 05:48 Most recent lab results Calcium 9.4 mg/dL (8.4-10.2) 12/29/20 05:48 Medications & Allergies - Medications Allergies/Adverse Reactions: Allergies No Known Allergies Allergy (Verified 08/06/19 15:49) Home Medications: Home Medications Medication Instructions Recorded Confirmed Last Taken Type Aspirin EC [Ecotrin] 325 mg PO QDAY #30 tablet 07/29/14 09/08/20 Unknown Rx Simvastatin (Nf) [Zocor TAB] 20 mg PO QHS #30 tablet 07/29/14 09/08/20 Unknown Rx Metoprolol [Lopressor TAB] 25 mg PO BID #60 tablet 06/25/15 09/08/20 Unknown Rx lisinopriL [Zestril TAB] 5 mg PO QDAY #30 tablet 06/25/15 09/08/20 Unknown Rx Benzonatate [Tessalon Perles] 100 mg PO Q12H PRN #20 capsule 08/06/19 09/08/20 Unknown Rx Cetirizine HCl [ZyrTEC 10mg cap] 10 mg PO DAILY #30 capsule 08/06/19 09/08/20 Unknown Rx Fluticasone [Flonase] 1 spray NS QDAY #1 bottle 08/06/19 09/08/20 Unknown Rx Insulin Aspart [Insulin Aspart See Protocol SQ AC #1 insuln.pen 07/15/2008/25 Unknown Rx Flexpen] Magnesium Oxide [Mag-Ox] 400 mg PO BID #10 tablet 09/09/20 Unknown Rx Potassium Chloride 40 meq PO DAILY #20 tablet.er 09/09/20 Unknown Rx Active Medications: Generic Name Dose Route Start Last Admin Trade Name Freq PRN Reason Stop Dose Admin Acetaminophen 650 mg 12/27/20 23:59 Acetaminophen 325 Mg Tab PO Q4H PRN Pain MILD(1-3)/Fever >100.5/JOHNSON Aspirin 325 mg 12/28/20 10:00 12/29/20 10:11 Aspirin 325 Mg Tab PO 325 mg QDAY RM Administration Atorvastatin Calcium 40 mg 12/28/20 22:00 12/28/20 22:51 Atorvastatin 40 Mg Tab PO 40 mg QHS RM Administration Bisacodyl 10 mg 12/27/20 23:59 Bisacodyl 10 Mg Rect Supp [place] QDAY PRN Constipation Dextrose 0 ml 12/27/20 23:59 12/28/20 16:20 Dextrose 50% In Water (25gm) 50 Ml Syringe IV 50 ml Q30MIN PRN Administration Hypoglycemia Protocol Heparin Sodium (Porcine) 5,000 unit 12/28/20 06:00 12/29/20 05:24 Heparin 5,000 Unit/1 Ml Vial SUB-Q 5,000 unit Q8HR RM Administration Sodium Chloride 1,000 mls @ 125 mls/hr 12/27/20 23:45 12/29/20 05:26 Nacl 0.9% 1000 Ml IV 125 mls/hr DIRECT RM Administration Ceftriaxone Sodium 2 gm in 100 mls @ 200 mls/hr 12/29/20 11:00 Rocephin/Ns 2 Gm/100 Ml IV Q24H RM Protocol Insulin Human Regular 0 units 12/28/20 07:30 12/29/20 09:09 Insulin Regular, Human 100 Units/1 Ml SUB-Q Not Given ACHS [facility] Protocol Magnesium Hydroxide 30 ml 12/27/20 23:59 Magnesium Hydroxide (Mom) Oral Liqd Udc PO Q4H PRN Constipation Metoclopramide HCl 5 mg 12/27/20 23:59 Metoclopramide 10 Mg Tab PO Q6H PRN Nausea And Vomiting Morphine Sulfate 2 mg 12/27/20 23:59 12/29/20 00:02 Morphine 2 Mg/1 Ml Inj IV 2 mg Q4H PRN Administration Pain, Moderate (4-6) Morphine Sulfate 4 mg 12/27/20 23:59 Morphine 4 Mg/1 Ml Inj IV Q4H PRN Pain , Severe (7-10) Ondansetron HCl 4 mg 12/27/20 23:59 Ondansetron 4 Mg/2 Ml Inj IV Q8H PRN Nausea And Vomiting Promethazine HCl 25 mg 12/27/20 23:59 Promethazine 25 Mg Rect Supp [place] Q6H PRN Nausea And Vomiting Sodium Chloride 10 ml 12/28/20 10:00 12/29/20 10:11 Sodium Chloride 0.9% 10 Ml Flush Syringe IV 10 ml BID RM Administration Sodium Chloride 10 ml 12/27/20 23:59 Sodium Chloride 0.9% 10 Ml Flush Syringe IV PRN PRN LINE FLUSH
[2020-12-29] MEDS: cefTRIAXone/NS 2 GM/100 ML 2 GM/100 ML BAG IV SCH (12:30)
--- NOTE | 2020-12-29 12:58 | Progress Note ---
Assessment and Plan Assessment and Plan - Patient Problems # Altered mental state -On arrival possibly related to infection,dehydraion and or seizure can not be excluded - Possibly secondary to new CVA. -Will monitor mental status. -currently awake with little response to command he is with advanced dementia #Acute CVA (cerebrovascular accident) -No acute findings on the CT of the head. 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 -We will continue on IV fluid normal saline and monitor vital signs closely. # Pt. is with underlying dementia --he is with generalized contracture and truncal rigidity -finding is suggestive of underlying possible advanced dementia . -check B12,TSH wnl # CHHAYA (acute kidney injury) -Possibly prerenal. -We will continue on IV fluid normal saline. -BNN/Cr#45/2.4 # Diabetes mellitus -Patient placed on sliding scale insulin. -We will monitor Accu-Cheks closely. -A1C is pending # Lactic acidosis -We will continue on IV fluid and monitor chemistry. #DVT prophylaxis -Patient placed on anticoagulation with subcutaneous heparin. (8) Full code status -Patient is full code. PLAN 1- Over all prognosis is quarded to poor 2- maintain ASA 325 mg daily and lipitor 40 mg 3- ST evaluate swallow pt. most likley will need GI tube feeding 4- he is with advanced dementia and generalized contracture posture will follow as needed Subjective Date of service: 12/29/20 Principal diagnosis: right side weakness ? Interval history: status is unchanged he is disoriented difficult to get history he is with contracture and right side weakness> left MRI brain and echo , US carotis is noted Objective - Vital Sign Vital Signs - 12hr 12/29/20 12/29/20 12/29/20 03:55 08:00 08:05 Temperature 98.6 F 97.1 F L Pulse Rate 108 H 94 H 94 H Respiratory 18 18 16 Rate Blood Pressure 121/68 102/65 Blood Pressure 102/65 [Left] O2 Sat by Pulse 97 98 98 Oximetry 12/29/20 12:15 Temperature 98.6 F Pulse Rate 92 H Respiratory 16 Rate Blood Pressure 122/84 Blood Pressure [Left] O2 Sat by Pulse 95 Oximetry - General Apperance Constitutional: comfortable - EENT EENT: PERRL, mucous membranes moist - Respiratory Respiratory: chest non-tender, lungs clear, rhonchi - Cardiovascular Cardiovascular: regular rate, normal S1, normal S2 Extremities: no peripheral edema bilat, no clubbing, cyanosis - Gastrointestinal Gastrointestinal: normoactive bowel sounds - Integumentary Integumentary: normal - Neurologic Cranial nerve examination: PERRL, EOMI, facial droop Speech examination: intact Detailed motor examination: other (diffuse contracture bilateral lower and truncal rigidity ,move left upper to command , reflexes are suppressed bilateal) - Laboratory Findings CBC and BMP: 12/29/20 05:48 12/29/20 05:48 Abnormal Lab Findings: Abnormal Labs 12/27/20 12/27/20 12/27/20 19:28 19:39 19:39 RBC 3.24 L Hgb 10.0 L Hct 30.1 L RDW 18.3 H [place] % (Auto) 9.8 H PT 17.6 H INR 1.40 H Chloride Carbon Dioxide BUN Creatinine Glucose POC Glucose 143 H Lactic Acid Calcium CK-MB (CK-2) Troponin T Albumin Triglycerides HDL Cholesterol 12/27/20 12/27/20 12/27/20 19:39 19:39 21:47 RBC Hgb Hct RDW [place] % (Auto) PT INR Chloride Carbon Dioxide 15 L BUN 45 H Creatinine 2.4 H Glucose 140 H POC Glucose Lactic Acid 5.40 H* Calcium 10.8 H CK-MB (CK-2) 4.5 H Troponin T 0.110 H* 0.094 H Albumin 3.4 L Triglycerides 159 H HDL Cholesterol 33 L 12/27/20 12/27/20 12/28/20 21:47 23:17 16:08 RBC Hgb Hct RDW [place] % (Auto) PT INR Chloride Carbon Dioxide BUN Creatinine Glucose POC Glucose 67 L Lactic Acid 4.60 H* 4.70 H* Calcium CK-MB (CK-2) Troponin T Albumin Triglycerides HDL Cholesterol 12/28/20 12/28/20 12/29/20 16:16 21:25 05:48 RBC 2.78 L Hgb 8.7 L Hct 25.6 L RDW 18.4 H [place] % (Auto) 8.3 H PT INR Chloride Carbon Dioxide BUN Creatinine Glucose POC Glucose 60 L Lactic Acid 2.10 H* Calcium CK-MB (CK-2) Troponin T Albumin Triglycerides HDL Cholesterol 12/29/20 12/29/20 12/29/20 05:48 05:48 12:43 RBC Hgb Hct RDW [place] % (Auto) PT 15.0 H INR Chloride 114.5 H Carbon Dioxide 16 L BUN 29 H Creatinine 1.7 H Glucose POC Glucose 187 H Lactic Acid Calcium CK-MB (CK-2) Troponin T Albumin Triglycerides HDL Cholesterol
[2020-12-29] MEDS: D5W/0.9% NACL 1,000 ML IV SCH (16:51)
[2020-12-30] MEDS: DEXTROSE 50% IN WATER (25GM) 50 ML SYRINGE IV PRN (00:03)
[2020-12-30] MEDS: INSULIN REGULAR, HUMAN 100 UNITS/1 ML SUB-Q SCH ×5 (01:32→22:40)
[2020-12-30] MEDS: HEPARIN 5,000 UNIT/1 ML VIAL SUB-Q SCH ×3 (05:44→22:50)
[2020-12-30 06:14] LABS: Hematocrit 29.2 % (35.5-45.6); Hemoglobin 9.8 gm/dl (11.8-15.2); Mean Corpuscular HGB Conc 34 % (32-34); Mean Corpuscular Volume 93 fl (84-94); Platelet Count 264 K/mm3 (140-440); Red Blood Count 3.15 M/mm3 (3.65-5.03); Red Cell Distribution Width 18.3 % (13.2-15.2)
[2020-12-30 06:36] LABS: Calcium 9.7 mg/dL (8.4-10.2)
[2020-12-30] MEDS: D5W/0.9% NACL 1,000 ML IV SCH (08:21)
--- NOTE | 2020-12-30 09:58 | Progress Note ---
Assessment and Plan # Acute Kidney Injury: creatinine 2.4 on arrival, improved to 1.7->1.6 with IVF, was 1.0 in August 2020. Suspect pre-renal injury given elevated lactate, potential CVA and poor po intake - would switch IVF from D5NS to D5 1/2NS with HCO3 given likely dilutional acidosis and hyperchloremia - urinalysis bland, defer serologies - defer renal imaging for now - avoid nephrotoxins - Is/Os, note non-oliguria - renally dose medications - maintain MAP>65 - no immediate need for renal replacement therapy # Metabolic Acidosis/Lactic Acidosis: continue IVF as tolerated, note GNR bacteremia now. Replete HCO3 as noted # Acute CVA, AMS: neurology input appreciated # Hypotension: IVF for now, po intake once able; BP now more stable # DM Subjective Date of service: 12/30/20 Principal diagnosis: right side weakness ? Interval history: More awake today, remains minimally responsive however Objective - Exam Narrative Exam: General appearance: obese, no distress, fatigue, frail EENT: ATNC Neck: Present: neck supple Respiratory: Clear to Ascultation Heart: regular, S1S2 Gastrointestinal: Present: normoactive bowel sounds Integumentary: no rash, warm and dry Neurologic: disoriented, obtunded Psychiatric: other (drowsy) - Vital Signs Vital signs: Vital Signs - 12hr 12/29/20 12/29/20 12/29/20 22:45 23:00 23:40 Temperature 98.6 F Pulse Rate 102 H 89 Respiratory 18 Rate Blood Pressure 159/103 Blood Pressure [Left] O2 Sat by Pulse 97 98 Oximetry 12/30/20 12/30/20 12/30/20 00:55 02:40 03:17 Temperature 98.6 F Pulse Rate 78 102 H Respiratory 18 18 Rate Blood Pressure 129/90 Blood Pressure 150/90 [Left] O2 Sat by Pulse 97 Oximetry - Lab 12/30/20 05:16 12/30/20 05:16 Most recent lab results Calcium 9.7 mg/dL (8.4-10.2) 12/30/20 05:16 Medications & Allergies - Medications Allergies/Adverse Reactions: Allergies No Known Allergies Allergy (Verified 08/06/19 15:49) Home Medications: Home Medications Medication Instructions Recorded Confirmed Last Taken Type Aspirin EC [Ecotrin] 325 mg PO QDAY #30 tablet 07/29/14 09/08/20 Unknown Rx Simvastatin (Nf) [Zocor TAB] 20 mg PO QHS #30 tablet 07/29/14 09/08/20 Unknown Rx Metoprolol [Lopressor TAB] 25 mg PO BID #60 tablet 06/25/15 09/08/20 Unknown Rx lisinopriL [Zestril TAB] 5 mg PO QDAY #30 tablet 06/25/15 09/08/20 Unknown Rx Benzonatate [Tessalon Perles] 100 mg PO Q12H PRN #20 capsule 08/06/19 09/08/20 Unknown Rx Cetirizine HCl [ZyrTEC 10mg cap] 10 mg PO DAILY #30 capsule 08/06/19 09/08/20 Unknown Rx Fluticasone [Flonase] 1 spray NS QDAY #1 bottle 08/06/19 09/08/20 Unknown Rx Insulin Aspart [Insulin Aspart See Protocol SQ AC #1 insuln.pen 07/15/20 09/08/20 Unknown Rx Flexpen] Magnesium Oxide [Mag-Ox] 400 mg PO BID #10 tablet 09/09/20 Unknown Rx Potassium Chloride 40 meq PO DAILY #20 tablet.er 09/09/20 Unknown Rx Active Medications: Generic Name Dose Route Start Last Admin Trade Name Freq PRN Reason Stop Dose Admin Acetaminophen 650 mg 12/27/20 23:59 Acetaminophen 325 Mg Tab PO Q4H PRN Pain MILD(1-3)/Fever >100.5/JOHNSON Aspirin 325 mg 12/28/20 10:00 12/29/20 10:11 Aspirin 325 Mg Tab PO 325 mg QDAY RM Administration Atorvastatin Calcium 40 mg 12/28/20 22:00 12/29/20 21:38 Atorvastatin 40 Mg Tab PO 40 mg QHS RM Administration Bisacodyl 10 mg 12/27/20 23:59 Bisacodyl 10 Mg Rect Supp [place] QDAY PRN Constipation Dextrose 0 ml 12/27/20 23:59 12/30/20 00:03 Dextrose 50% In Water (25gm) 50 Ml Syringe IV 10 ml Q30MIN PRN Administration Hypoglycemia Protocol Heparin Sodium (Porcine) 5,000 unit 12/28/20 06:00 12/30/20 05:44 Heparin 5,000 Unit/1 Ml Vial SUB-Q 5,000 unit Q8HR RM Administration Ceftriaxone Sodium 2 gm in 100 mls @ 200 mls/hr 12/29/20 11:00 12/29/20 12:30 Rocephin/Ns 2 Gm/100 Ml IV 200 mls/hr Q24H RM Administration Protocol Dextrose/Sodium Chloride 1,000 mls @ 75 mls/hr 12/29/20 13:00 12/30/20 08:21 D5ns IV 75 mls/hr DIRECT RM Administration Insulin Human Regular 0 units 12/28/20 07:30 12/30/20 08:38 Insulin Regular, Human 100 Units/1 Ml SUB-Q Not Given ACHS RM Protocol Magnesium Hydroxide 30 ml 12/27/20 23:59 Magnesium Hydroxide (Mom) Oral Liqd Udc PO Q4H PRN Constipation Metoclopramide HCl 5 mg 12/27/20 23:59 Metoclopramide 10 Mg Tab PO Q6H PRN Nausea And Vomiting Morphine Sulfate 2 mg 12/27/20 23:59 12/29/20 00:02 Morphine 2 Mg/1 Ml Inj IV 2 mg Q4H PRN Administration Pain, Moderate (4-6) Morphine Sulfate 4 mg 12/27/20 23:59 Morphine 4 Mg/1 Ml Inj IV Q4H PRN Pain , Severe (7-10) Ondansetron HCl 4 mg 12/27/20 23:59 Ondansetron 4 Mg/2 Ml Inj IV Q8H PRN Nausea And Vomiting Promethazine HCl 25 mg 12/27/20 23:59 Promethazine 25 Mg Rect Supp [place] Q6H PRN Nausea And Vomiting Sodium Chloride 10 ml 12/28/20 10:00 12/29/20 21:46 Sodium Chloride 0.9% 10 Ml Flush Syringe IV 10 ml BID RM Administration Sodium Chloride 10 ml 12/27/20 23:59 Sodium Chloride 0.9% 10 Ml Flush Syringe IV PRN PRN LINE FLUSH
[2020-12-30] MEDS: ASPIRIN 325 MG TAB PO SCH (10:55)
[2020-12-30] MEDS: cefTRIAXone/NS 2 GM/100 ML 2 GM/100 ML BAG IV SCH (11:52)
[2020-12-30] MEDS: D5W/0.45% NACL 1,000 ML IV SCH (11:54)
[2020-12-30] MEDS: SODIUM BICARBONATE 650 MG TAB PO SCH ×2 (13:55→21:35)
[2020-12-30] MEDS: METOPROLOL TARTRATE 25 MG TAB PO SCH ×2 (13:58→22:50)
--- NOTE | 2020-12-30 15:19 | Progress Note ---
Assessment and Plan Assessment and plan: - Patient Problems (1) Altered mental state Current Visit: Yes Status: Acute Qualifiers: Altered mental status type: unspecified Qualified Code(s): R41.82 - Altered mental status, unspecified Plan to address problem: (2) Acute CVA (cerebrovascular accident) Current Visit: Yes Status: Acute Plan to address problem: Seen by Neurologist (3) Hypotension Current Visit: Yes Status: Acute Plan to address problem: (4) CHHAYA (acute kidney injury) Current Visit: No Status: Acute Plan to address problem: Nephrology following (5) Diabetes mellitus Current Visit: No Status: Acute Plan to address problem: Patient placed on sliding scale insulin. We will monitor Accu-Cheks closely. (6) Lactic acidosis Current Visit: Yes Status: Acute Plan to address problem: We will continue on IV fluid and monitor chemistry. (7) DVT prophylaxis Current Visit: No Status: Acute Plan to address problem: Patient placed on anticoagulation with subcutaneous heparin. (8) Full code status Current Visit: No Status: Acute Plan to address problem: Patient is full code. 12/29/20 Patient with acute ischemic stroke right tanner , left occipital area. Cont Aspirin daily. I discussed case with Neurology. CHHAYA improving. Cr 1.7. Nephrology following. Change ivf to D5NS at 77 because of hypoglycemic episodes. 12/30/20 Patient with acute ischemic stroke right tanner , left occipital area. Cont Aspirin daily. I discussed case with Neurology. CHHAYA improving. Cr 1.6 today from 1.7 yesterday. Nephrology following. Changed ivf to D5NS at 77 because of hypoglycemic episodes. Was told by Certified Financial [employer]anner that his girlfriend does not want him to go to SNF but wants him to go home with home health instead, when ready. He is not stable for discharge yet because Cr 1.6 low blood glucose. Poss dc in few days when Cr normal and no hypoglycemia. History Interval history: Patient with acute stroke and CHHAYA Hospitalist Physical - Physical exam Narrative exam: Gen: Not in acute distress, lying in bed HEENT: Normocephalic, atraumatic Neck: supple, no JVD Lungs: Clear to auscultation Heart: S1 and S2 reg, no murmurs, rubs or gallop Abd:soft, non-tender, non distended, normal bowel sounds Ext: No edema, clubbing or cyanosis Neuro: Awake, right sided weakness, contractures - Constitutional Vitals: Temp Pulse Resp BP Pulse Ox 98.6 F 116 H 18 151/113 97 12/30/20 11:44 12/30/20 13:58 12/30/20 11:44 12/30/20 13:58 12/30/20 00:55 General appearance: Present: no acute distress, well-nourished, other (Dry oral mucosa) HEART Score - HEART Score Troponin: Troponin T 0.094 ng/mL (0.00-0.029) H 12/27/20 21:47 Results - Labs CBC & Chem 7: 12/30/20 05:16 12/30/20 05:16 Labs: Laboratory Last Values WBC 6.5 K/mm3 (4.5-11.0) 12/30/20 05:16 RBC 3.15 M/mm3 (3.65-5.03) L 12/30/20 05:16 Hgb 9.8 gm/dl (11.8-15.2) L 12/30/20 05:16 Hct 29.2 % (35.5-45.6) L 12/30/20 05:16 MCV 93 fl (84-94) 12/30/20 05:16 MCH 31 pg (28-32) 12/30/20 05:16 MCHC 34 % (32-34) 12/30/20 05:16 RDW 18.3 % (13.2-15.2) H 12/30/20 05:16 Plt Count 264 K/mm3 (140-440) 12/30/20 05:16 Lymph % (Auto) 25.7 % (13.4-35.0) 12/29/20 05:48 [place] % (Auto) 8.3 % (0.0-7.3) H 12/29/20 05:48 Eos % (Auto) 3.3 % (0.0-4.3) 12/29/20 05:48 Baso % (Auto) 0.7 % (0.0-1.8) 12/29/20 05:48 Lymph # (Auto) 1.7 K/mm3 (1.2-5.4) 12/29/20 05:48 [place] # (Auto) 0.6 K/mm3 (0.0-0.8) 12/29/20 05:48 Eos # (Auto) 0.2 K/mm3 (0.0-0.4) 12/29/20 05:48 Baso # (Auto) 0.0 K/mm3 (0.0-0.1) 12/29/20 05:48 Seg Neutrophils % 62.0 % (40.0-70.0) 12/29/20 05:48 Seg Neutrophils # 4.2 K/mm3 (1.8-7.7) 12/29/20 05:48 PT 15.0 Sec. (12.2-14.9) H 12/29/20 05:48 INR 1.13 (0.87-1.13) 12/29/20 05:48 APTT 33.2 Sec. (24.2-36.6) 12/27/20 19:39 Thrombin Time 18.9 Sec. (15.1-19.6) 12/27/20 19:39 Sodium 141 mmol/L (137-145) 12/30/20 05:16 Potassium 4.5 mmol/L (3.6-5.0) 12/30/20 05:16 Chloride 113.7 mmol/L (98-107) H 12/30/20 05:16 Carbon Dioxide 14 mmol/L (22-30) L 12/30/20 05:16 Anion Gap 18 mmol/L 12/30/20 05:16 BUN 20 mg/dL (9-20) 12/30/20 05:16 Creatinine 1.6 mg/dL (0.8-1.3) H 12/30/20 05:16 Estimated GFR 52 ml/min 12/30/20 05:16 BUN/Creatinine Ratio 13 % 12/30/20 05:16 Glucose 81 mg/dL (75-100) 12/30/20 05:16 POC Glucose 96 mg/dL (70-105) 12/30/20 11:47 Lactic Acid 1.80 mmol/L (0.7-2.0) 12/29/20 05:48 Calcium 9.7 mg/dL (8.4-10.2) 12/30/20 05:16 Total Bilirubin 0.20 mg/dL (0.1-1.2) 12/27/20 19:39 Direct Bilirubin < 0.2 mg/dL (0-0.2) 12/27/20 19:39 Indirect Bilirubin 0.0 mg/dL 12/27/20 19:39 AST 15 units/L (5-40) 12/27/20 19:39 ALT 9 units/L (7-56) 12/27/20 19:39 Alkaline Phosphatase 101 units/L (35-129) 12/27/20 19:39 Total Creatine Kinase 135 units/L (55-170) 12/27/20 19:39 CK-MB (CK-2) 4.5 ng/mL (0.0-4.0) H 12/27/20 19:39 CK-MB (CK-2) Rel Index 3.3 (0-4) 12/27/20 19:39 Troponin T 0.094 ng/mL (0.00-0.029) H 12/27/20 21:47 Total Protein 7.2 g/dL (6.3-8.2) 12/27/20 19:39 Albumin 3.4 g/dL (3.9-5) L 12/27/20 19:39 Albumin/Globulin Ratio 0.9 % 12/27/20 19:39 Triglycerides 159 mg/dL (2-149) H 12/27/20 19:39 Cholesterol 125 mg/dL (50-199) 12/27/20 19:39 LDL Cholesterol Direct 61 mg/dL (50-130) 12/27/20 19:39 HDL Cholesterol 33 mg/dL (40-59) L 12/27/20 19:39 Cholesterol/HDL Ratio 3.78 % 12/27/20 19:39 Vitamin B12 490.6 pg/mL (211-911) 12/28/20 16:16 TSH 0.497 mlU/mL (0.270-4.200) 12/28/20 16:16 Urine Color Yellow (Yellow) 12/27/20 03:58 Urine Turbidity Clear (Clear) 12/27/20 03:58 Urine pH 5.0 (5.0-7.0) 12/27/20 03:58 Ur Specific [place] 1.017 (1.003-1.030) 12/27/20 03:58 Urine Protein <15 mg/dl mg/dL (Negative) 12/27/20 03:58 Urine Glucose (UA) Neg mg/dL (Negative) 12/27/20 03:58 Urine Ketones Neg mg/dL (Negative) 12/27/20 03:58 Urine Blood Neg (Negative) 12/27/20 03:58 Urine Nitrite Neg (Negative) 12/27/20 03:58 Urine Bilirubin Neg (Negative) 12/27/20 03:58 Urine Urobilinogen < 2.0 mg/dL (<2.0) 12/27/20 03:58 Ur Leukocyte Esterase Neg (Negative) 12/27/20 03:58 Urine WBC (Auto) 1.0 /HPF (0.0-6.0) 12/27/20 03:58 Urine RBC (Auto) 2.0 /HPF (0.0-6.0) 12/27/20 03:58 U Epithel Cells (Auto) < 1.0 /HPF (0-13.0) 12/27/20 03:58 Urine Bacteria (Auto) 1+ /HPF (Negative) 12/27/20 03:58 Hyaline Casts 3 /LPF 12/27/20 03:58 Urine Mucus Few /HPF 12/27/20 03:58 Urine Yeast (Budding) Few /HPF 12/27/20 03:58 Microbiology: Microbiology 12/27/20 20:07 Peripheral/Venous Blood Culture - Preliminary Bacillus Species 12/27/20 19:59 Peripheral/Venous Blood Culture - Preliminary NO GROWTH AFTER 48 HOURS Edwards/IV: Voiding Method Indwelling Catheter Active Medications - Current Medications Current Medications: Generic Name Dose Route Start Last Admin Trade Name Freq PRN Reason Stop Dose Admin Acetaminophen 650 mg 12/27/20 23:59 Acetaminophen 325 Mg Tab PO Q4H PRN Pain MILD(1-3)/Fever >100.5/JOHNSON Aspirin 325 mg 12/28/20 10:00 12/30/20 10:55 Aspirin 325 Mg Tab PO 325 mg QDAY RM Administration Atorvastatin Calcium 40 mg 12/28/20 22:00 12/29/20 21:38 Atorvastatin 40 Mg Tab PO 40 mg QHS RM Administration Bisacodyl 10 mg 12/27/20 23:59 Bisacodyl 10 Mg Rect Supp RI QDAY PRN Constipation Dextrose 0 ml 12/27/20 23:59 12/30/20 00:03 Dextrose 50% In Water (25gm) 50 Ml Syringe IV 10 ml Q30MIN PRN Administration Hypoglycemia Protocol Heparin Sodium (Porcine) 5,000 unit 12/28/20 06:00 12/30/20 14:13 Heparin 5,000 Unit/1 Ml Vial SUB-Q 5,000 unit Q8HR RM Administration Ceftriaxone Sodium 2 gm in 100 mls @ 200 mls/hr 12/29/20 11:00 12/30/20 11:52 Rocephin/Ns 2 Gm/100 Ml IV 200 mls/hr Q24H RM Administration Protocol Dextrose/Sodium Chloride 1,000 mls @ 75 mls/hr 12/30/20 11:00 12/30/20 11:54 D5/0.45ns IV 75 mls/hr DIRECT RM Administration Insulin Human Regular 0 units 12/28/20 07:30 12/30/20 12:30 Insulin Regular, Human 100 Units/1 Ml SUB-Q Not Given ACHS RM Protocol Magnesium Hydroxide 30 ml 12/27/20 23:59 Magnesium Hydroxide (Mom) Oral Liqd Udc PO Q4H PRN Constipation Metoclopramide HCl 5 mg 12/27/20 23:59 Metoclopramide 10 Mg Tab PO Q6H PRN Nausea And Vomiting Metoprolol Tartrate 25 mg 12/30/20 13:00 12/30/20 13:58 Metoprolol Tartrate 25 Mg Tab PO 25 mg BID RM Administration Morphine Sulfate 2 mg 12/27/20 23:59 12/29/20 00:02 Morphine 2 Mg/1 Ml Inj IV 2 mg Q4H PRN Administration Pain, Moderate (4-6) Morphine Sulfate 4 mg 12/27/20 23:59 Morphine 4 Mg/1 Ml Inj IV Q4H PRN Pain , Severe (7-10) Ondansetron HCl 4 mg 12/27/20 23:59 Ondansetron 4 Mg/2 Ml Inj IV Q8H PRN Nausea And Vomiting Promethazine HCl 25 mg 12/27/20 23:59 Promethazine 25 Mg Rect Supp RI Q6H PRN Nausea And Vomiting Sodium Bicarbonate 650 mg 12/30/20 14:00 12/30/20 13:55 Sodium Bicarbonate 650 Mg Tab PO 650 mg TID RM Administration Sodium Chloride 10 ml 12/28/20 10:00 12/30/20 11:55 Sodium Chloride 0.9% 10 Ml Flush Syringe IV Not Given BID RM Sodium Chloride 10 ml 12/27/20 23:59 Sodium Chloride 0.9% 10 Ml Flush Syringe IV PRN PRN LINE FLUSH Nutrition/Malnutrition Assess - Dietary Evaluation Nutrition/Malnutrition Findings: Nutrition Notes Start: 12/28/20 12:07 Freq: Status: Active Protocol: Document 12/28/20 12:07 GB (Rec: 12/28/20 12:19 GB [id number]) Nutrition Notes Need for Assessment generated from: MD Order Initial or Follow up Assessment Current Diagnosis Diabetes,Hypertension,Stroke Other Pertinent Diagnosis Dementia, AMS Current Diet Cardiac/consistent carbohydrate Labs/Tests 12/27: BUN 45, creatinine 2.4, glucose 140, Ca 10.8, Tg 159 Pertinent Medications reviewed Height 6 ft 1 in Weight 67.9 kg [place] Body Weight (kg) 83.63 BMI 19.7 Weight change and time frame Admit weight. No reported weight changes Weight Status Appropriate Subjective/Other Information Consult for Diet education. Pt with dementia, one word responses and/or head nods, limited use of extremities per chart. Pt is not a candidate for diet education. If family is present and would like a consult RD available to educate family. Percent of energy/protein needs met: Unable to assess as no po intake recorded at this time. Per chart nutrition noted as possibly inadequate. Burn Absent Trauma Absent GI Symptoms None Food Allergy No Skin Integrity/Comment No complications reported #1 Nutrition Diagnosis Predicted suboptimal energy intake Etiology BMI 19.7 As Evidenced by Signs and Symptoms per chart: nutrition reported as inadequate, IBW 82%. Is patient on ventilator? No Is Patient Ambulatory and/or Out of Bed No REE-([facility]-confined to bed) 1809.168 Kcal/Kg value to use for calculation 27 Approximate Energy Requirements Using 1833 kcal/Kg Calculation Used for Recommendations Kcal/kg Additional Notes Protein: 1-1.2 g/kg @ 70k -84g Fluids: 1 ml/kcal or per MD Nutrition Intervention Change Diet Order: continue cardiac/consistent carbohydrate Nutrition Support: n/a Add Supplement/Snack (indicate name/kcal add glucerna BID /protein ) Provides kCal: 440 Provides Protein (gm) 20 Goal #1 PO intake of meals to be 50% or greater TID daily for LOS Goal #2 PO intake of supplement beverages to be 50% or greater daily BID for LOS Goal #3 Weight to maintain +3% current weight during LOS Follow-Up By: 01/04/21 Additional Comments PO intake of meals to be recorded daily. RD placed nutritional supplement order. f/u: po intake meals/ supplements, weight
--- NOTE | 2020-12-30 16:32 | Progress Note ---
Assessment and Plan Cultures: Blood culture bacillus species A/P:70-year-old male past medical history hypertension, dementia, previous CVA admitted with possible new CVA #Right sided weakness: possible new CVA, MRI with subacute infarct. 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 Improving Recs: -Stopped ceftriaxone. Blood cultures most likely contaminated. Thank you for the consult Martina Matthews MD [facility] ([facility]) O: [phone] F: [phone] Subjective Date of service: 12/30/20 Principal diagnosis: right side weakness ? Interval history: Afebrile, normal white count. Blood culture with bacillus species Objective - Exam Narrative Exam: Physical Exam: Constitutional: Alert, cooperative. No acute distress Head, Ears, Nose: Normocephalic, atraumatic. External ears, nose normal Eyes: Conjunctivae/corneas clear. No icterus. No ptosis. Neck: Supple, no meningeal signs Oral: dentition fair, no thrush Cardiovascular: S1, S2 normal. Respiratory: Good air entry, clear to auscultation bilaterally GI: Soft, non-tender; bowel sounds normal. No peritoneal signs. Musculoskeletal: No pedal edema, no cyanosis. Skin: No rash or abscess Hem/Lymphatic: No palpable cervical or supraclavicular nodes. No lymphangitis Psych: Mood ok. Affect normal Neurological: Right sided weakness - Constitutional Vitals: Vital Signs Temp Pulse Resp BP Pulse Ox 98.3 F 116 H 16 118/81 98 12/30/20 15:25 12/30/20 13:58 12/30/20 15:25 12/30/20 15:25 12/30/20 11:00 Temperature -Last 24 Hours Temperature 98.3 F Temperature 98.2 F Temperature 98.6 F Temperature 98.7 F Temperature 98.6 F Temperature 98.6 F Temperature 98.4 F - Labs CBC & Chem 7: 12/30/20 05:16 12/30/20 05:16 Labs: Abnormal lab results 12/30/20 12/30/20 Range/Units 05:16 05:16 RBC 3.15 L (3.65-5.03) M/mm3 Hgb 9.8 L (11.8-15.2) gm/dl Hct 29.2 L (35.5-45.6) % RDW 18.3 H (13.2-15.2) % Chloride 113.7 H (98-107) mmol/L Carbon Dioxide 14 L (22-30) mmol/L Creatinine 1.6 H (0.8-1.3) mg/dL
[2020-12-31 06:01] LABS: Hematocrit 30.3 % (35.5-45.6); Hemoglobin 10.3 gm/dl (11.8-15.2); Mean Corpuscular HGB Conc 34 % (32-34); Mean Corpuscular Volume 91 fl (84-94); Platelet Count 284 K/mm3 (140-440); Red Blood Count 3.31 M/mm3 (3.65-5.03); Red Cell Distribution Width 17.9 % (13.2-15.2)
[2020-12-31 06:21] LABS: BUN/Creatinine Ratio 11; Blood Urea Nitrogen 14 mg/dL (9-20); Calcium 9.3 mg/dL (8.4-10.2); Hemolysis Index 30
[2020-12-31] MEDS: HEPARIN 5,000 UNIT/1 ML VIAL SUB-Q SCH ×3 (06:29→23:05)
[2020-12-31] MEDS: INSULIN REGULAR, HUMAN 100 UNITS/1 ML SUB-Q SCH ×4 (08:05→23:05)
[2020-12-31] MEDS: SODIUM BICARBONATE 650 MG TAB PO SCH ×3 (10:33→23:04)
[2020-12-31] MEDS: METOPROLOL TARTRATE 25 MG TAB PO SCH ×2 (10:33→23:05)
[2020-12-31] MEDS: ASPIRIN 325 MG TAB PO SCH (10:33)
--- NOTE | 2020-12-31 11:54 | Progress Note ---
Assessment and Plan # Acute Kidney Injury: creatinine 2.4 on arrival, improved to 1.7->1.6->1.3 with IVF, was 1.0 in August 2020. Suspect pre-renal injury given elevated lactate, potential CVA and poor po intake - continue D5 1/2NS with po HCO3, lytes improving - po hydration/nutrition as able - urinalysis bland, defer serologies - defer renal imaging for now - avoid nephrotoxins - Is/Os, note non-oliguria - renally dose medications - maintain MAP>65 - no immediate need for renal replacement therapy # Metabolic Acidosis/Lactic Acidosis: continue IVF as tolerated, note GNR bacteremia now. Replete HCO3 as noted, HCO3 14->16 # Acute CVA, AMS: neurology input appreciated # Hypotension: IVF for now, po intake once able; BP now more stable # DM Subjective Date of service: 12/31/20 Principal diagnosis: right side weakness ? Interval history: Awake today, remains minimally responsive however Objective - Exam Narrative Exam: General appearance: obese, no distress, fatigue, frail EENT: ATNC Neck: Present: neck supple Respiratory: Clear to Ascultation Heart: regular, S1S2 Gastrointestinal: Present: normoactive bowel sounds Integumentary: no rash, warm and dry Neurologic: disoriented, obtunded Psychiatric: other (drowsy) - Vital Signs Vital signs: Vital Signs - 12hr 12/30/20 12/31/20 12/31/20 23:54 02:00 04:03 Temperature 98.9 F 99.1 F Pulse Rate 91 H 91 H 91 H Respiratory 18 14 Rate Blood Pressure 149/97 143/98 O2 Sat by Pulse 100 99 Oximetry 12/31/20 12/31/20 12/31/20 07:39 08:05 10:33 Temperature 97.8 F Pulse Rate 96 H 96 H Respiratory 18 Rate Blood Pressure 122/83 122/96 O2 Sat by Pulse 88 99 Oximetry - Lab 12/31/20 05:34 12/31/20 05:34 Most recent lab results Calcium 9.3 mg/dL (8.4-10.2) 12/31/20 05:34 Medications & Allergies - Medications Allergies/Adverse Reactions: Allergies No Known Allergies Allergy (Verified 08/06/19 15:49) Home Medications: Home Medications Medication Instructions Recorded Confirmed Last Taken Type Aspirin EC [Ecotrin] 325 mg PO QDAY #30 tablet 07/29/14 12/30/20 Unknown Rx Simvastatin (Nf) [Zocor TAB] 20 mg PO QHS #30 tablet 07/29/14 12/30/20 Unknown Rx Metoprolol [Lopressor TAB] 25 mg PO BID #60 tablet 06/25/15 12/30/20 Unknown Rx lisinopriL [Zestril TAB] 5 mg PO QDAY #30 tablet 06/25/15 12/30/20 Unknown Rx Benzonatate [Tessalon Perles] 100 mg PO Q12H PRN #20 capsule 08/06/19 12/30/20 Unknown Rx Cetirizine HCl [ZyrTEC 10mg cap] 10 mg PO DAILY #30 capsule 08/06/19 12/30/20 Unknown Rx Fluticasone [Flonase] 1 spray NS QDAY #1 bottle 08/06/19 12/30/20 Unknown Rx Insulin Aspart [Insulin Aspart See Protocol SQ AC #1 insuln.pen 07/15/20 12/30/20 Unknown Rx Flexpen] Magnesium Oxide [Mag-Ox] 400 mg PO BID #10 tablet 09/09/20 12/30/20 Unknown Rx Potassium Chloride 40 meq PO DAILY #20 tablet.er 09/09/20 12/30/20 Unknown Rx Active Medications: Generic Name Dose Route Start Last Admin Trade Name Freq PRN Reason Stop Dose Admin Acetaminophen 650 mg 12/27/20 23:59 Acetaminophen 325 Mg Tab PO Q4H PRN Pain MILD(1-3)/Fever >100.5/JOHNSON Aspirin 325 mg 12/28/20 10:00 12/31/20 10:33 Aspirin 325 Mg Tab PO 325 mg QDAY RM Administration Atorvastatin Calcium 40 mg 12/28/20 22:00 12/30/20 22:50 Atorvastatin 40 Mg Tab PO 40 mg QHS RM Administration Bisacodyl 10 mg 12/27/20 23:59 Bisacodyl 10 Mg Rect Supp [place] QDAY PRN Constipation Dextrose 0 ml 12/27/20 23:59 12/30/20 00:03 Dextrose 50% In Water (25gm) 50 Ml Syringe IV 10 ml Q30MIN PRN Administration Hypoglycemia Protocol Heparin Sodium (Porcine) 5,000 unit 12/28/20 06:00 12/31/20 06:29 Heparin 5,000 Unit/1 Ml Vial SUB-Q 5,000 unit Q8HR RM Administration Dextrose/Sodium Chloride 1,000 mls @ 75 mls/hr 12/30/20 11:00 12/30/20 11:54 D5/0.45ns IV 75 mls/hr DIRECT RM Administration Insulin Human Regular 0 units 12/28/20 07:30 12/31/20 08:05 Insulin Regular, Human 100 Units/1 Ml SUB-Q Not Given ACHS [facility] Protocol Magnesium Hydroxide 30 ml 12/27/20 23:59 Magnesium Hydroxide (Mom) Oral Liqd Udc PO Q4H PRN Constipation Metoclopramide HCl 5 mg 12/27/20 23:59 Metoclopramide 10 Mg Tab PO Q6H PRN Nausea And Vomiting Metoprolol Tartrate 25 mg 12/30/20 13:00 12/31/20 10:33 Metoprolol Tartrate 25 Mg Tab PO 25 mg BID RM Administration Morphine Sulfate 2 mg 12/27/20 23:59 12/29/20 00:02 Morphine 2 Mg/1 Ml Inj IV 2 mg Q4H PRN Administration Pain, Moderate (4-6) Morphine Sulfate 4 mg 12/27/20 23:59 Morphine 4 Mg/1 Ml Inj IV Q4H PRN Pain , Severe (7-10) Ondansetron HCl 4 mg 12/27/20 23:59 Ondansetron 4 Mg/2 Ml Inj IV Q8H PRN Nausea And Vomiting Promethazine HCl 25 mg 12/27/20 23:59 Promethazine 25 Mg Rect Supp [place] Q6H PRN Nausea And Vomiting Sodium Bicarbonate 650 mg 12/30/20 14:00 12/31/20 10:33 Sodium Bicarbonate 650 Mg Tab PO 650 mg TID RM Administration Sodium Chloride 10 ml 12/28/20 10:00 12/31/20 10:34 Sodium Chloride 0.9% 10 Ml Flush Syringe IV 10 ml BID RM Administration Sodium Chloride 10 ml 12/27/20 23:59 Sodium Chloride 0.9% 10 Ml Flush Syringe IV PRN PRN LINE FLUSH
--- NOTE | 2020-12-31 14:09 | Progress Note ---
Assessment and Plan Cultures: Blood culture bacillus species A/P:70-year-old male past medical history hypertension, dementia, previous CVA admitted with possible new CVA #Right sided weakness: possible new CVA, MRI with subacute infarct. 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 Improving Recs: -Stopped ceftriaxone. Blood cultures most likely contaminated. Thank you for the consult. We will sign off. Please call questions. Martina Matthews MD [facility] ([facility]) O: [phone] F: [phone] Subjective Date of service: 12/31/20 Principal diagnosis: right side weakness ? Interval history: Afebrile, normal white count. Objective - Exam Narrative Exam: Physical Exam: Constitutional: Alert, cooperative. No acute distress Head, Ears, Nose: Normocephalic, atraumatic. External ears, nose normal Eyes: Conjunctivae/corneas clear. No icterus. No ptosis. Neck: Supple, no meningeal signs Oral: dentition fair, no thrush Cardiovascular: S1, S2 normal. Respiratory: Good air entry, clear to auscultation bilaterally GI: Soft, non-tender; bowel sounds normal. No peritoneal signs. Musculoskeletal: No pedal edema, no cyanosis. Skin: No rash or abscess Hem/Lymphatic: No palpable cervical or supraclavicular nodes. No lymphangitis Psych: Mood ok. Affect normal Neurological: Right sided weakness - Constitutional Vitals: Vital Signs Temp Pulse Resp BP Pulse Ox 98.0 F 78 18 104/73 96 12/31/20 12:31 12/31/20 12:31 12/31/20 12:31 12/31/20 12:31 12/31/20 12:31 Temperature -Last 24 Hours Temperature 98.0 F Temperature 97.8 F Temperature 99.1 F Temperature 98.9 F Temperature 99.1 F Temperature 98.3 F - Labs CBC & Chem 7: 12/31/20 05:34 12/31/20 05:34 Labs: Abnormal lab results 12/30/20 12/31/20 12/31/20 Range/Units 18:14 05:34 05:34 RBC 3.31 L (3.65-5.03) M/mm3 Hgb 10.3 L (11.8-15.2) gm/dl Hct 30.3 L (35.5-45.6) % RDW 17.9 H (13.2-15.2) % Chloride 109.9 H (98-107) mmol/L Carbon Dioxide 16 L (22-30) mmol/L Glucose 122 H (75-100) mg/dL POC Glucose 109 H (70-105) mg/dL 12/31/20 12/31/20 Range/Units 07:39 11:16 RBC (3.65-5.03) M/mm3 Hgb (11.8-15.2) gm/dl Hct (35.5-45.6) % RDW (13.2-15.2) % Chloride (98-107) mmol/L Carbon Dioxide (22-30) mmol/L Glucose (75-100) mg/dL POC Glucose 107 H 158 H (70-105) mg/dL
--- NOTE | 2020-12-31 15:09 | Progress Note ---
Assessment and Plan Assessment and plan: (1) Altered mental state Current Visit: Yes Status: Acute Qualifiers: Altered mental status type: unspecified Qualified Code(s): R41.82 - Altered mental status, unspecified Plan to address problem: (2) Acute CVA (cerebrovascular accident) Current Visit: Yes Status: Acute Plan to address problem: Seen by Neurologist. On aspirin and Lipitor. (3) Hypertension Current Visit: Yes Status: Acute Plan to address problem: Controlled. Continue current medication. Monitor blood pressure. (4) CHHAYA (acute kidney injury) Current Visit: No Status: Acute Plan to address problem: Improved on IV fluid. Nephrology following (5) Diabetes mellitus Current Visit: No Status: Acute Plan to address problem: Continue sliding scale insulin. Monitor blood glucose. (6) Lactic acidosis Current Visit: Yes Status: Acute Plan to address problem: We will continue on IV fluid and monitor chemistry. (7) DVT prophylaxis Current Visit: No Status: Acute Plan to address problem: Patient placed on anticoagulation with subcutaneous heparin. (8) Positive blood culture . Due to contamination. Does not require antibiotic per ID. (9) Full code status Current Visit: No Status: Acute Plan to address problem: Patient is full code. 12/29/20 Patient with acute ischemic stroke right tanner , left occipital area. Cont Aspirin daily. I discussed case with Neurology. CHHAYA improving. Cr 1.7. Nephrology following. Change ivf to D5NS at 77 because of hypoglycemic episodes. 12/30/20 Patient with acute ischemic stroke right tanner , left occipital area. Cont Aspirin daily. I discussed case with Neurology. CHHAYA improving. Cr 1.6 today from 1.7 yesterday. Nephrology following. Changed ivf to D5NS at 77 because of hypoglycemic episodes. Was told by [employer] that his girlfriend does not want him to go to SNF but wants him to go home with home health instead, when ready. He is not stable for discharge yet because Cr 1.6 low blood glucose. Poss dc in few days when Cr normal and no hypoglycemia. 12/31/2020. ID noted the positive blood cultures due to contamination. Patient is off antibiotic. For possible discharge home tomorrow if cleared by nephrology. History Interval history: No new complaints. No shortness of breath, cough, pain, fever, chills. No diarrhea or constipation. Hospitalist Physical - Constitutional Vitals: Temp Pulse Resp BP Pulse Ox 98.0 F 78 18 104/73 96 12/31/20 12:31 12/31/20 12:31 12/31/20 12:31 12/31/20 12:31 12/31/20 12:31 General appearance: Present: no acute distress, well-nourished, other (Dry oral mucosa) - EENT Eyes: Present: PERRL, EOM intact ENT: hearing intact - Neck Neck: Present: supple, normal ROM - Respiratory Respiratory effort: normal Respiratory: bilateral: CTA - Cardiovascular Rhythm: regular Heart Sounds: Present: S1 & S2 - Extremities Extremities: No edema - Abdominal General gastrointestinal: soft, non-tender, non-distended, normal bowel sounds - Integumentary Integumentary: Present: clear, warm, dry - Psychiatric Psychiatric: appropriate mood/affect - Neurologic Neurologic: other (Alert and oriented x2, person and to place.) HEART Score - HEART Score Troponin: Troponin T 0.094 ng/mL (0.00-0.029) H 12/27/20 21:47 Results - Labs CBC & Chem 7: 12/31/20 05:34 12/31/20 05:34 Labs: Laboratory Last Values WBC 6.5 K/mm3 (4.5-11.0) 12/31/20 05:34 RBC 3.31 M/mm3 (3.65-5.03) L 12/31/20 05:34 Hgb 10.3 gm/dl (11.8-15.2) L 12/31/20 05:34 Hct 30.3 % (35.5-45.6) L 12/31/20 05:34 MCV 91 fl (84-94) 12/31/20 05:34 MCH 31 pg (28-32) 12/31/20 05:34 MCHC 34 % (32-34) 12/31/20 05:34 RDW 17.9 % (13.2-15.2) H 12/31/20 05:34 Plt Count 284 K/mm3 (140-440) 12/31/20 05:34 Lymph % (Auto) 25.7 % (13.4-35.0) 12/29/20 05:48 [place]ardo % (Auto) 8.3 % (0.0-7.3) H 12/29/20 05:48 Eos % (Auto) 3.3 % (0.0-4.3) 12/29/20 05:48 Baso % (Auto) 0.7 % (0.0-1.8) 12/29/20 05:48 Lymph # (Auto) 1.7 K/mm3 (1.2-5.4) 12/29/20 05:48 [place] # (Auto) 0.6 K/mm3 (0.0-0.8) 12/29/20 05:48 Eos # (Auto) 0.2 K/mm3 (0.0-0.4) 12/29/20 05:48 Baso # (Auto) 0.0 K/mm3 (0.0-0.1) 12/29/20 05:48 Seg Neutrophils % 62.0 % (40.0-70.0) 12/29/20 05:48 Seg Neutrophils # 4.2 K/mm3 (1.8-7.7) 12/29/20 05:48 PT 15.0 Sec. (12.2-14.9) H 12/29/20 05:48 INR 1.13 (0.87-1.13) 12/29/20 05:48 APTT 33.2 Sec. (24.2-36.6) 12/27/20 19:39 Thrombin Time 18.9 Sec. (15.1-19.6) 12/27/20 19:39 Sodium 138 mmol/L (137-145) 12/31/20 05:34 Potassium 4.0 mmol/L (3.6-5.0) 12/31/20 05:34 Chloride 109.9 mmol/L (98-107) H 12/31/20 05:34 Carbon Dioxide 16 mmol/L (22-30) L 12/31/20 05:34 Anion Gap 16 mmol/L 12/31/20 05:34 BUN 14 mg/dL (9-20) 12/31/20 05:34 Creatinine 1.3 mg/dL (0.8-1.3) 12/31/20 05:34 Estimated GFR > 60 ml/min 12/31/20 05:34 BUN/Creatinine Ratio 11 % 12/31/20 05:34 Glucose 122 mg/dL (75-100) H 12/31/20 05:34 POC Glucose 158 mg/dL (70-105) H 12/31/20 11:16 Lactic Acid 1.80 mmol/L (0.7-2.0) 12/29/20 05:48 Calcium 9.3 mg/dL (8.4-10.2) 12/31/20 05:34 Total Bilirubin 0.20 mg/dL (0.1-1.2) 12/27/20 19:39 Direct Bilirubin < 0.2 mg/dL (0-0.2) 12/27/20 19:39 Indirect Bilirubin 0.0 mg/dL 12/27/20 19:39 AST 15 units/L (5-40) 12/27/20 19:39 ALT 9 units/L (7-56) 12/27/20 19:39 Alkaline Phosphatase 101 units/L (35-129) 12/27/20 19:39 Total Creatine Kinase 135 units/L (55-170) 12/27/20 19:39 CK-MB (CK-2) 4.5 ng/mL (0.0-4.0) H 12/27/20 19:39 CK-MB (CK-2) Rel Index 3.3 (0-4) 12/27/20 19:39 Troponin T 0.094 ng/mL (0.00-0.029) H 12/27/20 21:47 Total Protein 7.2 g/dL (6.3-8.2) 12/27/20 19:39 Albumin 3.4 g/dL (3.9-5) L 12/27/20 19:39 Albumin/Globulin Ratio 0.9 % 12/27/20 19:39 Triglycerides 159 mg/dL (2-149) H 12/27/20 19:39 Cholesterol 125 mg/dL (50-199) 12/27/20 19:39 LDL Cholesterol Direct 61 mg/dL (50-130) 12/27/20 19:39 HDL Cholesterol 33 mg/dL (40-59) L 12/27/20 19:39 Cholesterol/HDL Ratio 3.78 % 12/27/20 19:39 Vitamin B12 490.6 pg/mL (211-911) 12/28/20 16:16 TSH 0.497 mlU/mL (0.270-4.200) 12/28/20 16:16 Urine Color Yellow (Yellow) 12/27/20 03:58 Urine Turbidity Clear (Clear) 12/27/20 03:58 Urine pH 5.0 (5.0-7.0) 12/27/20 03:58 Ur Specific [place] 1.017 (1.003-1.030) 12/27/20 03:58 Urine Protein <15 mg/dl mg/dL (Negative) 12/27/20 03:58 Urine Glucose (UA) Neg mg/dL (Negative) 12/27/20 03:58 Urine Ketones Neg mg/dL (Negative) 12/27/20 03:58 Urine Blood Neg (Negative) 12/27/20 03:58 Urine Nitrite Neg (Negative) 12/27/20 03:58 Urine Bilirubin Neg (Negative) 12/27/20 03:58 Urine Urobilinogen < 2.0 mg/dL (<2.0) 12/27/20 03:58 Ur Leukocyte Esterase Neg (Negative) 12/27/20 03:58 Urine WBC (Auto) 1.0 /HPF (0.0-6.0) 12/27/20 03:58 Urine RBC (Auto) 2.0 /HPF (0.0-6.0) 12/27/20 03:58 U Epithel Cells (Auto) < 1.0 /HPF (0-13.0) 12/27/20 03:58 Urine Bacteria (Auto) 1+ /HPF (Negative) 12/27/20 03:58 Hyaline Casts 3 /LPF 12/27/20 03:58 Urine Mucus Few /HPF 12/27/20 03:58 Urine Yeast (Budding) Few /HPF 12/27/20 03:58 Microbiology: Microbiology 12/27/20 19:59 Peripheral/Venous Blood Culture - Preliminary NO GROWTH AFTER 72 HOURS 12/27/20 20:07 Peripheral/Venous Blood Culture - Preliminary Bacillus Species Edwards/IV: Voiding Method Indwelling Catheter Active Medications - Current Medications Current Medications: Generic Name Dose Route Start Last Admin Trade Name Freq PRN Reason Stop Dose Admin Acetaminophen 650 mg 12/27/20 23:59 Acetaminophen 325 Mg Tab PO Q4H PRN Pain MILD(1-3)/Fever >100.5/JOHNSON Aspirin 325 mg 12/28/20 10:00 12/31/20 10:33 Aspirin 325 Mg Tab PO 325 mg QDAY RM Administration Atorvastatin Calcium 40 mg 12/28/20 22:00 12/30/20 22:50 Atorvastatin 40 Mg Tab PO 40 mg QHS RM Administration Bisacodyl 10 mg 12/27/20 23:59 Bisacodyl 10 Mg Rect Supp ME QDAY PRN Constipation Dextrose 0 ml 12/27/20 23:59 12/30/20 00:03 Dextrose 50% In Water (25gm) 50 Ml Syringe IV 10 ml Q30MIN PRN Administration Hypoglycemia Protocol Heparin Sodium (Porcine) 5,000 unit 12/28/20 06:00 12/31/20 06:29 Heparin 5,000 Unit/1 Ml Vial SUB-Q 5,000 unit Q8HR RM Administration Dextrose/Sodium Chloride 1,000 mls @ 75 mls/hr 12/30/20 11:00 12/30/20 11:54 D5/0.45ns IV 75 mls/hr DIRECT RM Administration Insulin Human Regular 0 units 12/28/20 07:30 12/31/20 08:05 Insulin Regular, Human 100 Units/1 Ml SUB-Q Not Given ACHS RM Protocol Magnesium Hydroxide 30 ml 12/27/20 23:59 Magnesium Hydroxide (Mom) Oral Liqd Udc PO Q4H PRN Constipation Metoclopramide HCl 5 mg 12/27/20 23:59 Metoclopramide 10 Mg Tab PO Q6H PRN Nausea And Vomiting Metoprolol Tartrate 25 mg 12/30/20 13:00 12/31/20 10:33 Metoprolol Tartrate 25 Mg Tab PO 25 mg BID RM Administration Morphine Sulfate 2 mg 12/27/20 23:59 12/29/20 00:02 Morphine 2 Mg/1 Ml Inj IV 2 mg Q4H PRN Administration Pain, Moderate (4-6) Morphine Sulfate 4 mg 12/27/20 23:59 Morphine 4 Mg/1 Ml Inj IV Q4H PRN Pain , Severe (7-10) Ondansetron HCl 4 mg 12/27/20 23:59 Ondansetron 4 Mg/2 Ml Inj IV Q8H PRN Nausea And Vomiting Promethazine HCl 25 mg 12/27/20 23:59 Promethazine 25 Mg Rect Supp ME Q6H PRN Nausea And Vomiting Sodium Bicarbonate 650 mg 12/30/20 14:00 12/31/20 10:33 Sodium Bicarbonate 650 Mg Tab PO 650 mg TID RM Administration Sodium Chloride 10 ml 12/28/20 10:00 12/31/20 10:34 Sodium Chloride 0.9% 10 Ml Flush Syringe IV 10 ml BID RM Administration Sodium Chloride 10 ml 12/27/20 23:59 Sodium Chloride 0.9% 10 Ml Flush Syringe IV PRN PRN LINE FLUSH Nutrition/Malnutrition Assess - Dietary Evaluation Nutrition/Malnutrition Findings: Nutrition Notes Start: 12/28/20 12:07 Freq: Status: Active Protocol: Document 12/28/20 12:07 GB (Rec: 12/28/20 12:19 GB [id number]) Nutrition Notes Need for Assessment generated from: MD Order Initial or Follow up Assessment Current Diagnosis Diabetes,Hypertension,Stroke Other Pertinent Diagnosis Dementia, AMS Current Diet Cardiac/consistent carbohydrate Labs/Tests 12/27: BUN 45, creatinine 2.4, glucose 140, Ca 10.8, Tg 159 Pertinent Medications reviewed Height 6 ft 1 in Weight 67.9 kg Kite Body Weight (kg) 83.63 BMI 19.7 Weight change and time frame Admit weight. No reported weight changes Weight Status Appropriate Subjective/Other Information Consult for Diet education. Pt with dementia, one word responses and/or head nods, limited use of extremities per chart. Pt is not a candidate for diet education. If family is present and would like a consult RD available to educate family. Percent of energy/protein needs met: Unable to assess as no po intake recorded at this time. Per chart nutrition noted as possibly inadequate. Burn Absent Trauma Absent GI Symptoms None Food Allergy No Skin Integrity/Comment No complications reported #1 Nutrition Diagnosis Predicted suboptimal energy intake Etiology BMI 19.7 As Evidenced by Signs and Symptoms per chart: nutrition reported as inadequate, IBW 82%. Is patient on ventilator? No Is Patient Ambulatory and/or Out of Bed No REE-([place]-confined to bed) 1809.168 Kcal/Kg value to use for calculation 27 Approximate Energy Requirements Using 1833 kcal/Kg Calculation Used for Recommendations Kcal/kg Additional Notes Protein: 1-1.2 g/kg @ 70k -84g Fluids: 1 ml/kcal or per MD Nutrition Intervention Change Diet Order: continue cardiac/consistent carbohydrate Nutrition Support: n/a Add Supplement/Snack (indicate name/kcal add glucerna BID /protein ) Provides kCal: 440 Provides Protein (gm) 20 Goal #1 PO intake of meals to be 50% or greater TID daily for LOS Goal #2 PO intake of supplement beverages to be 50% or greater daily BID for LOS Goal #3 Weight to maintain +3% current weight during LOS Follow-Up By: 01/04/21 Additional Comments PO intake of meals to be recorded daily. RD placed nutritional supplement order. f/u: po intake meals/ supplements, weight
[2020-12-31] MEDS: D5W/0.45% NACL 1,000 ML IV SCH (16:49)
[2021-01-01] MEDS: HEPARIN 5,000 UNIT/1 ML VIAL SUB-Q SCH ×3 (05:43→23:10)
[2021-01-01] MEDS: INSULIN REGULAR, HUMAN 100 UNITS/1 ML SUB-Q SCH ×4 (07:53→23:01)
[2021-01-01] MEDS: SODIUM BICARBONATE 650 MG TAB PO SCH ×3 (08:34→23:10)
--- NOTE | 2021-01-01 09:41 | Progress Note ---
Assessment and Plan # Acute Kidney Injury: creatinine 2.4 on arrival, improved to 1.7->1.6->1.3 with IVF, was 1.0 in August 2020. Suspect pre-renal injury given elevated lactate, potential CVA and poor po intake - continue D5 1/2NS with po HCO3, no labs for review today so far - po hydration/nutrition as able - urinalysis bland, defer serologies - defer renal imaging for now - avoid nephrotoxins - Is/Os, note non-oliguria with ~1.1L urine output - renally dose medications - maintain MAP>65 - no immediate need for renal replacement therapy # Metabolic Acidosis/Lactic Acidosis: continue IVF as tolerated, note GNR bacteremia now. Replete HCO3 as noted, HCO3 14->16 # Acute CVA, AMS: neurology input appreciated # Hypotension: IVF for now, po intake once able; BP now more stable # DM Subjective Date of service: 01/01/21 Principal diagnosis: right side weakness ? Interval history: More drowsy this AM, resting without acute issues Objective - Exam Narrative Exam: General appearance: obese, no distress, fatigue, frail EENT: ATNC Neck: Present: neck supple Respiratory: Clear to Ascultation Heart: regular, S1S2 Gastrointestinal: Present: normoactive bowel sounds Integumentary: no rash, warm and dry Neurologic: disoriented, obtunded Psychiatric: other (drowsy) - Vital Signs Vital signs: Vital Signs - 12hr 12/31/20 01/01/21 01/01/21 23:00 00:03 08:37 Temperature 98.3 F 97.7 F Pulse Rate 87 83 Respiratory 18 16 Rate Blood Pressure 136/91 Blood Pressure 127/86 [Left] O2 Sat by Pulse 97 97 97 Oximetry - Lab 12/31/20 05:34 12/31/20 05:34 Most recent lab results Calcium 9.3 mg/dL (8.4-10.2) 12/31/20 05:34 Medications & Allergies - Medications Allergies/Adverse Reactions: Allergies No Known Allergies Allergy (Verified 08/06/19 15:49) Home Medications: Home Medications Medication Instructions Recorded Confirmed Last Taken Type Aspirin EC [Ecotrin] 325 mg PO QDAY #30 tablet 07/29/14 12/30/20 Unknown Rx Simvastatin (Nf) [Zocor TAB] 20 mg PO QHS #30 tablet 07/29/14 12/30/20 Unknown Rx Metoprolol [Lopressor TAB] 25 mg PO BID #60 tablet 06/25/15 12/30/20 Unknown Rx lisinopriL [Zestril TAB] 5 mg PO QDAY #30 tablet 06/25/15 12/30/20 Unknown Rx Benzonatate [Tessalon Perles] 100 mg PO Q12H PRN #20 capsule 08/06/19 12/30/20 Unknown Rx Cetirizine HCl [ZyrTEC 10mg cap] 10 mg PO DAILY #30 capsule 08/06/19 12/30/20 Unknown Rx Fluticasone [Flonase] 1 spray NS QDAY #1 bottle 08/06/19 12/30/20 Unknown Rx Insulin Aspart [Insulin Aspart See Protocol SQ AC #1 insuln.pen 07/15/20 12/30/20 Unknown Rx Flexpen] Magnesium Oxide [Mag-Ox] 400 mg PO BID #10 tablet 09/09/20 12/30/20 Unknown Rx Potassium Chloride 40 meq PO DAILY #20 tablet.er 09/09/20 12/30/20 Unknown Rx Active Medications: Generic Name Dose Route Start Last Admin Trade Name Freq PRN Reason Stop Dose Admin Acetaminophen 650 mg 12/27/20 23:59 Acetaminophen 325 Mg Tab PO Q4H PRN Pain MILD(1-3)/Fever >100.5/JOHNSON Aspirin 325 mg 12/28/20 10:00 12/31/20 10:33 Aspirin 325 Mg Tab PO 325 mg QDAY RM Administration Atorvastatin Calcium 40 mg 12/28/20 22:00 12/31/20 23:05 Atorvastatin 40 Mg Tab PO 40 mg QHS RM Administration Bisacodyl 10 mg 12/27/20 23:59 Bisacodyl 10 Mg Rect Supp DE QDAY PRN Constipation Dextrose 0 ml 12/27/20 23:59 12/30/20 00:03 Dextrose 50% In Water (25gm) 50 Ml Syringe IV 10 ml Q30MIN PRN Administration Hypoglycemia Protocol Heparin Sodium (Porcine) 5,000 unit 12/28/20 06:00 01/01/21 05:43 Heparin 5,000 Unit/1 Ml Vial SUB-Q 5,000 unit Q8HR RM Administration Dextrose/Sodium Chloride 1,000 mls @ 75 mls/hr 12/30/20 11:00 12/31/20 16:49 D5/0.45ns IV 75 mls/hr DIRECT RM Administration Insulin Human Regular 0 units 12/28/20 07:30 01/01/21 07:53 Insulin Regular, Human 100 Units/1 Ml SUB-Q Not Given ACHS [facility] Protocol Magnesium Hydroxide 30 ml 12/27/20 23:59 Magnesium Hydroxide (Mom) Oral Liqd Udc PO Q4H PRN Constipation Metoclopramide HCl 5 mg 12/27/20 23:59 Metoclopramide 10 Mg Tab PO Q6H PRN Nausea And Vomiting Metoprolol Tartrate 25 mg 12/30/20 13:00 12/31/20 23:05 Metoprolol Tartrate 25 Mg Tab PO 25 mg BID RM Administration Morphine Sulfate 2 mg 12/27/20 23:59 12/29/20 00:02 Morphine 2 Mg/1 Ml Inj IV 2 mg Q4H PRN Administration Pain, Moderate (4-6) Morphine Sulfate 4 mg 12/27/20 23:59 Morphine 4 Mg/1 Ml Inj IV Q4H PRN Pain , Severe (7-10) Ondansetron HCl 4 mg 12/27/20 23:59 Ondansetron 4 Mg/2 Ml Inj IV Q8H PRN Nausea And Vomiting Promethazine HCl 25 mg 12/27/20 23:59 Promethazine 25 Mg Rect Supp DE Q6H PRN Nausea And Vomiting Sodium Bicarbonate 650 mg 12/30/20 14:00 01/01/21 08:34 Sodium Bicarbonate 650 Mg Tab PO 650 mg TID RM Administration Sodium Chloride 10 ml 12/28/20 10:00 12/31/20 23:05 Sodium Chloride 0.9% 10 Ml Flush Syringe IV 10 ml BID RM Administration Sodium Chloride 10 ml 12/27/20 23:59 Sodium Chloride 0.9% 10 Ml Flush Syringe IV PRN PRN LINE FLUSH
[2021-01-01] MEDS: METOPROLOL TARTRATE 25 MG TAB PO SCH ×2 (10:11→23:09)
[2021-01-01] MEDS: ASPIRIN 325 MG TAB PO SCH (10:11)
[2021-01-01 10:29] LABS: BUN/Creatinine Ratio 10; Blood Urea Nitrogen 13 mg/dL (9-20); Calcium 9.6 mg/dL (8.4-10.2); Hemolysis Index 45
--- NOTE | 2021-01-01 12:01 | Cat Scan Report ---
CT head/brain wo con INDICATION: AMS - PATIENT UNABLE TO LAY FLAT OR REMAIN STILL . TECHNIQUE: All CT scans at this location are performed using CT dose reduction for ALARA by means of automated e xposure control. COMPARISON: Brain MRI on 12/28/2020 FINDINGS: There is no hemorrhage, hydrocephalus, or adverse mass effect. Previously demonstrated pontine infarc t is not well seen on CT. Chronic infarct in the left occipital lobe is similar to the prior exam. IMPRESSION: 1. No acute findings or adverse change from prior brain MRI. Signer Name: Wes Nguyen MD Signed: 01/01/2021 11:56 AM Workstation Name: [id number]
--- NOTE | 2021-01-01 14:13 | Progress Note ---
Assessment and Plan Assessment and plan: (1) Altered mental state Patient has a new diagnosis of acute CVA however he is less responsive today. Vital signs are stable. Most recent blood glucose is 102. We will check head CT scan without contrast and ammonia level. (2) Acute CVA (cerebrovascular accident) Seen by Neurologist. On aspirin and Lipitor. Evaluated by PT/OT. Plan is for discharge home with home health per family request. (3) Hypertension Controlled. Continue current medication. Monitor blood pressure (4) CHHAYA (acute kidney injury) Improved on IV fluid. Creatinine stable at 1.3 since yesterday. Nephrology following (5) Diabetes mellitus Continue sliding scale insulin. Monitor blood glucose. Blood glucose is controlled. (6) Lactic acidosis We will continue on IV fluid and monitor chemistry. (7) DVT prophylaxis On subcutaneous heparin. (8) Positive blood culture . Due to contamination. Does not require antibiotic per ID. (9) Full code status Current Visit: No Status: Acute Plan to address problem: Patient is full code. 12/29/20 Patient with acute ischemic stroke right tanner , left occipital area. Cont Aspirin daily. I discussed case with Neurology. CHHAYA improving. Cr 1.7. Nephrology following. Change ivf to D5NS at 77 because of hypoglycemic episodes. 12/30/20 Patient with acute ischemic stroke right tanner , left occipital area. Cont Aspirin daily. I discussed case with Neurology. CHHAYA improving. Cr 1.6 today from 1.7 yesterday. Nephrology following. Changed ivf to D5NS at 77 because of hypoglycemic episodes. Was told by Manager Helpdesk that his girlfriend does not want him to go to SNF but wants him to go home with home health instead, when ready. He is not stable for discharge yet because Cr 1.6 low blood glucose. Poss dc in few days when Cr normal and no hypoglycemia. 12/31/2020. ID noted the positive blood cultures due to contamination. Patient is off antibiotic. For possible discharge home tomorrow if cleared by nephrology. 01/01/2021. Patient has worsening mental status. Head CT scan and ammonia level ordered. History Interval history: Patient is less responsive today and had stimulated repeatedly. He denies any pain. His nurse however noted that he was responsive earlier, took his medication and food. Hospitalist Physical - Constitutional Vitals: Temp Pulse Resp BP Pulse Ox 97.7 F 83 16 127/86 97 01/01/21 08:37 01/01/21 12:00 01/01/21 08:37 01/01/21 08:37 01/01/21 11:00 General appearance: Present: no acute distress, well-nourished, other (Dry oral mucosa) - EENT Eyes: Present: PERRL, EOM intact ENT: hearing intact - Neck Neck: Present: supple, normal ROM - Respiratory Respiratory effort: normal - Cardiovascular Rhythm: regular Heart Sounds: Present: S1 & S2 - Extremities Extremities: No edema - Abdominal General gastrointestinal: soft, non-tender, non-distended, normal bowel sounds - Integumentary Integumentary: Present: warm, dry - Neurologic Neurologic: other (Altered mental status. Less responsive compared to yesterday. Normal speech.) HEART Score - HEART Score Troponin: Troponin T 0.094 ng/mL (0.00-0.029) H 12/27/20 21:47 Results - Labs CBC & Chem 7: 12/31/20 05:34 01/01/21 09:30 Labs: Laboratory Last Values WBC 6.5 K/mm3 (4.5-11.0) 12/31/20 05:34 RBC 3.31 M/mm3 (3.65-5.03) L 12/31/20 05:34 Hgb 10.3 gm/dl (11.8-15.2) L 12/31/20 05:34 Hct 30.3 % (35.5-45.6) L 12/31/20 05:34 MCV 91 fl (84-94) 12/31/20 05:34 MCH 31 pg (28-32) 12/31/20 05:34 MCHC 34 % (32-34) 12/31/20 05:34 RDW 17.9 % (13.2-15.2) H 12/31/20 05:34 Plt Count 284 K/mm3 (140-440) 12/31/20 05:34 Lymph % (Auto) 25.7 % (13.4-35.0) 12/29/20 05:48 [place] % (Auto) 8.3 % (0.0-7.3) H 12/29/20 05:48 Eos % (Auto) 3.3 % (0.0-4.3) 12/29/20 05:48 Baso % (Auto) 0.7 % (0.0-1.8) 12/29/20 05:48 Lymph # (Auto) 1.7 K/mm3 (1.2-5.4) 12/29/20 05:48 [place] # (Auto) 0.6 K/mm3 (0.0-0.8) 12/29/20 05:48 Eos # (Auto) 0.2 K/mm3 (0.0-0.4) 12/29/20 05:48 Baso # (Auto) 0.0 K/mm3 (0.0-0.1) 12/29/20 05:48 Seg Neutrophils % 62.0 % (40.0-70.0) 12/29/20 05:48 Seg Neutrophils # 4.2 K/mm3 (1.8-7.7) 12/29/20 05:48 PT 15.0 Sec. (12.2-14.9) H 12/29/20 05:48 INR 1.13 (0.87-1.13) 12/29/20 05:48 APTT 33.2 Sec. (24.2-36.6) 12/27/20 19:39 Thrombin Time 18.9 Sec. (15.1-19.6) 12/27/20 19:39 Sodium 137 mmol/L (137-145) 01/01/21 09:30 Potassium 4.3 mmol/L (3.6-5.0) 01/01/21 09:30 Chloride 108.2 mmol/L (98-107) H 01/01/21 09:30 Carbon Dioxide 18 mmol/L (22-30) L 01/01/21 09:30 Anion Gap 15 mmol/L 01/01/21 09:30 BUN 13 mg/dL (9-20) 01/01/21 09:30 Creatinine 1.3 mg/dL (0.8-1.3) 01/01/21 09:30 Estimated GFR > 60 ml/min 01/01/21 09:30 BUN/Creatinine Ratio 10 % 01/01/21 09:30 Glucose 100 mg/dL (75-100) 01/01/21 09:30 POC Glucose 102 mg/dL (70-105) 01/01/21 10:58 Lactic Acid 1.80 mmol/L (0.7-2.0) 12/29/20 05:48 Calcium 9.6 mg/dL (8.4-10.2) 01/01/21 09:30 Total Bilirubin 0.20 mg/dL (0.1-1.2) 12/27/20 19:39 Direct Bilirubin < 0.2 mg/dL (0-0.2) 12/27/20 19:39 Indirect Bilirubin 0.0 mg/dL 12/27/20 19:39 AST 15 units/L (5-40) 12/27/20 19:39 ALT 9 units/L (7-56) 12/27/20 19:39 Alkaline Phosphatase 101 units/L (35-129) 12/27/20 19:39 Total Creatine Kinase 135 units/L (55-170) 12/27/20 19:39 CK-MB (CK-2) 4.5 ng/mL (0.0-4.0) H 12/27/20 19:39 CK-MB (CK-2) Rel Index 3.3 (0-4) 12/27/20 19:39 Troponin T 0.094 ng/mL (0.00-0.029) H 12/27/20 21:47 Total Protein 7.2 g/dL (6.3-8.2) 12/27/20 19:39 Albumin 3.4 g/dL (3.9-5) L 12/27/20 19:39 Albumin/Globulin Ratio 0.9 % 12/27/20 19:39 Triglycerides 159 mg/dL (2-149) H 12/27/20 19:39 Cholesterol 125 mg/dL (50-199) 12/27/20 19:39 LDL Cholesterol Direct 61 mg/dL (50-130) 12/27/20 19:39 HDL Cholesterol 33 mg/dL (40-59) L 12/27/20 19:39 Cholesterol/HDL Ratio 3.78 % 12/27/20 19:39 Vitamin B12 490.6 pg/mL (211-911) 12/28/20 16:16 TSH 0.497 mlU/mL (0.270-4.200) 12/28/20 16:16 Urine Color Yellow (Yellow) 12/27/20 03:58 Urine Turbidity Clear (Clear) 12/27/20 03:58 Urine pH 5.0 (5.0-7.0) 12/27/20 03:58 Ur Specific [place] 1.017 (1.003-1.030) 12/27/20 03:58 Urine Protein <15 mg/dl mg/dL (Negative) 12/27/20 03:58 Urine Glucose (UA) Neg mg/dL (Negative) 12/27/20 03:58 Urine Ketones Neg mg/dL (Negative) 12/27/20 03:58 Urine Blood Neg (Negative) 12/27/20 03:58 Urine Nitrite Neg (Negative) 12/27/20 03:58 Urine Bilirubin Neg (Negative) 12/27/20 03:58 Urine Urobilinogen < 2.0 mg/dL (<2.0) 12/27/20 03:58 Ur Leukocyte Esterase Neg (Negative) 12/27/20 03:58 Urine WBC (Auto) 1.0 /HPF (0.0-6.0) 12/27/20 03:58 Urine RBC (Auto) 2.0 /HPF (0.0-6.0) 12/27/20 03:58 U Epithel Cells (Auto) < 1.0 /HPF (0-13.0) 12/27/20 03:58 Urine Bacteria (Auto) 1+ /HPF (Negative) 12/27/20 03:58 Hyaline Casts 3 /LPF 12/27/20 03:58 Urine Mucus Few /HPF 12/27/20 03:58 Urine Yeast (Budding) Few /HPF 12/27/20 03:58 Microbiology: Microbiology 12/27/20 19:59 Peripheral/Venous Blood Culture - Preliminary NO GROWTH AFTER 4 DAYS Edwards/IV: Voiding Method Indwelling Catheter Active Medications - Current Medications Current Medications: Generic Name Dose Route Start Last Admin Trade Name Freq PRN Reason Stop Dose Admin Acetaminophen 650 mg 12/27/20 23:59 Acetaminophen 325 Mg Tab PO Q4H PRN Pain MILD(1-3)/Fever >100.5/JOHNSON Aspirin 325 mg 12/28/20 10:00 01/01/21 10:11 Aspirin 325 Mg Tab PO 325 mg QDAY RM Administration Atorvastatin Calcium 40 mg 12/28/20 22:00 12/31/20 23:05 Atorvastatin 40 Mg Tab PO 40 mg QHS RM Administration Bisacodyl 10 mg 12/27/20 23:59 Bisacodyl 10 Mg Rect Supp [place] QDAY PRN Constipation Dextrose 0 ml 12/27/20 23:59 12/30/20 00:03 Dextrose 50% In Water (25gm) 50 Ml Syringe IV 10 ml Q30MIN PRN Administration Hypoglycemia Protocol Heparin Sodium (Porcine) 5,000 unit 12/28/20 06:00 01/01/21 05:43 Heparin 5,000 Unit/1 Ml Vial SUB-Q 5,000 unit Q8HR RM Administration Dextrose/Sodium Chloride 1,000 mls @ 75 mls/hr 12/30/20 11:00 12/31/20 16:49 D5/0.45ns IV 75 mls/hr DIRECT RM Administration Insulin Human Regular 0 units 12/28/20 07:30 01/01/21 12:37 Insulin Regular, Human 100 Units/1 Ml SUB-Q Not Given ACHS RM Protocol Magnesium Hydroxide 30 ml 12/27/20 23:59 Magnesium Hydroxide (Mom) Oral Liqd Udc PO Q4H PRN Constipation Metoclopramide HCl 5 mg 12/27/20 23:59 Metoclopramide 10 Mg Tab PO Q6H PRN Nausea And Vomiting Metoprolol Tartrate 25 mg 12/30/20 13:00 01/01/21 10:11 Metoprolol Tartrate 25 Mg Tab PO 25 mg BID RM Administration Morphine Sulfate 2 mg 12/27/20 23:59 12/29/20 00:02 Morphine 2 Mg/1 Ml Inj IV 2 mg Q4H PRN Administration Pain, Moderate (4-6) Morphine Sulfate 4 mg 12/27/20 23:59 Morphine 4 Mg/1 Ml Inj IV Q4H PRN Pain , Severe (7-10) Ondansetron HCl 4 mg 12/27/20 23:59 Ondansetron 4 Mg/2 Ml Inj IV Q8H PRN Nausea And Vomiting Promethazine HCl 25 mg 12/27/20 23:59 Promethazine 25 Mg Rect Supp MT Q6H PRN Nausea And Vomiting Sodium Bicarbonate 650 mg 12/30/20 14:00 01/01/21 08:34 Sodium Bicarbonate 650 Mg Tab PO 650 mg TID RM Administration Sodium Chloride 10 ml 12/28/20 10:00 01/01/21 10:11 Sodium Chloride 0.9% 10 Ml Flush Syringe IV 10 ml BID RM Administration Sodium Chloride 10 ml 12/27/20 23:59 Sodium Chloride 0.9% 10 Ml Flush Syringe IV PRN PRN LINE FLUSH Nutrition/Malnutrition Assess - Dietary Evaluation Nutrition/Malnutrition Findings: Nutrition Notes Start: 12/28/20 12:07 Freq: Status: Active Protocol: Document 12/28/20 12:07 GB (Rec: 12/28/20 12:19 GB [id number]) Nutrition Notes Need for Assessment generated from: MD Order Initial or Follow up Assessment Current Diagnosis Diabetes,Hypertension,Stroke Other Pertinent Diagnosis Dementia, AMS Current Diet Cardiac/consistent carbohydrate Labs/Tests 12/27: BUN 45, creatinine 2.4, glucose 140, Ca 10.8, Tg 159 Pertinent Medications reviewed Height 6 ft 1 in Weight 67.9 kg [place] Body Weight (kg) 83.63 BMI 19.7 Weight change and time frame Admit weight. No reported weight changes Weight Status Appropriate Subjective/Other Information Consult for Diet education. Pt with dementia, one word responses and/or head nods, limited use of extremities per chart. Pt is not a candidate for diet education. If family is present and would like a consult RD available to educate family. Percent of energy/protein needs met: Unable to assess as no po intake recorded at this time. Per chart nutrition noted as possibly inadequate. Burn Absent Trauma Absent GI Symptoms None Food Allergy No Skin Integrity/Comment No complications reported #1 Nutrition Diagnosis Predicted suboptimal energy intake Etiology BMI 19.7 As Evidenced by Signs and Symptoms per chart: nutrition reported as inadequate, IBW 82%. Is patient on ventilator? No Is Patient Ambulatory and/or Out of Bed No REE-([facility]-confined to bed) 1809.168 Kcal/Kg value to use for calculation 27 Approximate Energy Requirements Using 1833 kcal/Kg Calculation Used for Recommendations Kcal/kg Additional Notes Protein: 1-1.2 g/kg @ 70k -84g Fluids: 1 ml/kcal or per MD Nutrition Intervention Change Diet Order: continue cardiac/consistent carbohydrate Nutrition Support: n/a Add Supplement/Snack (indicate name/kcal add glucerna BID /protein ) Provides kCal: 440 Provides Protein (gm) 20 Goal #1 PO intake of meals to be 50% or greater TID daily for LOS Goal #2 PO intake of supplement beverages to be 50% or greater daily BID for LOS Goal #3 Weight to maintain +3% current weight during LOS Follow-Up By: 01/04/21 Additional Comments PO intake of meals to be recorded daily. RD placed nutritional supplement order. f/u: po intake meals/ supplements, weight
[2021-01-02] MEDS: D5W/0.45% NACL 1,000 ML IV SCH ×2 (03:26→14:25)
[2021-01-02] MEDS: HEPARIN 5,000 UNIT/1 ML VIAL SUB-Q SCH ×3 (06:53→22:04)
--- NOTE | 2021-01-02 09:39 | Progress Note ---
Assessment and Plan Assessment and plan: (1) Altered mental state Patient has a new diagnosis of acute CVA however he is less responsive today. Vital signs are stable. Most recent blood glucose is 102. We will check head CT scan without contrast and ammonia level. (2) Acute CVA (cerebrovascular accident) Seen by Neurologist. On aspirin and Lipitor. Evaluated by PT/OT. Plan is for discharge home with home health per family request. (3) Hypertension Controlled. Continue current medication. Monitor blood pressure (4) CHHAYA (acute kidney injury) Improved on IV fluid. Creatinine stable at 1.3 since yesterday. Nephrology following (5) Diabetes mellitus Continue sliding scale insulin. Monitor blood glucose. Blood glucose is controlled. (6) Lactic acidosis We will continue on IV fluid and monitor chemistry. (7) DVT prophylaxis On subcutaneous heparin. (8) Positive blood culture . Due to contamination. Does not require antibiotic per ID. (9) Full code status Current Visit: No Status: Acute Plan to address problem: Patient is full code. 12/29/20 Patient with acute ischemic stroke right tanner , left occipital area. Cont Aspirin daily. I discussed case with Neurology. CHHAYA improving. Cr 1.7. Nephrology following. Change ivf to D5NS at 77 because of hypoglycemic episodes. 12/30/20 Patient with acute ischemic stroke right tanner , left occipital area. Cont Aspirin daily. I discussed case with Neurology. CHHAYA improving. Cr 1.6 today from 1.7 yesterday. Nephrology following. Changed ivf to D5NS at 77 because of hypoglycemic episodes. Was told by Emissions Repair Technician that his girlfriend does not want him to go to SNF but wants him to go home with home health instead, when ready. He is not stable for discharge yet because Cr 1.6 low blood glucose. Poss dc in few days when Cr normal and no hypoglycemia. 12/31/2020. ID noted the positive blood cultures due to contamination. Patient is off antibiotic. For possible discharge home tomorrow if cleared by nephrology. 01/01/2021. Patient has worsening mental status. Head CT scan and ammonia level ordered. 01/02/21 Patient with acute ischemic stroke. Altered mental status. Repeat CT Head unremarkable. CHHAYA now resolved. Cr 1.3 History Interval history: Patient with acute stroke and CHHAYA Hospitalist Physical - Physical exam Narrative exam: Gen: Not in acute distress, lying in bed HEENT: Normocephalic, atraumatic Neck: supple, no JVD Lungs: Clear to auscultation Heart: S1 and S2 reg, no murmurs, rubs or gallop Abd:soft, non-tender, non distended, normal bowel sounds Ext: No edema, clubbing or cyanosis Neuro: Awake, right sided weakness, contractures - Constitutional Vitals: Temp Pulse Resp BP Pulse Ox 98.0 F 81 18 136/80 95 01/02/21 08:14 01/02/21 08:14 01/02/21 08:14 01/02/21 08:14 01/02/21 08:14 General appearance: Present: no acute distress, well-nourished HEART Score - HEART Score Troponin: Troponin T 0.094 ng/mL (0.00-0.029) H 12/27/20 21:47 Results - Labs CBC & Chem 7: 12/31/20 05:34 01/01/21 09:30 Labs: Laboratory Last Values WBC 6.5 K/mm3 (4.5-11.0) 12/31/20 05:34 RBC 3.31 M/mm3 (3.65-5.03) L 12/31/20 05:34 Hgb 10.3 gm/dl (11.8-15.2) L 12/31/20 05:34 Hct 30.3 % (35.5-45.6) L 12/31/20 05:34 MCV 91 fl (84-94) 12/31/20 05:34 MCH 31 pg (28-32) 12/31/20 05:34 MCHC 34 % (32-34) 12/31/20 05:34 RDW 17.9 % (13.2-15.2) H 12/31/20 05:34 Plt Count 284 K/mm3 (140-440) 12/31/20 05:34 Lymph % (Auto) 25.7 % (13.4-35.0) 12/29/20 05:48 [place] % (Auto) 8.3 % (0.0-7.3) H 12/29/20 05:48 Eos % (Auto) 3.3 % (0.0-4.3) 12/29/20 05:48 Baso % (Auto) 0.7 % (0.0-1.8) 12/29/20 05:48 Lymph # (Auto) 1.7 K/mm3 (1.2-5.4) 12/29/20 05:48 [place] # (Auto) 0.6 K/mm3 (0.0-0.8) 12/29/20 05:48 Eos # (Auto) 0.2 K/mm3 (0.0-0.4) 12/29/20 05:48 Baso # (Auto) 0.0 K/mm3 (0.0-0.1) 12/29/20 05:48 Seg Neutrophils % 62.0 % (40.0-70.0) 12/29/20 05:48 Seg Neutrophils # 4.2 K/mm3 (1.8-7.7) 12/29/20 05:48 PT 15.0 Sec. (12.2-14.9) H 12/29/20 05:48 INR 1.13 (0.87-1.13) 12/29/20 05:48 APTT 33.2 Sec. (24.2-36.6) 12/27/20 19:39 Thrombin Time 18.9 Sec. (15.1-19.6) 12/27/20 19:39 Sodium 137 mmol/L (137-145) 01/01/21 09:30 Potassium 4.3 mmol/L (3.6-5.0) 01/01/21 09:30 Chloride 108.2 mmol/L (98-107) H 01/01/21 09:30 Carbon Dioxide 18 mmol/L (22-30) L 01/01/21 09:30 Anion Gap 15 mmol/L 01/01/21 09:30 BUN 13 mg/dL (9-20) 01/01/21 09:30 Creatinine 1.3 mg/dL (0.8-1.3) 01/01/21 09:30 Estimated GFR > 60 ml/min 01/01/21 09:30 BUN/Creatinine Ratio 10 % 01/01/21 09:30 Glucose 100 mg/dL (75-100) 01/01/21 09:30 POC Glucose 111 mg/dL (70-105) H 01/01/21 22:35 Lactic Acid 1.80 mmol/L (0.7-2.0) 12/29/20 05:48 Calcium 9.6 mg/dL (8.4-10.2) 01/01/21 09:30 Total Bilirubin 0.20 mg/dL (0.1-1.2) 12/27/20 19:39 Direct Bilirubin < 0.2 mg/dL (0-0.2) 12/27/20 19:39 Indirect Bilirubin 0.0 mg/dL 12/27/20 19:39 AST 15 units/L (5-40) 12/27/20 19:39 ALT 9 units/L (7-56) 12/27/20 19:39 Alkaline Phosphatase 101 units/L (35-129) 12/27/20 19:39 Ammonia 11.0 umol/L (25-60) L 01/01/21 13:59 Total Creatine Kinase 135 units/L (55-170) 12/27/20 19:39 CK-MB (CK-2) 4.5 ng/mL (0.0-4.0) H 12/27/20 19:39 CK-MB (CK-2) Rel Index 3.3 (0-4) 12/27/20 19:39 Troponin T 0.094 ng/mL (0.00-0.029) H 12/27/20 21:47 Total Protein 7.2 g/dL (6.3-8.2) 12/27/20 19:39 Albumin 3.4 g/dL (3.9-5) L 12/27/20 19:39 Albumin/Globulin Ratio 0.9 % 12/27/20 19:39 Triglycerides 159 mg/dL (2-149) H 12/27/20 19:39 Cholesterol 125 mg/dL (50-199) 12/27/20 19:39 LDL Cholesterol Direct 61 mg/dL (50-130) 12/27/20 19:39 HDL Cholesterol 33 mg/dL (40-59) L 12/27/20 19:39 Cholesterol/HDL Ratio 3.78 % 12/27/20 19:39 Vitamin B12 490.6 pg/mL (211-911) 12/28/20 16:16 TSH 0.497 mlU/mL (0.270-4.200) 12/28/20 16:16 Urine Color Yellow (Yellow) 12/27/20 03:58 Urine Turbidity Clear (Clear) 12/27/20 03:58 Urine pH 5.0 (5.0-7.0) 12/27/20 03:58 Ur Specific [place] 1.017 (1.003-1.030) 12/27/20 03:58 Urine Protein <15 mg/dl mg/dL (Negative) 12/27/20 03:58 Urine Glucose (UA) Neg mg/dL (Negative) 12/27/20 03:58 Urine Ketones Neg mg/dL (Negative) 12/27/20 03:58 Urine Blood Neg (Negative) 12/27/20 03:58 Urine Nitrite Neg (Negative) 12/27/20 03:58 Urine Bilirubin Neg (Negative) 12/27/20 03:58 Urine Urobilinogen < 2.0 mg/dL (<2.0) 12/27/20 03:58 Ur Leukocyte Esterase Neg (Negative) 12/27/20 03:58 Urine WBC (Auto) 1.0 /HPF (0.0-6.0) 12/27/20 03:58 Urine RBC (Auto) 2.0 /HPF (0.0-6.0) 12/27/20 03:58 U Epithel Cells (Auto) < 1.0 /HPF (0-13.0) 12/27/20 03:58 Urine Bacteria (Auto) 1+ /HPF (Negative) 12/27/20 03:58 Hyaline Casts 3 /LPF 12/27/20 03:58 Urine Mucus Few /HPF 12/27/20 03:58 Urine Yeast (Budding) Few /HPF 12/27/20 03:58 Microbiology: Microbiology 12/27/20 19:59 Peripheral/Venous Blood Culture - Final NO GROWTH AFTER 5 DAYS Edwards/IV: Voiding Method Condom Catheter Active Medications - Current Medications Current Medications: Generic Name Dose Route Start Last Admin Trade Name Freq PRN Reason Stop Dose Admin Acetaminophen 650 mg 12/27/20 23:59 Acetaminophen 325 Mg Tab PO Q4H PRN Pain MILD(1-3)/Fever >100.5/JOHNSON Aspirin 325 mg 12/28/20 10:00 01/01/21 10:11 Aspirin 325 Mg Tab PO 325 mg QDAY RM Administration Atorvastatin Calcium 40 mg 12/28/20 22:00 01/01/21 23:09 Atorvastatin 40 Mg Tab PO 40 mg QHS RM Administration Bisacodyl 10 mg 12/27/20 23:59 Bisacodyl 10 Mg Rect Supp [place] QDAY PRN Constipation Dextrose 0 ml 12/27/20 23:59 12/30/20 00:03 Dextrose 50% In Water (25gm) 50 Ml Syringe IV 10 ml Q30MIN PRN Administration Hypoglycemia Protocol Heparin Sodium (Porcine) 5,000 unit 12/28/20 06:00 01/02/21 06:53 Heparin 5,000 Unit/1 Ml Vial SUB-Q 5,000 unit Q8HR RM Administration Dextrose/Sodium Chloride 1,000 mls @ 75 mls/hr 12/30/20 11:00 01/02/21 03:26 D5/0.45ns IV 75 mls/hr DIRECT RM Administration Insulin Human Regular 0 units 12/28/20 07:30 01/01/21 23:01 Insulin Regular, Human 100 Units/1 Ml SUB-Q Not Given ACHS RM Protocol Magnesium Hydroxide 30 ml 12/27/20 23:59 Magnesium Hydroxide (Mom) Oral Liqd Udc PO Q4H PRN Constipation Metoclopramide HCl 5 mg 12/27/20 23:59 Metoclopramide 10 Mg Tab PO Q6H PRN Nausea And Vomiting Metoprolol Tartrate 25 mg 12/30/20 13:00 01/01/21 23:09 Metoprolol Tartrate 25 Mg Tab PO 25 mg BID RM Administration Morphine Sulfate 2 mg 12/27/20 23:59 12/29/20 00:02 Morphine 2 Mg/1 Ml Inj IV 2 mg Q4H PRN Administration Pain, Moderate (4-6) Morphine Sulfate 4 mg 12/27/20 23:59 Morphine 4 Mg/1 Ml Inj IV Q4H PRN Pain , Severe (7-10) Ondansetron HCl 4 mg 12/27/20 23:59 Ondansetron 4 Mg/2 Ml Inj IV Q8H PRN Nausea And Vomiting Promethazine HCl 25 mg 12/27/20 23:59 Promethazine 25 Mg Rect Supp [place] Q6H PRN Nausea And Vomiting Sodium Bicarbonate 650 mg 12/30/20 14:00 01/01/21 23:10 Sodium Bicarbonate 650 Mg Tab PO 650 mg TID RM Administration Sodium Chloride 10 ml 12/28/20 10:00 01/01/21 23:10 Sodium Chloride 0.9% 10 Ml Flush Syringe IV 10 ml BID RM Administration Sodium Chloride 10 ml 10/03/21 23:59 Sodium Chloride 0.9% 10 Ml Flush Syringe IV PRN PRN LINE FLUSH Nutrition/Malnutrition Assess - Dietary Evaluation Nutrition/Malnutrition Findings: Nutrition Notes Start: 12/28/20 12:07 Freq: Status: Active Protocol: Document 12/28/20 12:07 GB (Rec: 12/28/20 12:19 GB [id number]) Nutrition Notes Need for Assessment generated from: MD Order Initial or Follow up Assessment Current Diagnosis Diabetes,Hypertension,Stroke Other Pertinent Diagnosis Dementia, AMS Current Diet Cardiac/consistent carbohydrate Labs/Tests 12/27: BUN 45, creatinine 2.4, glucose 140, Ca 10.8, Tg 159 Pertinent Medications reviewed Height 6 ft 1 in Weight 67.9 kg [place] Body Weight (kg) 83.63 BMI 19.7 Weight change and time frame Admit weight. No reported weight changes Weight Status Appropriate Subjective/Other Information Consult for Diet education. Pt with dementia, one word responses and/or head nods, limited use of extremities per chart. Pt is not a candidate for diet education. If family is present and would like a consult RD available to educate family. Percent of energy/protein needs met: Unable to assess as no po intake recorded at this time. Per chart nutrition noted as possibly inadequate. Burn Absent Trauma Absent GI Symptoms None Food Allergy No Skin Integrity/Comment No complications reported #1 Nutrition Diagnosis Predicted suboptimal energy intake Etiology BMI 19.7 As Evidenced by Signs and Symptoms per chart: nutrition reported as inadequate, IBW 82%. Is patient on ventilator? No Is Patient Ambulatory and/or Out of Bed No REE-([facility]-confined to bed) 1809.168 Kcal/Kg value to use for calculation 27 Approximate Energy Requirements Using 1833 kcal/Kg Calculation Used for Recommendations Kcal/kg Additional Notes Protein: 1-1.2 g/kg @ 70k -84g Fluids: 1 ml/kcal or per MD Nutrition Intervention Change Diet Order: continue cardiac/consistent carbohydrate Nutrition Support: n/a Add Supplement/Snack (indicate name/kcal add glucerna BID /protein ) Provides kCal: 440 Provides Protein (gm) 20 Goal #1 PO intake of meals to be 50% or greater TID daily for LOS Goal #2 PO intake of supplement beverages to be 50% or greater daily BID for LOS Goal #3 Weight to maintain +3% current weight during LOS Follow-Up By: 01/04/21 Additional Comments PO intake of meals to be recorded daily. RD placed nutritional supplement order. f/u: po intake meals/ supplements, weight
--- NOTE | 2021-01-02 09:43 | Progress Note ---
Assessment and Plan # Acute Kidney Injury: creatinine 2.4 on arrival, improved to 1.7->1.6->1.3 with IVF, was 1.0 in August 2020. Suspect pre-renal injury given elevated lactate, potential CVA and poor po intake - continue D5 1/2NS with po HCO3, no labs for review today - po hydration/nutrition as able - urinalysis bland, defer serologies - defer renal imaging for now - avoid nephrotoxins - Is/Os, note non-oliguria with ~1L urine output - renally dose medications - maintain MAP>65 - no immediate need for renal replacement therapy # Metabolic Acidosis/Lactic Acidosis: continue IVF as tolerated, note GNR bacteremia now. Replete HCO3 as noted, HCO3 14->16->18 # Acute CVA, AMS: neurology input appreciated # Hypotension: IVF for now, po intake once able; BP now more stable # DM Subjective Date of service: 01/02/21 Principal diagnosis: right side weakness ? Interval history: More drowsy this AM, resting without acute issues Objective - Exam Narrative Exam: General appearance: obese, no distress, fatigue, frail EENT: ATNC Neck: Present: neck supple Respiratory: Clear to Ascultation Heart: regular, S1S2 Gastrointestinal: Present: normoactive bowel sounds Integumentary: no rash, warm and dry Neurologic: disoriented, obtunded Psychiatric: other (drowsy) - Vital Signs Vital signs: Vital Signs - 12hr 01/01/21 01/01/21 01/02/21 22:00 23:00 03:27 Temperature 99.2 F 98.6 F Pulse Rate 87 81 Respiratory 18 18 Rate Blood Pressure 118/82 132/86 O2 Sat by Pulse 95 97 99 Oximetry 01/02/21 08:14 Temperature 98.0 F Pulse Rate 81 Respiratory 18 Rate Blood Pressure 136/80 O2 Sat by Pulse 95 Oximetry - Lab 12/31/20 05:34 01/01/21 09:30 Most recent lab results Calcium 9.6 mg/dL (8.4-10.2) 01/01/21 09:30 Medications & Allergies - Medications Allergies/Adverse Reactions: Allergies No Known Allergies Allergy (Verified 08/06/19 15:49) Home Medications: Home Medications Medication Instructions Recorded Confirmed Last Taken Type Aspirin EC [Ecotrin] 325 mg PO QDAY #30 tablet 07/29/14 12/30/20 Unknown Rx Simvastatin (Nf) [Zocor TAB] 20 mg PO QHS #30 tablet 07/29/14 12/30/20 Unknown Rx Metoprolol [Lopressor TAB] 25 mg PO BID #60 tablet 06/25/15 12/30/20 Unknown Rx lisinopriL [Zestril TAB] 5 mg PO QDAY #30 tablet 06/25/15 12/30/20 Unknown Rx Benzonatate [Tessalon Perles] 100 mg PO Q12H PRN #20 capsule 08/06/19 12/30/20 Unknown Rx Cetirizine HCl [ZyrTEC 10mg cap] 10 mg PO DAILY #30 capsule 08/06/19 12/30/20 Unknown Rx Fluticasone [Flonase] 1 spray NS QDAY #1 bottle 08/06/19 12/30/20 Unknown Rx Insulin Aspart [Insulin Aspart See Protocol SQ AC #1 insuln.pen 07/15/20 12/30/20 Unknown Rx Flexpen] Magnesium Oxide [Mag-Ox] 400 mg PO BID #10 tablet 09/09/20 12/30/20 Unknown Rx Potassium Chloride 40 meq PO DAILY #20 tablet.er 09/09/20 12/30/20 Unknown Rx Active Medications: Generic Name Dose Route Start Last Admin Trade Name Freq PRN Reason Stop Dose Admin Acetaminophen 650 mg 12/27/20 23:59 Acetaminophen 325 Mg Tab PO Q4H PRN Pain MILD(1-3)/Fever >100.5/JOHNSON Aspirin 325 mg 12/28/20 10:00 01/01/21 10:11 Aspirin 325 Mg Tab PO 325 mg QDAY RM Administration Atorvastatin Calcium 40 mg 12/28/20 22:00 01/01/21 23:09 Atorvastatin 40 Mg Tab PO 40 mg QHS RM Administration Bisacodyl 10 mg 12/27/20 23:59 Bisacodyl 10 Mg Rect Supp [place] QDAY PRN Constipation Dextrose 0 ml 12/27/20 23:59 12/30/20 00:03 Dextrose 50% In Water (25gm) 50 Ml Syringe IV 10 ml Q30MIN PRN Administration Hypoglycemia Protocol Heparin Sodium (Porcine) 5,000 unit 12/28/20 06:00 01/02/21 06:53 Heparin 5,000 Unit/1 Ml Vial SUB-Q 5,000 unit Q8HR RM Administration Dextrose/Sodium Chloride 1,000 mls @ 75 mls/hr 12/30/20 11:00 01/02/21 03:26 D5/0.45ns IV 75 mls/hr DIRECT RM Administration Insulin Human Regular 0 units 12/28/20 07:30 01/01/21 23:01 Insulin Regular, Human 100 Units/1 Ml SUB-Q Not Given ACHS [facility] Protocol Magnesium Hydroxide 30 ml 12/27/20 23:59 Magnesium Hydroxide (Mom) Oral Liqd Udc PO Q4H PRN Constipation Metoclopramide HCl 5 mg 12/27/20 23:59 Metoclopramide 10 Mg Tab PO Q6H PRN Nausea And Vomiting Metoprolol Tartrate 25 mg 12/30/20 13:00 01/01/21 23:09 Metoprolol Tartrate 25 Mg Tab PO 25 mg BID RM Administration Morphine Sulfate 2 mg 12/27/20 23:59 12/29/20 00:02 Morphine 2 Mg/1 Ml Inj IV 2 mg Q4H PRN Administration Pain, Moderate (4-6) Morphine Sulfate 4 mg 12/27/20 23:59 Morphine 4 Mg/1 Ml Inj IV Q4H PRN Pain , Severe (7-10) Ondansetron HCl 4 mg 12/27/20 23:59 Ondansetron 4 Mg/2 Ml Inj IV Q8H PRN Nausea And Vomiting Promethazine HCl 25 mg 12/27/20 23:59 Promethazine 25 Mg Rect Supp [place] Q6H PRN Nausea And Vomiting Sodium Bicarbonate 650 mg 12/30/20 14:00 01/01/21 23:10 Sodium Bicarbonate 650 Mg Tab PO 650 mg TID RM Administration Sodium Chloride 10 ml 12/28/20 10:00 01/01/21 23:10 Sodium Chloride 0.9% 10 Ml Flush Syringe IV 10 ml BID RM Administration Sodium Chloride 10 ml 12/27/20 23:59 Sodium Chloride 0.9% 10 Ml Flush Syringe IV PRN PRN LINE FLUSH
[2021-01-02] MEDS: INSULIN REGULAR, HUMAN 100 UNITS/1 ML SUB-Q SCH ×4 (10:08→22:11)
[2021-01-02] MEDS: ASPIRIN 325 MG TAB PO SCH (10:10)
[2021-01-02] MEDS: METOPROLOL TARTRATE 25 MG TAB PO SCH ×2 (10:10→22:04)
[2021-01-02] MEDS: SODIUM BICARBONATE 650 MG TAB PO SCH ×3 (10:10→22:04)
[2021-01-03] MEDS: D5W/0.45% NACL 1,000 ML IV SCH ×2 (04:51→22:48)
[2021-01-03] MEDS: HEPARIN 5,000 UNIT/1 ML VIAL SUB-Q SCH ×3 (05:34→22:41)
[2021-01-03] MEDS: INSULIN REGULAR, HUMAN 100 UNITS/1 ML SUB-Q SCH ×4 (08:39→22:42)
[2021-01-03] MEDS: SODIUM BICARBONATE 650 MG TAB PO SCH ×3 (08:50→22:40)
--- NOTE | 2021-01-03 09:12 | Progress Note ---
Assessment and Plan Assessment and plan: (1) Altered mental state Patient has a new diagnosis of acute CVA however he is less responsive today. Vital signs are stable. Most recent blood glucose is 102. We will check head CT scan without contrast and ammonia level. (2) Acute CVA (cerebrovascular accident) Seen by Neurologist. On aspirin and Lipitor. Evaluated by PT/OT. Plan is for discharge home with home health per family request. (3) Hypertension Controlled. Continue current medication. Monitor blood pressure (4) CHHAYA (acute kidney injury) Improved on IV fluid. Creatinine stable at 1.3 since yesterday. Nephrology following (5) Diabetes mellitus Continue sliding scale insulin. Monitor blood glucose. Blood glucose is controlled. (6) Lactic acidosis We will continue on IV fluid and monitor chemistry. (7) DVT prophylaxis On subcutaneous heparin. (8) Positive blood culture . Due to contamination. Does not require antibiotic per ID. (9) Full code status Current Visit: No Status: Acute Plan to address problem: Patient is full code. 12/29/20 Patient with acute ischemic stroke right tanner , left occipital area. Cont Aspirin daily. I discussed case with Neurology. CHHAYA improving. Cr 1.7. Nephrology following. Change ivf to D5NS at 77 because of hypoglycemic episodes. 12/30/20 Patient with acute ischemic stroke right tanner , left occipital area. Cont Aspirin daily. I discussed case with Neurology. CHHAYA improving. Cr 1.6 today from 1.7 yesterday. Nephrology following. Changed ivf to D5NS at 77 because of hypoglycemic episodes. Was told by Medical Appointment Scheduler that his girlfriend does not want him to go to SNF but wants him to go home with home health instead, when ready. He is not stable for discharge yet because Cr 1.6 low blood glucose. Poss dc in few days when Cr normal and no hypoglycemia. 12/31/2020. ID noted the positive blood cultures due to contamination. Patient is off antibiotic. For possible discharge home tomorrow if cleared by nephrology. 01/01/2021. Patient has worsening mental status. Head CT scan and ammonia level ordered. 01/02/21 Patient with acute ischemic stroke. Altered mental status. Repeat CT Head unremarkable. CHHAYA now resolved. Cr 1.3 01/03/21 Patient with acute ischemic stroke with altered mental status. His CHHAYA is now resolved. Likely discharge home tomorrow. History Interval history: Patient with acute stroke and CHHAYA Hospitalist Physical - Physical exam Narrative exam: Gen: Not in acute distress, lying in bed HEENT: Normocephalic, atraumatic Neck: supple, no JVD Lungs: Clear to auscultation Heart: S1 and S2 reg, no murmurs, rubs or gallop Abd:soft, non-tender, non distended, normal bowel sounds Ext: No edema, clubbing or cyanosis Neuro: Awake, right sided weakness, contractures - Constitutional Vitals: Temp Pulse Resp BP Pulse Ox 97.0 F L 88 20 138/92 96 01/03/21 08:16 01/03/21 08:16 01/03/21 08:16 01/03/21 08:16 01/03/21 08:16 General appearance: Present: no acute distress, well-nourished HEART Score - HEART Score Troponin: Troponin T 0.094 ng/mL (0.00-0.029) H 12/27/20 21:47 Results - Labs CBC & Chem 7: 12/31/20 05:34 01/01/21 09:30 Labs: Laboratory Last Values WBC 6.5 K/mm3 (4.5-11.0) 12/31/20 05:34 RBC 3.31 M/mm3 (3.65-5.03) L 12/31/20 05:34 Hgb 10.3 gm/dl (11.8-15.2) L 12/31/20 05:34 Hct 30.3 % (35.5-45.6) L 12/31/20 05:34 MCV 91 fl (84-94) 12/31/20 05:34 MCH 31 pg (28-32) 12/31/20 05:34 MCHC 34 % (32-34) 12/31/20 05:34 RDW 17.9 % (13.2-15.2) H 12/31/20 05:34 Plt Count 284 K/mm3 (140-440) 12/31/20 05:34 Lymph % (Auto) 25.7 % (13.4-35.0) 12/29/20 05:48 [place] % (Auto) 8.3 % (0.0-7.3) H 12/29/20 05:48 Eos % (Auto) 3.3 % (0.0-4.3) 12/29/20 05:48 Baso % (Auto) 0.7 % (0.0-1.8) 12/29/20 05:48 Lymph # (Auto) 1.7 K/mm3 (1.2-5.4) 12/29/20 05:48 [place] # (Auto) 0.6 K/mm3 (0.0-0.8) 12/29/20 05:48 Eos # (Auto) 0.2 K/mm3 (0.0-0.4) 12/29/20 05:48 Baso # (Auto) 0.0 K/mm3 (0.0-0.1) 12/29/20 05:48 Seg Neutrophils % 62.0 % (40.0-70.0) 12/29/20 05:48 Seg Neutrophils # 4.2 K/mm3 (1.8-7.7) 12/29/20 05:48 PT 15.0 Sec. (12.2-14.9) H 12/29/20 05:48 INR 1.13 (0.87-1.13) 12/29/20 05:48 APTT 33.2 Sec. (24.2-36.6) 12/27/20 19:39 Thrombin Time 18.9 Sec. (15.1-19.6) 12/27/20 19:39 Sodium 137 mmol/L (137-145) 01/01/21 09:30 Potassium 4.3 mmol/L (3.6-5.0) 01/01/21 09:30 Chloride 108.2 mmol/L (98-107) H 01/01/21 09:30 Carbon Dioxide 18 mmol/L (22-30) L 01/01/21 09:30 Anion Gap 15 mmol/L 01/01/21 09:30 BUN 13 mg/dL (9-20) 01/01/21 09:30 Creatinine 1.3 mg/dL (0.8-1.3) 01/01/21 09:30 Estimated GFR > 60 ml/min 01/01/21 09:30 BUN/Creatinine Ratio 10 % 01/01/21 09:30 Glucose 100 mg/dL (75-100) 01/01/21 09:30 POC Glucose 98 mg/dL (70-105) 01/03/21 08:15 Lactic Acid 1.80 mmol/L (0.7-2.0) 12/29/20 05:48 Calcium 9.6 mg/dL (8.4-10.2) 01/01/21 09:30 Total Bilirubin 0.20 mg/dL (0.1-1.2) 12/27/20 19:39 Direct Bilirubin < 0.2 mg/dL (0-0.2) 12/27/20 19:39 Indirect Bilirubin 0.0 mg/dL 12/27/20 19:39 AST 15 units/L (5-40) 12/27/20 19:39 ALT 9 units/L (7-56) 12/27/20 19:39 Alkaline Phosphatase 101 units/L (35-129) 12/27/20 19:39 Ammonia 11.0 umol/L (25-60) L 01/01/21 13:59 Total Creatine Kinase 135 units/L (55-170) 12/27/20 19:39 CK-MB (CK-2) 4.5 ng/mL (0.0-4.0) H 12/27/20 19:39 CK-MB (CK-2) Rel Index 3.3 (0-4) 12/27/20 19:39 Troponin T 0.094 ng/mL (0.00-0.029) H 12/27/20 21:47 Total Protein 7.2 g/dL (6.3-8.2) 12/27/20 19:39 Albumin 3.4 g/dL (3.9-5) L 12/27/20 19:39 Albumin/Globulin Ratio 0.9 % 12/27/20 19:39 Triglycerides 159 mg/dL (2-149) H 12/27/20 19:39 Cholesterol 125 mg/dL (50-199) 12/27/20 19:39 LDL Cholesterol Direct 61 mg/dL (50-130) 12/27/20 19:39 HDL Cholesterol 33 mg/dL (40-59) L 12/27/20 19:39 Cholesterol/HDL Ratio 3.78 % 12/27/20 19:39 Vitamin B12 490.6 pg/mL (211-911) 12/28/20 16:16 TSH 0.497 mlU/mL (0.270-4.200) 12/28/20 16:16 Urine Color Yellow (Yellow) 12/27/20 03:58 Urine Turbidity Clear (Clear) 12/27/20 03:58 Urine pH 5.0 (5.0-7.0) 12/27/20 03:58 Ur Specific [place] 1.017 (1.003-1.030) 12/27/20 03:58 Urine Protein <15 mg/dl mg/dL (Negative) 12/27/20 03:58 Urine Glucose (UA) Neg mg/dL (Negative) 12/27/20 03:58 Urine Ketones Neg mg/dL (Negative) 12/27/20 03:58 Urine Blood Neg (Negative) 12/27/20 03:58 Urine Nitrite Neg (Negative) 12/27/20 03:58 Urine Bilirubin Neg (Negative) 12/27/20 03:58 Urine Urobilinogen < 2.0 mg/dL (<2.0) 12/27/20 03:58 Ur Leukocyte Esterase Neg (Negative) 12/27/20 03:58 Urine WBC (Auto) 1.0 /HPF (0.0-6.0) 12/27/20 03:58 Urine RBC (Auto) 2.0 /HPF (0.0-6.0) 12/27/20 03:58 U Epithel Cells (Auto) < 1.0 /HPF (0-13.0) 12/27/20 03:58 Urine Bacteria (Auto) 1+ /HPF (Negative) 12/27/20 03:58 Hyaline Casts 3 /LPF 12/27/20 03:58 Urine Mucus Few /HPF 12/27/20 03:58 Urine Yeast (Budding) Few /HPF 12/27/20 03:58 Microbiology: Microbiology 12/27/20 19:59 Peripheral/Venous Blood Culture - Final NO GROWTH AFTER 5 DAYS Edwards/IV: Voiding Method Indwelling Catheter Active Medications - Current Medications Current Medications: Generic Name Dose Route Start Last Admin Trade Name Freq PRN Reason Stop Dose Admin Acetaminophen 650 mg 12/27/20 23:59 Acetaminophen 325 Mg Tab PO Q4H PRN Pain MILD(1-3)/Fever >100.5/JOHNSON Aspirin 325 mg 12/28/20 10:00 01/02/21 10:10 Aspirin 325 Mg Tab PO 325 mg QDAY RM Administration Atorvastatin Calcium 40 mg 12/28/20 22:00 01/02/21 22:04 Atorvastatin 40 Mg Tab PO 40 mg QHS RM Administration Bisacodyl 10 mg 12/27/20 23:59 Bisacodyl 10 Mg Rect Supp [place] QDAY PRN Constipation Dextrose 0 ml 12/27/20 23:59 12/30/20 00:03 Dextrose 50% In Water (25gm) 50 Ml Syringe IV 10 ml Q30MIN PRN Administration Hypoglycemia Protocol Heparin Sodium (Porcine) 5,000 unit 12/28/20 06:00 01/03/21 05:34 Heparin 5,000 Unit/1 Ml Vial SUB-Q 5,000 unit Q8HR RM Administration Dextrose/Sodium Chloride 1,000 mls @ 75 mls/hr 12/30/20 11:00 01/03/21 04:51 D5/0.45ns IV 75 mls/hr DIRECT RM Administration Insulin Human Regular 0 units 12/28/20 07:30 01/03/21 08:39 Insulin Regular, Human 100 Units/1 Ml SUB-Q Not Given ACHS RM Protocol Magnesium Hydroxide 30 ml 12/27/20 23:59 Magnesium Hydroxide (Mom) Oral Liqd Udc PO Q4H PRN Constipation Metoclopramide HCl 5 mg 12/27/20 23:59 Metoclopramide 10 Mg Tab PO Q6H PRN Nausea And Vomiting Metoprolol Tartrate 25 mg 12/30/20 13:00 01/02/21 22:04 Metoprolol Tartrate 25 Mg Tab PO 25 mg BID RM Administration Morphine Sulfate 2 mg 12/27/20 23:59 12/29/20 00:02 Morphine 2 Mg/1 Ml Inj IV 2 mg Q4H PRN Administration Pain, Moderate (4-6) Morphine Sulfate 4 mg 12/27/20 23:59 Morphine 4 Mg/1 Ml Inj IV Q4H PRN Pain , Severe (7-10) Ondansetron HCl 4 mg 12/27/20 23:59 Ondansetron 4 Mg/2 Ml Inj IV Q8H PRN Nausea And Vomiting Promethazine HCl 25 mg 12/27/20 23:59 Promethazine 25 Mg Rect Supp [place] Q6H PRN Nausea And Vomiting Sodium Bicarbonate 650 mg 12/30/20 14:00 01/03/21 08:50 Sodium Bicarbonate 650 Mg Tab PO 650 mg TID RM Administration Sodium Chloride 10 ml 12/28/20 10:00 01/02/21 22:05 Sodium Chloride 0.9% 10 Ml Flush Syringe IV 10 ml BID RM Administration Sodium Chloride 10 ml 12/27/20 23:59 Sodium Chloride 0.9% 10 Ml Flush Syringe IV PRN PRN LINE FLUSH Nutrition/Malnutrition Assess - Dietary Evaluation Nutrition/Malnutrition Findings: Nutrition Notes Start: 12/28/20 12:07 Freq: Status: Active Protocol: Document 12/28/20 12:07 GB (Rec: 12/28/20 12:19 GB [email or web address]) Nutrition Notes Need for Assessment generated from: MD Order Initial or Follow up Assessment Current Diagnosis Diabetes,Hypertension,Stroke Other Pertinent Diagnosis Dementia, AMS Current Diet Cardiac/consistent carbohydrate Labs/Tests 12/27: BUN 45, creatinine 2.4, glucose 140, Ca 10.8, Tg 159 Pertinent Medications reviewed Height 6 ft 1 in Weight 67.9 kg [place] Body Weight (kg) 83.63 BMI 19.7 Weight change and time frame Admit weight. No reported weight changes Weight Status Appropriate Subjective/Other Information Consult for Diet education. Pt with dementia, one word responses and/or head nods, limited use of extremities per chart. Pt is not a candidate for diet education. If family is present and would like a consult RD available to educate family. Percent of energy/protein needs met: Unable to assess as no po intake recorded at this time. Per chart nutrition noted as possibly inadequate. Burn Absent Trauma Absent GI Symptoms None Food Allergy No Skin Integrity/Comment No complications reported #1 Nutrition Diagnosis Predicted suboptimal energy intake Etiology BMI 19.7 As Evidenced by Signs and Symptoms per chart: nutrition reported as inadequate, IBW 82%. Is patient on ventilator? No Is Patient Ambulatory and/or Out of Bed No REE-([place]-confined to bed) 1809.168 Kcal/Kg value to use for calculation 27 Approximate Energy Requirements Using 1833 kcal/Kg Calculation Used for Recommendations Kcal/kg Additional Notes Protein: 1-1.2 g/kg @ 70k -84g Fluids: 1 ml/kcal or per Nutrition Intervention Change Diet Order: continue cardiac/consistent carbohydrate Nutrition Support: n/a Add Supplement/Snack (indicate name/kcal add glucerna BID /protein ) Provides kCal: 440 Provides Protein (gm) 20 Goal #1 PO intake of meals to be 50% or greater TID daily for LOS Goal #2 PO intake of supplement beverages to be 50% or greater daily BID for LOS Goal #3 Weight to maintain +3% current weight during LOS Follow-Up By: 01/04/21 Additional Comments PO intake of meals to be recorded daily. RD placed nutritional supplement order. f/u: po intake meals/ supplements, weight
--- NOTE | 2021-01-03 09:43 | Progress Note ---
Assessment and Plan # Acute Kidney Injury: creatinine 2.4 on arrival, improved to 1.7->1.6->1.3 with IVF, was 1.0 in August 2020. Suspect pre-renal injury given elevated lactate, potential CVA and poor po intake - continue D5 1/2NS with po HCO3, no labs for review today, order for AM - po hydration/nutrition as able - urinalysis bland, defer serologies - defer renal imaging for now - avoid nephrotoxins - Is/Os, note non-oliguria with ~1L urine output - renally dose medications - maintain MAP>65 - no immediate need for renal replacement therapy # Metabolic Acidosis/Lactic Acidosis: continue IVF as tolerated, note GNR bacteremia now. Replete HCO3 as noted, HCO3 14->16->18 # Acute CVA, AMS: neurology input appreciated # Hypotension: IVF for now, po intake once able; BP now more stable # DM Subjective Date of service: 01/03/21 Principal diagnosis: right side weakness ? Interval history: remains drowsy this AM, resting without acute issues Objective - Exam Narrative Exam: General appearance: obese, no distress, fatigue, frail EENT: ATNC Neck: Present: neck supple Respiratory: Clear to Ascultation Heart: regular, S1S2 Gastrointestinal: Present: normoactive bowel sounds Integumentary: no rash, warm and dry Neurologic: disoriented, obtunded Psychiatric: other (drowsy) - Vital Signs Vital signs: Vital Signs - 12hr 01/02/21 01/02/21 01/03/21 23:00 23:43 08:16 Temperature 98.3 F 97.0 F L Pulse Rate 87 88 Respiratory 18 18 20 Rate Blood Pressure 141/95 138/92 O2 Sat by Pulse 98 100 96 Oximetry - Lab 12/31/20 05:34 01/01/21 09:30 Most recent lab results Calcium 9.6 mg/dL (8.4-10.2) 01/01/21 09:30 Medications & Allergies - Medications Allergies/Adverse Reactions: Allergies No Known Allergies Allergy (Verified 08/06/19 15:49) Home Medications: Home Medications Medication Instructions Recorded Confirmed Last Taken Type Aspirin EC [Ecotrin] 325 mg PO QDAY #30 tablet 07/29/14 12/30/20 Unknown Rx Simvastatin (Nf) [Zocor TAB] 20 mg PO QHS #30 tablet 07/29/14 12/30/20 Unknown Rx Metoprolol [Lopressor TAB] 25 mg PO BID #60 tablet 06/25/15 12/30/20 Unknown Rx lisinopriL [Zestril TAB] 5 mg PO QDAY #30 tablet 06/25/15 12/30/20 Unknown Rx Benzonatate [Tessalon Perles] 100 mg PO Q12H PRN #20 capsule 08/06/19 12/30/20 Unknown Rx Cetirizine HCl [ZyrTEC 10mg cap] 10 mg PO DAILY #30 capsule 08/06/19 12/30/20 Unknown Rx Fluticasone [Flonase] 1 spray NS QDAY #1 bottle 08/06/19 12/30/20 Unknown Rx Insulin Aspart [Insulin Aspart See Protocol SQ AC #1 insuln.pen 07/15/20 12/30/20 Unknown Rx Flexpen] Magnesium Oxide [Mag-Ox] 400 mg PO BID #10 tablet 09/09/20 12/30/20 Unknown Rx Potassium Chloride 40 meq PO DAILY #20 tablet.er 09/09/20 12/30/20 Unknown Rx Active Medications: Generic Name Dose Route Start Last Admin Trade Name Freq PRN Reason Stop Dose Admin Acetaminophen 650 mg 12/27/20 23:59 Acetaminophen 325 Mg Tab PO Q4H PRN Pain MILD(1-3)/Fever >100.5/JOHNSON Aspirin 325 mg 12/28/20 10:00 01/02/21 10:10 Aspirin 325 Mg Tab PO 325 mg QDAY RM Administration Atorvastatin Calcium 40 mg 12/28/20 22:00 01/02/21 22:04 Atorvastatin 40 Mg Tab PO 40 mg QHS RM Administration Bisacodyl 10 mg 12/27/20 23:59 Bisacodyl 10 Mg Rect Supp [place] QDAY PRN Constipation Dextrose 0 ml 12/27/20 23:59 12/30/20 00:03 Dextrose 50% In Water (25gm) 50 Ml Syringe IV 10 ml Q30MIN PRN Administration Hypoglycemia Protocol Heparin Sodium (Porcine) 5,000 unit 12/28/20 06:00 01/03/21 05:34 Heparin 5,000 Unit/1 Ml Vial SUB-Q 5,000 unit Q8HR RM Administration Dextrose/Sodium Chloride 1,000 mls @ 75 mls/hr 12/30/20 11:00 01/03/21 04:51 D5/0.45ns IV 75 mls/hr DIRECT RM Administration Insulin Human Regular 0 units 12/28/20 07:30 01/03/21 08:39 Insulin Regular, Human 100 Units/1 Ml SUB-Q Not Given ACHS [facility] Protocol Magnesium Hydroxide 30 ml 12/27/20 23:59 Magnesium Hydroxide (Mom) Oral Liqd Udc PO Q4H PRN Constipation Metoclopramide HCl 5 mg 12/27/20 23:59 Metoclopramide 10 Mg Tab PO Q6H PRN Nausea And Vomiting Metoprolol Tartrate 25 mg 12/30/20 13:00 01/02/21 22:04 Metoprolol Tartrate 25 Mg Tab PO 25 mg BID RM Administration Morphine Sulfate 2 mg 12/27/20 23:59 12/29/20 00:02 Morphine 2 Mg/1 Ml Inj IV 2 mg Q4H PRN Administration Pain, Moderate (4-6) Morphine Sulfate 4 mg 12/27/20 23:59 Morphine 4 Mg/1 Ml Inj IV Q4H PRN Pain , Severe (7-10) Ondansetron HCl 4 mg 12/27/20 23:59 Ondansetron 4 Mg/2 Ml Inj IV Q8H PRN Nausea And Vomiting Promethazine HCl 25 mg 12/27/20 23:59 Promethazine 25 Mg Rect Supp [place] Q6H PRN Nausea And Vomiting Sodium Bicarbonate 650 mg 12/30/20 14:00 01/03/21 08:50 Sodium Bicarbonate 650 Mg Tab PO 650 mg TID RM Administration Sodium Chloride 10 ml 12/28/20 10:00 01/02/21 22:05 Sodium Chloride 0.9% 10 Ml Flush Syringe IV 10 ml BID RM Administration Sodium Chloride 10 ml 12/27/20 23:59 Sodium Chloride 0.9% 10 Ml Flush Syringe IV PRN PRN LINE FLUSH
[2021-01-03] MEDS: ASPIRIN 325 MG TAB PO SCH (09:44)
[2021-01-03] MEDS: METOPROLOL TARTRATE 25 MG TAB PO SCH ×2 (09:44→22:41)
[2021-01-03] MEDS: MORPHINE 2 MG/1 ML INJ IV PRN (22:56)
[2021-01-04 02:01] LABS: Calcium 9.9 mg/dL (8.4-10.2)
[2021-01-04] MEDS: MORPHINE 2 MG/1 ML INJ IV PRN (05:28)
[2021-01-04] MEDS: HEPARIN 5,000 UNIT/1 ML VIAL SUB-Q SCH ×3 (05:28→22:31)
[2021-01-04] MEDS ORDERED: INSULIN REGULAR, HUMAN 100 UNITS/1 ML IV STA (07:54)
[2021-01-04] MEDS ORDERED: SODIUM POLYSTYRENE 15 GM/60 ML ORAL LIQD PO STA (07:56)
[2021-01-04] MEDS ORDERED: DEXTROSE 50% IN WATER (25GM) 50 ML VIAL IV STA (07:56)
[2021-01-04] MEDS ORDERED: CALCIUM GLUCONATE 1,000 MG in SODIUM CHLORIDE 0.9% 100 ML IV ONE (08:30)
[2021-01-04] MEDS: DEXTROSE 50% IN WATER (25GM) 50 ML SYRINGE IV PRN (08:37)
[2021-01-04] MEDS: SODIUM BICARBONATE 650 MG TAB PO SCH ×3 (08:40→22:31)
[2021-01-04] MEDS: INSULIN REGULAR, HUMAN 100 UNITS/1 ML SUB-Q SCH ×4 (09:20→21:29)
[2021-01-04] MEDS: ASPIRIN 325 MG TAB PO SCH (09:32)
[2021-01-04] MEDS: METOPROLOL TARTRATE 25 MG TAB PO SCH ×2 (09:32→22:31)
--- NOTE | 2021-01-04 09:52 | Progress Note ---
Assessment and Plan Assessment and plan: (1) Altered mental state Patient has a new diagnosis of acute CVA . He was less responsivefew days ago, repeat CT head was unremarkable. (2) Acute CVA (cerebrovascular accident) Seen by Neurologist. On aspirin and Lipitor. Evaluated by PT/OT. Plan is for discharge home with home health per family request. (3) Hypertension Controlled. Continue current medication. Monitor blood pressure (4) CHHAYA (acute kidney injury) Improved on IV fluid. Nephrology following (5) Diabetes mellitus Continue sliding scale insulin. Monitor blood glucose. Blood glucose is controlled. (6) Lactic acidosis We will continue on IV fluid and monitor chemistry. (7) DVT prophylaxis On subcutaneous heparin. (8) Positive blood culture . Due to contamination. Does not require antibiotic per ID. (9) Full code status Current Visit: No Status: Acute Plan to address problem: Patient is full code. 12/29/20 Patient with acute ischemic stroke right tanner , left occipital area. Cont Aspirin daily. I discussed case with Neurology. CHHAYA improving. Cr 1.7. Nephrology following. Change ivf to D5NS at 77 because of hypoglycemic episodes. 12/30/20 Patient with acute ischemic stroke right tanner , left occipital area. Cont Aspirin daily. I discussed case with Neurology. CHHAYA improving. Cr 1.6 today from 1.7 yesterday. Nephrology following. Changed ivf to D5NS at 77 because of hypoglycemic episodes. Was told by Employee Welfare Manager that his girlfriend does not want him to go to SNF but wants him to go home with home health instead, when ready. He is not stable for discharge yet because Cr 1.6 low blood glucose. Poss dc in few days when Cr normal and no hypoglycemia. 12/31/2020. ID noted the positive blood cultures due to contamination. Patient is off antibiotic. For possible discharge home tomorrow if cleared by romero montejo. 01/01/2021. Patient has worsening mental status. Head CT scan and ammonia level ordered. 01/02/21 Patient with acute ischemic stroke. Altered mental status. Repeat CT Head unremarkable. CHHAYA now resolved. Cr 1.3 01/03/21 Patient with acute ischemic stroke with altered mental status. His CHHAYA is now resolved. Likely discharge home tomorrow. 01/04/21 Patient with acute ischemic stroke with altered mental status. He had acute kidney injury that had resoled. However today Cr is 1.6 with hyperkalemia of 5.7. Give Calciyum gluconate, Kayexalate, Insulin and Dextrose. Initial plan was to discharge home today, but patient not stable to dc home because of hyperkalemia and CHHAYA. Repeat BMP. History Interval history: Patient with acute stroke and CHHAYA Cr 1.6 and Potassium 5.7 today Hospitalist Physical - Physical exam Narrative exam: Gen: Not in acute distress, lying in bed HEENT: Normocephalic, atraumatic Neck: supple, no JVD Lungs: Clear to auscultation Heart: S1 and S2 reg, no murmurs, rubs or gallop Abd:soft, non-tender, non distended, normal bowel sounds Ext: No edema, clubbing or cyanosis Neuro: Awake, right sided weakness, contractures - Constitutional Vitals: Temp Pulse Resp BP Pulse Ox 98.0 F 76 18 146/95 97 01/04/21 07:55 01/04/21 07:55 01/04/21 07:55 01/04/21 07:55 01/04/21 07:55 General appearance: Present: no acute distress, well-nourished HEART Score - HEART Score Troponin: Troponin T 0.094 ng/mL (0.00-0.029) H 12/27/20 21:47 Results - Labs CBC & Chem 7: 12/31/20 05:34 01/04/21 01:19 Labs: Laboratory Last Values WBC 6.5 K/mm3 (4.5-11.0) 12/31/20 05:34 RBC 3.31 M/mm3 (3.65-5.03) L 12/31/20 05:34 Hgb 10.3 gm/dl (11.8-15.2) L 12/31/20 05:34 Hct 30.3 % (35.5-45.6) L 12/31/20 05:34 MCV 91 fl (84-94) 12/31/20 05:34 MCH 31 pg (28-32) 12/31/20 05:34 MCHC 34 % (32-34) 12/31/20 05:34 RDW 17.9 % (13.2-15.2) H 12/31/20 05:34 Plt Count 284 K/mm3 (140-440) 12/31/20 05:34 Lymph % (Auto) 25.7 % (13.4-35.0) 12/29/20 05:48 Wilkinson % (Auto) 8.3 % (0.0-7.3) H 12/29/20 05:48 Eos % (Auto) 3.3 % (0.0-4.3) 12/29/20 05:48 Baso % (Auto) 0.7 % (0.0-1.8) 12/29/20 05:48 Lymph # (Auto) 1.7 K/mm3 (1.2-5.4) 12/29/20 05:48 Wilkinson # (Auto) 0.6 K/mm3 (0.0-0.8) 12/29/20 05:48 Eos # (Auto) 0.2 K/mm3 (0.0-0.4) 12/29/20 05:48 Baso # (Auto) 0.0 K/mm3 (0.0-0.1) 12/29/20 05:48 Seg Neutrophils % 62.0 % (40.0-70.0) 12/29/20 05:48 Seg Neutrophils # 4.2 K/mm3 (1.8-7.7) 12/29/20 05:48 PT 15.0 Sec. (12.2-14.9) H 12/29/20 05:48 INR 1.13 (0.87-1.13) 12/29/20 05:48 APTT 33.2 Sec. (24.2-36.6) 12/27/20 19:39 Thrombin Time 18.9 Sec. (15.1-19.6) 12/27/20 19:39 Sodium 140 mmol/L (137-145) 01/04/21 01:19 Potassium 5.7 mmol/L (3.6-5.0) H D 01/04/21 01:19 Chloride 110.1 mmol/L (98-107) H 01/04/21 01:19 Carbon Dioxide 15 mmol/L (22-30) L 01/04/21 01:19 Anion Gap 21 mmol/L 01/04/21 01:19 BUN 10 mg/dL (9-20) 01/04/21 01:19 Creatinine 1.6 mg/dL (0.8-1.3) H 01/04/21 01:19 Estimated GFR 52 ml/min 01/04/21 01:19 BUN/Creatinine Ratio 6 % 01/04/21 01:19 Glucose 114 mg/dL (75-100) H 01/04/21 01:19 POC Glucose 94 mg/dL (70-105) 01/04/21 07:55 Lactic Acid 1.80 mmol/L (0.7-2.0) 12/29/20 05:48 Calcium 9.9 mg/dL (8.4-10.2) 01/04/21 01:19 Total Bilirubin 0.20 mg/dL (0.1-1.2) 12/27/20 19:39 Direct Bilirubin < 0.2 mg/dL (0-0.2) 12/27/20 19:39 Indirect Bilirubin 0.0 mg/dL 12/27/20 19:39 AST 15 units/L (5-40) 12/27/20 19:39 ALT 9 units/L (7-56) 12/27/20 19:39 Alkaline Phosphatase 101 units/L (35-129) 12/27/20 19:39 Ammonia 11.0 umol/L (25-60) L 01/01/21 13:59 Total Creatine Kinase 135 units/L (55-170) 12/27/20 19:39 CK-MB (CK-2) 4.5 ng/mL (0.0-4.0) H 12/27/20 19:39 CK-MB (CK-2) Rel Index 3.3 (0-4) 12/27/20 19:39 Troponin T 0.094 ng/mL (0.00-0.029) H 12/27/20 21:47 Total Protein 7.2 g/dL (6.3-8.2) 12/27/20 19:39 Albumin 3.4 g/dL (3.9-5) L 12/27/20 19:39 Albumin/Globulin Ratio 0.9 % 12/27/20 19:39 Triglycerides 159 mg/dL (2-149) H 12/27/20 19:39 Cholesterol 125 mg/dL (50-199) 12/27/20 19:39 LDL Cholesterol Direct 61 mg/dL (50-130) 12/27/20 19:39 HDL Cholesterol 33 mg/dL (40-59) L 12/27/20 19:39 Cholesterol/HDL Ratio 3.78 % 12/27/20 19:39 Vitamin B12 490.6 pg/mL (211-911) 12/28/20 16:16 TSH 0.497 mlU/mL (0.270-4.200) 12/28/20 16:16 Urine Color Yellow (Yellow) 12/27/20 03:58 Urine Turbidity Clear (Clear) 12/27/20 03:58 Urine pH 5.0 (5.0-7.0) 12/27/20 03:58 Ur Specific Elwin 1.017 (1.003-1.030) 12/27/20 03:58 Urine Protein <15 mg/dl mg/dL (Negative) 12/27/20 03:58 Urine Glucose (UA) Neg mg/dL (Negative) 12/27/20 03:58 Urine Ketones Neg mg/dL (Negative) 12/27/20 03:58 Urine Blood Neg (Negative) 12/27/20 03:58 Urine Nitrite Neg (Negative) 12/27/20 03:58 Urine Bilirubin Neg (Negative) 12/27/20 03:58 Urine Urobilinogen < 2.0 mg/dL (<2.0) 12/27/20 03:58 Ur Leukocyte Esterase Neg (Negative) 12/27/20 03:58 Urine WBC (Auto) 1.0 /HPF (0.0-6.0) 12/27/20 03:58 Urine RBC (Auto) 2.0 /HPF (0.0-6.0) 12/27/20 03:58 U Epithel Cells (Auto) < 1.0 /HPF (0-13.0) 12/27/20 03:58 Urine Bacteria (Auto) 1+ /HPF (Negative) 12/27/20 03:58 Hyaline Casts 3 /LPF 12/27/20 03:58 Urine Mucus Few /HPF 12/27/20 03:58 Urine Yeast (Budding) Few /HPF 12/27/20 03:58 Edwards/IV: Voiding Method Condom Catheter Active Medications - Current Medications Current Medications: Generic Name Dose Route Start Last Admin Trade Name Freq PRN Reason Stop Dose Admin Acetaminophen 650 mg 12/27/20 23:59 Acetaminophen 325 Mg Tab PO Q4H PRN Pain MILD(1-3)/Fever >100.5/JOHNSON Aspirin 325 mg 12/28/20 10:00 01/04/21 09:32 Aspirin 325 Mg Tab PO 325 mg QDAY RM Administration Atorvastatin Calcium 40 mg 12/28/20 22:00 01/03/21 22:41 Atorvastatin 40 Mg Tab PO 40 mg QHS RM Administration Bisacodyl 10 mg 12/27/20 23:59 Bisacodyl 10 Mg Rect Supp AK QDAY PRN Constipation Dextrose 0 ml 12/27/20 23:59 01/04/21 08:37 Dextrose 50% In Water (25gm) 50 Ml Syringe IV 50 ml Q30MIN PRN Administration Hypoglycemia Protocol Heparin Sodium (Porcine) 5,000 unit 12/28/20 06:00 01/04/21 05:28 Heparin 5,000 Unit/1 Ml Vial SUB-Q 5,000 unit Q8HR RM Administration Dextrose/Sodium Chloride 1,000 mls @ 75 mls/hr 12/30/20 11:00 01/03/21 22:48 D5/0.45ns IV 75 mls/hr DIRECT RM Administration Insulin Human Regular 0 units 12/28/20 07:30 01/04/21 09:20 Insulin Regular, Human 100 Units/1 Ml SUB-Q Not Given ACHS RM Protocol Magnesium Hydroxide 30 ml 12/27/20 23:59 Magnesium Hydroxide (Mom) Oral Liqd Udc PO Q4H PRN Constipation Metoclopramide HCl 5 mg 12/27/20 23:59 Metoclopramide 10 Mg Tab PO Q6H PRN Nausea And Vomiting Metoprolol Tartrate 25 mg 12/30/20 13:00 01/04/21 09:32 Metoprolol Tartrate 25 Mg Tab PO 25 mg BID RM Administration Morphine Sulfate 2 mg 12/27/20 23:59 01/04/21 05:28 Morphine 2 Mg/1 Ml Inj IV 2 mg Q4H PRN Administration Pain, Moderate (4-6) Morphine Sulfate 4 mg 12/27/20 23:59 Morphine 4 Mg/1 Ml Inj IV Q4H PRN Pain , Severe (7-10) Ondansetron HCl 4 mg 12/27/20 23:59 01/03/21 22:46 Ondansetron 4 Mg/2 Ml Inj IV 4 mg Q8H PRN Administration Nausea And Vomiting Promethazine HCl 25 mg 12/27/20 23:59 Promethazine 25 Mg Rect Supp [place] Q6H PRN Nausea And Vomiting Sodium Bicarbonate 650 mg 12/30/20 14:00 01/04/21 08:40 Sodium Bicarbonate 650 Mg Tab PO 650 mg TID RM Administration Sodium Chloride 10 ml 12/28/20 10:00 01/04/21 09:32 Sodium Chloride 0.9% 10 Ml Flush Syringe IV 10 ml BID RM Administration Sodium Chloride 10 ml 12/27/20 23:59 Sodium Chloride 0.9% 10 Ml Flush Syringe IV PRN PRN LINE FLUSH Nutrition/Malnutrition Assess - Dietary Evaluation Nutrition/Malnutrition Findings: Nutrition Notes Start: 12/28/20 12:07 Freq: Status: Active Protocol: Document 12/28/20 12:07 GB (Rec: 12/28/20 12:19 GB [id number]) Nutrition Notes Need for Assessment generated from: MD Order Initial or Follow up Assessment Current Diagnosis Diabetes,Hypertension,Stroke Other Pertinent Diagnosis Dementia, AMS Current Diet Cardiac/consistent carbohydrate Labs/Tests 12/27: BUN 45, creatinine 2.4, glucose 140, Ca 10.8, Tg 159 Pertinent Medications reviewed Height 6 ft 1 in Weight 67.9 kg [place] Body Weight (kg) 83.63 BMI 19.7 Weight change and time frame Admit weight. No reported weight changes Weight Status Appropriate Subjective/Other Information Consult for Diet education. Pt with dementia, one word responses and/or head nods, limited use of extremities per chart. Pt is not a candidate for diet education. If family is present and would like a consult RD available to educate family. Percent of energy/protein needs met: Unable to assess as no po intake recorded at this time. Per chart nutrition noted as possibly inadequate. Burn Absent Trauma Absent GI Symptoms None Food Allergy No Skin Integrity/Comment No complications reported #1 Nutrition Diagnosis Predicted suboptimal energy intake Etiology BMI 19.7 As Evidenced by Signs and Symptoms per chart: nutrition reported as inadequate, IBW 82%. Is patient on ventilator? No Is Patient Ambulatory and/or Out of Bed No [facility] 1809.168 Kcal/Kg value to use for calculation 27 Approximate Energy Requirements Using 1833 kcal/Kg Calculation Used for Recommendations Kcal/kg Additional Notes Protein: 1-1.2 g/kg @ 70k -84g Fluids: 1 ml/kcal or per MD Nutrition Intervention Change Diet Order: continue cardiac/consistent carbohydrate Nutrition Support: n/a Add Supplement/Snack (indicate name/kcal add glucerna BID /protein ) Provides kCal: 440 Provides Protein (gm) 20 Goal #1 PO intake of meals to be 50% or greater TID daily for LOS Goal #2 PO intake of supplement beverages to be 50% or greater daily BID for LOS Goal #3 Weight to maintain +3% current weight during LOS Follow-Up By: 01/04/21 Additional Comments PO intake of meals to be recorded daily. RD placed nutritional supplement order. f/u: po intake meals/ supplements, weight
--- NOTE | 2021-01-04 10:12 | Progress Note ---
Assessment and Plan # Acute Kidney Injury: creatinine 2.4 on arrival, improved to 1.7->1.6->1.3 > 1.6 with IVF, was 1.0 in August 2020. Suspect pre-renal injury given elevated lactate, potential CVA and poor po intake. Patient is currently nonoliguric. -Add bicarbonate to the IV fluid - po hydration/nutrition as able - urinalysis bland, defer serologies - defer renal imaging for now - avoid nephrotoxins - Is/Os, note non-oliguria with ~1L urine output - renally dose medications - maintain MAP>65 - no immediate need for renal replacement therapy # Metabolic Acidosis/Lactic Acidosis: continue IVF as tolerated, note GNR bacteremia now. Replete HCO3 as noted, HCO3 14->16->18> 15 # Acute CVA, AMS: neurology input appreciated # Hypotension: IVF for now, po intake once able; BP now more stable # DM #Hyperkalemia. Shall give 1 dose of Kayexalate today Subjective Date of service: 01/04/21 Principal diagnosis: right side weakness ? Interval history: Patient is comfortable today. Currently on room air. Patient not answering any questions. Edwards catheter in place. Objective - Vital Signs Vital signs: Vital Signs - 12hr 01/04/21 01/04/21 01/04/21 00:40 06:02 07:55 Temperature 98.6 F 97.7 F 98.0 F Pulse Rate 83 90 76 Respiratory 20 20 18 Rate Blood Pressure 142/89 162/96 146/95 O2 Sat by Pulse 100 100 97 Oximetry - General Appearance General appearance: appears stated age, chronically ill, frail, other (- Slov[place] male) EENT: PERRL, mucous membranes moist Neck: no JVD, no thyromegaly, no carotid bruit, supple Respiratory: Present: Clear to Ascultation Cardiology: regular, normal heart rate Gastrointestinal: normoactive bowel sounds Integumentary: no rash, other (No edema) - Lab 12/31/20 05:34 01/04/21 01:19 Most recent lab results Calcium 9.9 mg/dL (8.4-10.2) 01/04/21 01:19 Medications & Allergies - Medications Allergies/Adverse Reactions: Allergies No Known Allergies Allergy (Verified 08/06/19 15:49) Home Medications: Home Medications Medication Instructions Recorded Confirmed Last Taken Type Aspirin EC [Ecotrin] 325 mg PO QDAY #30 tablet 07/29/14 12/30/20 Unknown Rx Simvastatin (Nf) [Zocor TAB] 20 mg PO QHS #30 tablet 07/29/14 12/30/20 Unknown Rx Metoprolol [Lopressor TAB] 25 mg PO BID #60 tablet 06/25/15 12/30/20 Unknown Rx lisinopriL [Zestril TAB] 5 mg PO QDAY #30 tablet 06/25/15 12/30/20 Unknown Rx Benzonatate [Tessalon Perles] 100 mg PO Q12H PRN #20 capsule 08/06/19 12/30/20 Unknown Rx Cetirizine HCl [ZyrTEC 10mg cap] 10 mg PO DAILY #30 capsule 08/06/19 12/30/20 Unknown Rx Fluticasone [Flonase] 1 spray NS QDAY #1 bottle 08/06/19 12/30/20 Unknown Rx Insulin Aspart [Insulin Aspart See Protocol SQ AC #1 insuln.pen 07/15/20 12/30/20 Unknown Rx Flexpen] Magnesium Oxide [Mag-Ox] 400 mg PO BID #10 tablet 09/09/20 12/30/20 Unknown Rx Potassium Chloride 40 meq PO DAILY #20 tablet.er 09/09/20 12/30/20 Unknown Rx Active Medications: Generic Name Dose Route Start Last Admin Trade Name Freq PRN Reason Stop Dose Admin Acetaminophen 650 mg 12/27/20 23:59 Acetaminophen 325 Mg Tab PO Q4H PRN Pain MILD(1-3)/Fever >100.5/JOHNSON Aspirin 325 mg 12/28/20 10:00 01/04/21 09:32 Aspirin 325 Mg Tab PO 325 mg QDAY RM Administration Atorvastatin Calcium 40 mg 12/28/20 22:00 01/03/21 22:41 Atorvastatin 40 Mg Tab PO 40 mg QHS RM Administration Bisacodyl 10 mg 12/27/20 23:59 Bisacodyl 10 Mg Rect Supp MD QDAY PRN Constipation Dextrose 0 ml 12/27/20 23:59 01/04/21 08:37 Dextrose 50% In Water (25gm) 50 Ml Syringe IV 50 ml Q30MIN PRN Administration Hypoglycemia Protocol Heparin Sodium (Porcine) 5,000 unit 12/28/20 06:00 01/04/21 05:28 Heparin 5,000 Unit/1 Ml Vial SUB-Q 5,000 unit Q8HR RM Administration Dextrose/Sodium Chloride 1,000 mls @ 75 mls/hr 12/30/20 11:00 01/03/21 22:48 D5/0.45ns IV 75 mls/hr DIRECT RM Administration Insulin Human Regular 0 units 12/28/20 07:30 01/04/21 09:20 Insulin Regular, Human 100 Units/1 Ml SUB-Q Not Given ACHS [facility] Protocol Magnesium Hydroxide 30 ml 12/27/20 23:59 Magnesium Hydroxide (Mom) Oral Liqd Udc PO Q4H PRN Constipation Metoclopramide HCl 5 mg 12/27/20 23:59 Metoclopramide 10 Mg Tab PO Q6H PRN Nausea And Vomiting Metoprolol Tartrate 25 mg 12/30/20 13:00 01/04/21 09:32 Metoprolol Tartrate 25 Mg Tab PO 25 mg BID RM Administration Morphine Sulfate 2 mg 12/27/20 23:59 01/04/21 05:28 Morphine 2 Mg/1 Ml Inj IV 2 mg Q4H PRN Administration Pain, Moderate (4-6) Morphine Sulfate 4 mg 12/27/20 23:59 Morphine 4 Mg/1 Ml Inj IV Q4H PRN Pain , Severe (7-10) Ondansetron HCl 4 mg 12/27/20 23:59 01/03/21 22:46 Ondansetron 4 Mg/2 Ml Inj IV 4 mg Q8H PRN Administration Nausea And Vomiting Promethazine HCl 25 mg 12/27/20 23:59 Promethazine 25 Mg Rect Supp MD Q6H PRN Nausea And Vomiting Sodium Bicarbonate 650 mg 12/30/20 14:00 01/04/21 08:40 Sodium Bicarbonate 650 Mg Tab PO 650 mg TID RM Administration Sodium Chloride 10 ml 12/28/20 10:00 01/04/21 09:32 Sodium Chloride 0.9% 10 Ml Flush Syringe IV 10 ml BID RM Administration Sodium Chloride 10 ml 12/27/20 23:59 Sodium Chloride 0.9% 10 Ml Flush Syringe IV PRN PRN LINE FLUSH
[2021-01-04] MEDS: D5W IV SCH (13:57)
[2021-01-04] MEDS: NACL IV SCH (13:57)
[2021-01-04] MEDS: SODIUM BICARBONATE IV SCH (13:57)
[2021-01-04 23:51] LABS: Calcium 9.8 mg/dL (8.4-10.2)
[2021-01-05] MEDS: SODIUM BICARBONATE IV SCH ×2 (05:47→22:33)
[2021-01-05] MEDS: D5W IV SCH ×2 (05:47→22:33)
[2021-01-05] MEDS: HEPARIN 5,000 UNIT/1 ML VIAL SUB-Q SCH ×3 (05:47→22:34)
[2021-01-05] MEDS: NACL IV SCH ×2 (05:47→22:33)
[2021-01-05 06:34] LABS: Hematocrit 27.1 % (35.5-45.6); Hemoglobin 9.3 gm/dl (11.8-15.2); Mean Corpuscular HGB Conc 34 % (32-34); Mean Corpuscular Volume 91 fl (84-94); Platelet Count 300 K/mm3 (140-440); Red Blood Count 2.97 M/mm3 (3.65-5.03); Red Cell Distribution Width 17.8 % (13.2-15.2)
[2021-01-05 06:52] LABS: Calcium 9.8 mg/dL (8.4-10.2)
[2021-01-05] MEDS: INSULIN REGULAR, HUMAN 100 UNITS/1 ML SUB-Q SCH ×4 (08:40→22:34)
--- NOTE | 2021-01-05 09:38 | Progress Note ---
Assessment and Plan # Acute Kidney Injury: creatinine 2.4 on arrival, improved to 1.7->1.6->1.3 > 1.6 > 1.5 with IVF, was 1.0 in August 2020. Suspect pre-renal injury given elevated lactate, potential CVA and poor po intake. Patient is currently nonoliguric. -Acidosis is better. Continue bicarbonate and IV fluid - po hydration/nutrition as able - urinalysis bland, defer serologies - defer renal imaging for now - avoid nephrotoxins - Is/Os, note non-oliguria with ~1L urine output - renally dose medications - maintain MAP>65 - no immediate need for renal replacement therapy # Metabolic Acidosis/Lactic Acidosis: continue IVF as tolerated, note GNR clement teremia now. Replete HCO3 as noted, HCO3 14->16->18> 15 # Acute CVA, AMS: neurology input appreciated # Hypotension: IVF for now, po intake once able; BP now more stable # DM #Hyperkalemia. Patient is status post 1 dose of Kayexalate. Hyperkalemia has been overcorrected Subjective Date of service: 01/05/21 Principal diagnosis: right side weakness ? Interval history: Patient is comfortable today. Currently on room air. Patient not answering any questions. Edwards catheter in place. Objective - Vital Signs Vital signs: Vital Signs - 12hr 01/04/21 01/04/21 01/04/21 22:00 22:31 23:10 Temperature 98.9 F Pulse Rate 103 H 100 H Respiratory 18 Rate Blood Pressure 149/82 185/111 O2 Sat by Pulse 97 100 Oximetry 01/05/21 03:33 Temperature 98.0 F Pulse Rate 91 H Respiratory 20 Rate Blood Pressure 153/90 O2 Sat by Pulse 95 Oximetry - General Appearance General appearance: chronically ill, frail, other (Pleasant -Mauritian male) EENT: PERRL, mucous membranes moist Neck: no JVD, no thyromegaly Respiratory: Present: Clear to Ascultation Cardiology: regular, normal heart rate Gastrointestinal: normal, normoactive bowel sounds Integumentary: other (No edema) - Lab 01/05/21 06:02 01/05/21 06:02 Most recent lab results Calcium 9.8 mg/dL (8.4-10.2) 01/05/21 06:02 Medications & Allergies - Medications Allergies/Adverse Reactions: Allergies No Known Allergies Allergy (Verified 08/06/19 15:49) Home Medications: Home Medications Medication Instructions Recorded Confirmed Last Taken Type Aspirin EC [Ecotrin] 325 mg PO QDAY #30 tablet 07/29/14 12/30/20 Unknown Rx Simvastatin (Nf) [Zocor TAB] 20 mg PO QHS #30 tablet 07/29/14 12/30/20 Unknown Rx Metoprolol [Lopressor TAB] 25 mg PO BID #60 tablet 06/25/15 12/30/20 Unknown Rx lisinopriL [Zestril TAB] 5 mg PO QDAY #30 tablet 06/25/15 12/30/20 Unknown Rx Benzonatate [Tessalon Perles] 100 mg PO Q12H PRN #20 capsule 08/06/19 12/30/20 Unknown Rx Cetirizine HCl [ZyrTEC 10mg cap] 10 mg PO DAILY #30 capsule 08/06/19 12/30/20 Unknown Rx Fluticasone [Flonase] 1 spray NS QDAY #1 bottle 08/06/19 12/30/20 Unknown Rx Insulin Aspart [Insulin Aspart See Protocol SQ AC #1 insuln.pen 07/15/20 12/30/20 Unknown Rx Flexpen] Magnesium Oxide [Mag-Ox] 400 mg PO BID #10 tablet 09/09/20 12/30/20 Unknown Rx Potassium Chloride 40 meq PO DAILY #20 tablet.er 09/09/20 12/30/20 Unknown Rx Active Medications: Generic Name Dose Route Start Last Admin Trade Name Freq PRN Reason Stop Dose Admin Acetaminophen 650 mg 12/27/20 23:59 Acetaminophen 325 Mg Tab PO Q4H PRN Pain MILD(1-3)/Fever >100.5/JOHNSON Aspirin 325 mg 12/28/20 10:00 01/04/21 09:32 Aspirin 325 Mg Tab PO 325 mg QDAY RM Administration Atorvastatin Calcium 40 mg 12/28/20 22:00 01/04/21 22:31 Atorvastatin 40 Mg Tab PO 40 mg QHS RM Administration Bisacodyl 10 mg 12/27/20 23:59 Bisacodyl 10 Mg Rect Supp [place] QDAY PRN Constipation Dextrose 0 ml 12/27/20 23:59 01/04/21 08:37 Dextrose 50% In Water (25gm) 50 Ml Syringe IV 50 ml Q30MIN PRN Administration Hypoglycemia Protocol Heparin Sodium (Porcine) 5,000 unit 12/28/20 06:00 01/05/21 05:47 Heparin 5,000 Unit/1 Ml Vial SUB-Q 5,000 unit Q8HR RM Administration Sodium Bicarbonate 75 meq/ 1,075 mls @ 75 mls/hr 01/04/21 11:00 01/05/21 05:47 Dextrose/Sodium Chloride IV 75 mls/hr DIRECT RM Administration Insulin Human Regular 0 units 12/28/20 07:30 01/05/21 08:40 Insulin Regular, Human 100 Units/1 Ml SUB-Q Not Given ACHS RM Protocol Magnesium Hydroxide 30 ml 12/27/20 23:59 Magnesium Hydroxide (Mom) Oral Liqd Udc PO Q4H PRN Constipation Metoclopramide HCl 5 mg 12/27/20 23:59 Metoclopramide 10 Mg Tab PO Q6H PRN Nausea And Vomiting Metoprolol Tartrate 25 mg 12/30/20 13:00 01/04/21 22:31 Metoprolol Tartrate 25 Mg Tab PO 25 mg BID RM Administration Morphine Sulfate 2 mg 12/27/20 23:59 01/04/21 05:28 Morphine 2 Mg/1 Ml Inj IV 2 mg Q4H PRN Administration Pain, Moderate (4-6) Morphine Sulfate 4 mg 12/27/20 23:59 Morphine 4 Mg/1 Ml Inj IV Q4H PRN Pain , Severe (7-10) Ondansetron HCl 4 mg 12/27/20 23:59 01/03/21 22:46 Ondansetron 4 Mg/2 Ml Inj IV 4 mg Q8H PRN Administration Nausea And Vomiting Promethazine HCl 25 mg 12/27/20 23:59 Promethazine 25 Mg Rect Supp [place] Q6H PRN Nausea And Vomiting Sodium Bicarbonate 650 mg 12/30/20 14:00 01/04/21 22:31 Sodium Bicarbonate 650 Mg Tab PO 650 mg TID RM Administration Sodium Chloride 10 ml 12/28/20 10:00 01/04/21 22:32 Sodium Chloride 0.9% 10 Ml Flush Syringe IV 10 ml BID RM Administration Sodium Chloride 10 ml 12/27/20 23:59 Sodium Chloride 0.9% 10 Ml Flush Syringe IV PRN PRN LINE FLUSH
[2021-01-05] MEDS: SODIUM BICARBONATE 650 MG TAB PO SCH ×3 (09:42→22:34)
[2021-01-05] MEDS: METOPROLOL TARTRATE 25 MG TAB PO SCH ×2 (10:41→22:34)
[2021-01-05] MEDS: ASPIRIN 325 MG TAB PO SCH (10:42)
--- NOTE | 2021-01-05 10:53 | Progress Note ---
Assessment and Plan Assessment and plan: 70-year-old male past medical history hypertension, dementia, previous CVA admitted with possible new CVA Acute encephalopathy Acute CVA with right-sided weakness. Hypertension Acute kidney injury Diabetes mellitus type 2 Lactic acidosis Bacillus bacteremia. Most likely contaminant Advanced dementia 01/05/2021. Creatinine has improved since admission-2.4 on arrival, improved to 1.7->1.6->1.3 > 1.6 > 1.5 with IVF, was 1.0 in August 2020. Etiology secondary to vasomotor nephropathy. Nephrology following. Continue bicarbonate IV fluid. Continue p.o. hydration and increased nutrition as able. Continue Lipitor and aspirin for secondary prevention for CVA. Neurology following. ID stop c eftriaxone because blood cultures most likely contaminated. Physical therapy recommends SNF. Await discharge per case management History Interval history: No new issues overnight Hospitalist Physical - Constitutional Vitals: Temp Pulse Resp BP Pulse Ox 98.7 F 94 H 16 169/102 96 01/05/21 07:37 01/05/21 07:37 01/05/21 07:37 01/05/21 07:37 01/05/21 07:37 General appearance: Present: no acute distress, well-nourished - EENT Eyes: Present: PERRL, EOM intact ENT: hearing intact, clear oral mucosa, dentition normal - Neck Neck: Present: supple, normal ROM - Respiratory Respiratory effort: normal Respiratory: bilateral: CTA - Cardiovascular Rhythm: regular Heart Sounds: Present: S1 & S2. Absent: gallop, rub - Extremities Extremities: no ischemia, No edema, Full ROM - Abdominal General gastrointestinal: soft, non-tender, non-distended, normal bowel sounds - Integumentary Integumentary: Present: clear, warm, dry - Neurologic Neurologic: CNII-XII intact, moves all extremities HEART Score - HEART Score Troponin: Troponin T 0.094 ng/mL (0.00-0.029) H 12/27/20 21:47 Results - Labs CBC & Chem 7: 01/05/21 06:02 01/05/21 06:02 Labs: Laboratory Last Values WBC 5.9 K/mm3 (4.5-11.0) 01/05/21 06:02 RBC 2.97 M/mm3 (3.65-5.03) L 01/05/21 06:02 Hgb 9.3 gm/dl (11.8-15.2) L 01/05/21 06:02 Hct 27.1 % (35.5-45.6) L 01/05/21 06:02 MCV 91 fl (84-94) 01/05/21 06:02 MCH 31 pg (28-32) 01/05/21 06:02 MCHC 34 % (32-34) 01/05/21 06:02 RDW 17.8 % (13.2-15.2) H 01/05/21 06:02 Plt Count 300 K/mm3 (140-440) 01/05/21 06:02 Lymph % (Auto) 25.7 % (13.4-35.0) 12/29/20 05:48 [place] % (Auto) 8.3 % (0.0-7.3) H 12/29/20 05:48 Eos % (Auto) 3.3 % (0.0-4.3) 12/29/20 05:48 Baso % (Auto) 0.7 % (0.0-1.8) 12/29/20 05:48 Lymph # (Auto) 1.7 K/mm3 (1.2-5.4) 12/29/20 05:48 Valley # (Auto) 0.6 K/mm3 (0.0-0.8) 12/29/20 05:48 Eos # (Auto) 0.2 K/mm3 (0.0-0.4) 12/29/20 05:48 Baso # (Auto) 0.0 K/mm3 (0.0-0.1) 12/29/20 05:48 Seg Neutrophils % 62.0 % (40.0-70.0) 12/29/20 05:48 Seg Neutrophils # 4.2 K/mm3 (1.8-7.7) 12/29/20 05:48 PT 15.0 Sec. (12.2-14.9) H 12/29/20 05:48 INR 1.13 (0.87-1.13) 12/29/20 05:48 APTT 33.2 Sec. (24.2-36.6) 12/27/20 19:39 Thrombin Time 18.9 Sec. (15.1-19.6) 12/27/20 19:39 Sodium 143 mmol/L (137-145) 01/05/21 06:02 Potassium 3.1 mmol/L (3.6-5.0) L 01/05/21 06:02 Chloride 108.1 mmol/L (98-107) H 01/05/21 06:02 Carbon Dioxide 23 mmol/L (22-30) 01/05/21 06:02 Anion Gap 15 mmol/L 01/05/21 06:02 BUN 6 mg/dL (9-20) L 01/05/21 06:02 Creatinine 1.5 mg/dL (0.8-1.3) H 01/05/21 06:02 Estimated GFR 56 ml/min 01/05/21 06:02 BUN/Creatinine Ratio 4 % 01/05/21 06:02 Glucose 110 mg/dL (75-100) H 01/05/21 06:02 POC Glucose 101 mg/dL (70-105) 01/05/21 07:35 Lactic Acid 1.80 mmol/L (0.7-2.0) 12/29/20 05:48 Calcium 9.8 mg/dL (8.4-10.2) 01/05/21 06:02 Total Bilirubin 0.20 mg/dL (0.1-1.2) 12/27/20 19:39 Direct Bilirubin < 0.2 mg/dL (0-0.2) 12/27/20 19:39 Indirect Bilirubin 0.0 mg/dL 12/27/20 19:39 AST 15 units/L (5-40) 12/27/20 19:39 ALT 9 units/L (7-56) 12/27/20 19:39 Alkaline Phosphatase 101 units/L (35-129) 12/27/20 19:39 Ammonia 11.0 umol/L (25-60) L 01/01/21 13:59 Total Creatine Kinase 135 units/L (55-170) 12/27/20 19:39 CK-MB (CK-2) 4.5 ng/mL (0.0-4.0) H 12/27/20 19:39 CK-MB (CK-2) Rel Index 3.3 (0-4) 12/27/20 19:39 Troponin T 0.094 ng/mL (0.00-0.029) H 12/27/20 21:47 Total Protein 7.2 g/dL (6.3-8.2) 12/27/20 19:39 Albumin 3.4 g/dL (3.9-5) L 12/27/20 19:39 Albumin/Globulin Ratio 0.9 % 12/27/20 19:39 Triglycerides 159 mg/dL (2-149) H 12/27/20 19:39 Cholesterol 125 mg/dL (50-199) 12/27/20 19:39 LDL Cholesterol Direct 61 mg/dL (50-130) 12/27/20 19:39 HDL Cholesterol 33 mg/dL (40-59) L 12/27/20 19:39 Cholesterol/HDL Ratio 3.78 % 12/27/20 19:39 Vitamin B12 490.6 pg/mL (211-911) 12/28/20 16:16 TSH 0.497 mlU/mL (0.270-4.200) 12/28/20 16:16 Urine Color Yellow (Yellow) 12/27/20 03:58 Urine Turbidity Clear (Clear) 12/27/20 03:58 Urine pH 5.0 (5.0-7.0) 12/27/20 03:58 Ur Specific [place] 1.017 (1.003-1.030) 12/27/20 03:58 Urine Protein <15 mg/dl mg/dL (Negative) 12/27/20 03:58 Urine Glucose (UA) Neg mg/dL (Negative) 12/27/20 03:58 Urine Ketones Neg mg/dL (Negative) 12/27/20 03:58 Urine Blood Neg (Negative) 12/27/20 03:58 Urine Nitrite Neg (Negative) 12/27/20 03:58 Urine Bilirubin Neg (Negative) 12/27/20 03:58 Urine Urobilinogen < 2.0 mg/dL (<2.0) 12/27/20 03:58 Ur Leukocyte Esterase Neg (Negative) 12/27/20 03:58 Urine WBC (Auto) 1.0 /HPF (0.0-6.0) 12/27/20 03:58 Urine RBC (Auto) 2.0 /HPF (0.0-6.0) 12/27/20 03:58 U Epithel Cells (Auto) < 1.0 /HPF (0-13.0) 12/27/20 03:58 Urine Bacteria (Auto) 1+ /HPF (Negative) 12/27/20 03:58 Hyaline Casts 3 /LPF 12/27/20 03:58 Urine Mucus Few /HPF 12/27/20 03:58 Urine Yeast (Budding) Few /HPF 12/27/20 03:58 Edwards/IV: Voiding Method Indwelling Catheter Active Medications - Current Medications Current Medications: Generic Name Dose Route Start Last Admin Trade Name Freq PRN Reason Stop Dose Admin Acetaminophen 650 mg 12/27/20 23:59 Acetaminophen 325 Mg Tab PO Q4H PRN Pain MILD(1-3)/Fever >100.5/JOHNSON Aspirin 325 mg 12/28/20 10:00 01/05/21 10:42 Aspirin 325 Mg Tab PO 325 mg QDAY RM Administration Atorvastatin Calcium 40 mg 12/28/20 22:00 01/04/21 22:31 Atorvastatin 40 Mg Tab PO 40 mg QHS RM Administration Bisacodyl 10 mg 12/27/20 23:59 Bisacodyl 10 Mg Rect Supp AL QDAY PRN Constipation Dextrose 0 ml 12/27/20 23:59 01/04/21 08:37 Dextrose 50% In Water (25gm) 50 Ml Syringe IV 50 ml Q30MIN PRN Administration Hypoglycemia Protocol Heparin Sodium (Porcine) 5,000 unit 12/28/20 06:00 01/05/21 05:47 Heparin 5,000 Unit/1 Ml Vial SUB-Q 5,000 unit Q8HR RM Administration Sodium Bicarbonate 75 meq/ 1,075 mls @ 75 mls/hr 01/04/21 11:00 01/05/21 05:47 Dextrose/Sodium Chloride IV 75 mls/hr DIRECT RM Administration Insulin Human Regular 0 units 12/28/20 07:30 01/05/21 08:40 Insulin Regular, Human 100 Units/1 Ml SUB-Q Not Given ACHS RM Protocol Magnesium Hydroxide 30 ml 12/27/20 23:59 Magnesium Hydroxide (Mom) Oral Liqd Udc PO Q4H PRN Constipation Metoclopramide HCl 5 mg 12/27/20 23:59 01/05/21 10:41 Metoclopramide 10 Mg Tab PO 5 mg Q6H PRN Administration Nausea And Vomiting Metoprolol Tartrate 25 mg 12/30/20 13:00 01/05/21 10:41 Metoprolol Tartrate 25 Mg Tab PO 25 mg BID RM Administration Morphine Sulfate 2 mg 12/27/20 23:59 01/04/21 05:28 Morphine 2 Mg/1 Ml Inj IV 2 mg Q4H PRN Administration Pain, Moderate (4-6) Morphine Sulfate 4 mg 12/27/20 23:59 Morphine 4 Mg/1 Ml Inj IV Q4H PRN Pain , Severe (7-10) Ondansetron HCl 4 mg 12/27/20 23:59 01/03/21 22:46 Ondansetron 4 Mg/2 Ml Inj IV 4 mg Q8H PRN Administration Nausea And Vomiting Promethazine HCl 25 mg 12/27/20 23:59 Promethazine 25 Mg Rect Supp AL Q6H PRN Nausea And Vomiting Sodium Bicarbonate 650 mg 12/30/20 14:00 01/05/21 09:42 Sodium Bicarbonate 650 Mg Tab PO 650 mg TID RM Administration Sodium Chloride 10 ml 12/28/20 10:00 01/05/21 10:42 Sodium Chloride 0.9% 10 Ml Flush Syringe IV 10 ml BID RM Administration Sodium Chloride 10 ml 12/27/20 23:59 Sodium Chloride 0.9% 10 Ml Flush Syringe IV PRN PRN LINE FLUSH Nutrition/Malnutrition Assess - Dietary Evaluation Nutrition/Malnutrition Findings: Nutrition Notes Start: 12/28/20 12:07 Freq: Status: Active Protocol: Document 01/04/21 14:23 GB (Rec: 01/04/21 14:43 GB [id number]) Nutrition Notes Initial or Follow up Reassessment Current Diagnosis Diabetes,Hypertension,Stroke Other Pertinent Diagnosis Dementia, AMS Current Diet pureed Labs/Tests 01/04: K 5.7, creatinine 1.6, glucose 114 Pertinent Medications D5/NaCl 75ml/hr (306kcal), Mg Hydroxide Height 6 ft 1 in Weight 76.3 kg [place] Body Weight (kg) 83.63 BMI 22.1 Weight change and time frame since admit weight is stable Weight Status Appropriate Subjective/Other Information Diet advanced to pureed. Per COORDINATOR OF EVALUATION note: pt refusing to eat, accepting liquids with no s/s aspiration. RD increased nutritional supplement from BID to TID glucerna. PO averaging 25-50% daily per chart. Percent of energy/protein needs met: PO intake of meals 25-50% does not meet 75% or greater of EEN. Burn Absent Trauma Absent GI Symptoms None Difficulty In Swallowing Food Allergy No Skin Integrity/Comment No complications reported Current % PO Poor (25-49%) Minimum of two criteria No Energy Intake (non-severe) <75% Estimated Energy Requirement >7 days #1 Nutrition Diagnosis Predicted suboptimal energy intake Comments: 01/04: BMI improved to 22.2 Etiology BMI 19.7 As Evidenced by Signs and Symptoms per chart: nutrition reported as inadequate, IBW 82%. Diagnosis Progress(for reassessment Continues documentation) Is patient on ventilator? No Is Patient Ambulatory and/or Out of Bed Yes REE-([place]-St. Jeor-ambulatory/OOB) [ [id number]] Kcal/Kg value to use for calculation 27 Approximate Energy Requirements Using 2059 kcal/Kg Calculation Used for Recommendations Kcal/kg Additional Notes Protein: 1-1.2 g/kg @ 70k -84g Fluids: 1 ml/kcal or per MD Nutrition Intervention Change Diet Order: continue puree, advance texture per COORDINATOR OF EVALUATION Nutrition Support: n/a Add Supplement/Snack (indicate name/kcal add glucerna TID /protein ) Provides kCal: 660 Provides Protein (gm) 30 Goal #1 PO intake of meals to be 50% or greater TID daily for LOS 01/04: not met, continues: po 25-50% improving Goal #2 PO intake of supplement beverages to be 50% or greater daily BID for LOS 01/04: unable to assess, no recording other than pt accepts liquids Goal #3 Weight to maintain +3% current weight during LOS 01/04: met, continues Follow-Up By: 01/11/21 Additional Comments All education and information given to his . F/U: diet texture advancement/ po intake
[2021-01-06] MEDS: HEPARIN 5,000 UNIT/1 ML VIAL SUB-Q SCH ×3 (05:40→21:33)
[2021-01-06] MEDS: MORPHINE 2 MG/1 ML INJ IV PRN (05:48)
[2021-01-06 08:05] LABS: Calcium 9.6 mg/dL (8.4-10.2)
--- NOTE | 2021-01-06 09:57 | Progress Note ---
Assessment and Plan # Acute Kidney Injury: creatinine 2.4 on arrival, improved to 1.7->1.6->1.3 > 1.6 > 1.5 with IVF, was 1.0 in August 2020. Suspect pre-renal injury given elevated lactate, potential CVA and poor po intake. Patient is currently nonoliguric. -Acidosis is better. Continue bicarbonate and IV fluid - po hydration/nutrition as able - urinalysis bland, defer serologies - defer renal imaging for now - avoid nephrotoxins - Is/Os, note non-oliguria with ~1L urine output - renally dose medications - maintain MAP>65 - no immediate need for renal replacement therapy # Metabolic Acidosis/Lactic Acidosis: continue IVF as tolerated, note GNR clement teremia now. Replete HCO3 as noted, HCO3 14->16->18> 15 > 26 # Acute CVA, AMS: neurology input appreciated # Hypotension: IVF for now, po intake once able; BP now more stable # DM #Hyperkalemia. Patient is status post 1 dose of Kayexalate. Hyperkalemia has been overcorrected Renal function seems to have stabilized. Acidosis has been corrected. Shall discontinue IV fluid for now. Patient however needs adequate p.o. intake to prevent dehydration Subjective Date of service: 01/06/21 Principal diagnosis: right side weakness ? Interval history: Patient clinically about the same. Not answering any questions. Appears comfortable. IV fluid infusing. Objective - Vital Signs Vital signs: Vital Signs - 12hr 01/05/21 01/05/21 01/06/21 22:34 23:34 03:00 Temperature 97.5 F L Pulse Rate 94 H 81 Respiratory 18 Rate Blood Pressure 159/96 O2 Sat by Pulse 98 96 Oximetry 01/06/21 01/06/21 04:34 08:23 Temperature 98.7 F 98.1 F Pulse Rate 82 84 Respiratory 18 18 Rate Blood Pressure 168/96 166/89 O2 Sat by Pulse 100 99 Oximetry - General Appearance General appearance: appears stated age, chronically ill, frail, other EENT: PERRL, mucous membranes moist Neck: no JVD, no thyromegaly Respiratory: Present: Clear to Ascultation Cardiology: regular, normal heart rate Gastrointestinal: other (No edema) - Lab 01/05/21 06:02 01/06/21 07:08 Most recent lab results Calcium 9.6 mg/dL (8.4-10.2) 01/06/21 07:08 Medications & Allergies - Medications Allergies/Adverse Reactions: Allergies No Known Allergies Allergy (Verified 08/06/19 15:49) Home Medications: Home Medications Medication Instructions Recorded Confirmed Last Taken Type Aspirin EC [Ecotrin] 325 mg PO QDAY #30 tablet 07/29/14 12/30/20 Unknown Rx Simvastatin (Nf) [Zocor TAB] 20 mg PO QHS #30 tablet 07/29/14 12/30/20 Unknown Rx Metoprolol [Lopressor TAB] 25 mg PO BID #60 tablet 06/25/15 12/30/20 Unknown Rx lisinopriL [Zestril TAB] 5 mg PO QDAY #30 tablet 06/25/15 12/30/20 Unknown Rx Benzonatate [Tessalon Perles] 100 mg PO Q12H PRN #20 capsule 08/06/19 12/30/20 Unknown Rx Cetirizine HCl [ZyrTEC 10mg cap] 10 mg PO DAILY #30 capsule 08/06/19 12/30/20 Unknown Rx Fluticasone [Flonase] 1 spray NS QDAY #1 bottle 08/06/19 12/30/20 Unknown Rx Insulin Aspart [Insulin Aspart See Protocol SQ AC #1 insuln.pen 07/15/20 12/30/20 Unknown Rx Flexpen] Magnesium Oxide [Mag-Ox] 400 mg PO BID #10 tablet 09/09/20 12/30/20 Unknown Rx Potassium Chloride 40 meq PO DAILY #20 tablet.er 09/09/20 12/30/20 Unknown Rx Active Medications: Generic Name Dose Route Start Last Admin Trade Name Freq PRN Reason Stop Dose Admin Acetaminophen 650 mg 12/27/20 23:59 Acetaminophen 325 Mg Tab PO Q4H PRN Pain MILD(1-3)/Fever >100.5/JOHNSON Aspirin 325 mg 12/28/20 10:00 01/05/21 10:42 Aspirin 325 Mg Tab PO 325 mg QDAY RM Administration Atorvastatin Calcium 40 mg 12/28/20 22:00 01/05/21 22:34 Atorvastatin 40 Mg Tab PO 40 mg QHS RM Administration Bisacodyl 10 mg 12/27/20 23:59 Bisacodyl 10 Mg Rect Supp [place] QDAY PRN Constipation Dextrose 0 ml 12/27/20 23:59 01/04/21 08:37 Dextrose 50% In Water (25gm) 50 Ml Syringe IV 50 ml Q30MIN PRN Administration Hypoglycemia Protocol Heparin Sodium (Porcine) 5,000 unit 12/28/20 06:00 01/06/21 05:40 Heparin 5,000 Unit/1 Ml Vial SUB-Q 5,000 unit Q8HR RM Administration Sodium Bicarbonate 75 meq/ 1,075 mls @ 75 mls/hr 01/04/21 11:00 01/05/21 22:33 Dextrose/Sodium Chloride IV 75 mls/hr DIRECT RM Administration Insulin Human Regular 0 units 12/28/20 07:30 01/05/21 22:34 Insulin Regular, Human 100 Units/1 Ml SUB-Q Not Given ACHS RM Protocol Magnesium Hydroxide 30 ml 12/27/20 23:59 Magnesium Hydroxide (Mom) Oral Liqd Udc PO Q4H PRN Constipation Metoclopramide HCl 5 mg 12/27/20 23:59 01/05/21 10:41 Metoclopramide 10 Mg Tab PO 5 mg Q6H PRN Administration Nausea And Vomiting Metoprolol Tartrate 25 mg 12/30/20 13:00 01/05/21 22:34 Metoprolol Tartrate 25 Mg Tab PO 25 mg BID RM Administration Morphine Sulfate 2 mg 12/27/20 23:59 01/06/21 05:48 Morphine 2 Mg/1 Ml Inj IV 2 mg Q4H PRN Administration Pain, Moderate (4-6) Morphine Sulfate 4 mg 12/27/20 23:59 Morphine 4 Mg/1 Ml Inj IV Q4H PRN Pain , Severe (7-10) Ondansetron HCl 4 mg 12/27/20 23:59 01/03/21 22:46 Ondansetron 4 Mg/2 Ml Inj IV 4 mg Q8H PRN Administration Nausea And Vomiting Promethazine HCl 25 mg 12/27/20 23:59 Promethazine 25 Mg Rect Supp [place] Q6H PRN Nausea And Vomiting Sodium Bicarbonate 650 mg 12/30/20 14:00 01/05/21 22:34 Sodium Bicarbonate 650 Mg Tab PO 650 mg TID RM Administration Sodium Chloride 10 ml 12/28/20 10:00 01/05/21 22:35 Sodium Chloride 0.9% 10 Ml Flush Syringe IV 10 ml BID RM Administration Sodium Chloride 10 ml 12/27/20 23:59 Sodium Chloride 0.9% 10 Ml Flush Syringe IV PRN PRN LINE FLUSH
[2021-01-06] MEDS: SODIUM BICARBONATE 650 MG TAB PO SCH ×3 (10:32→21:34)
[2021-01-06] MEDS: ASPIRIN 325 MG TAB PO SCH (10:32)
[2021-01-06] MEDS: INSULIN REGULAR, HUMAN 100 UNITS/1 ML SUB-Q SCH ×4 (10:33→22:46)
[2021-01-06] MEDS: METOPROLOL TARTRATE 25 MG TAB PO SCH ×2 (10:33→21:33)
--- NOTE | 2021-01-06 10:37 | Progress Note ---
Assessment and Plan Assessment and plan: 70-year-old male past medical history hypertension, dementia, previous CVA admitted with possible new CVA Acute encephalopathy Acute CVA with right-sided weakness. Hypertension Acute kidney injury Diabetes mellitus type 2 Lactic acidosis Bacillus bacteremia. Most likely contaminant Advanced dementia 12/29/20 Patient with acute ischemic stroke right tanner , left occipital area. Cont Aspirin daily. I discussed case with Neurology. CHHAYA improving. Cr 1.7. Nephrology following. Change ivf to D5NS at 77 because of hypoglycemic episodes. 12/30/20 Patient with acute ischemic stroke right tanner , left occipital area. Cont Aspirin daily. I discussed case with Neurology. CHHAYA improving. Cr 1.6 today from 1.7 yesterday. Nephrology following. Changed ivf to D5NS at 77 because of hypoglycemic episodes. Was told by Sales Ledger Clerk that his girlfriend does not want him to go to SNF but wants him to go home with home health instead, when ready. He is not stable for discharge yet because Cr 1.6 low blood glucose. Poss dc in few days when Cr normal and no hypoglycemia. 12/31/2020. ID noted the positive blood cultures due to contamination. Patient is off antibiotic. For possible discharge home tomorrow if cleared by nephrology. 01/01/2021. Patient has worsening mental status. Head CT scan and ammonia level ordered. 01/02/21 Patient with acute ischemic stroke. Altered mental status. Repeat CT Head unremarkable. CHHAYA now resolved. Cr 1.3 01/03/21 Patient with acute ischemic stroke with altered mental status. His CHHAYA is now resolved. Likely discharge home tomorrow. 01/04/21 Patient with acute ischemic stroke with altered mental status. He had acute kidney injury that had resoled. However today Cr is 1.6 with hyperkalemia of 5.7. Give Calciyum gluconate, Kayexalate, Insulin and Dextrose. Initial plan was to discharge home today, but patient not stable to dc home because of hyperkalemia and CHHAYA. Repeat BMP. 01/05/2021. Creatinine has improved since admission-2.4 on arrival, improved to 1.7->1.6->1.3 > 1.6 > 1.5 with IVF, was 1.0 in August 2020. Etiology secondary to vasomotor nephropathy. Nephrology following. Continue bicarbonate IV fluid. Continue p.o. hydration and increased nutrition as able. Continue Lipitor and aspirin for secondary prevention for CVA. Neurology following. ID stop ceftriaxone because blood cultures most likely contaminated. Physical therapy recommends SNF. Await discharge per case management 01/06/2021. Patient's creatinine has stabilized at 1.5. We will replete potassium of 3.3. Echocardiogram revealed EF of 50 to 55%. Carotid ultrasound less than 50% stenosis. MRI of the brain., is remarkable for subacute infarct right tanner and left occipital region. MRA brain is remarkable for left WEED CUTTER stenosis or occlusion , and right ICA at cavernous section possible aneurysm 3mm. Neurology also reports patient likely with advanced dementia. EEG per neurology. Continue aspirin and Lipitor. Patient may need placement. Physical therapy reported on 12/29 SNF placement or 24-hour care at home History Interval history: No new issues overnight Hospitalist Physical - Constitutional Vitals: Temp Pulse Resp BP Pulse Ox 98.1 F 84 18 166/89 99 01/06/21 08:23 01/06/21 08:23 01/06/21 08:23 01/06/21 08:23 01/06/21 08:23 General appearance: Present: no acute distress, well-nourished - EENT Eyes: Present: PERRL, EOM intact ENT: hearing intact, clear oral mucosa, dentition normal - Neck Neck: Present: supple, normal ROM - Respiratory Respiratory effort: normal Respiratory: bilateral: CTA - Cardiovascular Rhythm: regular Heart Sounds: Present: S1 & S2. Absent: gallop, rub - Extremities Extremities: no ischemia, No edema, Full ROM - Abdominal General gastrointestinal: soft, non-tender, non-distended, normal bowel sounds - Integumentary Integumentary: Present: clear, warm, dry - Neurologic Neurologic: CNII-XII intact, moves all extremities HEART Score - HEART Score Troponin: Troponin T 0.094 ng/mL (0.00-0.029) H 12/27/20 21:47 Results - Labs CBC & Chem 7: 01/05/21 06:02 01/06/21 07:08 Labs: Laboratory Last Values WBC 5.9 K/mm3 (4.5-11.0) 01/05/21 06:02 RBC 2.97 M/mm3 (3.65-5.03) L 01/05/21 06:02 Hgb 9.3 gm/dl (11.8-15.2) L 01/05/21 06:02 Hct 27.1 % (35.5-45.6) L 01/05/21 06:02 MCV 91 fl (84-94) 01/05/21 06:02 MCH 31 pg (28-32) 01/05/21 06:02 MCHC 34 % (32-34) 01/05/21 06:02 RDW 17.8 % (13.2-15.2) H 01/05/21 06:02 Plt Count 300 K/mm3 (140-440) 01/05/21 06:02 Lymph % (Auto) 25.7 % (13.4-35.0) 12/29/20 05:48 [place] % (Auto) 8.3 % (0.0-7.3) H 12/29/20 05:48 Eos % (Auto) 3.3 % (0.0-4.3) 12/29/20 05:48 Baso % (Auto) 0.7 % (0.0-1.8) 12/29/20 05:48 Lymph # (Auto) 1.7 K/mm3 (1.2-5.4) 12/29/20 05:48 [place] # (Auto) 0.6 K/mm3 (0.0-0.8) 12/29/20 05:48 Eos # (Auto) 0.2 K/mm3 (0.0-0.4) 12/29/20 05:48 Baso # (Auto) 0.0 K/mm3 (0.0-0.1) 12/29/20 05:48 Seg Neutrophils % 62.0 % (40.0-70.0) 12/29/20 05:48 Seg Neutrophils # 4.2 K/mm3 (1.8-7.7) 12/29/20 05:48 PT 15.0 Sec. (12.2-14.9) H 12/29/20 05:48 INR 1.13 (0.87-1.13) 12/29/20 05:48 APTT 33.2 Sec. (24.2-36.6) 12/27/20 19:39 Thrombin Time 18.9 Sec. (15.1-19.6) 12/27/20 19:39 Sodium 145 mmol/L (137-145) 01/06/21 07:08 Potassium 3.3 mmol/L (3.6-5.0) L 01/06/21 07:08 Chloride 107.7 mmol/L (98-107) H 01/06/21 07:08 Carbon Dioxide 26 mmol/L (22-30) 01/06/21 07:08 Anion Gap 15 mmol/L 01/06/21 07:08 BUN 6 mg/dL (9-20) L 01/06/21 07:08 Creatinine 1.5 mg/dL (0.8-1.3) H 01/06/21 07:08 Estimated GFR 56 ml/min 01/06/21 07:08 BUN/Creatinine Ratio 4 % 01/06/21 07:08 Glucose 124 mg/dL (75-100) H 01/06/21 07:08 POC Glucose 106 mg/dL (70-105) H 01/06/21 07:28 Lactic Acid 1.80 mmol/L (0.7-2.0) 12/29/20 05:48 Calcium 9.6 mg/dL (8.4-10.2) 01/06/21 07:08 Total Bilirubin 0.20 mg/dL (0.1-1.2) 12/27/20 19:39 Direct Bilirubin < 0.2 mg/dL (0-0.2) 12/27/20 19:39 Indirect Bilirubin 0.0 mg/dL 12/27/20 19:39 AST 15 units/L (5-40) 12/27/20 19:39 ALT 9 units/L (7-56) 12/27/20 19:39 Alkaline Phosphatase 101 units/L (35-129) 12/27/20 19:39 Ammonia 11.0 umol/L (25-60) L 01/01/21 13:59 Total Creatine Kinase 135 units/L (55-170) 12/27/20 19:39 CK-MB (CK-2) 4.5 ng/mL (0.0-4.0) H 12/27/20 19:39 CK-MB (CK-2) Rel Index 3.3 (0-4) 12/27/20 19:39 Troponin T 0.094 ng/mL (0.00-0.029) H 12/27/20 21:47 Total Protein 7.2 g/dL (6.3-8.2) 12/27/20 19:39 Albumin 3.4 g/dL (3.9-5) L 12/27/20 19:39 Albumin/Globulin Ratio 0.9 % 12/27/20 19:39 Triglycerides 159 mg/dL (2-149) H 12/27/20 19:39 Cholesterol 125 mg/dL (50-199) 12/27/20 19:39 LDL Cholesterol Direct 61 mg/dL (50-130) 12/27/20 19:39 HDL Cholesterol 33 mg/dL (40-59) L 12/27/20 19:39 Cholesterol/HDL Ratio 3.78 % 12/27/20 19:39 Vitamin B12 490.6 pg/mL (211-911) 12/28/20 16:16 TSH 0.497 mlU/mL (0.270-4.200) 12/28/20 16:16 Urine Color Yellow (Yellow) 12/27/20 03:58 Urine Turbidity Clear (Clear) 12/27/20 03:58 Urine pH 5.0 (5.0-7.0) 12/27/20 03:58 Ur Specific [place] 1.017 (1.003-1.030) 12/27/20 03:58 Urine Protein <15 mg/dl mg/dL (Negative) 12/27/20 03:58 Urine Glucose (UA) Neg mg/dL (Negative) 12/27/20 03:58 Urine Ketones Neg mg/dL (Negative) 12/27/20 03:58 Urine Blood Neg (Negative) 12/27/20 03:58 Urine Nitrite Neg (Negative) 12/27/20 03:58 Urine Bilirubin Neg (Negative) 12/27/20 03:58 Urine Urobilinogen < 2.0 mg/dL (<2.0) 12/27/20 03:58 Ur Leukocyte Esterase Neg (Negative) 12/27/20 03:58 Urine WBC (Auto) 1.0 /HPF (0.0-6.0) 12/27/20 03:58 Urine RBC (Auto) 2.0 /HPF (0.0-6.0) 12/27/20 03:58 U Epithel Cells (Auto) < 1.0 /HPF (0-13.0) 12/27/20 03:58 Urine Bacteria (Auto) 1+ /HPF (Negative) 12/27/20 03:58 Hyaline Casts 3 /LPF 12/27/20 03:58 Urine Mucus Few /HPF 12/27/20 03:58 Urine Yeast (Budding) Few /HPF 12/27/20 03:58 Edwards/IV: Voiding Method Indwelling Catheter Active Medications - Current Medications Current Medications: Generic Name Dose Route Start Last Admin Trade Name Freq PRN Reason Stop Dose Admin Acetaminophen 650 mg 12/27/20 23:59 Acetaminophen 325 Mg Tab PO Q4H PRN Pain MILD(1-3)/Fever >100.5/JOHNSON Aspirin 325 mg 12/28/20 10:00 01/05/21 10:42 Aspirin 325 Mg Tab PO 325 mg QDAY RM Administration Atorvastatin Calcium 40 mg 12/28/20 22:00 01/05/21 22:34 Atorvastatin 40 Mg Tab PO 40 mg QHS RM Administration Bisacodyl 10 mg 12/27/20 23:59 Bisacodyl 10 Mg Rect Supp AL QDAY PRN Constipation Dextrose 0 ml 12/27/20 23:59 01/04/21 08:37 Dextrose 50% In Water (25gm) 50 Ml Syringe IV 50 ml Q30MIN PRN Administration Hypoglycemia Protocol Heparin Sodium (Porcine) 5,000 unit 12/28/20 06:00 01/06/21 05:40 Heparin 5,000 Unit/1 Ml Vial SUB-Q 5,000 unit Q8HR RM Administration Sodium Bicarbonate 75 meq/ 1,075 mls @ 75 mls/hr 01/04/21 11:00 01/05/21 22:33 Dextrose/Sodium Chloride IV 75 mls/hr DIRECT RM Administration Insulin Human Regular 0 units 12/28/20 07:30 01/05/21 22:34 Insulin Regular, Human 100 Units/1 Ml SUB-Q Not Given ACHS RM Protocol Magnesium Hydroxide 30 ml 12/27/20 23:59 Magnesium Hydroxide (Mom) Oral Liqd Udc PO Q4H PRN Constipation Metoclopramide HCl 5 mg 12/27/20 23:59 01/05/21 10:41 Metoclopramide 10 Mg Tab PO 5 mg Q6H PRN Administration Nausea And Vomiting Metoprolol Tartrate 25 mg 12/30/20 13:00 01/05/21 22:34 Metoprolol Tartrate 25 Mg Tab PO 25 mg BID RM Administration Morphine Sulfate 2 mg 12/27/20 23:59 01/06/21 05:48 Morphine 2 Mg/1 Ml Inj IV 2 mg Q4H PRN Administration Pain, Moderate (4-6) Morphine Sulfate 4 mg 12/27/20 23:59 Morphine 4 Mg/1 Ml Inj IV Q4H PRN Pain , Severe (7-10) Ondansetron HCl 4 mg 12/27/20 23:59 01/03/21 22:46 Ondansetron 4 Mg/2 Ml Inj IV 4 mg Q8H PRN Administration Nausea And Vomiting Promethazine HCl 25 mg 12/27/20 23:59 Promethazine 25 Mg Rect Supp AL Q6H PRN Nausea And Vomiting Sodium Bicarbonate 650 mg 12/30/20 14:00 01/05/21 22:34 Sodium Bicarbonate 650 Mg Tab PO 650 mg TID RM Administration Sodium Chloride 10 ml 12/28/20 10:00 01/05/21 22:35 Sodium Chloride 0.9% 10 Ml Flush Syringe IV 10 ml BID RM Administration Sodium Chloride 10 ml 12/27/20 23:59 Sodium Chloride 0.9% 10 Ml Flush Syringe IV PRN PRN LINE FLUSH Nutrition/Malnutrition Assess - Dietary Evaluation Nutrition/Malnutrition Findings: Nutrition Notes Start: 12/28/20 12:07 Freq: Status: Active Protocol: Document 01/04/21 14:23 GB (Rec: 01/04/21 14:43 GB [id number]) Nutrition Notes Initial or Follow up Reassessment Current Diagnosis Diabetes,Hypertension,Stroke Other Pertinent Diagnosis Dementia, AMS Current Diet pureed Labs/Tests 01/04: K 5.7, creatinine 1.6, glucose 114 Pertinent Medications D5/NaCl 75ml/hr (306kcal), Mg Hydroxide Height 6 ft 1 in Weight 76.3 kg [place] Body Weight (kg) 83.63 BMI 22.1 Weight change and time frame since admit weight is stable Weight Status Appropriate Subjective/Other Information Diet advanced to pureed. Per DEBURRING MACHINE OPERATOR note: pt refusing to eat, accepting liquids with no s/s aspiration. RD increased nutritional supplement from BID to TID glucerna. PO averaging 25-50% daily per chart. Percent of energy/protein needs met: PO intake of meals 25-50% does not meet 75% or greater of EEN. Burn Absent Trauma Absent GI Symptoms None Difficulty In Swallowing Food Allergy No Skin Integrity/Comment No complications reported Current % PO Poor (25-49%) Minimum of two criteria No Energy Intake (non-severe) <75% Estimated Energy Requirement >7 days #1 Nutrition Diagnosis Predicted suboptimal energy intake Comments: 01/04: BMI improved to 22.2 Etiology BMI 19.7 As Evidenced by Signs and Symptoms per chart: nutrition reported as inadequate, IBW 82%. Diagnosis Progress(for reassessment Continues documentation) Is patient on ventilator? No Is Patient Ambulatory and/or Out of Bed Yes REE-([facility]-ambulatory/OOB) [ [id number]] Kcal/Kg value to use for calculation 27 Approximate Energy Requirements Using 2059 kcal/Kg Calculation Used for Recommendations Kcal/kg Additional Notes Protein: 1-1.2 g/kg @ 70k -84g Fluids: 1 ml/kcal or per MD Nutrition Intervention Change Diet Order: continue puree, advance texture per DEBURRING MACHINE OPERATOR Nutrition Support: n/a Add Supplement/Snack (indicate name/kcal add glucerna TID /protein ) Provides kCal: 660 Provides Protein (gm) 30 Goal #1 PO intake of meals to be 50% or greater TID daily for LOS 01/04: not met, continues: po 25-50% improving Goal #2 PO intake of supplement beverages to be 50% or greater daily BID for LOS 01/04: unable to assess, no recording other than pt accepts liquids Goal #3 Weight to maintain +3% current weight during LOS 01/04: met, continues Follow-Up By: 01/11/21 Additional Comments All education and information given to his . F/U: diet texture advancement/ po intake
[2021-01-06] MEDS ORDERED: POTASSIUM CHLORIDE ER 20 MEQ TAB PO SCH (11:00)
[2021-01-06] MEDS: SODIUM BICARBONATE IV SCH (15:28)
[2021-01-06] MEDS: D5W IV SCH (15:28)
[2021-01-06] MEDS: NACL IV SCH (15:28)
[2021-01-07] MEDS: D5W IV SCH (06:10)
[2021-01-07] MEDS: HEPARIN 5,000 UNIT/1 ML VIAL SUB-Q SCH (06:10)
[2021-01-07] MEDS: NACL IV SCH (06:10)
[2021-01-07] MEDS: SODIUM BICARBONATE IV SCH (06:10)
--- NOTE | 2021-01-07 08:21 | Discharge Summary ---
Providers - Providers Date of Admission: 12/27/20 23:59 Date of discharge: 01/07/21 Attending physician: ALEJANDRA EDEN 12/27/20 23:59 Consult to Dietitian/Nutrition [CONS] Routine Physician Instructions: Reason For Exam: Reason for Consult: Nutrition Recommendations Reason for Consult: Diet education Consult to Physician [CONS] Routine Comment: Consulting Provider: CRIS BARRETO Physician Instructions: Reason For Exam: CHHAYA Occupational Therapy Evaluate and Treat [CONS] Routine Comment: Reason For Exam: Neuro deficits Physical Therapy Evaluation and Treat [CONS] Routine Comment: Reason For Exam: Neuro deficits 12/28/20 01:20 Consult to Physician [CONS] Routine Comment: Consulting Provider: SHIELA GARCIA Physician Instructions: Reason For Exam: Altered mental status, right-sided weakness 12/28/20 13:24 Speech Therapy Evaluation and Treat [CONS] Routine Reason For Exam: impaired swallowing 12/29/20 09:54 Consult to Physician [CONS] Routine Comment: Consulting Provider: DARREN GAITAN Physician Instructions: Reason For Exam: Positive blood culture Grm neg colton 1 in 2 Primary care physician: WOOL HANDLER Hospitalization Reason for admission: CVA Condition: Stable Hospital course: 70-year-old male past medical history hypertension, dementia, previous CVA admitted with possible new CVA. The patient was admitted with diagnosis of acute encephalopathy, acute CVA with right-sided weakness, Hypertension, Acute kidney injury, Diabetes mellitus type 2, Lactic acidosis 12/29/20 Patient with acute ischemic stroke right tanner , left occipital area. Cont Aspirin daily. I discussed case with Neurology. CHHAYA improving. Cr 1.7. Nephrology following. Change ivf to D5NS at 77 because of hypoglycemic episodes. 12/30/20 Patient with acute ischemic stroke right tanner , left occipital area. Cont Aspirin daily. I discussed case with Neurology. CHHAYA improving. Cr 1.6 today from 1.7 yesterday. Nephrology following. Changed ivf to D5NS at 77 because of hypoglycemic episodes. Was told by Senior Web Analyst that his girlfriend does not want him to go to SNF but wants him to go home with home health instead, when ready. He is not stable for discharge yet because Cr 1.6 low blood glucose. Poss dc in few days when Cr normal and no hypoglycemia. 12/31/2020. ID noted the positive blood cultures due to contamination. Patient is off antibiotic. For possible discharge home tomorrow if cleared by nephrology. 01/01/2021. Patient has worsening mental status. Head CT scan and ammonia level ordered. 01/02/21 Patient with acute ischemic stroke. Altered mental status. Repeat CT Head unremarkable. CHHAYA now resolved. Cr 1.3 01/03/21 Patient with acute ischemic stroke with altered mental status. His CHHAYA is now resolved. Likely discharge home tomorrow. 01/04/21 Patient with acute ischemic stroke with altered mental status. He had acute kidney injury that had resoled. However today Cr is 1.6 with hyperkalemia of 5.7. Give Calciyum gluconate, Kayexalate, Insulin and Dextrose. Initial plan was to discharge home today, but patient not stable to dc home bec ause of hyperkalemia and CHHAYA. Repeat BMP. 01/05/2021. Creatinine has improved since admission-2.4 on arrival, improved to 1.7->1.6->1.3 > 1.6 > 1.5 with IVF, was 1.0 in August 2020. Etiology secondary to vasomotor nephropathy. Nephrology following. Continue bicarbonate IV fluid. Continue p.o. hydration and increased nutrition as able. Continue Lipitor and aspirin for secondary prevention for CVA. Neurology following. ID stop ceftriaxone because blood cultures most likely contaminated. Physical therapy recommends SNF. Await discharge per case management 01/06/2021. Patient's creatinine has stabilized at 1.5. We will replete potassium of 3.3. Echocardiogram revealed EF of 50 to 55%. Carotid ultrasound less than 50% stenosis. MRI of the brain., is remarkable for subacute infarct right tanner and left occipital region. MRA brain is remarkable for left CITY PLANNING AIDE stenosis or occlusion , and right ICA at cavernous section possible aneurysm 3mm. Neurology also reports patient likely with advanced dementia. EEG per neurology. Continue aspirin and Lipitor. Patient may need placement. Physical therapy reported on 12/29 SNF placement or 24-hour care at home 01/07/2021. After discussion with physical therapy and case management, reported that she will care for the patient at home. Patient will have home health physical therapy. Patient will discharge home and follow-up with primary care physician, neurology and nephrology. Dedicated discharge time 35 minutes Discharge diagnosis: acute encephalopathy, acute CVA with right-sided weakness, Hypertension, Acute kidney injury, Diabetes mellitus type 2, Lactic acidosis, underlying advanced dementia, generalized contractures and truncal rigidity Disposition: 01 HOME / SELF CARE / HOMELESS Final Discharge Diagnosis (Prints w/discharge instructions): acute encephalopathy, acute CVA with right-sided weakness, Hypertension, Acute kidney injury, Diabetes mellitus type 2, Lactic acidosis, underlying advanced dementia, generalized contractures and truncal rigidity Core Measure Documentation - Palliative Care Palliative Care/ Comfort Measures: Not Applicable - Core Measures Any of the following diagnoses?: none Exam - Constitutional Vitals: Temp Pulse Resp BP Pulse Ox 98.6 F 88 20 186/112 96 01/07/21 03:55 01/07/21 07:29 01/07/21 03:55 01/07/21 07:28 01/07/21 07:29 General appearance: Present: no acute distress, well-nourished - EENT Eyes: Present: PERRL ENT: hearing intact, clear oral mucosa - Neck Neck: Present: supple, normal ROM - Respiratory Respiratory effort: normal Respiratory: bilateral: CTA - Cardiovascular Heart Sounds: Present: S1 & S2. Absent: rub, click - Extremities Extremities: pulses symmetrical, No edema Peripheral Pulses: within normal limits - Abdominal General gastrointestinal: Present: soft, non-tender, non-distended, normal bowel sounds Male genitourinary: Present: normal - Integumentary Integumentary: Present: clear, warm, dry - Musculoskeletal Musculoskeletal: gait normal, strength equal bilaterally - Psychiatric Psychiatric: appropriate mood/affect, intact judgment & insight - Neurologic Neurologic: CNII-XII intact, moves all extremities Plan Activity: advance as tolerated Weight Bearing Status: Non-Weight Bearing Diet: diabetic Wound: per wound nurse instructions Follow up with: KEKE RIVERS MD [Primary Care Provider] - 3-5 Days RENATE GIFFORD MD [Staff Physician] - 7 Days MARGE PIÑA MD [Staff Physician] - 7 Days Prescriptions: Aspirin EC [Ecotrin] 325 mg PO QDAY #30 tablet Metoprolol [Lopressor TAB] 25 mg PO BID #60 tablet Magnesium Oxide [Mag-Ox] 400 mg PO BID #10 tablet Potassium Chloride 40 meq PO DAILY #20 tablet.er Sodium Bicarbonate 650 mg PO TID #90 tablet lisinopriL [Zestril TAB] 5 mg PO QDAY #30 tablet
[2021-01-07] MEDS: SODIUM BICARBONATE 650 MG TAB PO SCH (09:49)
[2021-01-07] MEDS: ASPIRIN 325 MG TAB PO SCH (09:49)
[2021-01-07] MEDS: METOPROLOL TARTRATE 25 MG TAB PO SCH (09:49)
[2021-01-07] MEDS: INSULIN REGULAR, HUMAN 100 UNITS/1 ML SUB-Q SCH ×2 (09:50→12:58)
--- NOTE | 2021-01-07 10:00 | Progress Note ---
Assessment and Plan # Acute Kidney Injury: creatinine 2.4 on arrival, improved to 1.7->1.6->1.3 > 1.6 > 1.5 with IVF, was 1.0 in August 2020. Suspect pre-renal injury given elevated lactate, potential CVA and poor po intake. Patient is currently nonoliguric. -Acidosis is better. Continue bicarbonate and IV fluid - po hydration/nutrition as able - urinalysis bland, defer serologies - defer renal imaging for now - avoid nephrotoxins - Is/Os, note non-oliguria with ~1L urine output - renally dose medications - maintain MAP>65 - no immediate need for renal replacement therapy # Metabolic Acidosis/Lactic Acidosis: continue IVF as tolerated, note GNR clement teremia now. Replete HCO3 as noted, HCO3 14->16->18> 15 > 26 # Acute CVA, AMS: neurology input appreciated # Hypotension: IVF for now, po intake once able; BP now more stable # DM #Hyperkalemia. Patient is status post 1 dose of Kayexalate. Hyperkalemia has been overcorrected Renal function seems to have stabilized. Acidosis has been corrected. His p.o. intake however seems to be inadequate. Consider PEG tube placement Subjective Date of service: 01/07/21 Principal diagnosis: right side weakness ? Interval history: Patient is comfortable. Oral intake is poor. Breakfast at bedside. Untouched. Objective - Vital Signs Vital signs: Vital Signs - 12hr 01/06/21 01/07/21 01/07/21 22:46 03:55 07:28 Temperature 97.4 F L 98.6 F Pulse Rate 84 88 Respiratory 18 20 Rate Blood Pressure 172/83 169/103 186/112 O2 Sat by Pulse 98 96 Oximetry 01/07/21 07:29 Temperature Pulse Rate 88 Respiratory Rate Blood Pressure O2 Sat by Pulse 96 Oximetry - General Appearance General appearance: chronically ill, frail, other (Pleasant -[place] male) EENT: PERRL, mucous membranes moist Neck: no JVD, no thyromegaly, no carotid bruit, supple Respiratory: Present: Clear to Ascultation Cardiology: regular, normal heart rate Gastrointestinal: normal, normoactive bowel sounds Integumentary: other (No edema) - Lab 01/05/21 06:02 01/06/21 07:08 Most recent lab results Calcium 9.6 mg/dL (8.4-10.2) 01/06/21 07:08 Medications & Allergies - Medications Allergies/Adverse Reactions: Allergies No Known Allergies Allergy (Verified 08/06/19 15:49) Home Medications: Home Medications Medication Instructions Recorded Confirmed Last Taken Type Simvastatin (Nf) [Zocor TAB] 20 mg PO QHS #30 tablet 07/29/14 12/30/20 Unknown Rx Benzonatate [Tessalon Perles] 100 mg PO Q12H PRN #20 capsule 08/06/19 12/30/20 Unknown Rx Cetirizine HCl [ZyrTEC 10mg cap] 10 mg PO DAILY #30 capsule 08/06/19 12/30/20 Unknown Rx Fluticasone [Flonase] 1 spray NS QDAY #1 bottle 08/06/19 12/30/20 Unknown Rx Insulin Aspart [Insulin Aspart See Protocol SQ AC #1 insuln.pen 07/15/20 12/30/20 Unknown Rx Flexpen] Aspirin EC [Ecotrin] 325 mg PO QDAY #30 tablet 01/07/21 Unknown Rx Magnesium Oxide [Mag-Ox] 400 mg PO BID #10 tablet 01/07/21 Unknown Rx Metoprolol [Lopressor TAB] 25 mg PO BID #60 tablet 01/07/21 Unknown Rx Potassium Chloride 40 meq PO DAILY #20 tablet.er 01/07/21 Unknown Rx Sodium Bicarbonate 650 mg PO TID #90 tablet 01/07/21 Unknown Rx lisinopriL [Zestril TAB] 5 mg PO QDAY #30 tablet 01/07/21 Unknown Rx Active Medications: Generic Name Dose Route Start Last Admin Trade Name Freq PRN Reason Stop Dose Admin Acetaminophen 650 mg 12/27/20 23:59 Acetaminophen 325 Mg Tab PO Q4H PRN Pain MILD(1-3)/Fever >100.5/JOHNSON Aspirin 325 mg 12/28/20 10:00 01/07/21 09:49 Aspirin 325 Mg Tab PO 325 mg QDAY RM Administration Atorvastatin Calcium 40 mg 12/28/20 22:00 01/06/21 21:34 Atorvastatin 40 Mg Tab PO 40 mg QHS RM Administration Bisacodyl 10 mg 12/27/20 23:59 Bisacodyl 10 Mg Rect Supp CO QDAY PRN Constipation Dextrose 0 ml 12/27/20 23:59 01/04/21 08:37 Dextrose 50% In Water (25gm) 50 Ml Syringe IV 50 ml Q30MIN PRN Administration Hypoglycemia Protocol Heparin Sodium (Porcine) 5,000 unit 12/28/20 06:00 01/07/21 06:10 Heparin 5,000 Unit/1 Ml Vial SUB-Q 5,000 unit Q8HR RM Administration Insulin Human Regular 0 units 12/28/20 07:30 01/07/21 09:50 Insulin Regular, Human 100 Units/1 Ml SUB-Q Not Given ACHS RM Protocol Magnesium Hydroxide 30 ml 12/27/20 23:59 Magnesium Hydroxide (Mom) Oral Liqd Udc PO Q4H PRN Constipation Metoclopramide HCl 5 mg 12/27/20 23:59 01/05/21 10:41 Metoclopramide 10 Mg Tab PO 5 mg Q6H PRN Administration Nausea And Vomiting Metoprolol Tartrate 25 mg 12/30/20 13:00 01/07/21 09:49 Metoprolol Tartrate 25 Mg Tab PO 25 mg BID RM Administration Morphine Sulfate 2 mg 12/27/20 23:59 01/06/21 05:48 Morphine 2 Mg/1 Ml Inj IV 2 mg Q4H PRN Administration Pain, Moderate (4-6) Morphine Sulfate 4 mg 12/27/20 23:59 Morphine 4 Mg/1 Ml Inj IV Q4H PRN Pain , Severe (7-10) Ondansetron HCl 4 mg 12/27/20 23:59 01/03/21 22:46 Ondansetron 4 Mg/2 Ml Inj IV 4 mg Q8H PRN Administration Nausea And Vomiting Promethazine HCl 25 mg 12/27/20 23:59 Promethazine 25 Mg Rect Supp CO Q6H PRN Nausea And Vomiting Sodium Bicarbonate 650 mg 12/30/20 14:00 01/07/21 09:49 Sodium Bicarbonate 650 Mg Tab PO 650 mg TID RM Administration Sodium Chloride 10 ml 12/28/20 10:00 01/07/21 09:49 Sodium Chloride 0.9% 10 Ml Flush Syringe IV 10 ml BID RM Administration Sodium Chloride 10 ml 12/27/20 23:59 Sodium Chloride 0.9% 10 Ml Flush Syringe IV PRN PRN LINE FLUSH
[2021-01-07 13:23] VITALS: BP 156/92
== END 2021-01-07 14:17 | disposition home health service (06) | DRG 64 ==
LOC: ED 19:12 → 4A 23:59
PROVIDERS: ADMIT Internal Medicine Geriatric Medicine; ATTEND Hospitalist
DX: I63.9 Cerebral infarction, unspecified (principal); N17.0 Acute kidney failure with tubular necrosis; E87.2 Acidosis; R78.81 Bacteremia; G81.91 Hemiplegia, unspecified affecting right dominant side; G93.40 Encephalopathy, unspecified; G93.49 Other encephalopathy; E86.0 Dehydration; I10 Essential (primary) hypertension; E11.9 Type 2 diabetes mellitus without complications; F03.90 Unspecified dementia, unspecified severity, without behavioral disturbance, psychotic disturbance, mood disturbance, and anxiety; Z79.82 Long term (current) use of aspirin; Z79.899 Other long term (current) drug therapy; Z79.4 Long term (current) use of insulin; I95.9 Hypotension, unspecified; E87.5 Hyperkalemia
CPT/HCPCS: 36415; 70450; 70544; 70551; 71045; 80048; 80061; 80076; 81001; 82140; 82550; 82553; 82607; 82962; 84443; 84484; 85025; 85027; 85610; 85670; 85730; 87040; 93005; 93306; 93880; 95819; G0378; J7070; J0610; J0696; J1644; J1815; J2270; J2405; J2543; J7030; J7042